=== PATIENT | male | born 1940 | race Caucasian/White ===

== ENCOUNTER 2019-11-16 08:58 | Outpatient (CLI) | payer MEDICARE, SELFPAY ==
--- NOTE | ~2019-11-16 | XR_ITS ---
EXAMINATION: XR chest 2V DATE: 11/16/2019 09:40 INDICATION: Penile cancer. TECHNIQUE: Frontal and lateral views of the chest were obtained. COMPARISON: Chest 2 views 11/11/2018, CT abdomen and pelvis 11/11/2018 FINDINGS: There is mild atelectasis versus scarring at left lung base. No pleural effusion or pneumot horax. The heart size is normal. Median sternotomy wires and mediastinal surgical clips are seen, lik jaimee from prior coronary artery bypass grafting. There is a left chest wall pacer with leads in the ri ght atrium and right ventricle. There is a prominent left paracardial fat pad. Surgical clips in the right upper quadrant are likely from cholecystectomy. IMPRESSION: 1. Mild atelectasis versus scarring at left lung base. Reviewed, dictated and finalized at location A. ECTOR WELDED PARTS
--- NOTE | ~2019-11-16 | CT_ITS ---
EXAMINATION: CT abdomen pelvis w con INDICATION: Penile cancer TECHNIQUE: Computed tomographic images of the abdomen and pelvis were obtained after the administrati on of 100 cc of Omnipaque 350 intravenous contrast. The dose-length product (DLP) was 817.25 mGy-cm. Automated exposure control and iterative reconstruction technique were employed. COMPARISON: 11/11/2018 FINDINGS: There is mild atelectasis of the visualized lung bases. Cardiomegaly is noted. There are ch anges of prior cardiac surgery. Cardiac pacemaker leads are noted in the right atrium and right ventr icle. There is chronic elevation of the left hemidiaphragm. The gallbladder is surgically absent. The re is mild enlargement of the common bile duct and central intrahepatic ducts which is likely due to post cholecystectomy state. The liver, spleen, pancreas, and adrenal glands are normal. There is a 2. 7 cm cyst of the left kidney. The kidneys are otherwise unremarkable. There is calcified atherosclero sis of the aorta and many of the other arteries. No pathologically enlarged abdominal or pelvic lymph nodes are identified. Prostatic calcifications are noted. There is circumferential thickening of the urinary bladder wall. Colonic diverticulosis is present without evidence of diverticulitis. The appe ndix is normal. There is mild lumbar spondylosis. IMPRESSION: 1. No evidence of metastatic disease. 2. Circumferential bladder wall thickening which may be due to chronic outlet obstruction or cystitis . Reviewed, dictated and finalized at location A. CHUTE ACCESSORIES ATTACHER IMPRESSION: 1. No evidence of metastatic disease. 2. Circumferential bladder wall thickening which may be due to chronic outlet o bstruction or cystitis.
[2019-11-16 09:51] LABS: Blood Urea Nitrogen 10 mg/dL (8-26); Estimated Glomerular Filt Rate 53
== END 2019-11-16 08:59 | disposition home or self-care (01) ==
PROVIDERS: PCP Family Medicine; Visit Provider Urology
DX: C60.9 Malignant neoplasm of penis, unspecified (principal); R91.8 Other nonspecific abnormal finding of lung field
CPT/HCPCS: 71046; 74177; Q9967

== ENCOUNTER 2020-12-05 15:50 | Outpatient (CLI) | payer MEDICARE, SELFPAY ==
--- NOTE | ~2020-12-05 | XR_ITS ---
XR chest 2V DATE: 12/05/2020 16:47 INDICATION: Midsternal chest pain, shortness of breath. History of stents, myocardial infarction, hyp ertension. TECHNIQUE: PA and lateral views COMPARISON: 11/16/2019 PA and lateral chest 11/11/2018 PA and lateral chest FINDINGS: Left-sided pacemaker device with leads overlying right atrium and right ventricle. Status post sternotomy and coronary artery bypass graft surgery. Cardiomegaly. Aortic arch calcification. Chronic blunting of the left costophrenic angle, present on 11/11/2018. No pulmonary consolidation or pleural effusion or pneumothorax is evident. Diffuse osteopenia. IMPRESSION: Status post sternotomy/CABG Cardiomegaly, aortic atherosclerosis No active disease or significant change since 11/11/2018 Reviewed, dictated and finalized at location B. UNTING METHODS ANALYST
--- NOTE | ~2020-12-05 | CT_ITS ---
EXAMINATION: CT abdomen pelvis w con EXAM DATE: 12/05/2020 16:38 INDICATION: TECHNIQUE: Spiral CT of the abdomen and pelvis was performed following intravenous injection of 100 m L Omnipaque 350. Axial, coronal and sagittal images were reviewed. The dose-length product (DLP) fo r this examination was 913.82 mGy-cm. The exposure was tailored according to patient size (auto mA e xposure control), and iterative reconstruction (ASIR) was used as additional dose reduction technique . Comparison is made to prior examination from 11/16/2019. FINDINGS: The liver, spleen, adrenal glands and pancreas are unremarkable. There are cholecystectomy clips. There is a small splenule. Portal and splenic veins are patent. Kidneys enhance symmetrical ly. There is no hydronephrosis. Left renal exophytic 3 cm cyst. Punctate left nephrolithiasis. There is mild prostatomegaly. The bladder is unremarkable. Inguinal canals are unremarkable. There is no retroperitoneal or pelvic lymphadenopathy. There is moderate scattered arteriosclerotic disease. There are no findings to suggest appendicitis. The stomach and small bowel are unremarkable. There is expected amount of colonic stool. There is moderate scattered colonic diverticulosis. There is no adjacent inflammatory change to suggest diverticulitis. No free intraperitoneal gas. The heart is normal in size. There are no pericardial or pleural effusions. The lung bases are unremarkable. There are no osteoblastic or osteolytic lesions identified. IMPRESSION: 1. Stable exam. No evidence of metastatic disease. 2. Punctate left calyceal stone. 3. Colonic diverticulosis. Reviewed, dictated and finalized at location A. CAL OBSERVER
[2020-12-05 16:27] LABS: Estimated Glomerular Filt Rate 53
== END 2020-12-05 15:51 | disposition home or self-care (01) ==
PROVIDERS: PCP Family Medicine; Visit Provider Urology
DX: C60.9 Malignant neoplasm of penis, unspecified (principal); K57.90 Diverticulosis of intestine, part unspecified, without perforation or abscess without bleeding; Z95.1 Presence of aortocoronary bypass graft; I51.7 Cardiomegaly; I70.0 Atherosclerosis of aorta
CPT/HCPCS: 71046; 74177; Q9967

== ENCOUNTER 2022-01-06 13:28 | Outpatient (CLI) | payer MEDICARE, BC, SELFPAY ==
[2022-01-06 14:26] LABS: Hematocrit 43.7 % (42.0-52.0); Hemoglobin 14.6 g/dL (14.0-18.0); Mean Corpuscular HGB Conc 33.4 g/dl (32-36); Mean Corpuscular Hemoglobin 32.7 pg (26-34); Mean Corpuscular Volume 97.8 fl (80-100); Mean Platelet Volume 9.5 fl (7.4-10.4); Platelet Count Result 218 k/mm3 (150-375); Red Blood Count 4.47 M/mm3 (4.6-6.20); Red Cell Distribution Width 13.6 % (11.5-14.5); White Blood Count 8.5 K/mm3 (4.5-10.0)
[2022-01-06 14:41] LABS: Alanine Aminotransferase 23 U/L (4-50); Albumin Level 3.6 g/dL (3.5-5.1); Alkaline Phosphatase 90 U/L (38-126); Anion Gap 3 mmol/L (8-16); Aspartate Amino Transferase 32 U/L (17-59); Bilirubin,Total 1.8 mg/dL (0.2-1.3); Blood Urea Nitrogen 16 mg/dL (9-20); Calcium 8.5 mg/dL (8.4-10.2); Carbon Dioxide 28 mmol/L (22-30); Chloride 107 mmol/L (98-107); Cholesterol 98 mg/dL (0-200); Estimated Glomerular Filt Rate 58; Glucose 98 mg/dL (65-110); HDL Direct 25 mg/dL; Potassium 4.8 mmol/L (3.4-5.0); Sodium 138 mmol/L (137-145); Triglycerides 96 mg/dL (<150)
[2022-01-06 14:52] LABS: LDL Cholesterol Direct 48 mg/dL
[2022-01-06 18:06] LABS: Hemoglobin A1C 5.2 % (<5.7)
== END 2022-01-06 13:29 | disposition home or self-care (01) ==
LOC: ANHLAB 13:34
PROVIDERS: PCP Family Medicine; Visit Provider Family Medicine
DX: E78.2 Mixed hyperlipidemia (principal); R73.9 Hyperglycemia, unspecified; R53.83 Other fatigue; E78.5 Hyperlipidemia, unspecified; I10 Essential (primary) hypertension
CPT/HCPCS: 36415; 80053; 80061; 83036; 84443; 85027

== ENCOUNTER 2022-08-26 13:03 | Outpatient (CLI) | payer MEDICARE, BC, SELFPAY ==
--- NOTE | ~2022-08-26 | XR_ITS ---
XR chest 2V DATE: 08/26/2022 13:22 INDICATION: Cough, congestion TECHNIQUE: AP and lateral views COMPARISON: December 05, 2020 PA and lateral chest FINDINGS: Status post sternotomy. Left transvenous pacemaker device with leads overlying right atrium and right ventricle. Electronically monitor device is noted overlying the left chest. There is elevation of the left leaf of the diaphragm and left basilar infiltrate or atelectasis. The remaining lung patel are clear. No pleural effusion or pulmonary vascular congestion or pneumoth orax are noted. Aortic arch and descending thoracic aortic and abdominal aortic calcification. Diffuse osteopenia. Status post cholecystectomy. IMPRESSION: Elevated left diaphragm and left basilar infiltrate and/or atelectasis Reviewed, dictated and finalized at location A. AL ASSAULT RESPONSE COORDINATOR IMPRESSION: Elevated left diaphragm and left basilar infiltrate and/or atelecta sis
== END 2022-08-26 13:04 | disposition home or self-care (01) ==
LOC: ANHIMG 13:08
PROVIDERS: PCP Family Medicine; Visit Provider Physician Assistant Medical
DX: R05.9 Cough, unspecified (principal); R09.81 Nasal congestion; Z90.49 Acquired absence of other specified parts of digestive tract; M85.88 Other specified disorders of bone density and structure, other site
CPT/HCPCS: 71046

== ENCOUNTER 2022-11-09 14:29 | Outpatient (CLI) | payer MEDICARE, BC, SELFPAY ==
[2022-11-09 15:02] LABS: Anion Gap 2 mmol/L (8-16); Blood Urea Nitrogen 16 mg/dL (9-20); Calcium 8.3 mg/dL (8.4-10.2); Carbon Dioxide 28 mmol/L (22-30); Chloride 109 mmol/L (98-107); Estimated Glomerular Filt Rate 58; Glucose 96 mg/dL (65-110); Potassium 4.5 mmol/L (3.4-5.0); Sodium 139 mmol/L (137-145)
== END 2022-11-09 14:30 | disposition home or self-care (01) ==
LOC: ANHLAB 14:31
PROVIDERS: PCP Family Medicine; Visit Provider Specialist
DX: I25.10 Atherosclerotic heart disease of native coronary artery without angina pectoris (principal); Z95.1 Presence of aortocoronary bypass graft
CPT/HCPCS: 36415; 80048

== ENCOUNTER 2023-01-06 06:05 | Inpatient (IN) | payer MEDICARE, BC, SELFPAY ==
[2023-01-06] VITALS (19 sets, daily range): BP systolic 83–142; BP diastolic 39–80; PULSE 61–110; RESP 11–20; TEMP 36.2–36.4; O2SAT 96–100; BMI 31.1
--- NOTE | ~2023-01-06 | XR_ITS ---
AP view of the pelvis Clinical history: Pain Findings: No acute fracture or dislocation is seen. Osseous alignment is anatomic. Bilateral hip and SI joint spaces are preserved. Soft tissues are unremarkable. Impression: No significant abnormality is seen. Reviewed, dictated and finalized at location M. Impression: No significant abnormality is seen.
--- NOTE | ~2023-01-06 | CT_ITS ---
EXAMINATION: CT lumbar spine wo con DATE: 01/07/2023 15:50 INDICATION: Lumbar radiculopathy TECHNIQUE: Computed tomography (CT) of the lumbar spine was performed without intravenous contrast. T he dose-length product (DLP) was 1374.28 mGy-cm. Iterative reconstruction was used. COMPARISON: 12/05/2020 FINDINGS: No fracture, dislocation, or subluxation. There is moderate loss of intervertebral disc spa ce height at L5-S1. The vertebral body heights are maintained. The prevertebral soft tissues are norm al. Small degenerative osteophytes project from the anterior endplates of multiple vertebral bodies. IMPRESSION: 1. Moderate lumbar spondylosis at L4-5 with interval worsening since the comparison examination. Reviewed, dictated and finalized at location B. IMPRESSION: 1. Moderate lumbar spondylosis at L4-5 with interval worsening since the compar anibal examination.
--- NOTE | ~2023-01-06 | CT_ITS ---
Non-contrast Head CT History: Status post fall Technique: Axial non-contrast imaging of the brain was performed. Dose reduction technique was used on this scan by utilizing automated exposure control and iterative reconstruction technique. The dose -length product (DLP) was 605.33 mGy-cm. Findings: There is no evidence of intracranial hemorrhage, mass lesion, or acute infarct. Brain par enchyma appears normal. The ventricles and subarachnoid spaces are normal in size. The calvarium ap pears normal. The visualized paranasal sinuses and mastoid air cells are clear. Impression: No significant abnormality seen. Reviewed, dictated and finalized at location . Impression: No significant abnormality seen.
--- NOTE | 2023-01-06 06:20 | ECG_ITS ---
Measurements Intervals [place] Rate: 108 P: MA: 0 QRS: 99 QRSD: 146 T: -66 QT: 367 QTc: 494 Interpretive Statements ELECTRONIC VENTRICULAR PACEMAKER VENTRICULAR TRIGEMINY NO FURTHER INTERPRETATION IS POSSIBLE ABNORMAL ECG NO PREVIOUS ECG AVAILABLE FOR COMPARISON Electronically Signed On 01-06-2023 6:29:09 CDT by Bruce Farley D.O.
--- NOTE | 2023-01-06 06:21 | ED.WEAKNESS ---
HPI - Weakness General Chief complaint: Weakness <Nando Song MD - Last Filed: 01/06/23 07:10> Stated complaint: weakness <Nando Song MD - Last Filed: 01/06/23 07:10> Time Seen by Provider: 01/06/23 06:06 <Nando Song MD - Last Filed: 01/06/23 07:10> History of Present Illness HPI Narrative: This is an 82-year-old gentleman with past medical history of coronary artery disease status post CABG, hyperlipidemia who is brought in by EMS after a ground-level fall at home. The patient states he stood up approximately 3 hours ago, walked a few steps and felt his left leg gave out from underneath him. He states he fell to the floor landing on his left side. He does not believe he struck his head and denies loss of consciousness. He denies chest pain, palpitations prior to or after the fall. He denies vomiting or diarrhea. <Nando Song MD - Last Filed: 01/06/23 07:10> Related Data Home medications: Home Medications Medication Instructions Recorded Confirmed Lactobacills gasseri-Bifidobac 1 cap PO DAILY 10/05/19 12/09/22 bifidum,longum 1.5 billion cell capsule aspirin 81 mg chewable tablet 81 mg PO DAILY 10/05/19 08/26/22 clopidogrel 75 mg tablet (Plavix) 75 mg PO DAILY 12/27/19 12/09/22 isosorbide mononitrate 60 mg 60 mg PO DAILY 12/27/19 12/09/22 tablet,extended release 24 hr sacubitril 24 mg-valsartan 26 mg 1 tablet PO BID 12/09/22 12/09/22 tablet (Entresto) <Nando Song MD - Last Filed: 01/06/23 07:10> Allergies/Adverse reactions: Allergies Allergy/AdvReac Type Severity Reaction Status Date / Time No Known Drug Allergies Allergy Unknown Unknown Verified 12/09/22 14:10 <Nando Song MD - Last Filed: 01/06/23 07:10> Review of Systems Review of Systems: CONSTITUTIONAL: Generalized weakness Denies fever, chills, or sweats. EYES: Denies visual changes, redness, or discharge. ENT: Denies rhinorrhea, congestion, sore throat, or otalgia. CARDIOVASCULAR: Denies chest pain, palpitations, or edema. RESPIRATORY: Denies cough or dyspnea. GASTROINTESTINAL: Denies abdominal pain, nausea, vomiting, or diarrhea. GENITOURINARY: Denies dysuria or hematuria. SKIN: Denies rash or itching. MUSCULOSKELETAL: Denies back pain, joint pain, or myalgia. NEUROLOGIC: Denies headache, numbness, dizziness, or weakness. PSYCHIATRIC: Denies anxiety or depression. <Nando Song MD - Last Filed: 01/06/23 07:10> [facility] Past Medical History Medical History: Medical History Coronary artery disease History of left heart catheterization (LHC) 11/12/2016 History of pacemaker History of prediabetes Hypertension Mitral valve regurgitation <Nando Song MD - Last Filed: 01/06/23 07:10> Surgical History Surgical History: Surgical History H/O circumcision 03/13/2013 History of cholecystectomy History of heart artery stent History of hemorrhoidectomy 01/27/1981 Hx of CABG <Nando Song MD - Last Filed: 01/06/23 07:10> Family History Family History: Family History Grandparent Hypertension Father Family history of cardiovascular disease Mother Family history of cardiovascular disease Sibling Family history of cardiovascular disease <Nando Song MD - Last Filed: 01/06/23 07:10> Social History Social History: Social History Smoking status: Former smoker Tobacco type: cigarettes Second hand tobacco smoke exposure: No Smoking end date: 10/17/90 Alcohol intake: never Substance use: never Substance use type: does not use Lack of Transportation: No Lack of Food: Never True Current Housing: I Have Housing Concerned About Future Housing: No Difficulty Paying G
[2023-01-06] MEDS: SODIUM CHLORIDE 0.9% IV 500 ML 999 ML IV CONT (06:28)
[2023-01-06 06:44] LABS: Basophils Percent Auto 0.3 % (0.2-1.2); Eosinophils Absolute Auto 0.4 K/mm3 (0-0.3); Eosinophils Percent Auto 4.7 % (0-4.4); Hematocrit 45.6 % (42.0-52.0); Immature Granulocyte Absolute 0.03 K/mm3 (0.00-0.031); Immature Granulocyte Percent A 0.3 % (0-0.5); Lymphocytes Absolute Auto 0.72 K/mm3 (0.9-3.2); Lymphocytes Percent Auto 8.2 % (18.3-44.2); Mean Corpuscular HGB Conc 32.9 g/dl (32-36); Mean Corpuscular Hemoglobin 32.5 pg (26-34); Mean Corpuscular Volume 98.9 fl (80-100); Mean Platelet Volume 9.8 fl (7.4-10.4); Monocytes Absolute Auto 0.9 K/mm3 (0.1-0.6); Monocytes Percent Auto 10.6 % (2.6-8.5); Neutrophils Absolute Auto 6.6 K/mm3 (1.3-6.7); Neutrophils Percent Auto 75.9 % (45.5-73.1); Platelet Count Result 171 k/mm3 (150-375); Red Blood Count 4.61 M/mm3 (4.6-6.20); Red Cell Distribution Width 13.9 % (11.5-14.5); White Blood Count 8.8 K/mm3 (4.5-10.0)
[2023-01-06 06:52] LABS: Alanine Aminotransferase 23 U/L (6-50); Albumin Level 3.6 g/dL (3.5-5.1); Alkaline Phosphatase 94 U/L (38-126); Anion Gap 5 mmol/L (8-16); Aspartate Amino Transferase 33 U/L (17-59); Bilirubin,Total 1.6 mg/dL (0.2-1.3); Blood Urea Nitrogen 23 mg/dL (9-20); Calcium 8.7 mg/dL (8.4-10.2); Carbon Dioxide 24 mmol/L (22-30); Chloride 110 mmol/L (98-107); Estimated CRCL calculation 43 ml/min; Estimated Glomerular Filt Rate 53; Glucose 100 mg/dL (65-110); Magnesium 2.2 mg/dL (1.6-2.3); Potassium 4.7 mmol/L (3.4-5.0); Sodium 139 mmol/L (137-145)
[2023-01-06 08:31] LABS: Bacteria Urine None Seen /hpf; RBC Urine >100 /hpf (0-2); Squamous Epithelial Cell Urine None seen /hpf (Few); WBC Urine 21-50 /hpf
[2023-01-06 08:40] LABS: Appearance Urine Cloudy (Clear); Bilirubin Urine Negative (Negative); Blood Urine 3+ (Negative); Glucose Urine UA Negative (Negative); Ketones Urine Trace mg/dL (Negative); Leukocyte Esterase Ur 2+ LEU/UL (Negative); Nitrate Urine Negative (Negative); Protein Urine 2+ mg/dL (Negative); Specific Grav Ur 1.012 (1.001-1.035); pH Urine 6.5 (5.0-9.0)
[2023-01-06 08:41] LABS: Color Urine Red (Yellow)
[2023-01-06 08:42] LABS: Add Urine Microscopic? YES
[2023-01-06] MEDS: ACETAMINOPHEN 500 MG TABLET 1000 MG PO (08:52)
[2023-01-06 10:01] LABS: Troponin I < 0.012 ng/mL (0.000-0.034)
[2023-01-06 10:06] LABS: Troponin I < 0.012 ng/mL (0.000-0.034)
--- NOTE | 2023-01-06 11:26 | PCOTNOTE ---
Will complete OT evaluation after work up is complete. Will follow.
--- NOTE | 2023-01-06 12:38 | ADMGEN ---
This patient, Yoseph Luis Jr., was admitted to 3 Med Surg Room 321-01. Patient/family oriented to hospital policies and general routines including ID bracelet, bed and alarms, visiting hours, pain management, procedures, bathroom and other care routines, personal items, smoking policy, room service/diet, and visiting hours. Information on how to activate the Rapid Response Team has been discussed. Patient/Family are encouraged to report perceived risks to care and to ask questions if they do not understand what they are told or what they should do.
[2023-01-06 12:56] LABS: Troponin I < 0.012 ng/mL (0.000-0.034)
--- NOTE | 2023-01-06 13:06 | PCPTNOTE ---
Will complete PT evaluation after work up is complete. Will follow.
--- NOTE | 2023-01-06 13:11 | PCOTNOTE ---
Will complete OT evaluation after work up is complete. Will follow.
--- NOTE | 2023-01-06 13:29 | PM.IMHP ---
H&P: HPI History of Present Illness Date/Time: 01/06/23 13:29 Chief Complaint: fall Narrative: This is an 82-year-old gentleman with past medical history of coronary artery disease status post CABG, hyperlipidemia who is brought in by EMS after a ground-level fall at home.? The patient states he stood up at around 3 am to go to the bathroom, walked a few steps and felt his left leg gave out from underneath him.? He states he fell to the floor landing on his left side.? He does not believe he struck his head and denies loss of consciousness.? He denies chest pain, palpitations prior to or after the fall.? He denies vomiting or diarrhea.?his ct head was negative. xr pelvis negative. pacemaker interrogated without any abnromality reported to me. he complains of left ankle pain, left thight pain whcih starts from his low back and down the leg. he reports this is ongoing since many years. he is told he has lumbar spinal stenosis. he has not seen a surgeon or pain managment for this. Review of Systems Review of Systems: - CONSTITUTIONAL: Denies weight loss, fever and chills. - HEENT: Denies changes in vision and hearing - RESPIRATORY: Denies SOB and cough. - CV: Denies palpitations and CP. - GI: Denies abdominal pain, nausea, vomiting and diarrhea. - : Denies dysuria and urinary frequency. - MSK: Denies myalgia and reports left hip joint pain. - SKIN: Denies rash and pruritus. - NEUROLOGICAL: Denies headache and syncope. Reports recurrent fall - PSYCHIATRIC: Denies recent changes in mood. Denies anxiety and depression. [facility] Past Medical History Medical History Coronary artery disease History of left heart catheterization (LHC) 11/12/2016 History of pacemaker History of prediabetes Hypertension Mitral valve regurgitation Surgical History Surgical History H/O circumcision 03/13/2013 History of cholecystectomy History of heart artery stent History of hemorrhoidectomy 01/27/1981 Hx of CABG Family History Family History Grandparent Hypertension Father Family history of cardiovascular disease Mother Family history of cardiovascular disease Sibling Family history of cardiovascular disease Social History Social History Smoking packs per day: 1.5 Smoking cigarettes per day: 30.0 Years smoked: 50 Smoking pack-years: 75.00 Smoking status: Former smoker Tobacco type: cigarettes Second hand tobacco smoke exposure: No Smoking end date: 10/17/90 Alcohol intake: never Substance use: never Substance use type: does not use Lack of Transportation: No Lack of Food: Never True Current Housing: I Have Housing Concerned About Future Housing: No Difficulty Paying Gas/Electric Bills: No Difficulty Paying for Meds: No Currently Unemployed: No Education: High School Diploma/GED Difficulty w/ Childcare or Family Care: No Living arrangements: with family Occupation/Education: retired Gender identity (if verbalized by the patient): Male Sexual Orientation (if Verbalized by the Patient): Straight or Heterosexual Spiritual care concerns: No Agree to blood products: Yes Meds Home Medications and Allergies Home Medications Medication Instructions Recorded Confirmed Type aspirin 81 mg chewable tablet 81 mg PO DAILY 10/05/19 01/06/23 History clopidogrel 75 mg tablet (Plavix) 75 mg PO DAILY 12/27/19 01/06/23 History nitroglycerin 0.4 mg sublingual 0.4 mg sublingual Q5M PRN Chest 11/16/21 01/06/23 Rx tablet (Nitrostat) Pain #25 tabs tamsulosin 0.4 mg capsule (Flomax) 0.4 mg PO DAILY #90 caps 12/29/21 01/06/23 Rx rosuvastatin 40 mg tablet (Crestor) 40 mg PO DAILY #90 tabs 08/25/22 01/06/23 Rx fluticasone propionate 110 1 puff inhalation Q12H #12
[2023-01-06] MEDS: ROSUVASTATIN 10 MG TABLET 40 MG PO (16:55)
[2023-01-06] MEDS: TAMSULOSIN HCL 0.4 MG CAPSULE PO (16:55)
[2023-01-06] MEDS: ASPIRIN 81 MG CHEWABLE TABLET PO (16:56)
[2023-01-06] MEDS: CLOPIDOGREL BISULFATE 75 MG TABLET PO (16:56)
[2023-01-06] MEDS: FLUTICASONE PROP 110 MCG INHALER 12 GM (*SP) 1 PUFF INHALATION (22:00)
[2023-01-07] VITALS (14 sets, daily range): BP systolic 89–112; BP diastolic 50–60; PULSE 61–87; RESP 16–18; TEMP 35.9–36.6; O2SAT 95–97
[2023-01-07 07:00] LABS: Basophils Percent Auto 0.4 % (0.2-1.2); Eosinophils Absolute Auto 0.4 K/mm3 (0-0.3); Eosinophils Percent Auto 4.9 % (0-4.4); Hematocrit 39.2 % (42.0-52.0); Hemoglobin 12.9 g/dL (14.0-18.0); Immature Granulocyte Absolute 0.02 K/mm3 (0.00-0.031); Immature Granulocyte Percent A 0.2 % (0-0.5); Lymphocytes Absolute Auto 0.91 K/mm3 (0.9-3.2); Mean Corpuscular HGB Conc 32.9 g/dl (32-36); Mean Corpuscular Hemoglobin 32.3 pg (26-34); Mean Platelet Volume 10.1 fl (7.4-10.4); Neutrophils Absolute Auto 5.9 K/mm3 (1.3-6.7); Neutrophils Percent Auto 71.5 % (45.5-73.1); Platelet Count Result 155 k/mm3 (150-375); Red Cell Distribution Width 13.8 % (11.5-14.5); White Blood Count 8.3 K/mm3 (4.5-10.0)
[2023-01-07 07:09] LABS: Alanine Aminotransferase 20 U/L (6-50); Albumin Level 3.2 g/dL (3.5-5.1); Alkaline Phosphatase 71 U/L (38-126); Anion Gap 4 mmol/L (8-16); Aspartate Amino Transferase 30 U/L (17-59); Bilirubin,Total 1.3 mg/dL (0.2-1.3); Blood Urea Nitrogen 29 mg/dL (9-20); Calcium 8.2 mg/dL (8.4-10.2); Carbon Dioxide 23 mmol/L (22-30); Chloride 110 mmol/L (98-107); Estimated CRCL calculation 40 ml/min; Estimated Glomerular Filt Rate 49; Glucose 87 mg/dL (65-110); Magnesium 2.3 mg/dL (1.6-2.3); Potassium 4.3 mmol/L (3.4-5.0); Sodium 137 mmol/L (137-145)
[2023-01-07] MEDS: ROSUVASTATIN 10 MG TABLET 40 MG PO (08:48)
[2023-01-07] MEDS: SACUBITRIL/VALSARTAN 24-26 MG TABLET 1 TAB PO ×2 (08:54→17:23)
[2023-01-07] MEDS: CLOPIDOGREL BISULFATE 75 MG TABLET PO (08:54)
[2023-01-07] MEDS: TAMSULOSIN HCL 0.4 MG CAPSULE PO (08:54)
[2023-01-07] MEDS: METOPROLOL SUCCINATE EXT REL 25 MG TABCR PO (08:55)
[2023-01-07] MEDS: FLUTICASONE PROP 110 MCG INHALER 12 GM (*SP) 1 PUFF INHALATION ×2 (09:41→20:55)
[2023-01-07] MEDS: ASPIRIN 81 MG CHEWABLE TABLET PO (10:02)
[2023-01-07] MEDS: ACETAMINOPHEN 325 MG TABLET 650 MG PO (12:38)
--- NOTE | 2023-01-07 15:05 | PM.IMPN ---
Progress Note: A&P Assessment and Plan (1) Generalized weakness: Code(s): R53.1 - Weakness Status: Acute (2) Ventricular trigeminy: Code(s): I49.8 - Other specified cardiac arrhythmias Status: Acute (3) Recurrent falls: Code(s): R29.6 - Repeated falls Status: Acute (4) Cardiac LV ejection fraction of 35-39%: Code(s): R94.30 - Abnormal result of cardiovascular function study, unspecified Status: Acute (5) Primary hypertension: Code(s): I10 - Essential (primary) hypertension Status: Acute (6) Hyperlipidemia: Qualifiers: Hyperlipidemia type: unspecified Qualified Code(s): E78.5 - Hyperlipidemia, unspecified Code(s): E78.5 - Hyperlipidemia, unspecified Status: Acute (7) History of heart artery stent: Code(s): Z95.5 - Presence of coronary angioplasty implant and graft Status: Acute (8) Coronary artery disease: Code(s): I25.10 - Atherosclerotic heart disease of [place] coronary artery without angina pectoris Status: Acute (9) Pacemaker: Code(s): Z95.0 - Presence of cardiac pacemaker Status: Acute (10) Complete heart block: Code(s): I44.2 - Atrioventricular block, complete Status: Acute (11) Urinary tract infection: Code(s): N39.0 - Urinary tract infection, site not specified Status: Acute Plan Mechanical fall history not suggestive of syncope. Pacemaker interrogation with no arrhythmia reported to me from the ED. CT head is negative. History of recurrent fall in the past. Counts related to lumbar degenerative disc disease/stenosis. No imaging of this revealed in his medical chart. Could not get due to pacemaker. PT OT to see Discussed with. Need SNF placement Left ankle pain from the fall x-ray foot unremarkable UTI: Ceftriaxone continue same Ventricular trigeminy on initial EKG. Continue telemetry monitoring pacemaker interrogation with no ventricular arrhythmias Coronary artery disease status post CABG 1992 followed by stent placement last year. On aspirin Plavix Chronic systolic heart failure ejection fraction 30-35% in the past as reported. Last echocardiogram on 11/08: 53% well compensated continue sacubitril valsartan. mildly hypotensive at times which baseline Hypertension Hyperlipidemia History of complete heart block status post pacemaker implantation CKD stage 2 DVT prophylaxis Lovenox Code status full code Subjective Date/time seen: 01/07/23 15:05 Interval history: No overnight events. Work with therapy today sore in his low back on the left side with tingling and numbness and burning sensation. Could not get MRI due to pacemaker. Review of Systems Review of Systems: All systems reviewed & are unremarkable except as noted in HPI and below Exam Narrative: GENERAL: Well-developed, well-nourished, and in no acute distress. HEAD: Normocephalic, atraumatic. EYES: PERRLA and EOMI. ENT: Nares clear, no rhinorrhea or epistaxis.? Mucous membranes moist. NECK: Supple.? No adenopathy or masses.? No carotid bruits or JVD. CHEST: Clear to auscultation.? No respiratory distress.? No wheezes rales or rhonchi.? Well-healed midline surgical scar scar consistent with CABG. Pacemaker in-situ on left upper chest wall HEART: Irregularly irregular.? Rate controlled. No murmur heard.? Normal peripheral pulses. ABDOMEN: Soft, nontender, nondistended, normal active bowel sounds. BACK: Lumbar paraspinal tenderness to palpation EXTREMITIES: Normal range of motion.? No edema.? Mild tenderness to palpation over the left greater trochanter. SKIN: Scattered ecchymoses, predominantly on the left upper extremity. Skin otherwise warm, dry, no rash. NEURO: No focal deficits.? Alert and oriented x3. PSYCH: Normal mood and affect.? Objective Data Vital Signs Vital Signs: Vital Signs - 24 hr 01/06/23 16:54 01/06/23 16:00 01/06/23 21:30 Temperature 97.4 F L Pulse R
--- NOTE | 2023-01-07 15:32 | PHAR ---
HOME MEDS: CIPROFLOXACIN 0.3%/DEXAMETHASONE 0.1% OTIC SUSPENSION; SHAKE LIQUID AND INSTILL 4 DROPS INTO LEFT EAR EVERY 12 HOURS. VERIFIED BY PHARMACY
[2023-01-08] VITALS (15 sets, daily range): BP systolic 82–117; BP diastolic 39–63; PULSE 60–90; RESP 16–18; TEMP 36.3–36.4; O2SAT 93–99
--- NOTE | 2023-01-08 06:39 | PM.CNCAR ---
Assessment and Plan Assessment and plan (1) Recurrent falls: Code(s): R29.6 - Repeated falls Status: Acute (2) Pacemaker: Code(s): Z95.0 - Presence of cardiac pacemaker Status: Acute (3) Complete heart block: Code(s): I44.2 - Atrioventricular block, complete Status: Acute (4) Cardiac LV ejection fraction of 35-39%: Code(s): R94.30 - Abnormal result of cardiovascular function study, unspecified Status: Acute (5) Coronary artery disease: Code(s): I25.10 - Atherosclerotic heart disease of [place] coronary artery without angina pectoris Status: Acute Plan This is an elderly man with chronic coronary artery disease he has undergone surgical revascularization many years ago and higher risk left main stenting several years ago because of accelerating angina and frequent nitrate consumption. He also has underlying complete heart block and in May of last year received a lead less Micra AV pacemaker as his chronically implanted dual-chamber device was at [facility] and the atrial lead was no longer functioning. He is in the hospital with what seems like a mechanical fall in my opinion I do not believe we should be withdrawing any of his guideline directed medical therapy as I do not believe he is symptomaticly hypotensive. If you have any questions regarding this opinion please let me know. Jun Dunne MD [facility] History of Present Illness History of Present Illness Consult date/time: 01/08/23 06:39 Reason For Visit: syncope Narrative: This is an 82-year-old man I am seeing at the request of the hospitalist to comment on the need for medical adjustments as it pertains to reduced blood pressure. The patient is well known to me for many years and has a history of coronary artery disease, previous surgical and percutaneous revascularization as well as complete heart block and a chronically implanted cardiac pacemaker device. He was last seen by me in the office in November of this year just last month at which time he was doing well. During his recent office visits we have commented or made note of the fact that the patient has soft systolic blood pressure at times is in the 90s which we have elected to tolerated as he has not been reporting any symptoms of lightheadedness on arising or anything that sounds like orthostasis. The patient came into the hospital a couple of days ago here at [place] after falling in his home. He states that he was getting up out of a chair to go to the bathroom and he took 3 or 4 steps and then his legs gave out and he fell to the floor. He was not lightheaded or presyncopal he did not lose consciousness. For some reason syncope is on the chart but the patient does not report syncope this sounds like a mechanical fall to me. Since he has been in the hospital his blood pressure has been variable at times in the 90s but as stated above this does appear to be his baseline and from what I have noted no recent office appointments in my chart as well. He does not have any cardiovascular complaints such as chest pain shortness of breath orthopnea PND or accumulating edema. The patient has history of coronary disease is summarized as follows. He underwent a bypass operation for multivessel coronary disease back in 1992. He has a history of complete heart block and had a pacemaker implanted a long time ago. He had a standard a Biotronik dual-chamber device which was changed to a Medtronic leadless micro device in May of 2022 IAS is old device was at [facility] it is atrial lead was not functioning. The Biotronik device was not explanted but was turned down to a heart rate of 30 so he is pacing currently with his lead list device. The patient has a history of ischemic chest pain that accelerated back in 2019 at that time a follow-up catheterization demonstrated high-grade left main stenosis which was addressed effectively at [facility] with left main stenting. Since t
[2023-01-08 07:13] LABS: Basophils Percent Auto 0.3 % (0.2-1.2); Eosinophils Absolute Auto 0.5 K/mm3 (0-0.3); Eosinophils Percent Auto 5.6 % (0-4.4); Hematocrit 37.5 % (42.0-52.0); Hemoglobin 12.5 g/dL (14.0-18.0); Immature Granulocyte Absolute 0.03 K/mm3 (0.00-0.031); Immature Granulocyte Percent A 0.3 % (0-0.5); Lymphocytes Absolute Auto 0.79 K/mm3 (0.9-3.2); Lymphocytes Percent Auto 9.1 % (18.3-44.2); Mean Corpuscular HGB Conc 33.3 g/dl (32-36); Mean Corpuscular Hemoglobin 32.3 pg (26-34); Mean Corpuscular Volume 96.9 fl (80-100); Monocytes Absolute Auto 1.3 K/mm3 (0.1-0.6); Monocytes Percent Auto 14.5 % (2.6-8.5); Neutrophils Absolute Auto 6.1 K/mm3 (1.3-6.7); Neutrophils Percent Auto 70.2 % (45.5-73.1); Platelet Count Result 155 k/mm3 (150-375); Red Blood Count 3.87 M/mm3 (4.6-6.20); White Blood Count 8.7 K/mm3 (4.5-10.0)
[2023-01-08 07:34] LABS: Alanine Aminotransferase 21 U/L (6-50); Alkaline Phosphatase 74 U/L (38-126); Anion Gap 3 mmol/L (8-16); Aspartate Amino Transferase 30 U/L (17-59); Bilirubin,Total 1.1 mg/dL (0.2-1.3); Blood Urea Nitrogen 32 mg/dL (9-20); Calcium 8.2 mg/dL (8.4-10.2); Carbon Dioxide 23 mmol/L (22-30); Chloride 111 mmol/L (98-107); Estimated CRCL calculation 33 ml/min; Estimated Glomerular Filt Rate 39; Glucose 95 mg/dL (65-110); Magnesium 2.4 mg/dL (1.6-2.3); Potassium 4.4 mmol/L (3.4-5.0); Sodium 137 mmol/L (137-145)
[2023-01-08] MEDS: FLUTICASONE PROP 110 MCG INHALER 12 GM (*SP) 1 PUFF INHALATION ×2 (08:18→21:39)
[2023-01-08] MEDS: ROSUVASTATIN 10 MG TABLET 40 MG PO (08:47)
[2023-01-08] MEDS: SACUBITRIL/VALSARTAN 24-26 MG TABLET 1 TAB PO (08:47)
[2023-01-08] MEDS: METOPROLOL SUCCINATE EXT REL 25 MG TABCR PO (08:47)
[2023-01-08] MEDS: ASPIRIN 81 MG CHEWABLE TABLET PO (08:47)
[2023-01-08] MEDS: CLOPIDOGREL BISULFATE 75 MG TABLET PO (08:47)
[2023-01-08] MEDS: TAMSULOSIN HCL 0.4 MG CAPSULE PO (08:48)
[2023-01-08] MEDS: ACETAMINOPHEN 325 MG TABLET 650 MG PO (14:47)
--- NOTE | 2023-01-08 14:47 | PM.IMPN ---
Progress Note: A&P Assessment and Plan (1) Generalized weakness: Code(s): R53.1 - Weakness Status: Acute (2) Ventricular trigeminy: Code(s): I49.8 - Other specified cardiac arrhythmias Status: Acute (3) Recurrent falls: Code(s): R29.6 - Repeated falls Status: Acute (4) Cardiac LV ejection fraction of 35-39%: Code(s): R94.30 - Abnormal result of cardiovascular function study, unspecified Status: Acute (5) Primary hypertension: Code(s): I10 - Essential (primary) hypertension Status: Acute (6) Hyperlipidemia: Qualifiers: Hyperlipidemia type: unspecified Qualified Code(s): E78.5 - Hyperlipidemia, unspecified Code(s): E78.5 - Hyperlipidemia, unspecified Status: Acute (7) History of heart artery stent: Code(s): Z95.5 - Presence of coronary angioplasty implant and graft Status: Acute (8) Coronary artery disease: Code(s): I25.10 - Atherosclerotic heart disease of [place] coronary artery without angina pectoris Status: Acute (9) Pacemaker: Code(s): Z95.0 - Presence of cardiac pacemaker Status: Acute (10) Complete heart block: Code(s): I44.2 - Atrioventricular block, complete Status: Acute (11) Urinary tract infection: Code(s): N39.0 - Urinary tract infection, site not specified Status: Acute Plan # Mechanical fall history not suggestive of syncope. Pacemaker interrogation with no arrhythmia reported to me from the ED. CT head is negative. History of recurrent fall in the past. Counts related to lumbar degenerative disc disease/stenosis. No imaging of this revealed in his medical chart. Could not get MRI due to pacemaker. PT OT to see Discussed with them. Need SNF placement # Left ankle pain from the fall x-ray foot unremarkable # UTI: Ceftriaxone continue same # Ventricular trigeminy on initial EKG. Continue telemetry monitoring pacemaker interrogation with no ventricular arrhythmias # Coronary artery disease status post CABG 1992 followed by stent placement last year. On aspirin Plavix # Chronic systolic heart failure ejection fraction 30-35% in the past as reported. Last echocardiogram on 11/08: 53% well compensated continue sacubitril valsartan. mildly hypotensive at times which baseline # Hypertension # Hyperlipidemia # History of complete heart block status post pacemaker implantation # CKD stage 2 Mild worsening of creatinine today. Will recheck and monitor. Intermittently hypotensive. Remains on Entresto and metoprolol cardiology consulted # DVT prophylaxis Lovenox # Code status full code Subjective Date/time seen: 01/08/23 14:47 Interval history: No new complaints. Has a little bit of numbness in his lower leg. CT was reviewed. Discussed with family at bedside. Review of Systems Review of Systems: All systems reviewed & are unremarkable except as noted in HPI and below Exam Narrative: GENERAL: Well-developed, well-nourished, and in no acute distress. HEAD: Normocephalic, atraumatic. EYES: PERRLA and EOMI. ENT: Nares clear, no rhinorrhea or epistaxis.? Mucous membranes moist. NECK: Supple.? No adenopathy or masses.? No carotid bruits or JVD. CHEST: Clear to auscultation.? No respiratory distress.? No wheezes rales or rhonchi.? Well-healed midline surgical scar scar consistent with CABG. Pacemaker in-situ on left upper chest wall HEART: Irregularly irregular.? Rate controlled. No murmur heard.? Normal peripheral pulses. ABDOMEN: Soft, nontender, nondistended, normal active bowel sounds. BACK: Lumbar paraspinal tenderness to palpation EXTREMITIES: Normal range of motion.? No edema.? Mild tenderness to palpation over the left greater trochanter. SKIN: Scattered ecchymoses, predominantly on the left upper extremity. Skin otherwise warm, dry, no rash. NEURO: No focal deficits.? Alert and oriented x3. PSYCH: Normal mood and affect.? Objective Data
[2023-01-09] VITALS: PULSE 107
[2023-01-09 04:00] VITALS: PULSE 69
[2023-01-09 05:50] VITALS: BP 113/60; PULSE 62; RESP 16; TEMP 36.1; O2SAT 97
[2023-01-09 07:27] LABS: Basophils Absolute Auto 0.1 K/mm3 (0.0-0.1); Basophils Percent Auto 0.6 % (0.2-1.2); Eosinophils Absolute Auto 0.5 K/mm3 (0-0.3); Eosinophils Percent Auto 6.4 % (0-4.4); Hemoglobin 12.6 g/dL (14.0-18.0); Immature Granulocyte Absolute 0.04 K/mm3 (0.00-0.031); Immature Granulocyte Percent A 0.5 % (0-0.5); Lymphocytes Absolute Auto 0.78 K/mm3 (0.9-3.2); Lymphocytes Percent Auto 9.6 % (18.3-44.2); Mean Corpuscular HGB Conc 32.3 g/dl (32-36); Mean Corpuscular Hemoglobin 31.6 pg (26-34); Mean Corpuscular Volume 97.7 fl (80-100); Mean Platelet Volume 9.9 fl (7.4-10.4); Monocytes Absolute Auto 1.3 K/mm3 (0.1-0.6); Neutrophils Absolute Auto 5.4 K/mm3 (1.3-6.7); Neutrophils Percent Auto 66.9 % (45.5-73.1); Platelet Count Result 156 k/mm3 (150-375); Red Blood Count 3.99 M/mm3 (4.6-6.20); Red Cell Distribution Width 13.9 % (11.5-14.5); White Blood Count 8.1 K/mm3 (4.5-10.0)
[2023-01-09 07:45] LABS: Alanine Aminotransferase 22 U/L (6-50); Albumin Level 3.1 g/dL (3.5-5.1); Alkaline Phosphatase 70 U/L (38-126); Anion Gap 2 mmol/L (8-16); Aspartate Amino Transferase 31 U/L (17-59); Blood Urea Nitrogen 32 mg/dL (9-20); Calcium 8.5 mg/dL (8.4-10.2); Carbon Dioxide 25 mmol/L (22-30); Chloride 112 mmol/L (98-107); Estimated CRCL calculation 33 ml/min; Estimated Glomerular Filt Rate 39; Glucose 91 mg/dL (65-110); Magnesium 2.6 mg/dL (1.6-2.3); Potassium 4.7 mmol/L (3.4-5.0); Sodium 139 mmol/L (137-145)
[2023-01-09 08:00] VITALS: PULSE 64
[2023-01-09] MEDS: ASPIRIN 81 MG CHEWABLE TABLET PO (09:05)
[2023-01-09] MEDS: ROSUVASTATIN 10 MG TABLET 40 MG PO (09:05)
[2023-01-09] MEDS: METOPROLOL SUCCINATE EXT REL 25 MG TABCR PO (09:05)
[2023-01-09] MEDS: TAMSULOSIN HCL 0.4 MG CAPSULE PO (09:05)
[2023-01-09] MEDS: CLOPIDOGREL BISULFATE 75 MG TABLET PO (09:05)
[2023-01-09] MEDS: SACUBITRIL/VALSARTAN 24-26 MG TABLET 1 TAB PO (09:05)
[2023-01-09] MEDS: FLUTICASONE PROP 110 MCG INHALER 12 GM (*SP) 1 PUFF INHALATION (09:38)
[2023-01-09 12:00] VITALS: PULSE 78
--- NOTE | 2023-01-09 13:18 | PM.DS ---
DS: Admitting Diagnosis Discharge Date 01/09/2023 Admitting Diagnosis Ground level fall DS: Discharge Diagnosis Discharge Diagnosis (1) Generalized weakness: Code(s): R53.1 - Weakness Status: Acute (2) Ventricular trigeminy: Code(s): I49.8 - Other specified cardiac arrhythmias Status: Acute (3) Recurrent falls: Code(s): R29.6 - Repeated falls Status: Acute (4) Cardiac LV ejection fraction of 35-39%: Code(s): R94.30 - Abnormal result of cardiovascular function study, unspecified Status: Acute (5) Primary hypertension: Code(s): I10 - Essential (primary) hypertension Status: Acute (6) Hyperlipidemia: Qualifiers: Hyperlipidemia type: unspecified Qualified Code(s): E78.5 - Hyperlipidemia, unspecified Code(s): E78.5 - Hyperlipidemia, unspecified Status: Acute (7) History of heart artery stent: Code(s): Z95.5 - Presence of coronary angioplasty implant and graft Status: Acute (8) Coronary artery disease: Code(s): I25.10 - Atherosclerotic heart disease of [place] coronary artery without angina pectoris Status: Acute (9) Pacemaker: Code(s): Z95.0 - Presence of cardiac pacemaker Status: Acute (10) Complete heart block: Code(s): I44.2 - Atrioventricular block, complete Status: Acute (11) Urinary tract infection: Code(s): N39.0 - Urinary tract infection, site not specified Status: Acute DS: Summary Hospital Course Hospital Course: # Mechanical fall history not suggestive of syncope.? Pacemaker interrogation with no arrhythmia reported to me from the ED. CT head is negative.? History of recurrent fall in the past.? Could be related to lumbar degenerative disc disease/stenosis.? No imaging of this revealed in his medical chart.? ? Could not get MRI due to pacemaker.? PT OT to see? Discussed with them.? Need SNF placement CT lumbar spine with findings of lumbar spondylosis moderate at L4-L5 with interval worsening since the comparison examination in 2020. I suspect lumbar radiculopathy and he should be referred to Spine surgery/pain management as an outpatient basis for further evaluation and treatment # Left ankle pain from the fall x-ray foot unremarkable # UTI: Ceftriaxone received 3 days course. Culture negative. Will conclude antibiotic course # Ventricular trigeminy on initial EKG.? Continue telemetry monitoring pacemaker interrogation with no ventricular arrhythmias # Coronary artery disease status post CABG 1992 followed by stent placement last year.? On aspirin Plavix # Chronic systolic heart failure ejection fraction 30-35% in the past as reported.? Last echocardiogram on 11/08: 53% well compensated continue sacubitril valsartan. ? mildly hypotensive at times which baseline. Cardiology consulted during the hospital stay suggest no change in medication # Hypertension # Hyperlipidemia # History of complete heart block status post pacemaker implantation # CKD stage 2 Mild worsening of creatinine however remain stable Will recheck and monitor.? Intermittently hypotensive.? Remains on Entresto and metoprolol cardiology consulted # DVT prophylaxis Lovenox # Code status full code Time Spent with Patient Time attestation: Total time spent providing and/or coordinating discharge services: 40 minutes Exam Narrative: GENERAL: Well-developed, well-nourished, and in no acute distress. HEAD: Normocephalic, atraumatic. EYES: PERRLA and EOMI. ENT: Nares clear, no rhinorrhea or epistaxis.? Mucous membranes moist. NECK: Supple.? No adenopathy or masses.? No carotid bruits or JVD. CHEST: Clear to auscultation.? No respiratory distress.? No wheezes rales or rhonchi.? Well-healed midline surgical scar scar consistent with CABG. Pacemaker in-situ on left upper chest wall HEART: Irregularly irregular.? Rate controlled. No murmur heard.? Normal peripheral pulses. ABDOMEN: Soft, nontender, nondiste
== END 2023-01-09 16:08 | DRG 552 ==
LOC: ANHED 10:30 → ANH3MEDSUR 10:33
PROVIDERS: Emergency Medicine; Admitting Provider Internal Medicine; Emergency Provider Preventive Medicine Aerospace Medicine; PCP Family Medicine; Visit Provider Internal Medicine
DX: M47.26 Other spondylosis with radiculopathy, lumbar region (principal); I44.2 Atrioventricular block, complete; I50.22 Chronic systolic (congestive) heart failure; I13.0 Hypertensive heart and chronic kidney disease with heart failure and stage 1 through stage 4 chronic kidney disease, or unspecified chronic kidney disease; I25.10 Atherosclerotic heart disease of native coronary artery without angina pectoris; R29.6 Repeated falls; I49.8 Other specified cardiac arrhythmias; N18.2 Chronic kidney disease, stage 2 (mild); E78.5 Hyperlipidemia, unspecified; Z95.5 Presence of coronary angioplasty implant and graft; Z95.0 Presence of cardiac pacemaker; Z87.891 Personal history of nicotine dependence; Z79.899 Other long term (current) drug therapy; Z82.49 Family history of ischemic heart disease and other diseases of the circulatory system
CPT/HCPCS: 36415; 70450; 72131; 72170; 73630; 80053; 81001; 83735; 84443; 84484; 85025; 87086; 87088; 93005; 94640; 96361; 96365; 96366; 97110; 97161; 97165; 97535; 99285; A9270; G0378; J0696; J7040

== ENCOUNTER 2023-01-18 14:07 | Outpatient (CLI) | payer OTHER, SELFPAY ==
--- NOTE | ~2023-01-18 | CT_ITS ---
EXAMINATION: CT chest high resolution wo co DATE: 01/18/2023 14:26 INDICATION: Shortness of breath TECHNIQUE: Computed tomography (CT) of the chest was performed without intravenous contrast. The dose -length product (DLP) was 363.32 mGy-cm. Automated exposure control and iterative reconstruction tech nique were employed. COMPARISON: None FINDINGS: There is mild atelectasis. There is mild bronchiectasis of the lower lobes. No pleural effu mindi or pneumothorax. There is left atrial enlargement of the heart. Changes of cardiac surgery are n oted. A dual-lead cardiac pacemaker of the left chest wall ends with leads in expected locations. The re are minimal groundglass opacities in the right lung apex. There are no pathologically enlarged tho racic lymph nodes. There is a small sliding hiatal hernia. There is a moderate amount of ingested liq uid material in the esophagus. The gallbladder is surgically absent. There is a 3.8 cm cyst of the le ft kidney. IMPRESSION: 1. Mild bronchiectasis in the lower lobes, likely related to prior infection. 2. Subtle groundglass opacities in the right lung apex, likely infection/inflammation. 3. Small sliding hiatal hernia with moderate amount of ingested liquid material in the esophagus incr easing risk for aspiration. Reviewed, dictated and finalized at location B. IMPRESSION: 1. Mild bronchiectasis in the lower lobes, likely related to prior infection. 2. Subtle groundglass opacities in the right lung apex, likely infection/inflam mation. 3. Small sliding hiatal hernia with moderate amount of ingested liquid material in the esophagus increasing risk for aspiration.
== END 2023-01-18 14:08 | disposition home or self-care (01) ==
PROVIDERS: PCP Nurse Practitioner Family; Visit Provider Nurse Practitioner Family
DX: R06.02 Shortness of breath (principal); K44.9 Diaphragmatic hernia without obstruction or gangrene; R91.8 Other nonspecific abnormal finding of lung field
CPT/HCPCS: 71250

== ENCOUNTER 2023-01-28 15:03 | Outpatient (CLI) | payer MEDICARE, BC, SELFPAY | END 2023-01-28 15:04 | disposition home or self-care (01) | LOC: CHSLAB 15:06 | PROVIDERS: PCP Family Medicine; Visit Provider Physician Assistant Medical | DX: A04.72 Enterocolitis due to Clostridium difficile, not specified as recurrent (principal) | CPT/HCPCS: 87493 ==

== ENCOUNTER 2023-02-04 18:36 | Outpatient (CLI) | payer MEDICARE, BC, SELFPAY | END 2023-02-04 18:37 | disposition home or self-care (01) | LOC: CHSLAB 18:37 | PROVIDERS: PCP Family Medicine; Visit Provider Family Medicine | DX: R19.7 Diarrhea, unspecified (principal) | CPT/HCPCS: 87324 ==

== ENCOUNTER 2023-02-11 11:35 | Outpatient (CLI) | payer MEDICARE, BC, SELFPAY ==
[2023-02-11 12:38] LABS: Alanine Aminotransferase 22 U/L (6-50); Albumin Level 2.9 g/dL (3.5-5.1); Alkaline Phosphatase 83 U/L (38-126); Anion Gap 2 mmol/L (8-16); Aspartate Amino Transferase 31 U/L (17-59); Bilirubin,Total 1.9 mg/dL (0.2-1.3); Blood Urea Nitrogen 15 mg/dL (9-20); Carbon Dioxide 29 mmol/L (22-30); Chloride 107 mmol/L (98-107); Estimated Glomerular Filt Rate > 60; Glucose 90 mg/dL (65-110); Potassium 3.5 mmol/L (3.4-5.0); Sodium 138 mmol/L (137-145)
== END 2023-02-11 11:36 | disposition home or self-care (01) ==
LOC: ANHLAB 11:37
PROVIDERS: PCP Family Medicine; Visit Provider Physician Assistant Medical
DX: E78.2 Mixed hyperlipidemia (principal)
CPT/HCPCS: 36415; 80053

== ENCOUNTER 2023-03-08 17:50 | Inpatient (IN) | payer MEDICARE, BC, SELFPAY ==
--- NOTE | ~2023-03-08 | XR_ITS ---
EXAMINATION: XR chest 2V Exam Date/Time: 03/08/2023 19:21 CDT HISTORY: dyspnea, SOB Comparison: 08/26/2022. RESULT: Lines, tubes, and devices: Left chest pacer with intact leads. Intact sternotomy wires. Mediastinal vascular clips. Loop recorder. Lungs and pleura: Segmental left basilar and bilateral lower lung groundglass opacities. Diffuse int erstitial opacities with indistinct vessels and cuffing. Bilateral angle blunting, greater on the lef t. Cardiomediastinal silhouette: Stable. Other: No acute osseous or upper abdominal finding. IMPRESSION: Left basilar atelectasis/consolidation. Moderate left and small right pleural effusions. Pulmonary ed ebnigno. Reviewed, dictated and finalized at location K. IMPRESSION: Left basilar atelectasis/consolidation. Moderate left and small right pleural e ffusions. Pulmonary edema.
--- NOTE | ~2023-03-08 | XR_ITS ---
Portable chest x-ray Comparison: 03/08/2023 Clinical History: CHF Findings: Small left pleural effusion is present. There is moderate pulmonary edema pattern, mixed a lveolar and interstitial. Cardiomediastinal silhouette is stable, with pacemaker device and wireless monitoring device. Bones and soft tissues are unremarkable. Impression: Moderate mixed alveolar and interstitial pulmonary edema. Small left pleural effusion. Reviewed, dictated and finalized at [facility]. Impression: Moderate mixed alveolar and interstitial pulmonary edema. Small left pleural effusion.
--- NOTE | 2023-03-08 19:08 | ED.SOB ---
HPI - SOB/Dyspnea General Chief Complaint: Shortness of Breath/Dyspnea Time Seen by Provider: 03/08/23 19:06 Source: patient and family Mode of arrival: ambulatory Limitations: no limitations History of Present Illness HPI Narrative: Patient is an 83-year-old male with a history of dementia, congestive heart failure, pacemaker, hypertension, coronary artery disease, presenting to the emergency department with family for evaluation of shortness of breath. Patient noted to have labored breathing by daughter, with audible wheezing. She reports dry cough, no hemoptysis. No fever, chills, nausea or vomiting. Patient takes midodrine for congestive heart failure, she denies any recent medication changes that she is aware of. Patient does not take any Lasix medication. 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 No chronic anticoagulation. He is on dual antiplatelet therapy. Patient reports bilateral lower extremity edema and edema in his hands as well. Patient moved into an assisted living facility 3 weeks ago per daughter. History obtained from daughter and some from patient. Related Data Home Medications Medication Instructions Recorded Confirmed aspirin 81 mg chewable tablet 81 mg PO DAILY 10/05/19 01/06/23 clopidogrel 75 mg tablet (Plavix) 75 mg PO DAILY 12/27/19 01/06/23 sacubitril 24 mg-valsartan 26 mg 1 tablet PO BID 12/09/22 01/06/23 tablet (Entresto) metoprolol succinate 25 mg 25 mg PO DAILY 01/06/23 01/06/23 tablet,extended release 24 hr Allergies Allergy/AdvReac Type Severity Reaction Status Date / Time No Known Drug Allergies Allergy Unknown Unknown Verified 03/08/23 16:21 Review of Systems Review of Systems: CONSTITUTIONAL: Denies fever, chills, or sweats. EYES: Denies visual changes, redness, or discharge. ENT: Denies rhinorrhea, congestion, sore throat, or otalgia. CARDIOVASCULAR: Denies chest pain, palpitations, reports lower extremity edema RESPIRATORY: Denies cough, reports shortness of breath, reports wheezing GASTROINTESTINAL: Denies abdominal pain, nausea, vomiting, or diarrhea. GENITOURINARY: Denies dysuria or hematuria. SKIN: Denies rash or itching. MUSCULOSKELETAL: Denies back pain, joint pain, or myalgia. NEUROLOGIC: Denies headache, numbness, or weakness. [facility] Past Medical History Medical History Coronary artery disease Dementia History of left heart catheterization (LHC) 11/12/2016 History of pacemaker History of prediabetes Hypertension Mitral valve regurgitation Surgical History Surgical History H/O circumcision 03/13/2013 History of cholecystectomy History of heart artery stent History of hemorrhoidectomy 01/27/1981 Hx of CABG Family History Family History Grandparent Hypertension Father Family history of cardiovascular disease Mother Family history of cardiovascular disease Sibling Family history of cardiovascular disease Social History Social History Smoking packs per day: 1.5 Smoking cigarettes per day: 30.0 Years smoked: 30 Smoking pack-years: 45.00 Smoking status: Former smoker Tobacco type: cigarettes Second hand tobacco smoke exposure: No Smoking end date: 10/17/90 Alcohol intake: never Substance use: never Substance use type: prescription drug Lack of Transportation: No Lack of Food: Never True Current Housing: I Have Housing Concerned About Future Housing: No Difficulty Paying Gas/Electric Bills: No Difficulty Paying for Meds: No Currently Unemployed: No Education: High School Diploma/GED Difficulty w/ Childcare or Family Care: No Living arrangements: with family Occupation/Education: retired Gender identity (if verbalized by the patient): Male Sexual Orientation (if Verbalized by the Patie
[2023-03-08 19:28] LABS: Basophils Absolute Auto 0.1 K/mm3 (0.0-0.1); Basophils Percent Auto 0.4 % (0.2-1.2); Eosinophils Absolute Auto 0.2 K/mm3 (0-0.3); Eosinophils Percent Auto 1.7 % (0-4.4); Hematocrit 35.1 % (42.0-52.0); Hemoglobin 11.1 g/dL (14.0-18.0); Immature Granulocyte Absolute 0.03 K/mm3 (0.00-0.031); Immature Granulocyte Percent A 0.3 % (0-0.5); Lymphocytes Absolute Auto 0.71 K/mm3 (0.9-3.2); Lymphocytes Percent Auto 6.2 % (18.3-44.2); Mean Corpuscular HGB Conc 31.6 g/dl (32-36); Mean Corpuscular Hemoglobin 32.1 pg (26-34); Mean Corpuscular Volume 101.4 fl (80-100); Mean Platelet Volume 9.5 fl (7.4-10.4); Monocytes Absolute Auto 0.9 K/mm3 (0.1-0.6); Monocytes Percent Auto 7.7 % (2.6-8.5); Neutrophils Absolute Auto 9.6 K/mm3 (1.3-6.7); Neutrophils Percent Auto 83.7 % (45.5-73.1); Platelet Count Result 229 k/mm3 (150-375); Red Blood Count 3.46 M/mm3 (4.6-6.20); Red Cell Distribution Width 15.3 % (11.5-14.5); White Blood Count 11.5 K/mm3 (4.5-10.0)
[2023-03-08 19:50] LABS: INR 1.1; Partial Thromboplastin Time 26.7 SECONDS (22.3-36.8); Prothrombin Time 15.1 Seconds (11.1-14.7)
[2023-03-08] MEDS: FUROSEMIDE INJ 40 MG/4 ML VIAL 20 MG IV PUSH (20:00)
[2023-03-08 20:53] LABS: Lactic Acid Reflex 1.3 mmol/L (0.7-2.0)
[2023-03-08 21:01] LABS: Alanine Aminotransferase 25 U/L (6-50); Albumin Level 2.8 g/dL (3.5-5.1); Alkaline Phosphatase 78 U/L (38-126); Anion Gap 3 mmol/L (8-16); Aspartate Amino Transferase 30 U/L (17-59); Bilirubin,Total 1.3 mg/dL (0.2-1.3); Blood Urea Nitrogen 17 mg/dL (9-20); Calcium 7.8 mg/dL (8.4-10.2); Carbon Dioxide 31 mmol/L (22-30); Chloride 105 mmol/L (98-107); Estimated CRCL calculation 52 ml/min; Estimated Glomerular Filt Rate > 60; Glucose 88 mg/dL (65-110); Potassium 3.4 mmol/L (3.4-5.0); Sodium 139 mmol/L (137-145)
[2023-03-08 21:16] LABS: NT Pro B Type Natriuretic Pept 7620 pg/mL (19.9-100); Troponin I 0.072 ng/mL (0.000-0.034)
[2023-03-08 21:35] LABS: Influenza A QL RT-PCR Negative (Negative); Influenza B QL RT-PCR Negative (Negative); RSV RNA, RT-PCR Negative (Negative); SARS-CoV-2 RNA PCR Negative (Negative)
[2023-03-08 21:43] LABS: Appearance Urine Clear (Clear); Bacteria Urine None Seen /hpf; Bilirubin Urine Negative (Negative); Blood Urine Negative (Negative); Color Urine Yellow (Yellow); Glucose Urine UA Negative (Negative); Ketones Urine Negative (Negative); Leukocyte Esterase Ur 2+ LEU/UL (Negative); Nitrate Urine Negative (Negative); Protein Urine Negative (Negative); RBC Urine 0-2 /hpf (0-2); Specific Grav Ur 1.008 (1.001-1.035); Squamous Epithelial Cell Urine None seen /hpf (Few); Urobilinogen Urine 0.2 mg/dL (<2.0)
[2023-03-08 21:44] VITALS: O2SAT 96
[2023-03-08 21:50] LABS: Add Urine Microscopic? YES
[2023-03-08 22:00] VITALS: BP 135/83; PULSE 62; RESP 14; O2SAT 99
[2023-03-08 22:12] LABS: PCO2 ABG 37.9 mmHg (35.0-45.0); pH ABG 7.467 (7.350-7.450)
[2023-03-08 22:13] LABS: HCO3 ABG 26.8 mEq/l (22.0-26.0); PO2 ABG 101.5 mmHg (80.0-100.0); Total Hemoglobin 11.6 g/dL (12.0-18.0)
[2023-03-08 22:15] LABS: Carboxyhemoglobin 0.7 % THb (0-2.0); Methemoglobin ABG 0.2 %THb (0-1.5); Oxyhemoglobin 96.2 % THb (90.0-100.0); Reduced Hemoglobin 2.9 %THb (0-5.0)
[2023-03-08 22:16] LABS: Device NASAL CANNULA; PO2 FiO2 Ratio Arterial Blood 3.63 %; Site Drawn RIGHT BRACHIAL
[2023-03-08 22:17] LABS: Fractional Inspired Oxygen 28 %; Oxygen Content ABG 15.8 %vol (16.0-22.0)
[2023-03-08 22:18] LABS: Alveolar/Arterial O2 Gradient 53.4 mmHg
[2023-03-08] MEDS: AZITHROMYCIN 500 MG/NS 250 ML 500 MG/250 ML BAG 250 MG IVPB (22:39)
[2023-03-08 22:56] LABS: Procalcitonin 0.2 ng/mL
--- NOTE | 2023-03-08 23:00 | PC.NURSE ---
pt. only has hearing aid for R ear
[2023-03-08 23:11] VITALS: BP 163/99; PULSE 66; RESP 14; O2SAT 95
[2023-03-09] VITALS (16 sets, daily range): BP systolic 102–130; BP diastolic 42–60; PULSE 61–78; RESP 14–30; TEMP 36.2–36.6; O2SAT 96–100; BMI 34.0
--- NOTE | 2023-03-09 | ECHO_ITS ---
Patient Info Name: Yoseph Luis Age: 83 years : 1940 Gender: Male Ht: 67 in Wt: 226 lbs BSA: 2.24 m2 HR: 62 bpm BP: 106 / 42 mmHg Technical Quality: Fair Exam Date: 03/09/2023 10:23 AM Exam Location: [facility] Patient Status: Inpatient Admit Date: 03/08/2023 Staff Ordering Physician: Hillary Gonzales MD Residential Sales Associate: Marizol Owens RDCS Attending Provider: Dwain Childress MD Referring Physician: Christian BARRERA; Exam Type: CA echo dop color flow w con Study Info Indications - ELEVATED BNP, ACUTE CHF EXACERBATION Complete two-dimensional, color flow and Doppler transthoracic echocardiogram is performed with contrast to opacify the left ventricle and to improve the deliniation of the left ventricle endocardial borders. Contrast/Agitated Saline Contrast/Ag. Saline: Definity Amount: 3.00 ml Administered By: Mraizol Owens RDCS Existing IV Access: Yes IV Access Condition: patent with no signs of infiltration Summary 1. Left ventricular chamber dimension is normal. 2. Left ventricular systolic function is normal, estimated at 60-65%. 3. There is mildly increased left ventricular wall thickness. 4. Left ventricular septal wall motion is abnormal with septal motion related to pacing. 5. Right ventricular chamber dimension is normal. 6. Right ventricular systolic function is reduced. 7. Left atrial chamber dimension is mildly enlarged. 8. There is moderate aortic valve sclerosis. 9. There is mild aortic valve regurgitation. 10. There is mild mitral valve regurgitation. 11. There is mild tricuspid valve regurgitation. 12. There is mild pulmonic regurgitation. Left Ventricle Left ventricular chamber dimension is normal. Left ventricular systolic function is normal, estimated at 60-65%. There is mildly increased left ventricular wall thickness. Left ventricular septal wall motion is abnormal with septal motion related to pacing. Right Ventricle Right ventricular chamber dimension is normal. Right ventricular systolic function is reduced. Left Atria Left atrial chamber dimension is mildly enlarged. Right Atria Right atrial chamber dimension is normal. Aortic Valve The aortic valve is trileaflet. There is moderate aortic valve sclerosis. There is no aortic valve stenosis. There is mild aortic valve regurgitation. Pulmonic Valve The pulmonic valve is not well visualized. There is mild pulmonic regurgitation. Mitral Valve There is mild mitral valve regurgitation. The mitral valve annulus is moderately calcified. Tricuspid Valve There is mild tricuspid valve regurgitation. Pericardium/Pleural There is no pericardial effusion. Inferior Vena Cava Inferior vena cava is not well visualized. Aorta The aortic root size at the sinus of Valsalva is normal. There is moderate aortic atherosclerosis. Left Ventricular Outflow Tract Name Value Normal LVOT 2D LVOT Diameter 2.00 cm LVOT Doppler LVOT Peak Gradient 2 mmHg LVOT Mean Gradient 1 mmHg LVOT VTI 15.34 cm LVOT VTI/AV VTI Ratio 0.77
--- NOTE | 2023-03-09 00:47 | ADMGEN ---
This patient, Yoseph Luis Jr., was admitted to IMU Room 231-01. Patient/family oriented to hospital policies and general routines including ID bracelet, bed and alarms, visiting hours, pain management, procedures, bathroom and other care routines, personal items, smoking policy, room service/diet, and visiting hours. Information on how to activate the Rapid Response Team has been discussed. Patient/Family are encouraged to report perceived risks to care and to ask questions if they do not understand what they are told or what they should do.
[2023-03-09 02:09] LABS: Troponin I 0.087 ng/mL (0.000-0.034)
--- NOTE | 2023-03-09 02:29 | PM.IMHP ---
H&P: HPI History of Present Illness Date/Time: 03/09/23 02:29 Chief Complaint: shortness of breath Narrative: This is an 83-year-old male with past medical history significant for coronary artery disease, dementia, hypertension, mitral valve regurg, patient has been living at assisted living facility was brought for evaluation to the emergency room due to bilateral lower extremity edema, cough productive of copious amount of being to yellowish secretions, shortness of breath ,chills. Patient had been recently discharged to rehabilitation where he was diagnosed with C difficile. Most of the history has been obtained from daughter who is at bedside. Preliminary workup was significant for brain natriuretic peptide is over 600, a chest x-ray was reported as: EXAMINATION:? XR chest 2V Exam Date/Time:? 03/08/2023 19:21 CDT HISTORY: dyspnea, SOB ? Comparison:? 08/26/2022. RESULT: Lines, tubes, and devices:? Left chest pacer with intact leads. Intact sternotomy wires. Mediastinal vascular clips. Loop recorder. Lungs and pleura:? Segmental left basilar and bilateral lower lung groundglass opacities. Diffuse interstitial opacities with indistinct vessels and cuffing. Bilateral angle blunting, greater on the left. Cardiomediastinal silhouette:? Stable. Other:? No acute osseous or upper abdominal finding. ? IMPRESSION: Left basilar atelectasis/consolidation. Moderate left and small right pleural effusions. Pulmonary edema. Review of Systems Review of Systems: ROS unobtainable: Yes unobtainable due to medical condition ( dementia can not really provide a meaningful history) [facility] Past Medical History Medical History Coronary artery disease Dementia History of left heart catheterization (LHC) 11/12/2016 History of pacemaker History of prediabetes Hypertension Mitral valve regurgitation Surgical History Surgical History H/O circumcision 03/13/2013 History of cholecystectomy History of heart artery stent History of hemorrhoidectomy 01/27/1981 Hx of CABG Family History Family History Grandparent Hypertension Father Family history of cardiovascular disease Mother Family history of cardiovascular disease Sibling Family history of cardiovascular disease Social History Social History Smoking packs per day: 1.5 Smoking cigarettes per day: 30.0 Years smoked: 30 Smoking pack-years: 45.00 Smoking status: Former smoker Tobacco type: cigarettes Second hand tobacco smoke exposure: No Smoking end date: 10/17/90 Alcohol intake: never Substance use: never Substance use type: does not use Lack of Transportation: No Lack of Food: Never True Current Housing: I Have Housing Concerned About Future Housing: No Difficulty Paying Gas/Electric Bills: No Difficulty Paying for Meds: No Currently Unemployed: No Education: High School Diploma/GED Difficulty w/ Childcare or Family Care: No Living arrangements: with family Occupation/Education: retired Gender identity (if verbalized by the patient): Male Sexual Orientation (if Verbalized by the Patient): Straight or Heterosexual Spiritual care concerns: No Agree to blood products: Yes Meds Home Medications and Allergies Home Medications Medication Instructions Recorded Confirmed Type aspirin 81 mg chewable tablet 81 mg PO DAILY 10/05/19 03/09/23 History clopidogrel 75 mg tablet (Plavix) 75 mg PO DAILY 12/27/19 03/09/23 History nitroglycerin 0.4 mg sublingual 0.4 mg sublingual Q5M PRN Chest 11/16/21 03/09/23 Rx tablet (Nitrostat) Pain #25 tabs rosuvastatin 40 mg tablet (Crestor) 40 mg PO DAILY #90 tabs 08/25/22 03/09/23 Rx sacubitril 24 mg-valsartan 26 mg 1 tablet PO BID 12/09/22 03/09/23 History tablet (
[2023-03-09] MEDS: MIDODRINE HCL 2.5 MG TABLET 5 MG PO ×3 (09:13→16:29)
[2023-03-09] MEDS: TAMSULOSIN HCL 0.4 MG CAPSULE PO (09:14)
[2023-03-09] MEDS: METOPROLOL SUCCINATE EXT REL 25 MG TABCR PO (09:14)
[2023-03-09] MEDS: CLOPIDOGREL BISULFATE 75 MG TABLET PO (09:14)
[2023-03-09] MEDS: CHOLESTYRAMINE LIGHT 4 GM POWD.PACK PO ×2 (09:14→16:29)
[2023-03-09] MEDS: SACUBITRIL/VALSARTAN 24-26 MG TABLET 1 TAB PO ×2 (09:14→21:01)
[2023-03-09] MEDS: ASPIRIN 81 MG CHEWABLE TABLET PO (09:14)
[2023-03-09] MEDS: ROSUVASTATIN 10 MG TABLET 40 MG PO (09:15)
[2023-03-09] MEDS: PERFLUTREN LIPID MICROSPHERES 1.5 ML VIAL DILUTED TO 10 ML TOTAL VOLUME IV PUSH (11:00)
[2023-03-09] MEDS: POTASSIUM CHLORIDE 20 MEQ TABLET 40 MEQ PO (11:48)
--- NOTE | 2023-03-09 12:13 | IVDEFINITY ---
Prior to administration of IV Definity the patient was educated on the risks and benefits of the imaging enhancing agent including potential adverse side effects. The patient verbalized understanding. Allergies were verified. No exclusion criteria were identified and at least one of the following inclusion criteria were met: 1) physician request, 2) patient technically difficult to image (per the [place] [employer] guidelines of two or more segments not discernable within the apical view), or 3) questionable left ventricular function. ?
[2023-03-09 13:35] LABS: Anion Gap 3 mmol/L (8-16); Blood Urea Nitrogen 18 mg/dL (9-20); Calcium 7.6 mg/dL (8.4-10.2); Carbon Dioxide 32 mmol/L (22-30); Chloride 103 mmol/L (98-107); Estimated CRCL calculation 56 ml/min; Estimated Glomerular Filt Rate > 60; Glucose 118 mg/dL (65-110); Magnesium 2.2 mg/dL (1.6-2.3); Potassium 3.4 mmol/L (3.4-5.0); Sodium 138 mmol/L (137-145)
--- NOTE | 2023-03-09 14:06 | PC.NURSE ---
pt had a run of 8 beat V-tach today at [address] Ahn made aware and gave order for stat BMP, Mag level to be done and pt has been given 40 meq x1 dose today for K of 3.4, BMP, Mag levels resulted all WNL at this time.
--- NOTE | 2023-03-09 15:46 | PM.CNCAR ---
Assessment and Plan Assessment and plan (1) Acute exacerbation of CHF (congestive heart failure): Qualifiers: Heart failure type: diastolic Qualified Code(s): I50.33 - Acute on chronic diastolic (congestive) heart failure Code(s): I50.9 - Heart failure, unspecified Status: Acute Assessment and Plan: Acute on chronic decompensated heart failure with preserved ejection fraction. Patient has a history of ischemic cardiomyopathy normalization of EF. Echo today reveals EF 60 65%. Patient presented without diuretic therapy in decompensated heart failure. Continue IV Lasix 40 mg IV b.i.d.. CHF counseling performed. Monitor accurate input and output, daily weights. Less than 2 g daily sodium intake. Monitor renal function, BP electrolytes. Continue Entresto 24/26 mg twice daily as BP permits. Continue Toprol XL 25 mg daily. (2) Coronary artery disease: Qualifiers: Coronary Disease-Associated Artery/Lesion type: [place] artery [place] vs. transplanted heart: [place] heart Associated angina: without angina Qualified Code(s): I25.10 - Atherosclerotic heart disease of [place] coronary artery without angina pectoris Code(s): I25.10 - Atherosclerotic heart disease of [place] coronary artery without angina pectoris Status: Acute Assessment and Plan: As above, continue aspirin 81 mg daily, clopidogrel 75 mg daily, Toprol XL 25 mg daily, rosuvastatin 40 mg at bedtime. Stable at this point. (3) Healthcare associated bacterial pneumonia: Code(s): J15.9 - Unspecified bacterial pneumonia Status: Acute Assessment and Plan: IV antibiotics per primary service. Patient has been started on ceftriaxone and azithromycin. Wean O2 supplementation as tolerated, bronchodilator therapy as warranted and supportive care. (4) Elevated troponin I level: Code(s): R77.8 - Other specified abnormalities of plasma proteins Status: Acute Assessment and Plan: Mild troponin elevation sitting acute hypoxic respiratory failure, decompensated heart failure, underlying pneumonia. Patient is not reporting anginal symptoms. This likely type 2 infarction not secondary to acute coronary syndrome and/or plaque rupture. Will continue to monitor patient clinically. EF has improved by echo. Will continue to monitor closely in this regard. Continue antiplatelet therapy with aspirin and clopidogrel. (5) Hypotension: Code(s): I95.9 - Hypotension, unspecified Status: Acute Assessment and Plan: Patient remains on midodrine 5 mg 3 times daily. BP has been quite stable thus far. May continue for now while on intravenous diuretic therapy or if hypotensive despite transition to oral diuretic therapy. Otherwise may consider weaning dose but this had previously been initiated secondary to hypotension and the need for continued medical support of his cardiomyopathy and CHF risk reduction. Recommendation to follow. (6) History of cardiomyopathy: Code(s): Z86.79 - Personal history of other diseases of the circulatory system Status: Acute Assessment and Plan: EF has normalized now 60-65% status post history of percutaneous intervention. Continue supportive therapy with Entresto, Toprol XL for now. Addition of diuretic therapy advised. (7) Pacemaker: Code(s): Z95.0 - Presence of cardiac pacemaker Status: Acute Assessment and Plan: Normal device function ventricular paced rhythm. Patient has a history of complete heart block status post pacemaker implantation. No acute issues at present. If no issues overnight consider discontinuation of telemetry. (8) Hyperlipidemia: Qualifiers: Hyperlipidemia type: mixed hyperlipidemia Qualified Code(s): E78.2 - Mixed hyperlipidemia Code(s): E78.5 - Hyperlipidemia, unspecified Status: Acute Assessment and Plan: Continue rosuvastatin 40 mg bedtime goal LDL less than 70. H
[2023-03-09] MEDS: FUROSEMIDE INJ 40 MG/4 ML VIAL IV PUSH (16:29)
--- NOTE | 2023-03-09 17:36 | WPDPN ---
Progress Note: A&P Assessment and Plan (1) Healthcare associated bacterial pneumonia: Code(s): J15.9 - Unspecified bacterial pneumonia Status: Acute Assessment and Plan: admit to IMU patient received Zithromax and Rocephin in emergency room will start cefepime, vancomycin and discontinue Rocephin patient recently discharged from rehabilitation facility await cultures supportive care 03/09/2023 interval history: 83-year-old male presented with shortness of his found to have exacerbation congestive heart failure patient is being diuresed to further evaluate patient will have a cardiac, will continue to monitor and further recommendation to follow. (2) Acute exacerbation of CHF (congestive heart failure): Qualifiers: Heart failure type: diastolic Qualified Code(s): I50.33 - Acute on chronic diastolic (congestive) heart failure Code(s): I50.9 - Heart failure, unspecified Status: Acute Assessment and Plan: diurese as needed daily intake and output daily weights continue to monitor (3) Dementia: Code(s): F03.90 - Unspecified dementia, unspecified severity, without behavioral disturbance, psychotic disturbance, mood disturbance, and anxiety Status: Acute Assessment and Plan: on no medications (4) Coronary artery disease: Qualifiers: Coronary Disease-Associated Artery/Lesion type: [place] artery [place] vs. transplanted heart: [place] heart Associated angina: without angina Qualified Code(s): I25.10 - Atherosclerotic heart disease of [place] coronary artery without angina pectoris Code(s): I25.10 - Atherosclerotic heart disease of [place] coronary artery without angina pectoris Status: Acute Assessment and Plan: continue home meds chest pain-free (5) Recurrent falls: Code(s): R29.6 - Repeated falls Status: Acute Assessment and Plan: fall precautions (6) Generalized weakness: Code(s): R53.1 - Weakness Status: Acute Assessment and Plan: likely deconditioning and chronic disease progression PT OT when clinically able to participate Subjective Date/time seen: 03/09/23 17:36 Interval history: shortness of breath HPI-Narrative: ?This is an 83-year-old male with past medical history significant for coronary artery disease, dementia, hypertension, mitral valve regurg, patient has been living at assisted living facility was brought for evaluation to the emergency room due to bilateral lower extremity edema, cough productive of copious amount of being to yellowish secretions, shortness of breath ,chills.? Patient had been recently discharged to rehabilitation where he was diagnosed with C difficile.? Most of the history has been obtained from daughter who is at bedside.? Preliminary workup was significant for brain natriuretic peptide is over 600, a chest x-ray was reported as:Left basilar atelectasis/consolidation. Moderate left and small right pleural effusions. Pulmonary edema. 03/09/2023 interval history: 83-year-old male presented with shortness of his found to have exacerbation congestive heart failure patient is being diuresed to further evaluate patient will have a cardiac, will continue to monitor and further recommendation to follow. Review of Systems Review of Systems: ROS unobtainable: Yes unobtainable due to medical condition ( dementia can not really provide a meaningful history) Exam Narrative: Patient is comfortable, NAD HEENT: eyes are clear and none icteric LUNGS: Bilateral fair entry with rales and rhonchi HEART: RR S1S2 ABD: BS+, Soft and nontender Lower extremities: no edema SKIN: nonjaundiced Neuro: grossly intact. Objective Data Vital Signs Vital Signs: Vital Signs - 24 hr 03/08/23 18:54 03/08/23 21:44 03/08/23 22:00 Temperature Pulse Rate 62 Respiratory Rate 14 Blood Pressure 135/83 Pulse Oximetry 96 99 Oxygen
[2023-03-09] MEDS: AZITHROMYCIN 500 MG/NS 250 ML 500 MG/250 ML BAG 250 MG IVPB (21:23)
[2023-03-10] VITALS (15 sets, daily range): BP systolic 96–130; BP diastolic 37–69; PULSE 65–111; RESP 16–22; TEMP 36.4–37.1; O2SAT 93–99
[2023-03-10] MEDS: MIDODRINE HCL 2.5 MG TABLET 5 MG PO ×3 (09:23→17:46)
[2023-03-10] MEDS: SACUBITRIL/VALSARTAN 24-26 MG TABLET 1 TAB PO ×2 (09:23→20:39)
[2023-03-10] MEDS: ROSUVASTATIN 10 MG TABLET 40 MG PO (09:24)
[2023-03-10] MEDS: METOPROLOL SUCCINATE EXT REL 25 MG TABCR PO (09:24)
[2023-03-10] MEDS: CLOPIDOGREL BISULFATE 75 MG TABLET PO (09:24)
[2023-03-10] MEDS: TAMSULOSIN HCL 0.4 MG CAPSULE PO (09:24)
[2023-03-10] MEDS: CHOLESTYRAMINE LIGHT 4 GM POWD.PACK PO ×2 (09:24→15:51)
[2023-03-10] MEDS: ASPIRIN 81 MG CHEWABLE TABLET PO (09:24)
[2023-03-10] MEDS: FUROSEMIDE INJ 40 MG/4 ML VIAL IV PUSH ×2 (09:25→17:46)
[2023-03-10 09:27] LABS: Hematocrit 33.8 % (42.0-52.0); Hemoglobin 10.6 g/dL (14.0-18.0); Mean Corpuscular HGB Conc 31.4 g/dl (32-36); Mean Corpuscular Hemoglobin 31.7 pg (26-34); Mean Corpuscular Volume 101.2 fl (80-100); Mean Platelet Volume 9.1 fl (7.4-10.4); Platelet Count Result 188 k/mm3 (150-375); Red Blood Count 3.34 M/mm3 (4.6-6.20); Red Cell Distribution Width 15.5 % (11.5-14.5); White Blood Count 11.9 K/mm3 (4.5-10.0)
[2023-03-10 09:36] LABS: PCO2 ABG 42.4 mmHg (35.0-45.0); PO2 ABG 119.5 mmHg (80.0-100.0); pH ABG 7.456 (7.350-7.450)
[2023-03-10 09:37] LABS: Base Excess ABG 4.8 mEq/l (+/-2.0); HCO3 ABG 29.2 mEq/l (22.0-26.0); Oxygen Content ABG 15.7 %vol (16.0-22.0); Oxygen Saturation ABG 98.5 % (95.0-100.0); Total Hemoglobin 11.4 g/dL (12.0-18.0)
[2023-03-10 09:38] LABS: Alveolar/Arterial O2 Gradient 30.1 mmHg; Device NASAL CANNULA; Modified Allen's Test Pass; PO2 FiO2 Ratio Arterial Blood 4.27 %; Site Drawn RIGHT RADIAL
[2023-03-10 09:41] LABS: Anion Gap 0 mmol/L (8-16); Blood Urea Nitrogen 18 mg/dL (9-20); Calcium 7.5 mg/dL (8.4-10.2); Carbon Dioxide 37 mmol/L (22-30); Chloride 104 mmol/L (98-107); Estimated CRCL calculation 44 ml/min; Estimated Glomerular Filt Rate 53; Glucose 91 mg/dL (65-110); Magnesium 2.2 mg/dL (1.6-2.3); Potassium 3.8 mmol/L (3.4-5.0); Sodium 141 mmol/L (137-145)
--- NOTE | 2023-03-10 10:49 | PCPTNOTE ---
Addendum entered by Radha Brown, PT 03/10/23 11:21: RN aware Original Note: Call hospitalist regarding bedrest orders. Per hospitalist, pt no longer needs bedrest orders and is able to ambulate with assist.
--- NOTE | 2023-03-10 13:48 | PM.PNCARD ---
Progress Note: A&P Assessment and Plan (1) Acute exacerbation of CHF (congestive heart failure): Qualifiers: Heart failure type: diastolic Qualified Code(s): I50.33 - Acute on chronic diastolic (congestive) heart failure Code(s): I50.9 - Heart failure, unspecified Status: Acute Assessment and Plan: Acute on chronic decompensated heart failure with preserved ejection fraction. Patient has a history of ischemic cardiomyopathy normalization of EF. Echo today reveals EF 60-65%. Patient presented without diuretic therapy in decompensated heart failure. -Continue IV Lasix 40 mg IV b.i.d.. Monitor urine output, renal function and BP closely. . CHF counseling performed. Continue accurate input and output, daily weights. Less than 2 g daily sodium intake. Monitor renal function, BP electrolytes. Continue Entresto 24/26 mg twice daily as BP permits. Continue Toprol XL 25 mg daily. Creatinine has increased to 1.3 need to continue to monitor closely in this regard. BMP in a.m.. Potassium 3.8. Monitor electrolytes and replete as appropriate. A does admit he will require supplementation. Patient remains significantly volume overloaded. Anticipate he will require at least 2 more days intravenous diuresis BP and renal function permitting. (2) Healthcare associated bacterial pneumonia: Code(s): J15.9 - Unspecified bacterial pneumonia Status: Acute Assessment and Plan: IV antibiotics per primary service. Patient has been started on ceftriaxone and azithromycin. Wean O2 supplementation as tolerated, bronchodilator therapy as warranted and supportive care. Repeat chest x-ray tomorrow. (3) Coronary artery disease: Qualifiers: Coronary Disease-Associated Artery/Lesion type: [place] artery [place] vs. transplanted heart: [place] heart Associated angina: without angina Qualified Code(s): I25.10 - Atherosclerotic heart disease of [place] coronary artery without angina pectoris Code(s): I25.10 - Atherosclerotic heart disease of [place] coronary artery without angina pectoris Status: Acute Assessment and Plan: As above, continue aspirin 81 mg daily, clopidogrel 75 mg daily, Toprol XL 25 mg daily, rosuvastatin 40 mg at bedtime. Stable at this point. (4) Elevated troponin I level: Code(s): R77.8 - Other specified abnormalities of plasma proteins Status: Acute Assessment and Plan: Mild troponin elevation sitting acute hypoxic respiratory failure, decompensated heart failure, underlying pneumonia. Patient is not reporting anginal symptoms. This likely type 2 infarction not secondary to acute coronary syndrome and/or plaque rupture. Will continue to monitor patient clinically. EF has improved by echo. Will continue to monitor closely in this regard. Continue antiplatelet therapy with aspirin and clopidogrel. (5) Hypotension: Qualifiers: Hypotension type: other hypotension type Qualified Code(s): I95.89 - Other hypotension Code(s): I95.9 - Hypotension, unspecified Status: Acute Assessment and Plan: Patient remains on midodrine 5 mg 3 times daily. BP has been stable thus far. May continue for now while on intravenous diuretic therapy or if hypotensive despite transition to oral diuretic therapy. Discussed potential need to reduce his other medications if his blood pressure declines limiting effective diuresis. May be able to reduce Entresto particular is EF has normalized although would not want to discontinue if possible. (6) History of cardiomyopathy: Code(s): Z86.79 - Personal history of other diseases of the circulatory system Status: Acute Assessment and Plan: EF has normalized now 60-65% status post history of percutaneous intervention. Continue supportive therapy with Entresto, Toprol XL for now. Anticipate he will require oral diuretic therapy upon discharge regimen to we determined pending response. (7
--- NOTE | 2023-03-10 17:03 | WPDPN ---
Progress Note: A&P Assessment and Plan (1) Healthcare associated bacterial pneumonia: Code(s): J15.9 - Unspecified bacterial pneumonia Status: Acute Assessment and Plan: admit to IMU patient received Zithromax and Rocephin in emergency room will start cefepime, vancomycin and discontinue Rocephin patient recently discharged from rehabilitation facility await cultures supportive care 03/10/2023 interval history:??83-year-old male presented with shortness of his found to have exacerbation congestive heart failure patient is being diuresed to further evaluate patient had a cardiac echo showed preserved LV function with ejection fraction of 65% unable to determine the etiology of congestive heart failure, seen by Cardiology recommended continue to diurese the patient, there is also concern the patient has pneumonia being treated with ceftriaxone and azithromycin, today patient grandson is present in the room and gave updates, will continue to monitor and further recommendation to follow. (2) Acute exacerbation of CHF (congestive heart failure): Qualifiers: Heart failure type: diastolic Qualified Code(s): I50.33 - Acute on chronic diastolic (congestive) heart failure Code(s): I50.9 - Heart failure, unspecified Status: Acute Assessment and Plan: diurese as needed daily intake and output daily weights continue to monitor (3) Dementia: Code(s): F03.90 - Unspecified dementia, unspecified severity, without behavioral disturbance, psychotic disturbance, mood disturbance, and anxiety Status: Acute Assessment and Plan: on no medications (4) Coronary artery disease: Qualifiers: Coronary Disease-Associated Artery/Lesion type: [place] artery [place] vs. transplanted heart: [place] heart Associated angina: without angina Qualified Code(s): I25.10 - Atherosclerotic heart disease of [place] coronary artery without angina pectoris Code(s): I25.10 - Atherosclerotic heart disease of [place] coronary artery without angina pectoris Status: Acute Assessment and Plan: continue home meds chest pain-free (5) Recurrent falls: Code(s): R29.6 - Repeated falls Status: Acute Assessment and Plan: fall precautions (6) Generalized weakness: Code(s): R53.1 - Weakness Status: Acute Assessment and Plan: likely deconditioning and chronic disease progression PT OT when clinically able to participate Subjective Date/time seen: 03/10/23 17:03 Interval history: HPI-Narrative: ?This is an 83-year-old male with past medical history significant for coronary artery disease, dementia, hypertension, mitral valve regurg, patient has been living at assisted living facility was brought for evaluation to the emergency room due to bilateral lower extremity edema, cough productive of copious amount of being to yellowish secretions, shortness of breath ,chills.? Patient had been recently discharged to rehabilitation where he was diagnosed with C difficile.? Most of the history has been obtained from daughter who is at bedside.? Preliminary workup was significant for brain natriuretic peptide is over 600, a chest x-ray was reported as:Left basilar atelectasis/consolidation. Moderate left and small right pleural effusions. Pulmonary edema. 03/10/2023 interval history:??83-year-old male presented with shortness of his found to have exacerbation congestive heart failure patient is being diuresed to further evaluate patient had a cardiac echo showed preserved LV function with ejection fraction of 65% unable to determine the etiology of congestive heart failure, seen by Cardiology recommended continue to diurese the patient, there is also concern the patient has pneumonia being treated with ceftriaxone and azithromycin, today patient grandson is present in the room and gave updates, will continue to monitor and further recommendation to fo
[2023-03-10] MEDS: AZITHROMYCIN 500 MG/NS 250 ML 500 MG/250 ML BAG 250 MG IVPB (21:56)
[2023-03-11] VITALS (13 sets, daily range): BP systolic 100–131; BP diastolic 55–77; PULSE 65–120; RESP 16–91; TEMP 36.4–36.8; O2SAT 91–96
--- NOTE | 2023-03-11 10:19 | PM.PNCARD ---
Progress Note: A&P Assessment and Plan (1) Acute exacerbation of CHF (congestive heart failure): Qualifiers: Heart failure type: diastolic Qualified Code(s): I50.33 - Acute on chronic diastolic (congestive) heart failure Code(s): I50.9 - Heart failure, unspecified Status: Acute Assessment and Plan: Acute on chronic decompensated heart failure with preserved ejection fraction. Patient has a history of ischemic cardiomyopathy normalization of EF. Echo this admission reveals EF 60-65%. Patient presented without diuretic therapy in decompensated heart failure. -For now, Continue IV Lasix 40 mg IV b.i.d.. Would like to escalate diuretic therapy, however, need to review labs which have yet to be obtained today. Furthermore, BP somewhat soft at times. May need to reduce Entresto to better tolerate diuretic therapy. Monitor urine output, renal function and BP closely. -very important to continue documenting accurate input and output, daily weights. Less than 2 g daily sodium intake. For now, need to monitor renal function/electrolytes on a daily basis. -for now, continue Entresto 24/26 mg BID but may need to reduce in order to permit diuresis and depending on renal function and BP. -Continue Toprol XL 25 mg daily. -repeat chest x-ray. Recommendation to follow after review. -I ordered BMP, CBC. Will repeat TSH. -Unfortunately, patient remains significantly volume overloaded. He is -3.4L thus far only negative 560cc as documented. Discussed plan of care with primary service. (2) Healthcare associated bacterial pneumonia: Code(s): J15.9 - Unspecified bacterial pneumonia Status: Acute Assessment and Plan: IV antibiotics per primary service. Patient has been started on ceftriaxone and azithromycin. Pt has been weaned off O2 but remains wheezy. Consider bronchodilator therapy per primary service. Repeat chest x-ray this AM. He continues to have a cough with difficulty expectorating. (3) Coronary artery disease: Qualifiers: Coronary Disease-Associated Artery/Lesion type: [place] artery [place] vs. transplanted heart: [place] heart Associated angina: without angina Qualified Code(s): I25.10 - Atherosclerotic heart disease of [place] coronary artery without angina pectoris Code(s): I25.10 - Atherosclerotic heart disease of [place] coronary artery without angina pectoris Status: Acute Assessment and Plan: As above, continue Aspirin 81 mg daily, Clopidogrel 75 mg daily, Toprol XL 25 mg daily, Rosuvastatin 40 mg at bedtime. Stable at this point. (4) Elevated troponin I level: Code(s): R77.8 - Other specified abnormalities of plasma proteins Status: Acute Assessment and Plan: Mild troponin elevation sitting acute hypoxic respiratory failure, decompensated heart failure, underlying pneumonia. Patient is not reporting anginal symptoms. This likely type 2 infarction not secondary to acute coronary syndrome and/or plaque rupture. Will continue to monitor patient clinically. EF has improved by echo. Will continue to monitor closely in this regard. Continue antiplatelet therapy with aspirin and clopidogrel. Ischemic evaluation as an outpatient to be considered as this may contribute to decompensated heart failure. However, it would be unlikely he has significant progression of obstructive CAD as the primary contribution to decompensated heart failure concomitantly with normalization of his LV systolic function. (5) Hypotension: Qualifiers: Hypotension type: other hypotension type Qualified Code(s): I95.89 - Other hypotension Code(s): I95.9 - Hypotension, unspecified Status: Acute Assessment and Plan: Patient remains on Midodrine 5 mg 3 times daily. BP has been stable thus far. Discussed potential need to reduce his other medications if his blood pressure declines limiting effective diuresis. Need to be cautious given ph
[2023-03-11] MEDS: ASPIRIN 81 MG CHEWABLE TABLET PO (10:21)
[2023-03-11] MEDS: METOPROLOL SUCCINATE EXT REL 25 MG TABCR PO (10:21)
[2023-03-11] MEDS: CLOPIDOGREL BISULFATE 75 MG TABLET PO (10:21)
[2023-03-11] MEDS: TAMSULOSIN HCL 0.4 MG CAPSULE PO (10:22)
[2023-03-11] MEDS: MIDODRINE HCL 2.5 MG TABLET 5 MG PO ×3 (10:22→18:33)
[2023-03-11] MEDS: ROSUVASTATIN 10 MG TABLET 40 MG PO (10:23)
[2023-03-11] MEDS: SACUBITRIL/VALSARTAN 24-26 MG TABLET 1 TAB PO ×2 (10:23→20:58)
[2023-03-11] MEDS: FUROSEMIDE INJ 40 MG/4 ML VIAL IV PUSH ×2 (10:23→18:33)
[2023-03-11 11:01] LABS: Hematocrit 35.2 % (42.0-52.0); Hemoglobin 11.1 g/dL (14.0-18.0); Mean Corpuscular HGB Conc 31.5 g/dl (32-36); Mean Corpuscular Hemoglobin 31.5 pg (26-34); Mean Platelet Volume 9.1 fl (7.4-10.4); Platelet Count Result 205 k/mm3 (150-375); Red Blood Count 3.52 M/mm3 (4.6-6.20); Red Cell Distribution Width 15.4 % (11.5-14.5); White Blood Count 16.5 K/mm3 (4.5-10.0)
[2023-03-11 11:11] LABS: Anion Gap 2 mmol/L (8-16); Blood Urea Nitrogen 17 mg/dL (9-20); Calcium 7.8 mg/dL (8.4-10.2); Carbon Dioxide 38 mmol/L (22-30); Chloride 99 mmol/L (98-107); Estimated CRCL calculation 51 ml/min; Estimated Glomerular Filt Rate > 60; Glucose 110 mg/dL (65-110); Potassium 3.2 mmol/L (3.4-5.0); Sodium 139 mmol/L (137-145)
[2023-03-11] MEDS: CHOLESTYRAMINE LIGHT 4 GM POWD.PACK PO ×2 (11:21→17:53)
[2023-03-11] MEDS: POTASSIUM CHLORIDE 20 MEQ TABLET 40 MEQ PO (15:52)
[2023-03-11] MEDS: AZITHROMYCIN 500 MG/NS 250 ML 500 MG/250 ML BAG 250 MG IVPB (21:57)
[2023-03-12] VITALS (16 sets, daily range): BP systolic 93–135; BP diastolic 39–64; PULSE 61–106; RESP 12–20; TEMP 36.2–36.9; O2SAT 93–100
[2023-03-12 05:41] LABS: Hematocrit 32.8 % (42.0-52.0); Hemoglobin 10.6 g/dL (14.0-18.0); Mean Corpuscular HGB Conc 32.3 g/dl (32-36); Mean Corpuscular Hemoglobin 32.1 pg (26-34); Mean Corpuscular Volume 99.4 fl (80-100); Mean Platelet Volume 9.6 fl (7.4-10.4); Platelet Count Result 209 k/mm3 (150-375); Red Cell Distribution Width 15.4 % (11.5-14.5); White Blood Count 16.3 K/mm3 (4.5-10.0)
[2023-03-12 05:55] LABS: Blood Urea Nitrogen 16 mg/dL (9-20); Calcium 7.4 mg/dL (8.4-10.2); Carbon Dioxide > 40 mmol/L (22-30); Chloride 98 mmol/L (98-107); Estimated CRCL calculation 50 ml/min; Estimated Glomerular Filt Rate > 60; Glucose 87 mg/dL (65-110); Magnesium 1.9 mg/dL (1.6-2.3); Potassium 3.2 mmol/L (3.4-5.0); Sodium 138 mmol/L (137-145)
[2023-03-12] MEDS: TAMSULOSIN HCL 0.4 MG CAPSULE PO (09:37)
[2023-03-12] MEDS: SACUBITRIL/VALSARTAN 24-26 MG TABLET 1 TAB PO ×2 (09:37→21:12)
[2023-03-12] MEDS: MIDODRINE HCL 2.5 MG TABLET 5 MG PO ×3 (09:38→17:39)
[2023-03-12] MEDS: ROSUVASTATIN 10 MG TABLET 40 MG PO (09:38)
[2023-03-12] MEDS: METOPROLOL SUCCINATE EXT REL 25 MG TABCR PO (09:38)
[2023-03-12] MEDS: FUROSEMIDE INJ 40 MG/4 ML VIAL IV PUSH ×3 (09:39→21:10)
[2023-03-12] MEDS: CLOPIDOGREL BISULFATE 75 MG TABLET PO (09:39)
[2023-03-12] MEDS: ASPIRIN 81 MG CHEWABLE TABLET PO (09:39)
[2023-03-12] MEDS: CHOLESTYRAMINE LIGHT 4 GM POWD.PACK PO ×2 (11:10→16:01)
--- NOTE | 2023-03-12 11:45 | PM.PNCARD ---
Progress Note: A&P Assessment and Plan (1) Acute exacerbation of CHF (congestive heart failure): Qualifiers: Heart failure type: diastolic Qualified Code(s): I50.33 - Acute on chronic diastolic (congestive) heart failure Code(s): I50.9 - Heart failure, unspecified Status: Acute Assessment and Plan: Acute on chronic decompensated heart failure with preserved ejection fraction. Patient has a history of ischemic cardiomyopathy normalization of EF. Echo this admission reveals EF 60-65%. Patient presented without diuretic therapy in decompensated heart failure. -would recommend to increase Lasix from 40 mg IV b.i.d. to t.i.d.. If blood pressure started to drop we will need to hold Entresto. Continue midodrine for now. Monitor electrolytes. Replenish potassium -he remains significantly fluid overloaded (2) Healthcare associated bacterial pneumonia: Code(s): J15.9 - Unspecified bacterial pneumonia Status: Acute Assessment and Plan: IV antibiotics per primary service. Patient has been started on ceftriaxone and azithromycin. Pt has been weaned off O2 but remains wheezy. Consider bronchodilator therapy per primary service. Repeat chest x-ray this AM. He continues to have a cough with difficulty expectorating. (3) Coronary artery disease: Qualifiers: Coronary Disease-Associated Artery/Lesion type: [place] artery [place] vs. transplanted heart: [place] heart Associated angina: without angina Qualified Code(s): I25.10 - Atherosclerotic heart disease of [place] coronary artery without angina pectoris Code(s): I25.10 - Atherosclerotic heart disease of [place] coronary artery without angina pectoris Status: Acute Assessment and Plan: As above, continue Aspirin 81 mg daily, Clopidogrel 75 mg daily, Toprol XL 25 mg daily, Rosuvastatin 40 mg at bedtime. Stable at this point. (4) Elevated troponin I level: Code(s): R77.8 - Other specified abnormalities of plasma proteins Status: Acute Assessment and Plan: Mild troponin elevation sitting acute hypoxic respiratory failure, decompensated heart failure, underlying pneumonia. Patient is not reporting anginal symptoms. This likely type 2 infarction not secondary to acute coronary syndrome and/or plaque rupture. Will continue to monitor patient clinically. EF has improved by echo. Will continue to monitor closely in this regard. Continue antiplatelet therapy with aspirin and clopidogrel. Ischemic evaluation as an outpatient to be considered as this may contribute to decompensated heart failure. However, it would be unlikely he has significant progression of obstructive CAD as the primary contribution to decompensated heart failure concomitantly with normalization of his LV systolic function. (5) Hypotension: Qualifiers: Hypotension type: other hypotension type Qualified Code(s): I95.89 - Other hypotension Code(s): I95.9 - Hypotension, unspecified Status: Acute Assessment and Plan: Currently on midodrine 5 mg t.i.d. and blood pressure is stable. If hypotension develops then will need to hold Entresto (6) History of cardiomyopathy: Code(s): Z86.79 - Personal history of other diseases of the circulatory system Status: Acute Assessment and Plan: EF has normalized now 60-65% status post history of percutaneous intervention. Continue supportive therapy with Entresto, Toprol XL for now. Anticipate he will require oral diuretic therapy upon discharge with regimen to be determined pending response. (7) Pacemaker: Code(s): Z95.0 - Presence of cardiac pacemaker Status: Acute Assessment and Plan: Normal device function ventricular paced rhythm. Occasional PVCs, brief nonsustained VT on telemetry. Continue Toprol XL 25 mg daily. Patient has a history of complete heart block status post pacemaker implantation. No acute issues at present. I
[2023-03-12] MEDS: POTASSIUM CHLORIDE 20 MEQ TABLET 40 MEQ PO (13:04)
--- NOTE | 2023-03-12 15:16 | WPDPN ---
Progress Note: A&P Assessment and Plan (1) Healthcare associated bacterial pneumonia: Code(s): J15.9 - Unspecified bacterial pneumonia Status: Acute Assessment and Plan: admit to IMU patient received Zithromax and Rocephin in emergency room will start cefepime, vancomycin and discontinue Rocephin patient recently discharged from rehabilitation facility await cultures supportive care 03/11/2023 interval history:??83-year-old male presented with shortness of his found to have exacerbation congestive heart failure patient is being diuresed to further evaluate patient had a cardiac echo showed preserved LV function with ejection fraction of 65% unable to determine the etiology of congestive heart failure, today seen by Cardiology and discussed, patient has wheezing, recommended continue to diurese the patient, there is also concern the patient has pneumonia being treated with ceftriaxone and azithromycin, will continue to monitor (2) Acute exacerbation of CHF (congestive heart failure): Qualifiers: Heart failure type: diastolic Qualified Code(s): I50.33 - Acute on chronic diastolic (congestive) heart failure Code(s): I50.9 - Heart failure, unspecified Status: Acute Assessment and Plan: diurese as needed daily intake and output daily weights continue to monitor (3) Dementia: Code(s): F03.90 - Unspecified dementia, unspecified severity, without behavioral disturbance, psychotic disturbance, mood disturbance, and anxiety Status: Acute Assessment and Plan: on no medications (4) Coronary artery disease: Qualifiers: Coronary Disease-Associated Artery/Lesion type: [place] artery [place] vs. transplanted heart: [place] heart Associated angina: without angina Qualified Code(s): I25.10 - Atherosclerotic heart disease of [place] coronary artery without angina pectoris Code(s): I25.10 - Atherosclerotic heart disease of [place] coronary artery without angina pectoris Status: Acute Assessment and Plan: continue home meds chest pain-free (5) Recurrent falls: Code(s): R29.6 - Repeated falls Status: Acute Assessment and Plan: fall precautions (6) Generalized weakness: Code(s): R53.1 - Weakness Status: Acute Assessment and Plan: likely deconditioning and chronic disease progression PT OT when clinically able to participate Subjective Date/time seen: 03/11/23 15:16 Interval history: 03/11/2023 interval history:??83-year-old male presented with shortness of his found to have exacerbation congestive heart failure patient is being diuresed to further evaluate patient had a cardiac echo showed preserved LV function with ejection fraction of 65% unable to determine the etiology of congestive heart failure, today seen by Cardiology and discussed, patient has wheezing, recommended continue to diurese the patient, there is also concern the patient has pneumonia being treated with ceftriaxone and azithromycin, will continue to monitor Exam Narrative: Patient is comfortable, NAD HEENT: eyes are clear and none icteric LUNGS: Bilateral fair entry with rales and rhonchi HEART: RR S1S2 ABD: BS+, Soft and nontender Lower extremities: no edema SKIN: nonjaundiced Neuro: grossly intact. Objective Data Vital Signs Vital Signs: Vital Signs - 24 hr 03/11/23 16:00 03/11/23 16:00 03/11/23 18:00 Temperature 97.7 F Pulse Rate 105 H 98 110 H Respiratory Rate 16 Blood Pressure 117/61 Pulse Oximetry 96 Oxygen Delivery 03/11/23 16:00 03/11/23 20:00 03/11/23 20:00 Temperature 98.2 F Pulse Rate 109 H 109 H Respiratory Rate 16 16 Blood Pressure 131/77 Pulse Oximetry 93 93 Oxygen Delivery Room Air Room Air 03/11/23 20:00 03/11/23 22:00 03/12/23 00:00 Temperature 97.8 F Pulse Rate 114 H 112 H 64 Respiratory Rate 18 Blood Pressure 135/60 Pulse Oximetry
--- NOTE | 2023-03-12 15:20 | WPDPN ---
Progress Note: A&P Assessment and Plan (1) Healthcare associated bacterial pneumonia: Code(s): J15.9 - Unspecified bacterial pneumonia Status: Acute Assessment and Plan: admit to IMU patient received Zithromax and Rocephin in emergency room will start cefepime, vancomycin and discontinue Rocephin patient recently discharged from rehabilitation facility await cultures supportive care 03/12/2023 interval history:??83-year-old male presented with shortness of his found to have exacerbation congestive heart failure patient is being diuresed to further evaluate patient had a cardiac echo showed preserved LV function with ejection fraction of 65% unable to determine the etiology of congestive heart failure, on 03/11 patient was seen by Cardiology and discussed, patient was wheezing, recommended continue to diurese the patient, today again patient was seen by Cardiology and increased Lasix 40 mg IV t.i.d. from b.i.d, as patient is volume overloaded, patient blood pressure is soft of held Entresto and continue midodrine, there is also concern the patient has pneumonia being treated with ceftriaxone and azithromycin, will continue to monitor, (2) Acute exacerbation of CHF (congestive heart failure): Qualifiers: Heart failure type: diastolic Qualified Code(s): I50.33 - Acute on chronic diastolic (congestive) heart failure Code(s): I50.9 - Heart failure, unspecified Status: Acute Assessment and Plan: diurese as needed daily intake and output daily weights continue to monitor (3) Dementia: Code(s): F03.90 - Unspecified dementia, unspecified severity, without behavioral disturbance, psychotic disturbance, mood disturbance, and anxiety Status: Acute Assessment and Plan: on no medications (4) Coronary artery disease: Qualifiers: Coronary Disease-Associated Artery/Lesion type: [place] artery [place] vs. transplanted heart: [place] heart Associated angina: without angina Qualified Code(s): I25.10 - Atherosclerotic heart disease of [place] coronary artery without angina pectoris Code(s): I25.10 - Atherosclerotic heart disease of [place] coronary artery without angina pectoris Status: Acute Assessment and Plan: continue home meds chest pain-free (5) Recurrent falls: Code(s): R29.6 - Repeated falls Status: Acute Assessment and Plan: fall precautions (6) Generalized weakness: Code(s): R53.1 - Weakness Status: Acute Assessment and Plan: likely deconditioning and chronic disease progression PT OT when clinically able to participate Subjective Date/time seen: 03/12/23 15:20 Interval history: 03/12/2023 interval history:??83-year-old male presented with shortness of his found to have exacerbation congestive heart failure patient is being diuresed to further evaluate patient had a cardiac echo showed preserved LV function with ejection fraction of 65% unable to determine the etiology of congestive heart failure, on 03/11 patient was seen by Cardiology and discussed, patient was wheezing, recommended continue to diurese the patient, today again patient was seen by Cardiology and increased Lasix 40 mg IV t.i.d. from b.i.d, as patient is volume overloaded, patient blood pressure is soft of held Entresto and continue midodrine, there is also concern the patient has pneumonia being treated with ceftriaxone and azithromycin, will continue to monitor, Exam Narrative: Patient is comfortable, NAD HEENT: eyes are clear and none icteric LUNGS: Bilateral fair entry with rales and rhonchi HEART: RR S1S2 ABD: BS+, Soft and nontender Lower extremities: no edema SKIN: nonjaundiced Neuro: grossly intact. Objective Data Vital Signs Vital Signs: Vital Signs - 24 hr 03/11/23 16:00 03/11/23 16:00 03/11/23 18:00 Temperature 97.7 F Pulse Rate 105 H 98 110 H Respiratory Rate 16 Blood P
[2023-03-12] MEDS: AZITHROMYCIN 500 MG/NS 250 ML 500 MG/250 ML BAG 250 MG IVPB (22:09)
[2023-03-12] MEDS: metroNIDAZOLE 250 MG TABLET 500 MG PO (23:54)
[2023-03-13] VITALS (14 sets, daily range): BP systolic 96–120; BP diastolic 39–56; PULSE 66–119; RESP 16–24; TEMP 36.3–36.6; O2SAT 94–100
[2023-03-13 05:09] LABS: Hematocrit 32.1 % (42.0-52.0); Hemoglobin 10.1 g/dL (14.0-18.0); Mean Corpuscular HGB Conc 31.5 g/dl (32-36); Mean Corpuscular Hemoglobin 30.9 pg (26-34); Mean Corpuscular Volume 98.2 fl (80-100); Mean Platelet Volume 9.5 fl (7.4-10.4); Platelet Count Result 205 k/mm3 (150-375); Red Blood Count 3.27 M/mm3 (4.6-6.20); Red Cell Distribution Width 15.1 % (11.5-14.5); White Blood Count 11.5 K/mm3 (4.5-10.0)
[2023-03-13 05:30] LABS: Anion Gap 1 mmol/L (8-16); Blood Urea Nitrogen 18 mg/dL (9-20); Calcium 7.3 mg/dL (8.4-10.2); Carbon Dioxide 37 mmol/L (22-30); Chloride 98 mmol/L (98-107); Estimated CRCL calculation 46 ml/min; Estimated Glomerular Filt Rate 58; Glucose 90 mg/dL (65-110); Sodium 136 mmol/L (137-145)
[2023-03-13] MEDS: metroNIDAZOLE 250 MG TABLET 500 MG PO (05:47)
[2023-03-13] MEDS: ROSUVASTATIN 10 MG TABLET 40 MG PO (08:59)
[2023-03-13] MEDS: SACUBITRIL/VALSARTAN 24-26 MG TABLET 1 TAB PO ×2 (08:59→20:27)
[2023-03-13] MEDS: TAMSULOSIN HCL 0.4 MG CAPSULE PO (08:59)
[2023-03-13] MEDS: MIDODRINE HCL 2.5 MG TABLET 5 MG PO ×3 (08:59→16:32)
[2023-03-13] MEDS: CLOPIDOGREL BISULFATE 75 MG TABLET PO (09:00)
[2023-03-13] MEDS: METOPROLOL SUCCINATE EXT REL 25 MG TABCR PO (09:00)
[2023-03-13] MEDS: FUROSEMIDE INJ 40 MG/4 ML VIAL IV PUSH ×3 (09:00→20:27)
[2023-03-13] MEDS: ASPIRIN 81 MG CHEWABLE TABLET PO (09:03)
--- NOTE | 2023-03-13 10:19 | PM.IMPN ---
Progress Note: A&P Assessment and Plan (1) Healthcare associated bacterial pneumonia: Code(s): J15.9 - Unspecified bacterial pneumonia Status: Acute Assessment and Plan: Continue ceftriaxone, azithromycin await cultures supportive care (2) Acute exacerbation of CHF (congestive heart failure): Qualifiers: Heart failure type: diastolic Qualified Code(s): I50.33 - Acute on chronic diastolic (congestive) heart failure Code(s): I50.9 - Heart failure, unspecified Status: Acute Assessment and Plan: diurese as needed daily intake and output daily weights continue to monitor Cardiology on board (3) Dementia: Code(s): F03.90 - Unspecified dementia, unspecified severity, without behavioral disturbance, psychotic disturbance, mood disturbance, and anxiety Status: Acute Assessment and Plan: on no medications (4) Coronary artery disease: Qualifiers: Coronary Disease-Associated Artery/Lesion type: [place] artery [place] vs. transplanted heart: [place] heart Associated angina: without angina Qualified Code(s): I25.10 - Atherosclerotic heart disease of [place] coronary artery without angina pectoris Code(s): I25.10 - Atherosclerotic heart disease of [place] coronary artery without angina pectoris Status: Acute Assessment and Plan: continue home meds chest pain-free (5) Recurrent falls: Code(s): R29.6 - Repeated falls Status: Acute Assessment and Plan: fall precautions (6) Generalized weakness: Code(s): R53.1 - Weakness Status: Acute Assessment and Plan: likely deconditioning and chronic disease progression PT OT when clinically able to participate Subjective Date/time seen: 03/13/23 10:19 Interval history: Feels better. On room air. No pedal edema Review of Systems Review of Systems: Remainder of the review of systems is otherwise negative aside from that noted in the HPI. All systems reviewed & are unremarkable except as noted in HPI and below Constitutional: Constitutional: Reports as per HPI and Reports no additional constitutional complaints Eyes: Eyes: Reports as per HPI and Reports no additional eye complaints ENT: Reports system reviewed and no additional complaints, except as documented and Reports as per HPI Cardiovascular: Cardiovascular: Reports as per HPI and Reports no additional cardiovascular complaints Respiratory: Respiratory: Reports as per HPI and Reports no additional respiratory complaints Gastrointestinal: Gastrointestinal: Reports as per HPI and Reports no additional gastrointestinal complaints Genitourinary: Genitourinary: Reports no additional male genitourinary complaints and Reports as per HPI Musculoskeletal: Musculoskeletal: Reports no additional musculoskeletal complaints and Reports as per HPI Integumentary/Breasts: Skin/Breast: Reports system reviewed and no additional complaints, except as docu and Reports as per HPI Neurologic: Reports system reviewed and no additional complaints, except as documented and Reports as per HPI Psychiatric: Psychiatric: Reports no additional psychiatric complaints and Reports as per HPI Endocrine: Endocrine: Reports no additional endocrine complaints and Reports as per HPI Hematologic/Lymphatic: Hematologic/Lymphatic: Reports no additional hematologic/lymphatic complaints and Reports as per HPI Allergic/Immunologic: Allergic/Immunologic: Reports no additional allergic/immunologic complaints and Reports as per HPI Exam Narrative: Patient is comfortable, NAD HEENT: eyes are clear and none icteric LUNGS: Bilateral fair entry with rales and rhonchi HEART: RR S1S2 ABD: BS+, Soft and nontender Lower extremities: no edema SKIN: nonjaundiced Neuro: grossly intact. Objective Data Vital Signs Vital Signs: Vital Signs - 24 hr 03/12/23 12:00 03/12/23 14:51 03/12/23 12:00 [place]
[2023-03-13 10:31] LABS: Toxigenic C. Diff POSITIVE (NEGATIVE)
[2023-03-13] MEDS: CHOLESTYRAMINE LIGHT 4 GM POWD.PACK PO ×2 (10:57→16:30)
--- NOTE | 2023-03-13 12:18 | PM.PNCARD ---
Progress Note: A&P Assessment and Plan (1) Acute exacerbation of CHF (congestive heart failure): Qualifiers: Heart failure type: diastolic Qualified Code(s): I50.33 - Acute on chronic diastolic (congestive) heart failure Code(s): I50.9 - Heart failure, unspecified Status: Acute Assessment and Plan: Acute on chronic decompensated heart failure with preserved ejection fraction. Patient has a history of ischemic cardiomyopathy normalization of EF. Echo this admission reveals EF 60-65%. Patient presented without diuretic therapy in decompensated heart failure. -continue Lasix from 40 mg IV t.i.d.. If blood pressure started to drop we will need to hold Entresto. Continue midodrine for now. Order potassium chloride 40 mEq x2 today. Monitor electrolytes -he remains significantly fluid overloaded (2) Healthcare associated bacterial pneumonia: Code(s): J15.9 - Unspecified bacterial pneumonia Status: Acute Assessment and Plan: IV antibiotics per primary service. Patient has been started on ceftriaxone and azithromycin. Pt has been weaned off O2 but remains wheezy. Consider bronchodilator therapy per primary service. Repeat chest x-ray this AM. He continues to have a cough with difficulty expectorating. Currently positive for C diff (3) Coronary artery disease: Qualifiers: Coronary Disease-Associated Artery/Lesion type: [place] artery [place] vs. transplanted heart: [place] heart Associated angina: without angina Qualified Code(s): I25.10 - Atherosclerotic heart disease of [place] coronary artery without angina pectoris Code(s): I25.10 - Atherosclerotic heart disease of [place] coronary artery without angina pectoris Status: Acute Assessment and Plan: As above, continue Aspirin 81 mg daily, Clopidogrel 75 mg daily, Toprol XL 25 mg daily, Rosuvastatin 40 mg at bedtime. Stable at this point. (4) Elevated troponin I level: Code(s): R77.8 - Other specified abnormalities of plasma proteins Status: Acute Assessment and Plan: Mild troponin elevation sitting acute hypoxic respiratory failure, decompensated heart failure, underlying pneumonia. Patient is not reporting anginal symptoms. This likely type 2 infarction not secondary to acute coronary syndrome and/or plaque rupture. Will continue to monitor patient clinically. EF has improved by echo. Will continue to monitor closely in this regard. Continue antiplatelet therapy with aspirin and clopidogrel. Ischemic evaluation as an outpatient to be considered as this may contribute to decompensated heart failure. However, it would be unlikely he has significant progression of obstructive CAD as the primary contribution to decompensated heart failure concomitantly with normalization of his LV systolic function. (5) Hypotension: Qualifiers: Hypotension type: other hypotension type Qualified Code(s): I95.89 - Other hypotension Code(s): I95.9 - Hypotension, unspecified Status: Acute Assessment and Plan: Currently on midodrine 5 mg t.i.d. and blood pressure is stable. If hypotension develops then will need to hold Entresto (6) History of cardiomyopathy: Code(s): Z86.79 - Personal history of other diseases of the circulatory system Status: Acute Assessment and Plan: EF has normalized now 60-65% status post history of percutaneous intervention. Continue supportive therapy with Entresto, Toprol XL for now. Anticipate he will require oral diuretic therapy upon discharge with regimen to be determined pending response.. We might require to hold Entresto if blood pressure trends down (7) Pacemaker: Code(s): Z95.0 - Presence of cardiac pacemaker Status: Acute Assessment and Plan: Normal device function ventricular paced rhythm. Occasional PVCs, brief nonsustained VT on telemetry. Continue Toprol XL 25 mg daily. Patient has a history of
[2023-03-13] MEDS: VANCOMYCIN ORAL 125 MG/2.5 ML SYRUP PO ×3 (12:45→23:28)
[2023-03-13] MEDS: POTASSIUM CHLORIDE 20 MEQ PACKET (FOR LIQUID) 40 MEQ PO ×2 (12:45→17:22)
[2023-03-13] MEDS: AZITHROMYCIN 500 MG/NS 250 ML 500 MG/250 ML BAG 250 MG IVPB (20:59)
[2023-03-14] VITALS (16 sets, daily range): BP systolic 88–112; BP diastolic 37–61; PULSE 60–77; RESP 16–20; TEMP 36.2–36.7; O2SAT 92–98
[2023-03-14 04:29] LABS: Anion Gap -1 mmol/L (8-16); Blood Urea Nitrogen 17 mg/dL (9-20); Calcium 7.6 mg/dL (8.4-10.2); Carbon Dioxide 39 mmol/L (22-30); Chloride 98 mmol/L (98-107); Estimated CRCL calculation 50 ml/min; Estimated Glomerular Filt Rate > 60; Glucose 93 mg/dL (65-110); Potassium 3.7 mmol/L (3.4-5.0); Sodium 136 mmol/L (137-145)
[2023-03-14] MEDS: VANCOMYCIN ORAL 125 MG/2.5 ML SYRUP PO ×3 (06:09→18:24)
[2023-03-14] MEDS: MIDODRINE HCL 2.5 MG TABLET 5 MG PO (08:02)
[2023-03-14] MEDS: FUROSEMIDE INJ 40 MG/4 ML VIAL IV PUSH ×2 (08:02→18:24)
[2023-03-14] MEDS: ASPIRIN 81 MG CHEWABLE TABLET PO (08:03)
[2023-03-14] MEDS: ROSUVASTATIN 10 MG TABLET 40 MG PO (08:03)
[2023-03-14] MEDS: TAMSULOSIN HCL 0.4 MG CAPSULE PO (08:04)
[2023-03-14] MEDS: CLOPIDOGREL BISULFATE 75 MG TABLET PO (08:04)
--- NOTE | 2023-03-14 10:45 | PM.PNCARD ---
Progress Note: A&P Assessment and Plan (1) Acute exacerbation of CHF (congestive heart failure): Qualifiers: Heart failure type: diastolic Qualified Code(s): I50.33 - Acute on chronic diastolic (congestive) heart failure Code(s): I50.9 - Heart failure, unspecified Status: Acute Assessment and Plan: Acute on chronic decompensated heart failure with preserved ejection fraction. Patient has a history of ischemic cardiomyopathy normalization of EF. Echo this admission reveals EF 60-65%. Patient presented without diuretic therapy in decompensated heart failure. -continue Lasix from 40 mg IV t.i.d.. Hold Entresto to allow room and blood pressure for diuresis. Order metolazone 2.5 mg p.o. x1 today. Continue midodrine for now. Order potassium chloride 40 mEq x1 today. Monitor electrolytes -he remains significantly fluid overloaded (2) Healthcare associated bacterial pneumonia: Code(s): J15.9 - Unspecified bacterial pneumonia Status: Acute Assessment and Plan: IV antibiotics per primary service. Patient has been started on ceftriaxone and azithromycin. Pt has been weaned off O2 but remains wheezy. Consider bronchodilator therapy per primary service. Repeat chest x-ray this AM. He continues to have a cough with difficulty expectorating. Currently positive for C diff. (3) Coronary artery disease: Qualifiers: Coronary Disease-Associated Artery/Lesion type: [place] artery [place] vs. transplanted heart: [place] heart Associated angina: without angina Qualified Code(s): I25.10 - Atherosclerotic heart disease of [place] coronary artery without angina pectoris Code(s): I25.10 - Atherosclerotic heart disease of [place] coronary artery without angina pectoris Status: Acute Assessment and Plan: As above, continue Aspirin 81 mg daily, Clopidogrel 75 mg daily, Toprol XL 25 mg daily, Rosuvastatin 40 mg at bedtime. Stable at this point. (4) Elevated troponin I level: Code(s): R77.8 - Other specified abnormalities of plasma proteins Status: Acute Assessment and Plan: Mild troponin elevation sitting acute hypoxic respiratory failure, decompensated heart failure, underlying pneumonia. Patient is not reporting anginal symptoms. This likely type 2 infarction not secondary to acute coronary syndrome and/or plaque rupture. Will continue to monitor patient clinically. EF has improved by echo. Will continue to monitor closely in this regard. Continue antiplatelet therapy with aspirin and clopidogrel. Ischemic evaluation as an outpatient to be considered as this may contribute to decompensated heart failure. However, it would be unlikely he has significant progression of obstructive CAD as the primary contribution to decompensated heart failure concomitantly with normalization of his LV systolic function. (5) Hypotension: Qualifiers: Hypotension type: other hypotension type Qualified Code(s): I95.89 - Other hypotension Code(s): I95.9 - Hypotension, unspecified Status: Acute Assessment and Plan: Currently on midodrine 5 mg t.i.d. and blood pressure is stable. If hypotension develops then will need to hold Entresto (6) History of cardiomyopathy: Code(s): Z86.79 - Personal history of other diseases of the circulatory system Status: Acute Assessment and Plan: EF has normalized now 60-65% status post history of percutaneous intervention. Continue supportive therapy with Entresto, Toprol XL for now. Anticipate he will require oral diuretic therapy upon discharge with regimen to be determined pending response.. Will hold Entresto today to allow room and blood pressure for diuretics (7) Pacemaker: Code(s): Z95.0 - Presence of cardiac pacemaker Status: Acute Assessment and Plan: Normal device function ventricular paced rhythm. Occasional PVCs, brief nonsustained VT on telemetry. Continue Topro
--- NOTE | 2023-03-14 12:11 | PM.IMPN ---
Progress Note: A&P Assessment and Plan (1) Healthcare associated bacterial pneumonia: Code(s): J15.9 - Unspecified bacterial pneumonia Status: Acute Assessment and Plan: Finished 7 day course with ceftriaxone, azithromycin (2) C. difficile colitis: Code(s): A04.72 - Enterocolitis due to Clostridium difficile, not specified as recurrent Status: Acute Assessment and Plan: Likely from being on antibiotics for 7 days. Discontinue Rocephin azithromycin since he finished treatment for pneumonia. Started on oral vancomycin (3) Acute exacerbation of CHF (congestive heart failure): Qualifiers: Heart failure type: diastolic Qualified Code(s): I50.33 - Acute on chronic diastolic (congestive) heart failure Code(s): I50.9 - Heart failure, unspecified Status: Acute Assessment and Plan: Diurese with Lasix. Metolazone added per Cardiology recommendations daily intake and output daily weights continue to monitor Cardiology on board (4) Coronary artery disease: Qualifiers: Coronary Disease-Associated Artery/Lesion type: [place] artery [place] vs. transplanted heart: [place] heart Associated angina: without angina Qualified Code(s): I25.10 - Atherosclerotic heart disease of [place] coronary artery without angina pectoris Code(s): I25.10 - Atherosclerotic heart disease of [place] coronary artery without angina pectoris Status: Acute Assessment and Plan: continue home meds chest pain-free (5) Generalized weakness: Code(s): R53.1 - Weakness Status: Acute Assessment and Plan: likely deconditioning and chronic disease progression PT OT when clinically able to participate Subjective Date/time seen: 03/14/23 12:11 Interval history: stable Review of Systems Review of Systems: All systems reviewed & are unremarkable except as noted in HPI and below Constitutional: Constitutional: Reports as per HPI and Reports no additional constitutional complaints Eyes: Eyes: Reports as per HPI and Reports no additional eye complaints ENT: Reports system reviewed and no additional complaints, except as documented and Reports as per HPI Cardiovascular: Cardiovascular: Reports as per HPI and Reports no additional cardiovascular complaints Respiratory: Respiratory: Reports as per HPI and Reports no additional respiratory complaints Gastrointestinal: Gastrointestinal: Reports as per HPI and Reports no additional gastrointestinal complaints Genitourinary: Genitourinary: Reports no additional male genitourinary complaints and Reports as per HPI Musculoskeletal: Musculoskeletal: Reports no additional musculoskeletal complaints and Reports as per HPI Integumentary/Breasts: Skin/Breast: Reports system reviewed and no additional complaints, except as docu and Reports as per HPI Neurologic: Reports system reviewed and no additional complaints, except as documented and Reports as per HPI Psychiatric: Psychiatric: Reports no additional psychiatric complaints and Reports as per HPI Endocrine: Endocrine: Reports no additional endocrine complaints and Reports as per HPI Hematologic/Lymphatic: Hematologic/Lymphatic: Reports no additional hematologic/lymphatic complaints and Reports as per HPI Allergic/Immunologic: Allergic/Immunologic: Reports no additional allergic/immunologic complaints and Reports as per HPI Exam Narrative: Patient is comfortable, NAD HEENT: eyes are clear and none icteric LUNGS: Bilateral fair entry with rales and rhonchi HEART: RR S1S2 ABD: BS+, Soft and nontender Lower extremities: no edema SKIN: nonjaundiced Neuro: grossly intact. Objective Data Vital Signs Vital Signs: Vital Signs - 24 hr 03/13/23 14:00 03/13/23 16:00 03/13/23 16:00 Temperature Pulse Rate 74 74 Respiratory Rate Blood Pressure Pulse Oximetry Oxygen Delivery Room Air Fraction of Inspired Oxygen
[2023-03-14] MEDS: CHOLESTYRAMINE LIGHT 4 GM POWD.PACK PO ×2 (12:34→16:37)
[2023-03-14] MEDS: ENOXAPARIN 40 MG/0.4 ML SYRINGE SUB-Q (12:34)
[2023-03-14] MEDS: POTASSIUM CHLORIDE 20 MEQ PACKET (FOR LIQUID) 40 MEQ PO (12:41)
[2023-03-14] MEDS: MIDODRINE HCL 10 MG TABLET PO (16:35)
[2023-03-15] VITALS (11 sets, daily range): BP systolic 103–117; BP diastolic 49–53; PULSE 62–82; RESP 18–20; TEMP 36.2–36.4; O2SAT 96–99
[2023-03-15] MEDS: VANCOMYCIN ORAL 125 MG/2.5 ML SYRUP PO ×5 (00:01→23:35)
[2023-03-15 05:48] LABS: Anion Gap 0 mmol/L (8-16); Blood Urea Nitrogen 17 mg/dL (9-20); Calcium 7.6 mg/dL (8.4-10.2); Carbon Dioxide 37 mmol/L (22-30); Chloride 97 mmol/L (98-107); Estimated CRCL calculation 43 ml/min; Estimated Glomerular Filt Rate 53; Glucose 104 mg/dL (65-110); Magnesium 2.1 mg/dL (1.6-2.3); Potassium 3.8 mmol/L (3.4-5.0); Sodium 134 mmol/L (137-145)
[2023-03-15] MEDS: MIDODRINE HCL 10 MG TABLET PO ×3 (08:20→17:29)
[2023-03-15] MEDS: ENOXAPARIN 40 MG/0.4 ML SYRINGE SUB-Q (08:20)
[2023-03-15] MEDS: METOPROLOL SUCCINATE EXT REL 25 MG TABCR PO (08:20)
[2023-03-15] MEDS: FUROSEMIDE INJ 40 MG/4 ML VIAL IV PUSH ×3 (08:20→17:29)
[2023-03-15] MEDS: TAMSULOSIN HCL 0.4 MG CAPSULE PO (08:21)
[2023-03-15] MEDS: ROSUVASTATIN 10 MG TABLET 40 MG PO (08:21)
[2023-03-15] MEDS: CLOPIDOGREL BISULFATE 75 MG TABLET PO (08:21)
[2023-03-15] MEDS: ASPIRIN 81 MG CHEWABLE TABLET PO (08:21)
[2023-03-15] MEDS: CHOLESTYRAMINE LIGHT 4 GM POWD.PACK PO ×2 (11:15→15:35)
--- NOTE | 2023-03-15 11:48 | PM.IMPN ---
Progress Note: A&P Assessment and Plan (1) Healthcare associated bacterial pneumonia: Code(s): J15.9 - Unspecified bacterial pneumonia Status: Acute Assessment and Plan: Finished 7 day course with ceftriaxone, azithromycin (2) C. difficile colitis: Code(s): A04.72 - Enterocolitis due to Clostridium difficile, not specified as recurrent Status: Acute Assessment and Plan: Likely from being on antibiotics for 7 days. Discontinued Rocephin azithromycin since he finished treatment for pneumonia. Started on oral vancomycin (3) Acute exacerbation of CHF (congestive heart failure): Qualifiers: Heart failure type: diastolic Qualified Code(s): I50.33 - Acute on chronic diastolic (congestive) heart failure Code(s): I50.9 - Heart failure, unspecified Status: Acute Assessment and Plan: Diurese with Lasix. Metolazone added per Cardiology recommendations daily intake and output daily weights continue to monitor Cardiology on board (4) Coronary artery disease: Qualifiers: Coronary Disease-Associated Artery/Lesion type: [place] artery [place] vs. transplanted heart: [place] heart Associated angina: without angina Qualified Code(s): I25.10 - Atherosclerotic heart disease of [place] coronary artery without angina pectoris Code(s): I25.10 - Atherosclerotic heart disease of [place] coronary artery without angina pectoris Status: Acute Assessment and Plan: continue home meds chest pain-free (5) Generalized weakness: Code(s): R53.1 - Weakness Status: Acute Assessment and Plan: likely deconditioning and chronic disease progression PT OT Subjective Date/time seen: 03/15/23 11:48 Interval history: Feeling better. Diarrhea is improving Review of Systems Review of Systems: All systems reviewed & are unremarkable except as noted in HPI and below Constitutional: Constitutional: Reports as per HPI and Reports no additional constitutional complaints Eyes: Eyes: Reports as per HPI and Reports no additional eye complaints ENT: Reports system reviewed and no additional complaints, except as documented and Reports as per HPI Cardiovascular: Cardiovascular: Reports as per HPI and Reports no additional cardiovascular complaints Respiratory: Respiratory: Reports as per HPI and Reports no additional respiratory complaints Gastrointestinal: Gastrointestinal: Reports as per HPI and Reports no additional gastrointestinal complaints Genitourinary: Genitourinary: Reports no additional male genitourinary complaints and Reports as per HPI Musculoskeletal: Musculoskeletal: Reports no additional musculoskeletal complaints and Reports as per HPI Integumentary/Breasts: Skin/Breast: Reports system reviewed and no additional complaints, except as docu and Reports as per HPI Neurologic: Reports system reviewed and no additional complaints, except as documented and Reports as per HPI Psychiatric: Psychiatric: Reports no additional psychiatric complaints and Reports as per HPI Endocrine: Endocrine: Reports no additional endocrine complaints and Reports as per HPI Hematologic/Lymphatic: Hematologic/Lymphatic: Reports no additional hematologic/lymphatic complaints and Reports as per HPI Allergic/Immunologic: Allergic/Immunologic: Reports no additional allergic/immunologic complaints and Reports as per HPI Exam Narrative: Patient is comfortable, NAD HEENT: eyes are clear and none icteric LUNGS: Bilateral fair entry with rales and rhonchi HEART: RR S1S2 ABD: BS+, Soft and nontender Lower extremities: no edema SKIN: nonjaundiced Neuro: grossly intact. Objective Data Vital Signs Vital Signs: Vital Signs - 24 hr 03/14/23 12:00 03/14/23 12:00 03/14/23 12:23 Temperature 98.0 F Pulse Rate 77 70 Respiratory Rate 18 Blood Pressure 94/42 L 91/43 L Pulse Oximetry 98 Oxygen Delivery Fraction of Ins
--- NOTE | 2023-03-15 14:22 | PC.NURSE ---
This patient, Yoseph Luis ., was received from [[facility]] on 03/15/23 at 1425. Patient/family oriented to unit policies and routines. REPORT FROM CHRISTIANA
--- NOTE | 2023-03-15 14:46 | PC.NURSE ---
This patient, Yoseph Luis Jr., was transferred to [facility] on 03/15/23 at 1425. Personal belongings sent with patient. Report given to FLORENCIA Dotson. Appropriate documentation sent with patient.
--- NOTE | 2023-03-15 15:15 | PM.PNCARD ---
Progress Note: A&P Assessment and Plan (1) Acute exacerbation of CHF (congestive heart failure): Qualifiers: Heart failure type: diastolic Qualified Code(s): I50.33 - Acute on chronic diastolic (congestive) heart failure Code(s): I50.9 - Heart failure, unspecified Status: Acute Assessment and Plan: Acute on chronic decompensated heart failure with preserved ejection fraction. Patient has a history of ischemic cardiomyopathy normalization of EF. Echo this admission reveals EF 60-65%. Patient presented without diuretic therapy in decompensated heart failure. -continue Lasix from 40 mg IV t.i.d.. Holding Entresto to allow room and blood pressure for diuresis. -Continue midodrine for now. -Monitor electrolytes -he remains significantly fluid overloaded, but is slowly improving (2) Healthcare associated bacterial pneumonia: Code(s): J15.9 - Unspecified bacterial pneumonia Status: Acute Assessment and Plan: IV antibiotics per primary service. Patient has been started on ceftriaxone and azithromycin. Pt has been weaned off O2 but remains wheezy. Consider bronchodilator therapy per primary service. Cough improved. Currently positive for C diff. (3) Coronary artery disease: Qualifiers: Associated angina: without angina Coronary Disease-Associated Artery/Lesion type: [place] artery [place] vs. transplanted heart: [place] heart Qualified Code(s): I25.10 - Atherosclerotic heart disease of [place] coronary artery without angina pectoris Code(s): I25.10 - Atherosclerotic heart disease of [place] coronary artery without angina pectoris Status: Acute Assessment and Plan: As above, continue Aspirin 81 mg daily, Clopidogrel 75 mg daily, Toprol XL 25 mg daily, Rosuvastatin 40 mg at bedtime. Stable at this point. (4) Elevated troponin I level: Code(s): R77.8 - Other specified abnormalities of plasma proteins Status: Acute Assessment and Plan: Mild troponin elevation sitting acute hypoxic respiratory failure, decompensated heart failure, underlying pneumonia. Patient is not reporting anginal symptoms. This likely type 2 infarction not secondary to acute coronary syndrome and/or plaque rupture. Will continue to monitor patient clinically. EF has improved by echo. Will continue to monitor closely in this regard. Continue antiplatelet therapy with aspirin and clopidogrel. Ischemic evaluation as an outpatient to be considered as this may contribute to decompensated heart failure. However, it would be unlikely he has significant progression of obstructive CAD as the primary contribution to decompensated heart failure concomitantly with normalization of his LV systolic function. (5) Hypotension: Qualifiers: Hypotension type: other hypotension type Qualified Code(s): I95.89 - Other hypotension Code(s): I95.9 - Hypotension, unspecified Status: Acute Assessment and Plan: Currently on midodrine 5 mg t.i.d. and blood pressure is stable. Holding entresto (6) History of cardiomyopathy: Code(s): Z86.79 - Personal history of other diseases of the circulatory system Status: Acute Assessment and Plan: EF has normalized now 60-65% status post history of percutaneous intervention. Continue supportive therapy with Entresto, Toprol XL for now. Anticipate he will require oral diuretic therapy upon discharge with regimen to be determined pending response.. Continue to hold Entresto (7) Pacemaker: Code(s): Z95.0 - Presence of cardiac pacemaker Status: Acute Assessment and Plan: Normal device function ventricular paced rhythm. Occasional PVCs, brief nonsustained VT on telemetry. Continue Toprol XL 25 mg daily. Patient has a history of complete heart block status post pacemaker implantation. No acute issues at present. If no issues overnight consider discontinuation of telemetry. (8) Hyperl
[2023-03-16] VITALS (10 sets, daily range): BP systolic 112–122; BP diastolic 42–55; PULSE 60–70; RESP 16–20; TEMP 36.4–36.5; O2SAT 92–97
[2023-03-16] MEDS: VANCOMYCIN ORAL 125 MG/2.5 ML SYRUP PO ×3 (06:20→17:00)
[2023-03-16 06:47] LABS: Anion Gap 1 mmol/L (8-16); Blood Urea Nitrogen 16 mg/dL (9-20); Calcium 7.8 mg/dL (8.4-10.2); Carbon Dioxide 39 mmol/L (22-30); Chloride 95 mmol/L (98-107); Estimated CRCL calculation 46 ml/min; Estimated Glomerular Filt Rate 58; Glucose 110 mg/dL (65-110); Magnesium 2.1 mg/dL (1.6-2.3); Potassium 3.4 mmol/L (3.4-5.0); Sodium 135 mmol/L (137-145)
[2023-03-16] MEDS: MIDODRINE HCL 10 MG TABLET PO ×3 (08:12→16:59)
[2023-03-16] MEDS: METOPROLOL SUCCINATE EXT REL 25 MG TABCR PO (08:13)
[2023-03-16] MEDS: ASPIRIN 81 MG CHEWABLE TABLET PO (08:13)
[2023-03-16] MEDS: TAMSULOSIN HCL 0.4 MG CAPSULE PO (08:13)
[2023-03-16] MEDS: CLOPIDOGREL BISULFATE 75 MG TABLET PO (08:13)
[2023-03-16] MEDS: ROSUVASTATIN 10 MG TABLET 40 MG PO (08:13)
[2023-03-16] MEDS: ENOXAPARIN 40 MG/0.4 ML SYRINGE SUB-Q (08:14)
[2023-03-16] MEDS: FUROSEMIDE INJ 40 MG/4 ML VIAL IV PUSH ×3 (08:14→17:00)
[2023-03-16] MEDS: CHOLESTYRAMINE LIGHT 4 GM POWD.PACK PO ×2 (09:58→15:17)
--- NOTE | 2023-03-16 11:36 | PM.IMPN ---
Progress Note: A&P Assessment and Plan (1) Healthcare associated bacterial pneumonia: Code(s): J15.9 - Unspecified bacterial pneumonia Status: Acute Assessment and Plan: Finished 7 day course with ceftriaxone, azithromycin (2) C. difficile colitis: Code(s): A04.72 - Enterocolitis due to Clostridium difficile, not specified as recurrent Status: Acute Assessment and Plan: Likely from being on antibiotics for 7 days. Discontinued Rocephin azithromycin since he finished treatment for pneumonia. Started on oral vancomycin (3) Acute exacerbation of CHF (congestive heart failure): Qualifiers: Heart failure type: diastolic Qualified Code(s): I50.33 - Acute on chronic diastolic (congestive) heart failure Code(s): I50.9 - Heart failure, unspecified Status: Acute Assessment and Plan: Diurese with Lasix. Metolazone added per Cardiology recommendations daily intake and output daily weights continue to monitor Cardiology on board (4) Coronary artery disease: Qualifiers: Coronary Disease-Associated Artery/Lesion type: [place] artery [place] vs. transplanted heart: [place] heart Associated angina: without angina Qualified Code(s): I25.10 - Atherosclerotic heart disease of [place] coronary artery without angina pectoris Code(s): I25.10 - Atherosclerotic heart disease of [place] coronary artery without angina pectoris Status: Acute Assessment and Plan: continue home meds chest pain-free (5) Generalized weakness: Code(s): R53.1 - Weakness Status: Acute Assessment and Plan: likely deconditioning and chronic disease progression PT OT Subjective Date/time seen: 03/16/23 11:36 Interval history: No new complaints Exam Narrative: Patient is comfortable, NAD HEENT: eyes are clear and none icteric LUNGS: Bilateral fair entry with rales and rhonchi HEART: RR S1S2 ABD: BS+, Soft and nontender Lower extremities: no edema SKIN: nonjaundiced Neuro: grossly intact. Objective Data Vital Signs Vital Signs: Vital Signs - 24 hr 03/15/23 12:00 03/15/23 16:00 03/15/23 16:00 Temperature 97.6 F Pulse Rate 71 82 72 Respiratory Rate 20 Blood Pressure 109/49 L Pulse Oximetry 99 03/15/23 21:48 03/15/23 20:00 03/16/23 00:00 Temperature 97.1 F L Pulse Rate 67 70 69 Respiratory Rate 18 Blood Pressure 117/53 L Pulse Oximetry 98 03/16/23 04:00 03/16/23 06:00 03/16/23 08:13 Temperature 97.7 F Pulse Rate 70 62 63 Respiratory Rate 16 Blood Pressure 122/55 L Pulse Oximetry 92 03/16/23 08:00 Temperature Pulse Rate 68 Respiratory Rate Blood Pressure Pulse Oximetry Intake/Output Intake/Output: Intake & Output 03/13/23 03/14/23 03/15/23 03/16/23 23:59 23:59 23:59 23:59 Intake Total 2270 1650 600 240 Output Total 1750 3000 3500 2250 Balance 386 -3628 -4970 -2009 Meds/Results Medications: Active Medications Generic Name Dose Route Start Last Admin Trade Name Freq PRN Reason Stop Dose Admin Acetaminophen 650 mg 03/08/23 21:05 Acetaminophen 325 Mg Tablet PO Q4H PRN Mild Pain (1-3) or Fever Aspirin 81 mg 03/09/23 09:00 03/16/23 08:13 Aspirin 81 Mg Chewable Tablet PO 81 mg DAILY JANET Administration Cholestyramine Resin 4 gm 03/09/23 10:00 03/16/23 09:58 Cholestyramine Light 4 Gm Powd.Pack PO 4 gm 1000,1500 JANET Administration Clopidogrel Bisulfate 75 mg 03/09/23 09:00 03/16/23 08:13 Clopidogrel Bisulfate 75 Mg Tablet PO 75 mg DAILY JANET Administration Enoxaparin Sodium 40 mg 03/14/23 09:00 03/16/23 08:14 Enoxaparin 40 Mg/0.4 Ml Syringe SUB-Q 40 mg DAILY JANET Administration Furosemide 40 mg 03/12/23 13:00 03/16/23 08:14 Furosemide Inj 40 Mg/4 Ml Vial IV PUSH 40 mg TID JANET Administration Hydrocortisone 1 applic 03/09/23 02:41 Hydrocortisone 1% 30 Gm Cream TOPICAL
--- NOTE | 2023-03-16 12:52 | PM.PNCARD ---
Progress Note: A&P Assessment and Plan (1) Acute exacerbation of CHF (congestive heart failure): Qualifiers: Heart failure type: diastolic Qualified Code(s): I50.33 - Acute on chronic diastolic (congestive) heart failure Code(s): I50.9 - Heart failure, unspecified Status: Acute Assessment and Plan: Acute on chronic decompensated heart failure with preserved ejection fraction. Patient has a history of ischemic cardiomyopathy with normalization of EF. Echo this admission reveals EF 60-65%. Patient presented without diuretic therapy in decompensated heart failure. -Continue Lasix from 40 mg IV TID. Holding Entresto to allow room and blood pressure for diuresis. -Continue Midodrine for now. Thus far, patient is net negative 11.4 liters. (2) Healthcare associated bacterial pneumonia: Code(s): J15.9 - Unspecified bacterial pneumonia Status: Acute Assessment and Plan: IV antibiotics per primary service. Patient has been started on ceftriaxone and azithromycin. Pt has been weaned off O2 but remains wheezy. Consider bronchodilator therapy per primary service. Cough improved. Currently positive for C diff. (3) Coronary artery disease: Qualifiers: Coronary Disease-Associated Artery/Lesion type: [place] artery [place] vs. transplanted heart: [place] heart Associated angina: without angina Qualified Code(s): I25.10 - Atherosclerotic heart disease of [place] coronary artery without angina pectoris Code(s): I25.10 - Atherosclerotic heart disease of [place] coronary artery without angina pectoris Status: Acute Assessment and Plan: As above, continue Aspirin 81 mg daily, Clopidogrel 75 mg daily, Toprol XL 25 mg daily, Rosuvastatin 40 mg at bedtime. Stable at this point. (4) Elevated troponin I level: Code(s): R77.8 - Other specified abnormalities of plasma proteins Status: Acute Assessment and Plan: Mild troponin elevation sitting acute hypoxic respiratory failure, decompensated heart failure, underlying pneumonia. Patient is not reporting anginal symptoms. This likely type 2 infarction not secondary to acute coronary syndrome and/or plaque rupture. Will continue to monitor patient clinically. EF has improved by echo. Will continue to monitor closely in this regard. Continue antiplatelet therapy with aspirin and clopidogrel. Ischemic evaluation as an outpatient to be considered as this may contribute to decompensated heart failure. However, it would be unlikely he has significant progression of obstructive CAD as the primary contribution to decompensated heart failure concomitantly with normalization of his LV systolic function. (5) Hypotension: Qualifiers: Hypotension type: other hypotension type Qualified Code(s): I95.89 - Other hypotension Code(s): I95.9 - Hypotension, unspecified Status: Acute Assessment and Plan: Continue Midodrine. Holding Entresto. (6) History of cardiomyopathy: Code(s): Z86.79 - Personal history of other diseases of the circulatory system Status: Acute Assessment and Plan: EF has normalized now 60-65% status post history of percutaneous intervention. Continue Toprol. Entresto on hold due to hypotension and requiring Midodrine for blood pressure support. Anticipate he will require oral diuretic therapy upon discharge with regimen to be determined pending response. Continue to hold Entresto (7) Pacemaker: Code(s): Z95.0 - Presence of cardiac pacemaker Status: Acute Assessment and Plan: Normal device function ventricular paced rhythm. Occasional PVCs, brief nonsustained VT on telemetry. Continue Toprol XL 25 mg daily. Patient has a history of complete heart block status post pacemaker implantation. No acute issues at present. (8) Hyperlipidemia: Qualifiers: Hyperlipidemia type: mixed hyperlipidemia Qualified Code(s): E78
[2023-03-17] VITALS (12 sets, daily range): BP systolic 102–129; BP diastolic 45–73; PULSE 60–72; RESP 13–18; TEMP 36.5–36.6; O2SAT 93–98
[2023-03-17] MEDS: VANCOMYCIN ORAL 125 MG/2.5 ML SYRUP PO ×4 (00:22→17:38)
[2023-03-17 07:08] LABS: Blood Urea Nitrogen 18 mg/dL (9-20); Carbon Dioxide > 40 mmol/L (22-30); Chloride 94 mmol/L (98-107); Estimated CRCL calculation 45 ml/min; Estimated Glomerular Filt Rate 58; Glucose 89 mg/dL (65-110); Magnesium 2.3 mg/dL (1.6-2.3); Potassium 3.9 mmol/L (3.4-5.0); Sodium 136 mmol/L (137-145)
[2023-03-17] MEDS: ENOXAPARIN 40 MG/0.4 ML SYRINGE SUB-Q (08:52)
[2023-03-17] MEDS: ROSUVASTATIN 10 MG TABLET 40 MG PO (08:53)
[2023-03-17] MEDS: METOPROLOL SUCCINATE EXT REL 25 MG TABCR PO (08:54)
[2023-03-17] MEDS: TAMSULOSIN HCL 0.4 MG CAPSULE PO (08:55)
[2023-03-17] MEDS: ASPIRIN 81 MG CHEWABLE TABLET PO (08:55)
[2023-03-17] MEDS: MIDODRINE HCL 10 MG TABLET PO ×3 (08:55→17:39)
[2023-03-17] MEDS: CLOPIDOGREL BISULFATE 75 MG TABLET PO (08:55)
[2023-03-17] MEDS: FUROSEMIDE INJ 40 MG/4 ML VIAL IV PUSH ×3 (08:56→17:39)
[2023-03-17] MEDS: CHOLESTYRAMINE LIGHT 4 GM POWD.PACK PO ×2 (10:40→16:18)
--- NOTE | 2023-03-17 11:25 | PM.IMPN ---
Progress Note: A&P Assessment and Plan (1) Healthcare associated bacterial pneumonia: Code(s): J15.9 - Unspecified bacterial pneumonia Status: Acute Assessment and Plan: Finished 7 day course with ceftriaxone, azithromycin (2) C. difficile colitis: Code(s): A04.72 - Enterocolitis due to Clostridium difficile, not specified as recurrent Status: Acute Assessment and Plan: Likely from being on antibiotics for 7 days. Discontinued Rocephin azithromycin since he finished treatment for pneumonia. Started on oral vancomycin -diarrhea is manageable. (3) Acute exacerbation of CHF (congestive heart failure): Qualifiers: Heart failure type: diastolic Qualified Code(s): I50.33 - Acute on chronic diastolic (congestive) heart failure Code(s): I50.9 - Heart failure, unspecified Status: Acute Assessment and Plan: Continue diuresis. Patient does have substantial edema. This continues to improve Respiratory status is much improved as well. EF noted to be 60 65% on recent echo. Hold Entresto secondary to blood pressure. Continue diuretic. Appreciate Cardiology input (4) Coronary artery disease: Qualifiers: Coronary Disease-Associated Artery/Lesion type: [place] artery [place] vs. transplanted heart: [place] heart Associated angina: without angina Qualified Code(s): I25.10 - Atherosclerotic heart disease of [place] coronary artery without angina pectoris Code(s): I25.10 - Atherosclerotic heart disease of [place] coronary artery without angina pectoris Status: Acute Assessment and Plan: continue home meds chest pain-free (5) Generalized weakness: Code(s): R53.1 - Weakness Status: Acute Assessment and Plan: likely deconditioning and chronic disease progression PT OT Subjective Date/time seen: 03/17/23 11:25 Interval history: Breathing is much better. Edema is slowly improving Exam Narrative: Patient is comfortable, NAD HEENT: eyes are clear and none icteric LUNGS: Bilateral fair entry with rales and rhonchi HEART: RR S1S2 ABD: BS+, Soft and nontender Lower extremities: no edema SKIN: nonjaundiced Neuro: grossly intact. Objective Data Vital Signs Vital Signs: Vital Signs - 24 hr 03/16/23 12:00 03/16/23 14:00 03/16/23 16:00 Temperature 97.5 F L Pulse Rate 68 67 62 Respiratory Rate 20 Blood Pressure 116/46 L Pulse Oximetry 96 Oxygen Delivery 03/16/23 20:50 03/16/23 20:00 03/17/23 00:00 Temperature 97.5 F L Pulse Rate 60 67 61 Respiratory Rate 20 Blood Pressure 112/42 L Pulse Oximetry 97 Oxygen Delivery 03/17/23 04:00 03/17/23 06:00 03/17/23 08:54 Temperature 97.7 F Pulse Rate 64 61 68 Respiratory Rate 18 Blood Pressure 109/52 L Pulse Oximetry 93 Oxygen Delivery 03/17/23 09:18 03/17/23 08:50 Temperature Pulse Rate Respiratory Rate Blood Pressure Pulse Oximetry 94 Oxygen Delivery Room Air Room Air Intake/Output Intake/Output: Intake & Output 03/14/23 03/15/23 03/16/23 03/17/23 23:59 23:59 23:59 23:59 Intake Total 1622 035 4587 360 Output Total 3000 3500 3900 700 Balance -1350 -2900 -2700 -340 Meds/Results Medications: Active Medications Generic Name Dose Route Start Last Admin Trade Name Freq PRN Reason Stop Dose Admin Acetaminophen 650 mg 03/08/23 21:05 Acetaminophen 325 Mg Tablet PO Q4H PRN Mild Pain (1-3) or Fever Albuterol 2 puff 03/17/23 07:45 Albuterol Sulfate (*Sp) Aerosol 1 Puff INHALATION Q6HRT PRN Shortness Of Breath Aspirin 81 mg 03/09/23 09:00 03/17/23 08:55 Aspirin 81 Mg Chewable Tablet PO 81 mg DAILY JANET Administration Cholestyramine Resin 4 gm 03/09/23 10:00 03/17/23 10:40 Cholestyramine Light 4 Gm Powd.Pack PO 4 gm 1000,1500 JANET Administration Clopidogrel Bisulfate 75 mg 03/09/23 09:00 03/17/23 08:55 Clopidogrel B
[2023-03-18] VITALS (10 sets, daily range): BP systolic 106–110; BP diastolic 45–54; PULSE 61–69; RESP 14–20; TEMP 36.4–37.1; O2SAT 95–96
[2023-03-18] MEDS: VANCOMYCIN ORAL 125 MG/2.5 ML SYRUP PO ×4 (00:15→17:24)
[2023-03-18 06:54] LABS: Blood Urea Nitrogen 21 mg/dL (9-20); Carbon Dioxide > 40 mmol/L (22-30); Chloride 94 mmol/L (98-107); Estimated CRCL calculation 41 ml/min; Estimated Glomerular Filt Rate 53; Glucose 87 mg/dL (65-110); Magnesium 2.3 mg/dL (1.6-2.3); Potassium 3.7 mmol/L (3.4-5.0); Sodium 135 mmol/L (137-145)
[2023-03-18] MEDS: MIDODRINE HCL 10 MG TABLET PO ×3 (09:15→17:21)
[2023-03-18] MEDS: ROSUVASTATIN 10 MG TABLET 40 MG PO (09:15)
[2023-03-18] MEDS: CLOPIDOGREL BISULFATE 75 MG TABLET PO (09:16)
[2023-03-18] MEDS: ASPIRIN 81 MG CHEWABLE TABLET PO (09:16)
[2023-03-18] MEDS: TAMSULOSIN HCL 0.4 MG CAPSULE PO (09:16)
[2023-03-18] MEDS: ENOXAPARIN 40 MG/0.4 ML SYRINGE SUB-Q (09:16)
[2023-03-18] MEDS: METOPROLOL SUCCINATE EXT REL 25 MG TABCR PO (09:17)
[2023-03-18] MEDS: FUROSEMIDE INJ 40 MG/4 ML VIAL IV PUSH ×3 (09:19→17:21)
[2023-03-18] MEDS: CHOLESTYRAMINE LIGHT 4 GM POWD.PACK PO ×2 (11:00→15:44)
--- NOTE | 2023-03-18 11:36 | PM.PNCARD ---
Progress Note: A&P Assessment and Plan (1) Acute exacerbation of CHF (congestive heart failure): Qualifiers: Heart failure type: diastolic Qualified Code(s): I50.33 - Acute on chronic diastolic (congestive) heart failure Code(s): I50.9 - Heart failure, unspecified Status: Acute Assessment and Plan: Acute on chronic decompensated heart failure with preserved ejection fraction. Patient has a history of ischemic cardiomyopathy with normalization of EF. Echo this admission reveals EF 60-65%. Patient presented without diuretic therapy in decompensated heart failure. -Continue Lasix from 40 mg IV TID. Holding Entresto to allow room and blood pressure for diuresis. -Continue Midodrine for now. Thus far, patient is net negative 12.7 liters. (2) Healthcare associated bacterial pneumonia: Code(s): J15.9 - Unspecified bacterial pneumonia Status: Acute Assessment and Plan: IV antibiotics per primary service. Patient has been started on ceftriaxone and azithromycin. Pt has been weaned off O2 but remains wheezy. Consider bronchodilator therapy per primary service. Cough improved. Currently positive for C diff. (3) Coronary artery disease: Qualifiers: Coronary Disease-Associated Artery/Lesion type: [place] artery [place] vs. transplanted heart: [place] heart Associated angina: without angina Qualified Code(s): I25.10 - Atherosclerotic heart disease of [place] coronary artery without angina pectoris Code(s): I25.10 - Atherosclerotic heart disease of [place] coronary artery without angina pectoris Status: Acute Assessment and Plan: As above, continue Aspirin 81 mg daily, Clopidogrel 75 mg daily, Toprol XL 25 mg daily, Rosuvastatin 40 mg at bedtime. Stable at this point. (4) Elevated troponin I level: Code(s): R77.8 - Other specified abnormalities of plasma proteins Status: Acute Assessment and Plan: Mild troponin elevation sitting acute hypoxic respiratory failure, decompensated heart failure, underlying pneumonia. Patient is not reporting anginal symptoms. This likely type 2 infarction not secondary to acute coronary syndrome and/or plaque rupture. Will continue to monitor patient clinically. EF has improved by echo. Will continue to monitor closely in this regard. Continue antiplatelet therapy with aspirin and clopidogrel. Ischemic evaluation as an outpatient to be considered as this may contribute to decompensated heart failure. However, it would be unlikely he has significant progression of obstructive CAD as the primary contribution to decompensated heart failure concomitantly with normalization of his LV systolic function. (5) Hypotension: Qualifiers: Hypotension type: other hypotension type Qualified Code(s): I95.89 - Other hypotension Code(s): I95.9 - Hypotension, unspecified Status: Acute Assessment and Plan: Continue Midodrine. Holding Entresto. (6) History of cardiomyopathy: Code(s): Z86.79 - Personal history of other diseases of the circulatory system Status: Acute Assessment and Plan: EF has normalized now 60-65% status post history of percutaneous intervention. Continue Toprol. Entresto on hold due to hypotension and requiring Midodrine for blood pressure support. Anticipate he will require oral diuretic therapy upon discharge with regimen to be determined pending response. Continue to hold Entresto (7) Pacemaker: Code(s): Z95.0 - Presence of cardiac pacemaker Status: Acute Assessment and Plan: Normal device function ventricular paced rhythm. Occasional PVCs, brief nonsustained VT on telemetry. Continue Toprol XL 25 mg daily. Patient has a history of complete heart block status post pacemaker implantation. No acute issues at present. (8) Hyperlipidemia: Qualifiers: Hyperlipidemia type: mixed hyperlipidemia Qualified Code(s): E78
--- NOTE | 2023-03-18 12:34 | PM.IMPN ---
Progress Note: A&P Assessment and Plan (1) Healthcare associated bacterial pneumonia: Code(s): J15.9 - Unspecified bacterial pneumonia Status: Acute Assessment and Plan: Finished 7 day course with ceftriaxone, azithromycin (2) C. difficile colitis: Code(s): A04.72 - Enterocolitis due to Clostridium difficile, not specified as recurrent Status: Acute Assessment and Plan: Likely from being on antibiotics for 7 days. Discontinued Rocephin azithromycin since he finished treatment for pneumonia. Started on oral vancomycin -diarrhea is manageable. (3) Acute exacerbation of CHF (congestive heart failure): Qualifiers: Heart failure type: diastolic Qualified Code(s): I50.33 - Acute on chronic diastolic (congestive) heart failure Code(s): I50.9 - Heart failure, unspecified Status: Acute Assessment and Plan: Continue diuresis. Patient does have substantial edema. This continues to improve Respiratory status is much improved as well. EF noted to be 60 65% on recent echo. Hold Entresto secondary to blood pressure. Continue diuretic. Appreciate Cardiology input (4) Coronary artery disease: Qualifiers: Coronary Disease-Associated Artery/Lesion type: [place] artery [place] vs. transplanted heart: [place] heart Associated angina: without angina Qualified Code(s): I25.10 - Atherosclerotic heart disease of [place] coronary artery without angina pectoris Code(s): I25.10 - Atherosclerotic heart disease of [place] coronary artery without angina pectoris Status: Acute Assessment and Plan: continue home meds chest pain-free (5) Generalized weakness: Code(s): R53.1 - Weakness Status: Acute Assessment and Plan: likely deconditioning and chronic disease progression PT OT Subjective Date/time seen: 03/18/23 12:34 Interval history: Doing well Exam Narrative: Patient is comfortable, NAD HEENT: eyes are clear and none icteric LUNGS: Bilateral fair entry with rales and rhonchi HEART: RR S1S2 ABD: BS+, Soft and nontender Lower extremities: no edema SKIN: nonjaundiced Neuro: grossly intact. Objective Data Vital Signs Vital Signs: Vital Signs - 24 hr 03/17/23 14:00 03/17/23 16:00 03/17/23 21:39 Temperature 97.8 F 97.9 F Pulse Rate 72 63 60 Respiratory Rate 18 13 Blood Pressure 102/73 129/45 L Pulse Oximetry 97 98 Oxygen Delivery 03/17/23 22:36 03/17/23 20:00 03/18/23 00:00 Temperature Pulse Rate 63 69 Respiratory Rate Blood Pressure Pulse Oximetry 98 Oxygen Delivery Room Air 03/18/23 04:00 03/18/23 05:48 03/18/23 09:17 Temperature 98.7 F Pulse Rate 63 62 64 Respiratory Rate 14 Blood Pressure 106/45 L Pulse Oximetry 95 Oxygen Delivery 03/18/23 09:10 03/18/23 08:00 03/18/23 12:00 Temperature Pulse Rate 61 64 Respiratory Rate Blood Pressure Pulse Oximetry Oxygen Delivery Room Air Intake/Output Intake/Output: Intake & Output 03/15/23 03/16/23 03/17/23 03/18/23 23:59 23:59 23:59 23:59 Intake Total 600 1200 960 740 Output Total 3500 3900 2300 Balance -2900 -2700 -1340 740 Meds/Results Medications: Active Medications Generic Name Dose Route Start Last Admin Trade Name Freq PRN Reason Stop Dose Admin Acetaminophen 650 mg 03/08/23 21:05 Acetaminophen 325 Mg Tablet PO Q4H PRN Mild Pain (1-3) or Fever Albuterol 2 puff 03/17/23 07:45 Albuterol Sulfate (*Sp) Aerosol 1 Puff INHALATION Q6HRT PRN Shortness Of Breath Aspirin 81 mg 03/09/23 09:00 03/18/23 09:16 Aspirin 81 Mg Chewable Tablet PO 81 mg DAILY JANET Administration Cholestyramine Resin 4 gm 03/09/23 10:00 03/18/23 11:00 Cholestyramine Light 4 Gm Powd.Pack PO 4 gm 1000,1500 JANET Administration Clopidogrel Bisulfate 75 mg 03/09/23 09:00 03/18/23 09:16 Clopidogrel Bisulfate 75 Mg Tablet PO 7
[2023-03-19] VITALS (7 sets, daily range): BP systolic 105–106; BP diastolic 37–66; PULSE 61–85; RESP 20; TEMP 36.5–36.6; O2SAT 95–100
[2023-03-19] MEDS: VANCOMYCIN ORAL 125 MG/2.5 ML SYRUP PO ×3 (00:02→12:03)
[2023-03-19 06:52] LABS: Blood Urea Nitrogen 23 mg/dL (9-20); Carbon Dioxide > 40 mmol/L (22-30); Chloride 92 mmol/L (98-107); Estimated CRCL calculation 39 ml/min; Estimated Glomerular Filt Rate 49; Glucose 87 mg/dL (65-110); Magnesium 2.3 mg/dL (1.6-2.3); Potassium 3.4 mmol/L (3.4-5.0); Sodium 135 mmol/L (137-145)
[2023-03-19] MEDS: CLOPIDOGREL BISULFATE 75 MG TABLET PO (08:26)
[2023-03-19] MEDS: ASPIRIN 81 MG CHEWABLE TABLET PO (08:27)
[2023-03-19] MEDS: MIDODRINE HCL 10 MG TABLET PO ×2 (08:27→12:30)
[2023-03-19] MEDS: ENOXAPARIN 40 MG/0.4 ML SYRINGE SUB-Q (08:27)
[2023-03-19] MEDS: TAMSULOSIN HCL 0.4 MG CAPSULE PO (08:27)
[2023-03-19] MEDS: ROSUVASTATIN 10 MG TABLET 40 MG PO (08:27)
[2023-03-19] MEDS: METOPROLOL SUCCINATE EXT REL 25 MG TABCR PO (08:28)
[2023-03-19] MEDS: FUROSEMIDE 40 MG TABLET PO (09:06)
--- NOTE | 2023-03-19 09:19 | PM.PNCARD ---
Progress Note: A&P Assessment and Plan (1) Acute exacerbation of CHF (congestive heart failure): Qualifiers: Heart failure type: diastolic Qualified Code(s): I50.33 - Acute on chronic diastolic (congestive) heart failure Code(s): I50.9 - Heart failure, unspecified Status: Acute Assessment and Plan: Acute on chronic decompensated heart failure with preserved ejection fraction. Patient has a history of ischemic cardiomyopathy with normalization of EF. Echo this admission reveals EF 60-65%. Patient presented without diuretic therapy in decompensated heart failure. -Holding Entresto to allow room and blood pressure for diuresis. -Continue Midodrine for now. Thus far, patient is net negative 12.7 liters. IV Lasix has now been changed to PO. (2) Healthcare associated bacterial pneumonia: Code(s): J15.9 - Unspecified bacterial pneumonia Status: Acute Assessment and Plan: Antibiotics per primary team. Positive for C.diff too. (3) Coronary artery disease: Qualifiers: Coronary Disease-Associated Artery/Lesion type: [place] artery [place] vs. transplanted heart: [place] heart Associated angina: without angina Qualified Code(s): I25.10 - Atherosclerotic heart disease of [place] coronary artery without angina pectoris Code(s): I25.10 - Atherosclerotic heart disease of [place] coronary artery without angina pectoris Status: Acute Assessment and Plan: As above, continue Aspirin 81 mg daily, Clopidogrel 75 mg daily, Toprol XL 25 mg daily, Rosuvastatin 40 mg at bedtime. Stable at this point. (4) Elevated troponin I level: Code(s): R77.8 - Other specified abnormalities of plasma proteins Status: Acute Assessment and Plan: Mild troponin elevation sitting acute hypoxic respiratory failure, decompensated heart failure, underlying pneumonia. Patient is not reporting anginal symptoms. This likely type 2 infarction not secondary to acute coronary syndrome and/or plaque rupture. Will continue to monitor patient clinically. EF has improved by echo. Will continue to monitor closely in this regard. Continue antiplatelet therapy with aspirin and clopidogrel. Ischemic evaluation as an outpatient to be considered as this may contribute to decompensated heart failure. However, it would be unlikely he has significant progression of obstructive CAD as the primary contribution to decompensated heart failure concomitantly with normalization of his LV systolic function. (5) Hypotension: Qualifiers: Hypotension type: other hypotension type Qualified Code(s): I95.89 - Other hypotension Code(s): I95.9 - Hypotension, unspecified Status: Acute Assessment and Plan: Continue Midodrine. Holding Entresto. (6) History of cardiomyopathy: Code(s): Z86.79 - Personal history of other diseases of the circulatory system Status: Acute Assessment and Plan: EF has normalized now 60-65% status post history of percutaneous intervention. Continue Toprol. Entresto on hold due to hypotension and requiring Midodrine for blood pressure support. Would not restart Entresto at time of discharge. (7) Pacemaker: Code(s): Z95.0 - Presence of cardiac pacemaker Status: Acute Assessment and Plan: Normal device function ventricular paced rhythm. Occasional PVCs, brief nonsustained VT on telemetry. Continue Toprol XL 25 mg daily. Patient has a history of complete heart block status post pacemaker implantation. No acute issues at present. (8) Hyperlipidemia: Qualifiers: Hyperlipidemia type: mixed hyperlipidemia Qualified Code(s): E78.2 - Mixed hyperlipidemia Code(s): E78.5 - Hyperlipidemia, unspecified Status: Acute Assessment and Plan: Continue Rosuvastatin 40 mg bedtime goal LDL < 70. LDL 48 12/2022. Plan Patient now on PO Lasix and doing well from cardiac standpoint.
[2023-03-19] MEDS: CHOLESTYRAMINE LIGHT 4 GM POWD.PACK PO (10:12)
--- NOTE | 2023-03-19 12:06 | PM.DS ---
DS: Admitting Diagnosis Discharge Date March 19, 2022 Admitting Diagnosis CHF exacerbation, pneumonia, C diff DS: Discharge Diagnosis Discharge Diagnosis (1) Healthcare associated bacterial pneumonia: Code(s): J15.9 - Unspecified bacterial pneumonia Status: Acute Assessment and Plan: Finished 7 day course with ceftriaxone, azithromycin (2) C. difficile colitis: Code(s): A04.72 - Enterocolitis due to Clostridium difficile, not specified as recurrent Status: Acute Assessment and Plan: Likely from being on antibiotics for 7 days. Discontinued Rocephin azithromycin since he finished treatment for pneumonia. Started on oral vancomycin -diarrhea is manageable. (3) Acute exacerbation of CHF (congestive heart failure): Qualifiers: Heart failure type: diastolic Qualified Code(s): I50.33 - Acute on chronic diastolic (congestive) heart failure Code(s): I50.9 - Heart failure, unspecified Status: Acute Assessment and Plan: Continue diuresis. Patient does have substantial edema. This continues to improve Respiratory status is much improved as well. EF noted to be 60 65% on recent echo. Hold Entresto secondary to blood pressure. Continue diuretic. Appreciate Cardiology input (4) Coronary artery disease: Qualifiers: Coronary Disease-Associated Artery/Lesion type: [place] artery [place] vs. transplanted heart: [place] heart Associated angina: without angina Qualified Code(s): I25.10 - Atherosclerotic heart disease of [place] coronary artery without angina pectoris Code(s): I25.10 - Atherosclerotic heart disease of [place] coronary artery without angina pectoris Status: Acute Assessment and Plan: continue home meds chest pain-free (5) Generalized weakness: Code(s): R53.1 - Weakness Status: Acute Assessment and Plan: likely deconditioning and chronic disease progression PT OT DS: Summary Hospital Course Hospital Course: Patient was admitted for CHF exacerbation treated for pneumonia. After treatment for pneumonia he developed C diff infection. Patient was sent home on oral vancomycin. He is having very few loose stools. He is overall much improved. Diuretics have been adjusted with the help of Cardiology. Vitals otherwise stable he can be discharged. Time Spent with Patient Time attestation: Total time spent providing and/or coordinating discharge services: Exam Narrative: Patient is comfortable, NAD HEENT: eyes are clear and none icteric LUNGS: Bilateral fair entry with rales and rhonchi HEART: RR S1S2 ABD: BS+, Soft and nontender Lower extremities: no edema SKIN: nonjaundiced Neuro: grossly intact. DS: Data Data Completed and Pending Labs on day of discharge: Labs from last 24 hours 03/19/23 06:08 Sodium 135 L Potassium 3.4 Chloride 92 L Carbon Dioxide > 40 H Anion Gap BUN 23 H Creatinine 1.40 H Estim Creat Clear Calc 39 Estimated GFR 49 L Glucose 87 Calcium 8.0 L Magnesium 2.3 Discharge Plan Discharge Attending physician on discharge: Jun James Consulting providers: Alayna Garcia; Nicho Chaney Discharging Clinician: Jun James Patient Disposition: Home Health Service Activity: as tolerated Diet: as tolerated Discharge Instructions: Per Care Coordination: [facility] will resumer services at discharge. [facility] will continue with neonatal critical care nurse and PT/OT eval and treat. [facility] can be contacted at . Nursing please fax discharge paperwork to . Patient Instructions: Antibiotic Form, Heart Failure (DC), C. Diff (Clostridioides Difficile) Infection (GEN) Stand Alone Forms: General Discharge Information Follow-up/Referrals: Bree Hughes MD [Primary Care Provider] - Nicho Chaney MD [Physician] - Discharge Medications:
[2023-03-19 14:18] LABS: EDCOVIDSCREEN Negative (Negative)
== END 2023-03-19 15:00 | disposition home health service (06) | DRG 291 ==
LOC: ANHED 21:07 → ANHIMU 22:59 → ANH3MEDSUR 03-16 11:05 → ANHIMU 03-21 14:45
PROVIDERS: Family Medicine; Internal Medicine; Internal Medicine Cardiovascular Disease; Nurse Practitioner; Admitting Provider Internal Medicine; Emergency Provider Emergency Medicine; PCP Family Medicine; Visit Provider Chiropractor
DX: I11.0 Hypertensive heart disease with heart failure (principal); I50.33 Acute on chronic diastolic (congestive) heart failure; J15.9 Unspecified bacterial pneumonia; J96.01 Acute respiratory failure with hypoxia; A04.72 Enterocolitis due to Clostridium difficile, not specified as recurrent; I25.10 Atherosclerotic heart disease of native coronary artery without angina pectoris; I95.9 Hypotension, unspecified; Z95.0 Presence of cardiac pacemaker; E78.2 Mixed hyperlipidemia; Z95.1 Presence of aortocoronary bypass graft; Z82.49 Family history of ischemic heart disease and other diseases of the circulatory system; Z87.891 Personal history of nicotine dependence; F03.90 Unspecified dementia, unspecified severity, without behavioral disturbance, psychotic disturbance, mood disturbance, and anxiety; Z20.822 Contact with and (suspected) exposure to COVID-19
CPT/HCPCS: 36415; 36600; 71045; 71046; 80048; 80053; 81001; 82375; 82805; 83050; 83605; 83735; 83880; 84145; 84443; 84484; 85025; 85027; 85610; 85730; 87040; 87086; 87088; 87426; 87493; 87637; 96365; 96375; 97110; 97116; 97161; 97165; 97530; 97535; 99285; A9270; C8929; C9803; G0378; J0456; J0696; J1650; J1940; Q9957

== ENCOUNTER 2023-04-24 18:24 | Inpatient (IN) | payer MEDICARE, BC, SELFPAY ==
[2023-04-24] VITALS (18 sets, daily range): BP systolic 94–106; BP diastolic 46–53; PULSE 61–115; RESP 13–30; TEMP 36.9–37.3; O2SAT 94–98
--- NOTE | ~2023-04-24 | US_ITS ---
EXAMINATION: US renal BI DATE: 04/29/2023 10:15 INDICATION: Acute kidney injury TECHNIQUE: Multiple grayscale and Doppler ultrasound images of the kidneys were obtained. COMPARISON: CT, 04/24/2023 FINDINGS: The right kidney measures 10.4 x 4.2 x 4 cm. The left kidney measures 11.6 x 5 x 4.1 cm. Th ere is a 4.3 cm cyst of the left kidney. The kidneys demonstrate normal parenchymal echogenicity. The re is no hydronephrosis. The bladder is normal. IMPRESSION: 1. Unremarkable kidneys without hydronephrosis. Reviewed, dictated and finalized at location B.
--- NOTE | ~2023-04-24 | XR_ITS ---
EXAMINATION: XR chest 1V portable DATE: 04/27/2023 21:42 INDICATION: Shortness of breath. TECHNIQUE: A single frontal view of the chest was obtained. COMPARISON: Chest single view 04/24/2023, CT abdomen and pelvis 04/24/2023 FINDINGS: The patient is rotated to his left. There is mild elevation of left hemidiaphragm. There ar e interstitial opacities in the lower lung zones. No pleural effusion or pneumothorax. Cardiomegaly i s noted. Median sternotomy wires and mediastinal surgical clips are seen, likely from prior coronary artery bypass grafting. An electronic implant overlies left chest. There is a left chest wall pacer w ith leads in the right atrium and right ventricle. IMPRESSION: 1. Mild chronic interstitial lung disease. 2. Cardiomegaly. Reviewed, dictated and finalized at location E.
--- NOTE | ~2023-04-24 | XR_ITS ---
XR chest 1V portable DATE: 04/30/2023 08:59 INDICATION: Shortness of breath TECHNIQUE: Portable upright AP chest on 04/30/2023 at 0856 hours COMPARISON: 04/27/2023 portable AP chest 08/26/2022 2 view chest FINDINGS: Status post sternotomy and coronary bypass graft surgery. Left-sided dual-lead pacemaker wi th leads overlying right atrium and right ventricle. Aortic arch and descending thoracic aortic calcification. Heart size is difficult to assess due to po rtable AP technique which magnifies heart size, but heart size appears stable since 08/26/2022. Surgical clips overlie the left and right upper quadrants of the abdomen. There is chronic elevation of the left leaf of the diaphragm. There is infiltrate and/atelectasis at the left lower lung. There is mild pulmonary vascular and interstitial prominence compared to 04/27/2023 which may indicate interval mild congestive changes. IMPRESSION: Interval mild congestive changes and 04/27/2023 are suggested Left basilar infiltrate and/or atelectasis Reviewed, dictated and finalized at location A.
--- NOTE | ~2023-04-24 | XR_ITS ---
XR chest 1V portable DATE: 05/01/2023 06:43 INDICATION: Shortness of breath TECHNIQUE: Portable AP chest on 05/01/2023 at 0633 hours COMPARISON: Portable AP chest on 04/30/2023 at 0856 hours 08/26/2022 2 view chest FINDINGS: Again noted are postoperative changes from sternotomy and coronary bypass graft surgery. Le ft-sided dual-lead pacemaker with leads overlying right atrium and right ventricle. This is a limited single portable rotated AP view of the chest. There is volume loss of the left lung with elevated diaphragm and some apparent shift of the heart mediastinum leftward. There is infiltra te or atelectasis in the left lower lung. Mild congestive changes suggested on 04/30/2023 have resolved. Aortic arch calcification. Diffuse osteopenia. Surgical clips overlie the right upper quadrants of abdomen IMPRESSION: Resolution of mild congestive changes since 04/30/2023 Left lower lung infiltrate or atelectasis, left lung volume loss, chronic since 08/26/2022 Reviewed, dictated and finalized at location A.
--- NOTE | ~2023-04-24 | XR_ITS ---
EXAMINATION: XR chest 1V portable Exam Date/Time: 04/24/2023 20:45 CDT HISTORY: cough Comparison: 03/11/2023. RESULT: Lines, tubes, and devices: Left pacer with intact leads. Intact sternotomy wires. Mediastinal clips. Loop recorder. Lungs and pleura: Lordotic positioning with low volumes. Mid and lower left lung airspace disease wi th mild costophrenic angle blunting bilaterally. Streaky right basilar opacities. Cardiomediastinal silhouette: Stable. Other: No acute osseous or upper abdominal finding. IMPRESSION: Segmental/lobar left lower lung airspace disease may represent atelectasis or the consolidation of pn eumonia. Possible small bilateral effusions. Minimal right basilar atelectasis. Reviewed, dictated and finalized at location K. IMPRESSION: Segmental/lobar left lower lung airspace disease may represent atelectasis or t he consolidation of pneumonia. Possible small bilateral effusions. Minimal righ t basilar atelectasis.
--- NOTE | ~2023-04-24 | CT_ITS ---
CT of the Abdomen and Pelvis: Indication: Abdominal pain Technique: 2.5 mm axial scans were obtained through the abdomen and pelvis following intravenous adm inistration of 100 cc of Omnipaque 350. Dose reduction technique was used on this scan by utilizing a utomated exposure control and iterative reconstruction technique. The dose-length product (DLP) was 6 39.22 mGy-cm. COMPARISON: 12/05/2020 Findings: Scans through the lung bases are unremarkable. Patient is status post cholecystectomy, possible partial left hepatectomy. The spleen, pancreas, adre nals and kidneys are within normal limits. There are atherosclerotic calcifications of the aorta. No lymphadenopathy. There is wall thickening throughout the large bowel, most compatible with pancolitis. No bowel obstru ction. No abscess or free air. Images through the pelvis were performed. Urinary bladder unremarkable. Prostate gland and seminal ve sicles are unremarkable. No ascites. Impression: Pancolitis, most likely infectious/inflammatory in nature. C. difficile colitis is a consideration. Reviewed, dictated and finalized at [facility]. Impression: Pancolitis, most likely infectious/inflammatory in nature. C. difficile colitis is a consideration.
--- NOTE | ~2023-04-24 | XR_ITS ---
EXAMINATION: XR chest 1V portable Exam Date/Time: 05/03/2023 18:42 CDT HISTORY: witnessed choking epidsode Comparison: 05/01/2023. RESULT: Lines, tubes, and devices: Left chest pacer with intact leads. Intact sternotomy wires. Lungs and pleura: Low volumes with crowding. Persistent left hemidiaphragm elevation. Bibasilar scar /atelectasis. Cardiomediastinal silhouette: Stable. Other: No acute osseous or upper abdominal finding. IMPRESSION: No acute cardiopulmonary process. Reviewed, dictated and finalized at location K.
--- NOTE | ~2023-04-24 | XR_ITS ---
EXAMINATION: XR abdomen/kub 1V DATE: 05/01/2023 13:36 INDICATION: C. Difficile colitis. TECHNIQUE: A supine view of the abdomen on 2 radiographs was obtained. COMPARISON: CT abdomen and pelvis 04/24/2023 FINDINGS: There are no dilated loops of bowel. There is a paucity of stool in the colon. Surgical cli ps in the right upper quadrant are likely from cholecystectomy. There are pacer wires in right atrium and right ventricle. An electronic implant overlies left chest. Median sternotomy wires are noted. S urgical clips overlie the upper abdomen. IMPRESSION: 1. Nonobstructive bowel gas pattern. Reviewed, dictated and finalized at location E.
[2023-04-24 18:58] LABS: Hemoglobin 11.1 g/dL (14.0-18.0); Mean Corpuscular HGB Conc 32.6 g/dl (32-36); Mean Corpuscular Hemoglobin 30.9 pg (26-34); Mean Corpuscular Volume 94.7 fl (80-100); Mean Platelet Volume 9.6 fl (7.4-10.4); Platelet Count Result 235 k/mm3 (150-375); Red Blood Count 3.59 M/mm3 (4.6-6.20); White Blood Count 17.4 K/mm3 (4.5-10.0)
[2023-04-24 19:16] LABS: Band Neutrophils Percent 17 % (0-6); Lymphocytes Absolute Manual 0.17 K/mm3 (1.1-4.5); Monocytes Absolute Manual 2.08 K/mm3 (0.1-0.90); Monocytes Percent Manual 12 % (3-9); Neutrophils Absolute Manual 15.13 K/mm3 (1.3-6.7); Neutrophils Percent Manual 70 % (46-73); Platelet Estimate Adequate (Adequate); Total Cells Counted 100
[2023-04-24 19:22] LABS: Alanine Aminotransferase 44 U/L (6-50); Albumin Level 2.9 g/dL (3.5-5.1); Alkaline Phosphatase 62 U/L (38-126); Anion Gap 3 mmol/L (8-16); Aspartate Amino Transferase 50 U/L (17-59); Bilirubin,Total 2.2 mg/dL (0.2-1.3); Blood Urea Nitrogen 26 mg/dL (9-20); Calcium 7.9 mg/dL (8.4-10.2); Carbon Dioxide 26 mmol/L (22-30); Chloride 97 mmol/L (98-107); Estimated CRCL calculation 32 ml/min; Estimated Glomerular Filt Rate 45; Glucose 104 mg/dL (65-110); Lipase 48 U/L (23-300); Potassium 4.6 mmol/L (3.4-5.0); Sodium 126 mmol/L (137-145)
[2023-04-24 19:32] LABS: Schistocytes None Seen (NORMAL)
[2023-04-24] MEDS: ALBUTEROL SULFATE NEB 2.5 MG/3 ML INH INHALATION (19:39)
--- NOTE | 2023-04-24 19:44 | ED.GENADULT ---
HPI - General Adult General Chief complaint: Nausea/Vomiting/Diarrhea Stated complaint: INCREASED WEAKNESS Time Seen by Provider: 04/24/23 19:11 History of Present Illness HPI narrative: Patient 83-year-old gentleman who presents the emergency department with chief complaint of diarrhea. Patient reports that he was recently treated for C. difficile and finished his p.o. vancomycin about 5 days ago the patient had stool that had firmed up and then started having diarrhea yesterday. The patient reports that he has diffuse abdominal pain worse in the left lower quadrant and has malodorous bowel movements that have started. Patient denies chest pain reports that he has been wheezing some that is normal for his congestive heart failure patient is concerned that he has C. difficile again Related Data Home Medications Medication Instructions Recorded Confirmed aspirin 81 mg chewable tablet 81 mg PO DAILY 10/05/19 03/24/23 clopidogrel 75 mg tablet (Plavix) 75 mg PO DAILY 12/27/19 03/24/23 sacubitril 24 mg-valsartan 26 mg 1 tablet PO BID 12/09/22 03/24/23 tablet (Entresto) metoprolol succinate 25 mg 25 mg PO DAILY 03/09/23 03/24/23 tablet,extended release 24 hr Allergies Allergy/AdvReac Type Severity Reaction Status Date / Time No Known Drug Allergies Allergy Unknown Unknown Verified 03/08/23 16:21 Review of Systems Review of Systems: A 10 system review of systems was completed on the patient and is negative except for what is stated in the HPI. Nursing and ancillary documentation was reviewed. [facility] Past Medical History Medical History Coronary artery disease Dementia History of left heart catheterization (LHC) 11/12/2016 History of pacemaker History of prediabetes Hypertension Mitral valve regurgitation Surgical History Surgical History H/O circumcision 03/13/2013 History of cholecystectomy History of heart artery stent History of hemorrhoidectomy 01/27/1981 Hx of CABG Family History Family History Grandparent Hypertension Father Family history of cardiovascular disease Mother Family history of cardiovascular disease Sibling Family history of cardiovascular disease Social History Social History Smoking packs per day: 1.5 Smoking cigarettes per day: 30.0 Years smoked: 30 Smoking pack-years: 45.00 Smoking status: Former smoker Tobacco type: cigarettes Second hand tobacco smoke exposure: No Smoking end date: 10/17/90 Alcohol intake: never Substance use: never Substance use type: does not use Lack of Transportation: No Lack of Food: Never True Current Housing: I Have Housing Concerned About Future Housing: No Difficulty Paying Gas/Electric Bills: No Difficulty Paying for Meds: No Currently Unemployed: No Education: High School Diploma/GED Difficulty w/ Childcare or Family Care: No Living arrangements: with family Occupation/Education: retired Gender identity (if verbalized by the patient): Male Sexual Orientation (if Verbalized by the Patient): Straight or Heterosexual Spiritual care concerns: No Agree to blood products: Yes Exam Narrative: GENERAL: Ill-appearing, thin, and in no acute distress. HEAD: Normocephalic, atraumatic. EYES: PERRLA and EOMI. ENT: Nares clear, no rhinorrhea or epistaxis. Mucous membranes moist. NECK: Supple. CHEST: Clear to auscultation. No respiratory distress. HEART: Regular rate and rhythm. No murmur heard. Normal peripheral pulses. ABDOMEN: Soft, tenderness to palpation the left lower quadrant, nondistended, normal active bowel sounds. EXTREMITIES: Normal range of motion. No edema. SKIN: Warm, dry, no rash. NEURO: No focal deficits. Alert and oriented x
[2023-04-24] MEDS: SODIUM CHLORIDE 0.9% IV 1,000 ML 999 ML IV CONT ×2 (19:54→22:13)
[2023-04-24 20:18] LABS: Lactic Acid Reflex 1.8 mmol/L (0.7-2.0)
[2023-04-24] MEDS: VANCOMYCIN ORAL 500 MG/10 ML SYRUP PO (21:10)
--- NOTE | 2023-04-24 21:36 | PM.IMHP ---
H&P: HPI History of Present Illness Date/Time: 04/24/23 21:36 Chief Complaint: Weakness and diarrhea Narrative: 83-year-old male with past medical history of coronary artery disease status post CABG, CHF, orthostatic hypotension, BPH and recent C diff colitis who presented to the ER from a local rehab facility due to increased weakness and diarrhea. Patient was initially diagnosed with C diff in January. Had a recurrence of C diff recently and was treated with p.o. vancomycin. He finished antibiotics about 5 days ago. He had a repeat C diff testing and tested negative a few days ago. He had repeat testing so that he could return to his assisted living facility and the testing was negative. Then yesterday patient began crampy left lower abdominal discomfort associated with diarrhea that was intermittent in nature. Diarrhea was consistent with his prior diarrhea from C diff. It was accompanied by low-grade temperature. He also developed increasing generalized weakness. He denies any chest pain. He does have intermittent lightheadedness with standing at baseline but has been more so over the last 24 hours. He denies any nausea. He denies any vomiting but has been having some decreased appetite. His daughter reports that his weight was as high as 216 lb but he is down to the just under 180 lb. She states that weight loss is in part due to diuretics but he has also had decreased appetite. He does have some chronic wheezing but this is not unusual for him. He also occasionally has a cough but this is unchanged. He has a history of prior penile cancer. He denies any dysuria or changes in urinary frequency. He denies any hematuria. He denies any hematochezia or melena. He has not had any antibiotics besides vancomycin between this admission in the last admission. He denies any chest pain. He does reports feeling generally weak. Review of Systems Review of Systems: 12 systems were reviewed with pertinent positives and negatives per HPI. Except as documented in the HPI, all other systems were reviewed and are negative. [facility] Past Medical History Medical History (Updated 04/25/23 @ 06:15 by Iman Mackenzie DO) BPH (benign prostatic hyperplasia) Complete heart block Status post pacemaker Coronary artery disease Dementia History of cardiomyopathy With a history of a EF of 25-35% but most recent echo 02/2023: 1. Left ventricular chamber dimension is normal. 2. Left ventricular systolic function is normal, estimated at 60-65%. 3. There is mildly increased left ventricular wall thickness. 4. Left ventricular septal wall motion is abnormal with septal motion related to pacing. 5. Right ventricular chamber dimension is normal. 6. Right ventricular systolic function is reduced. 7. Left atrial chamber dimension is mildly enlarged. 8. There is moderate aortic valve sclerosis. 9. There is mild aortic valve regurgitation. 10. There is mild mitral valve regurgitation. 11. There is mild tricuspid valve regurgitation. 12. There is mild pulmonic regurgitation. History of left heart catheterization (LHC) 11/12/2016 History of pacemaker History of penile cancer History of prediabetes Hyperlipidemia Hypertension Kidney stones Mitral valve regurgitation Orthostatic hypotension Right-sided heart failure Surgical History Surgical History (Updated 04/25/23 @ 05:53 by Iman Mackenzie DO) H/O circumcision As a child and in 03/13/2013 History of cholecystectomy History of heart artery stent X2 History of hemorrhoidectomy 01/27/1981 Hx of CABG Four vessel CABG 1992 Status post cataract extraction of both eyes with insertion of intraocular lens Family History Family History (Updated 04/25/23 @ 06:13 by Iman Mackenzie DO) Grandparent Hypertension Father Family history of cardiovascular disease Mother Family history of cardiovascular disease Sibling Family history of cardiovascular disease Son
[2023-04-24] MEDS: metroNIDAZOLE 500 MG/ISO 100ML 500 MG/100 ML BAG 100 MG IVPB (22:12)
[2023-04-25] VITALS (8 sets, daily range): BP systolic 91–103; BP diastolic 38–58; PULSE 61–110; RESP 14–20; TEMP 36.9–37.4; O2SAT 95–98; BMI 27.2
[2023-04-25 00:05] LABS: Appearance Urine Clear (Clear); Bacteria Urine None Seen /hpf; Bilirubin Urine Negative (Negative); Blood Urine 1+ (Negative); Color Urine Yellow (Yellow); Glucose Urine UA Negative (Negative); Ketones Urine Negative (Negative); Leukocyte Esterase Ur 1+ LEU/UL (Negative); Need Manual Microscopic Reviewed; Nitrate Urine Negative (Negative); Protein Urine Trace mg/dL (Negative); RBC Urine 0-2 /hpf (0-2); Specific Grav Ur 1.026 (1.001-1.035); Squamous Epithelial Cell Urine None seen /hpf (Few); Urobilinogen Urine 0.2 mg/dL (<2.0); WBC Urine 0-5 /hpf
[2023-04-25 00:18] LABS: Add Urine Microscopic? YES
[2023-04-25] MEDS: SODIUM CHLORIDE 0.9% IV 1,000 ML 125 ML IV CONT (01:06)
[2023-04-25 02:41] LABS: Toxigenic C. Diff POSITIVE (NEGATIVE)
--- NOTE | 2023-04-25 02:47 | PC.NURSE ---
Lab called at this time to report that pt is positive for C-Diff. Pt has recent history of being positive for C-Diff.
[2023-04-25 03:34] LABS: Hematocrit 36.6 % (42.0-52.0); Hemoglobin 11.5 g/dL (14.0-18.0); Mean Corpuscular HGB Conc 31.4 g/dl (32-36); Mean Corpuscular Hemoglobin 30.8 pg (26-34); Mean Corpuscular Volume 98.1 fl (80-100); Mean Platelet Volume 9.4 fl (7.4-10.4); Platelet Count Result 224 k/mm3 (150-375); Red Blood Count 3.73 M/mm3 (4.6-6.20); Red Cell Distribution Width 15.1 % (11.5-14.5); White Blood Count 16.5 K/mm3 (4.5-10.0)
[2023-04-25 03:48] LABS: Anion Gap 2 mmol/L (8-16); Blood Urea Nitrogen 22 mg/dL (9-20); Calcium 7.9 mg/dL (8.4-10.2); Carbon Dioxide 26 mmol/L (22-30); Chloride 100 mmol/L (98-107); Estimated CRCL calculation 28 ml/min; Estimated Glomerular Filt Rate 39; Glucose 102 mg/dL (65-110); Potassium 4.8 mmol/L (3.4-5.0); Sodium 128 mmol/L (137-145)
[2023-04-25 04:05] LABS: Band Neutrophils Percent 14 % (0-6); Lymphocytes Absolute Manual 0.82 K/mm3 (1.1-4.5); Monocytes Absolute Manual 0.99 K/mm3 (0.1-0.90); Monocytes Percent Manual 6 % (3-9); Neutrophils Absolute Manual 14.68 K/mm3 (1.3-6.7); Neutrophils Percent Manual 75 % (46-73); Total Cells Counted 100
[2023-04-25 04:06] LABS: Giant Platelets Present; Platelet Estimate Adequate (Adequate)
[2023-04-25 04:07] LABS: Anisocytosis 1+ (NORMAL); Poikilocytosis 1+ (NORMAL); Schistocytes Rare (NORMAL)
--- NOTE | 2023-04-25 05:45 | ECG_ITS ---
Measurements Intervals [place] Rate: 62 P: SC: 0 QRS: 120 QRSD: 151 T: -58 QT: 429 QTc: 436 Interpretive Statements ELECTRONIC VENTRICULAR PACEMAKER NO FURTHER INTERPRETATION IS POSSIBLE ATYPICAL ECG COMPARED TO ECG 01/06/2023 06:20:50 VENTRICULAR TRIGEMINY RESOLVED Electronically Signed On 04-25-2023 15:12:03 CDT by Bruce Farley D.O.
[2023-04-25] MEDS: DEXTROMETHORPHAN POLISTIREX 60 MG/10 ML SYRINGE PO (06:12)
[2023-04-25] MEDS: VANCOMYCIN ORAL 500 MG/10 ML SYRUP PO ×2 (06:32→12:22)
[2023-04-25] MEDS: MIDODRINE HCL 2.5 MG TABLET 5 MG PO ×3 (08:53→16:45)
[2023-04-25] MEDS: METOPROLOL SUCCINATE EXT REL 25 MG TABCR PO (08:55)
[2023-04-25] MEDS: ROSUVASTATIN 10 MG TABLET 40 MG PO (08:55)
[2023-04-25] MEDS: TAMSULOSIN HCL 0.4 MG CAPSULE PO (08:55)
[2023-04-25] MEDS: ASPIRIN 81 MG CHEWABLE TABLET PO (08:55)
[2023-04-25] MEDS: CLOPIDOGREL BISULFATE 75 MG TABLET PO (08:55)
[2023-04-25] MEDS: ONDANSETRON INJ 4 MG/2 ML VIAL IV PUSH (09:09)
[2023-04-25] MEDS: SODIUM CHLORIDE 0.9% IV 1,000 ML 75 ML IV CONT (10:51)
--- NOTE | 2023-04-25 12:12 | PM.IMPN ---
Progress Note: A&P Assessment and Plan (1) Sepsis: Qualifiers: Acute renal failure type: unspecified Sepsis acute organ dysfunction status: with acute organ dysfunction Sepsis type: sepsis due to unspecified organism Severe sepsis acute organ dysfunction type: acute renal failure Severe sepsis shock status: without septic shock Qualified Code(s): A41.9 - Sepsis, unspecified organism; R65.20 - Severe sepsis without septic shock; N17.9 - Acute kidney failure, unspecified Code(s): A41.9 - Sepsis, unspecified organism Status: Acute Assessment and Plan: Patient met sepsis criteria on admission with leukocytosis, tachycardia acute kidney injury in the setting of C diff pancolitis. Treated with IV fluids and antibiotics. Blood pressure soft but this is probably more chronic. Lactic acid was normal. Heart rate better controlled. Creatinine up slightly but white count is improved. Continue current treatment plan. (2) C. difficile colitis: Code(s): A04.72 - Enterocolitis due to Clostridium difficile, not specified as recurrent Status: Acute Assessment and Plan: The patient presents with diarrhea and weakness. He has had CDiff just 1 month ago. His CDiff toxin positive here and CT Abd/pelvis showing pancolitis. The patient has recurrent C diff colitis. Oral vancomycin started. For the first recurrence, bezlotoxumab recommended but not available here. The recommendations favor fidaxomicin over vancomycin so will recovery coach to fidaxomicin. WBC trending down. Encouraged to try to eat. (3) KJ (acute kidney injury): Code(s): N17.9 - Acute kidney failure, unspecified Status: Acute Assessment and Plan: Creatinine elevated on admission to 1.5. Baseline 1.1-1.3. Cr climbed to 1.7 today. Suspect related to above. Will follow. Continue IV fluids. Further workup if Cr continues to rise. Lasix on hold. (4) Acute hyponatremia: Code(s): E87.1 - Hypo-osmolality and hyponatremia Status: Acute Assessment and Plan: Sodium was 126 on admission probably related to dehydration from excessive diarrhea. No metabolic acidosis noted. With IV fluids, his sodium has improved slightly to 128. This should continue to correct. Will continue to follow. Okay to stop tele (5) Generalized weakness: Code(s): R53.1 - Weakness Status: Acute Assessment and Plan: Patient with generalized weakness related to above. Start PT OT. Increase activity. (6) Orthostatic hypotension: Code(s): I95.1 - Orthostatic hypotension Status: Acute Assessment and Plan: Patient with known orthostatic hypotension. Blood pressure soft but stable. Continue midodrine. (7) Congestive heart failure: Qualifiers: Heart failure chronicity: chronic Heart failure type: right-sided Qualified Code(s): I50.812 - Chronic right heart failure Code(s): I50.9 - Heart failure, unspecified Status: Acute Assessment and Plan: Patient with known CHF. Last echocardiogram showed improvement of his EF. His Lasix is on hold at this point. Monitor closely. Decrease IV fluid rate. (8) Right-sided heart failure: Qualifiers: Heart failure chronicity: chronic Qualified Code(s): I50.812 - Chronic right heart failure Code(s): I50.810 - Right heart failure, unspecified Status: Acute Assessment and Plan: As above Subjective Date/time seen: 04/25/23 12:12 Interval history: 83yo male with CAD status post CABG, CHF, orthostatic hypotension, BPH and recent C diff colitis who presented to the ER from a local rehab facility due to increased weakness and diarrhea. He feels better. Abd pain improved. Still having diarrhea. Not eating much at all. no CP or SOB. Exam Narrative: AF 98.7 102/58 63 14 95% ra Gen - NARD lying semi-recumbent in bed Chest - few basilar rhonchi o/w clear. nml RR CV - RRR S
[2023-04-25] MEDS: FIDAXOMICIN 200 MG TABLET PO ×2 (13:49→20:56)
[2023-04-25] MEDS: ENOXAPARIN 30 MG/0.3 ML SYRINGE SUB-Q (13:49)
--- NOTE | 2023-04-25 16:54 | PCPTNOTE ---
On 04/25/23, the student, FATMATA Saba, provided care and completed [facility] documentation on this patient. I have reviewed the student's documentation and agree with the findings.
[2023-04-25] MEDS: SERTRALINE HCL 25 MG TABLET PO (20:56)
[2023-04-26] MEDS: SODIUM CHLORIDE 0.9% IV 1,000 ML 50 ML IV CONT (03:15)
[2023-04-26 05:33] VITALS: BP 103/46; PULSE 70; RESP 13; TEMP 36.1; O2SAT 95
[2023-04-26 06:37] LABS: Hemoglobin 11.5 g/dL (14.0-18.0); Mean Corpuscular HGB Conc 31.1 g/dl (32-36); Mean Corpuscular Hemoglobin 29.8 pg (26-34); Mean Corpuscular Volume 95.9 fl (80-100); Mean Platelet Volume 9.7 fl (7.4-10.4); Platelet Count Result 234 k/mm3 (150-375); Red Blood Count 3.86 M/mm3 (4.6-6.20); Red Cell Distribution Width 14.7 % (11.5-14.5); White Blood Count 14.4 K/mm3 (4.5-10.0)
[2023-04-26 06:45] LABS: Albumin Level 2.3 g/dL (3.5-5.1); Anion Gap 5 mmol/L (8-16); Blood Urea Nitrogen 27 mg/dL (9-20); Calcium 7.5 mg/dL (8.4-10.2); Carbon Dioxide 21 mmol/L (22-30); Chloride 103 mmol/L (98-107); Estimated CRCL calculation 28 ml/min; Estimated Glomerular Filt Rate 39; Glucose 94 mg/dL (65-110); Phosphorus 3.4 mg/dL (2.5-4.5); Potassium 4.1 mmol/L (3.4-5.0); Sodium 129 mmol/L (137-145)
[2023-04-26 06:49] LABS: Bilirubin Indirect 1.2 mg/dL (0-1.1); Bilirubin,Total 1.4 mg/dL (0.2-1.3)
[2023-04-26 07:56] LABS: Total Cells Counted 100
[2023-04-26 08:06] LABS: Anisocytosis 1+ (NORMAL); Platelet Estimate Adequate (Adequate)
[2023-04-26 08:07] LABS: Poikilocytosis 1+ (NORMAL)
[2023-04-26 08:08] LABS: Crenated RBC 2+ (NORMAL); Schistocytes None Seen (NORMAL)
[2023-04-26 08:10] LABS: Band Neutrophils Percent 34 % (0-6); Lymphocytes Absolute Manual 0.43 K/mm3 (1.1-4.5); Lymphocytes Percent Manual 3 % (18-44); Monocytes Absolute Manual 1.29 K/mm3 (0.1-0.90); Monocytes Percent Manual 9 % (3-9); Neutrophils Absolute Manual 12.67 K/mm3 (1.3-6.7); Neutrophils Percent Manual 54 % (46-73)
[2023-04-26] MEDS: ENOXAPARIN 30 MG/0.3 ML SYRINGE SUB-Q (08:48)
[2023-04-26] MEDS: ROSUVASTATIN 10 MG TABLET 40 MG PO (08:49)
[2023-04-26 08:50] VITALS: PULSE 94
[2023-04-26] MEDS: ASPIRIN 81 MG CHEWABLE TABLET PO (08:50)
[2023-04-26] MEDS: MIDODRINE HCL 2.5 MG TABLET 5 MG PO ×3 (08:50→17:25)
[2023-04-26] MEDS: METOPROLOL SUCCINATE EXT REL 25 MG TABCR PO (08:50)
[2023-04-26] MEDS: CLOPIDOGREL BISULFATE 75 MG TABLET PO (08:50)
[2023-04-26] MEDS: TAMSULOSIN HCL 0.4 MG CAPSULE PO (08:50)
[2023-04-26] MEDS: FIDAXOMICIN 200 MG TABLET PO ×2 (08:50→20:48)
[2023-04-26] MEDS: ONDANSETRON INJ 4 MG/2 ML VIAL IV PUSH ×2 (09:07→13:07)
--- NOTE | 2023-04-26 09:07 | PC.NURSE ---
Flaca, from [facility], called with positive C.Diff results. Stool sample was sent out 04/24/23 and resulted today.
[2023-04-26 14:00] VITALS: BP 94/35; PULSE 61; RESP 24; TEMP 36.4; O2SAT 96
--- NOTE | 2023-04-26 14:18 | PM.IMPN ---
Progress Note: A&P Assessment and Plan (1) Sepsis: Qualifiers: Sepsis type: sepsis due to unspecified organism Sepsis acute organ dysfunction status: with acute organ dysfunction Severe sepsis acute organ dysfunction type: acute renal failure Acute renal failure type: unspecified Severe sepsis shock status: without septic shock Qualified Code(s): A41.9 - Sepsis, unspecified organism; R65.20 - Severe sepsis without septic shock; N17.9 - Acute kidney failure, unspecified Code(s): A41.9 - Sepsis, unspecified organism Status: Acute Assessment and Plan: Patient met sepsis criteria on admission with leukocytosis, tachycardia acute kidney injury in the setting of C diff pancolitis. Treated with IV fluids and antibiotics. Blood pressure was soft but this is probably more chronic. Lactic acid was normal. Heart rate normal. Creatinine up slightly. White count is improved. Continue current treatment plan. (2) C. difficile colitis: Code(s): A04.72 - Enterocolitis due to Clostridium difficile, not specified as recurrent Status: Acute Assessment and Plan: The patient presents with diarrhea and weakness. He has had CDiff just 1 month ago. His CDiff toxin positive here and CT Abd/pelvis showing pancolitis. The patient has recurrent C diff colitis. Oral vancomycin started. For the first recurrence, bezlotoxumab recommended but not available here. The recommendations favor fidaxomicin over vancomycin so will change control analyst to fidaxomicin. WBC trending down. Patient eating better. Supplements ordered. Add Banatrol. (3) KJ (acute kidney injury): Code(s): N17.9 - Acute kidney failure, unspecified Status: Acute Assessment and Plan: Creatinine elevated on admission to 1.5. Baseline 1.1-1.3. Cr climbed to 1.7 yesterday and stable today. Suspect related to above. Will follow. Continue IV fluids. Lasix on hold. (4) Acute hyponatremia: Code(s): E87.1 - Hypo-osmolality and hyponatremia Status: Acute Assessment and Plan: Sodium was 126 on admission probably related to dehydration from excessive diarrhea. No metabolic acidosis noted. With IV fluids, his sodium has improved slightly to 129. This should continue to correct. Will continue to follow. (5) Generalized weakness: Code(s): R53.1 - Weakness Status: Acute Assessment and Plan: Patient with generalized weakness related to above. Continue PT OT. Increase activity. (6) Orthostatic hypotension: Code(s): I95.1 - Orthostatic hypotension Status: Acute Assessment and Plan: Patient with known orthostatic hypotension. Blood pressure soft but stable. Continue midodrine. (7) Congestive heart failure: Qualifiers: Heart failure chronicity: chronic Heart failure type: right-sided Qualified Code(s): I50.812 - Chronic right heart failure Code(s): I50.9 - Heart failure, unspecified Status: Acute Assessment and Plan: Patient with known CHF. Last echocardiogram showed improvement of his EF. His Lasix is on hold at this point. Monitor closely on IV fluids. (8) Right-sided heart failure: Qualifiers: Heart failure chronicity: chronic Qualified Code(s): I50.812 - Chronic right heart failure Code(s): I50.810 - Right heart failure, unspecified Status: Acute Assessment and Plan: As above Subjective Date/time seen: 04/26/23 14:18 Interval history: 83yo male with CAD status post CABG, CHF, orthostatic hypotension, BPH and recent C diff colitis who presented to the ER from a local rehab facility due to increased weakness and diarrhea. 4 BMs today. He is not sure if this is improving. Slight abd pain. No CP or SOB. Nausea but improved with eating. No vomiting. Exam Narrative: AF 96.9 103/46 94 16 95% ra Gen - NARD Chest - distant clear BS. nml RR CV - RRR S1/S2 Abd - Soft, NT/ND, no
[2023-04-26 20:46] VITALS: BP 93/48; PULSE 60; RESP 18; TEMP 36.6; O2SAT 98
[2023-04-26] MEDS: SERTRALINE HCL 25 MG TABLET PO (20:48)
[2023-04-27] MEDS: SODIUM CHLORIDE 0.9% IV 1,000 ML 50 ML IV CONT ×2 (00:02→20:28)
[2023-04-27 05:09] VITALS: BP 96/42; PULSE 106; RESP 16; TEMP 36.2; O2SAT 90
[2023-04-27 06:46] LABS: Mean Corpuscular HGB Conc 32.4 g/dl (32-36); Mean Corpuscular Hemoglobin 30.9 pg (26-34); Mean Corpuscular Volume 95.4 fl (80-100); Mean Platelet Volume 9.8 fl (7.4-10.4); Platelet Count Result 260 k/mm3 (150-375); Red Blood Count 3.88 M/mm3 (4.6-6.20); Red Cell Distribution Width 14.7 % (11.5-14.5); Sodium 126 mmol/L (137-145)
[2023-04-27 06:52] LABS: Anion Gap -1 mmol/L (8-16); Blood Urea Nitrogen 36 mg/dL (9-20); Calcium 7.4 mg/dL (8.4-10.2); Carbon Dioxide 24 mmol/L (22-30); Chloride 103 mmol/L (98-107); Estimated CRCL calculation 21 ml/min; Estimated Glomerular Filt Rate 27; Glucose 88 mg/dL (65-110)
[2023-04-27] MEDS: ENOXAPARIN 30 MG/0.3 ML SYRINGE SUB-Q (08:38)
[2023-04-27] MEDS: FIDAXOMICIN 200 MG TABLET PO ×2 (08:38→20:28)
[2023-04-27] MEDS: TAMSULOSIN HCL 0.4 MG CAPSULE PO (08:38)
[2023-04-27] MEDS: MIDODRINE HCL 2.5 MG TABLET 5 MG PO ×3 (08:38→16:38)
[2023-04-27] MEDS: ASPIRIN 81 MG CHEWABLE TABLET PO (08:38)
[2023-04-27 08:39] VITALS: PULSE 60
[2023-04-27] MEDS: METOPROLOL SUCCINATE EXT REL 25 MG TABCR PO (08:39)
[2023-04-27] MEDS: ROSUVASTATIN 10 MG TABLET 40 MG PO (08:44)
[2023-04-27] MEDS: CLOPIDOGREL BISULFATE 75 MG TABLET PO (08:45)
[2023-04-27] MEDS: ACETAMINOPHEN 325 MG TABLET 650 MG PO (09:02)
[2023-04-27 13:46] VITALS: BP 88/58; PULSE 80; RESP 18; TEMP 36.2; O2SAT 98
--- NOTE | 2023-04-27 14:35 | PCPTNOTE ---
On 04/27/23, the student, KAREEN Lackey, provided care and completed [facility] documentation on this patient. I have reviewed the student's documentation and agree with the findings.
[2023-04-27] MEDS: ALBUTEROL SULFATE NEB 2.5 MG/3 ML INH INHALATION (18:04)
--- NOTE | 2023-04-27 20:15 | PM.IMPN ---
Progress Note: A&P Assessment and Plan (1) Sepsis: Qualifiers: Acute renal failure type: unspecified Sepsis acute organ dysfunction status: with acute organ dysfunction Sepsis type: sepsis due to unspecified organism Severe sepsis acute organ dysfunction type: acute renal failure Severe sepsis shock status: without septic shock Qualified Code(s): A41.9 - Sepsis, unspecified organism; R65.20 - Severe sepsis without septic shock; N17.9 - Acute kidney failure, unspecified Code(s): A41.9 - Sepsis, unspecified organism Status: Acute Assessment and Plan: Patient met sepsis criteria on admission with leukocytosis, tachycardia acute kidney injury in the setting of C diff pancolitis. Treated with IV fluids and antibiotics. Blood pressure was soft but this is probably more chronic. Lactic acid was normal. Heart rate normal. Creatinine up slightly. White count is improved. Continue current treatment plan. (2) C. difficile colitis: Code(s): A04.72 - Enterocolitis due to Clostridium difficile, not specified as recurrent Status: Acute Assessment and Plan: The patient presents with diarrhea and weakness. He has had CDiff just 1 month ago. His CDiff toxin positive here and CT Abd/pelvis showing pancolitis. The patient has recurrent C diff colitis. Oral vancomycin started. For the first recurrence, bezlotoxumab recommended but not available here. The recommendations favor fidaxomicin over vancomycin so will foreign exchange clerk to fidaxomicin. WBC trending down. Patient eating better. Supplements ordered. Add Banatrol. (3) KJ (acute kidney injury): Code(s): N17.9 - Acute kidney failure, unspecified Status: Acute Assessment and Plan: Creatinine elevated on admission to 1.5. Baseline 1.1-1.3. Cr climbed to 1.7 yesterday and stable today. Suspect related to above. Will follow. Continue IV fluids. Lasix on hold. creat continues to worsen to 2.7, consult nephrology (4) Acute hyponatremia: Code(s): E87.1 - Hypo-osmolality and hyponatremia Status: Acute Assessment and Plan: Sodium was 126 on admission probably related to dehydration from excessive diarrhea. No metabolic acidosis noted. With IV fluids, his sodium has improved slightly to 129. This should continue to correct. Will continue to follow. Improved to 128 (5) Generalized weakness: Code(s): R53.1 - Weakness Status: Acute Assessment and Plan: Patient with generalized weakness related to above. Continue PT OT. Increase activity. (6) Orthostatic hypotension: Code(s): I95.1 - Orthostatic hypotension Status: Acute Assessment and Plan: Patient with known orthostatic hypotension. Blood pressure soft but stable. Continue midodrine. (7) Congestive heart failure: Qualifiers: Heart failure chronicity: chronic Heart failure type: right-sided Qualified Code(s): I50.812 - Chronic right heart failure Code(s): I50.9 - Heart failure, unspecified Status: Acute Assessment and Plan: Patient with known CHF. Last echocardiogram showed improvement of his EF. His Lasix is on hold at this point. Monitor closely on IV fluids. (8) Right-sided heart failure: Qualifiers: Heart failure chronicity: chronic Qualified Code(s): I50.812 - Chronic right heart failure Code(s): I50.810 - Right heart failure, unspecified Status: Acute Assessment and Plan: As above Plan DVT prophylaxis with Lovenox GI prophylaxis not indicated Code status full code Subjective Date/time seen: 04/27/23 20:15 Interval history: 83yo male with CAD status post CABG, CHF, orthostatic hypotension, BPH and recent C diff colitis who presented to the ER from a local rehab facility due to increased weakness and diarrhea. Doing about the same as yesterday, some nausea, cont diarrhea, no abd pain. No CP, SOB, F/C. Review of S
[2023-04-27] MEDS: SERTRALINE HCL 25 MG TABLET PO (20:28)
--- NOTE | 2023-04-27 21:01 | PC.NURSE ---
received phone called from pt daughter, c/o pain having increase sob, pt recieved neb tx at 1830, no co sob from pt, pt placed on 2l nc o2 sat 98%, cxr 04/24/23 showed atelectasis vs PNA and bilateral small pleural effusions. Edema present bue and ble +2. Informed CREATIVE SERVICES DIRECTOR Zeferino.
--- NOTE | 2023-04-27 21:06 | PC.NURSE ---
abg, cbc, bmp,ekg, and trop ordered r/t increase c/o sob
--- NOTE | 2023-04-27 21:07 | ECG_ITS ---
Measurements Intervals [place] Rate: 76 P: AR: 0 QRS: 108 QRSD: 170 T: -70 QT: 432 QTc: 488 Interpretive Statements ELECTRONIC VENTRICULAR PACEMAKER VENTRICULAR BIGEMINY NO FURTHER INTERPRETATION IS POSSIBLE ABNORMAL ECG COMPARED TO ECG 04/25/2023 14:30:45 VENTRICULAR BIGEMINY NOW PRESENT Electronically Signed On 04-28-2023 6:06:49 CDT by Bruce Farley D.O.
--- NOTE | 2023-04-27 21:13 | PC.NURSE ---
informed respiratory of ekg and abg orders
[2023-04-27 21:31] VITALS: BP 96/42; PULSE 56; RESP 16; TEMP 36.4; O2SAT 98
[2023-04-27 21:39] LABS: Hematocrit 37.2 % (42.0-52.0); Hemoglobin 11.8 g/dL (14.0-18.0); Mean Corpuscular HGB Conc 31.7 g/dl (32-36); Mean Corpuscular Hemoglobin 29.9 pg (26-34); Mean Corpuscular Volume 94.2 fl (80-100); Mean Platelet Volume 9.5 fl (7.4-10.4); Platelet Count Result 285 k/mm3 (150-375); Red Blood Count 3.95 M/mm3 (4.6-6.20); Red Cell Distribution Width 14.5 % (11.5-14.5)
[2023-04-27 21:45] LABS: Anion Gap 8 mmol/L (8-16); Blood Urea Nitrogen 43 mg/dL (9-20); Calcium 7.2 mg/dL (8.4-10.2); Carbon Dioxide 19 mmol/L (22-30); Chloride 101 mmol/L (98-107); Estimated CRCL calculation 18 ml/min; Estimated Glomerular Filt Rate 23; Glucose 118 mg/dL (65-110); Potassium 4.2 mmol/L (3.4-5.0); Sodium 128 mmol/L (137-145)
[2023-04-27 21:57] LABS: Troponin I < 0.012 ng/mL (0.000-0.034)
--- NOTE | 2023-04-27 22:24 | PC.NURSE ---
reported ekg to ARYAN Mcgarry states electronic ventricular pacemaker nno
[2023-04-27 22:44] LABS: Alveolar/Arterial O2 Gradient 31.8 mmHg; Base Excess ABG -4.9 mEq/l (+/-2.0); HCO3 ABG 19.3 mEq/l (22.0-26.0); Oxygen Saturation ABG 98.5 % (95.0-100.0); PCO2 ABG 33.6 mmHg (35.0-45.0); PO2 ABG 128.2 mmHg (80.0-100.0); Total Hemoglobin 13.2 g/dL (12.0-18.0); pH ABG 7.378 (7.350-7.450)
[2023-04-27 22:45] LABS: Device NASAL CANNULA; Fractional Inspired Oxygen 28 %; Modified Allen's Test Pass; Oxygen Content ABG 18.2 %vol (16.0-22.0); Oxyhemoglobin 97.1 % THb (90.0-100.0); PO2 FiO2 Ratio Arterial Blood 4.58 %; Site Drawn RIGHT RADIAL
[2023-04-28] VITALS (7 sets, daily range): BP systolic 90–113; BP diastolic 36–61; PULSE 48–77; RESP 16–20; TEMP 36.1–36.4; O2SAT 95–98
--- NOTE | 2023-04-28 06:37 | PC.NURSE ---
unable to collect stool sample pt voided with stool sample.
--- NOTE | 2023-04-28 09:25 | P.CDI_ITS ---
CDI Query Clarification Request Documented history of CHF. CHF noted in the assessment and plan. Lasix listed as a home medication. Please specify type and acuity of heart failure if known. * Acute * Chronic * Acute on Chronic * Unknown * Systolic * Diastolic * Combined Systolic and Diastolic * Unknown <Ester Lui RN - Last Filed: 04/28/23 09:28> Clarified Diagnosis Clarified Diagnosis: Chronic diastolic heart failure <Tesha Dash DO - Last Filed: 04/29/23 14:18>
--- NOTE | 2023-04-28 09:25 | WPDCDIQUERY2 ---
CDI Query Clarification Request Documented history of CHF. CHF noted in the assessment and plan. Lasix listed as a home medication. Please specify type and acuity of heart failure if known. Acute Chronic Acute on Chronic Unknown Systolic Diastolic Combined Systolic and Diastolic Unknown <Ester Lui RN - Last Filed: 04/28/23 09:28> Clarified Diagnosis Clarified Diagnosis: Chronic diastolic heart failure <Tesha Dash DO - Last Filed: 04/29/23 14:18>
[2023-04-28] MEDS: DEXTROMETHORPHAN POLISTIREX 60 MG/10 ML SYRINGE PO ×2 (09:42→22:46)
[2023-04-28] MEDS: ENOXAPARIN 30 MG/0.3 ML SYRINGE SUB-Q (09:42)
[2023-04-28] MEDS: TAMSULOSIN HCL 0.4 MG CAPSULE PO (09:43)
[2023-04-28] MEDS: FIDAXOMICIN 200 MG TABLET PO ×2 (09:43→21:57)
[2023-04-28] MEDS: CLOPIDOGREL BISULFATE 75 MG TABLET PO (09:43)
[2023-04-28] MEDS: ASPIRIN 81 MG CHEWABLE TABLET PO (09:43)
[2023-04-28] MEDS: MIDODRINE HCL 2.5 MG TABLET 5 MG PO ×3 (09:43→17:10)
[2023-04-28] MEDS: ROSUVASTATIN 10 MG TABLET 40 MG PO (09:43)
[2023-04-28] MEDS: METOPROLOL SUCCINATE EXT REL 25 MG TABCR PO (09:44)
[2023-04-28 10:06] LABS: Hematocrit 37.9 % (42.0-52.0); Hemoglobin 12.1 g/dL (14.0-18.0); Mean Corpuscular HGB Conc 31.9 g/dl (32-36); Mean Platelet Volume 9.5 fl (7.4-10.4); Platelet Count Result 301 k/mm3 (150-375); Red Blood Count 4.03 M/mm3 (4.6-6.20); Red Cell Distribution Width 14.6 % (11.5-14.5); White Blood Count 19.7 K/mm3 (4.5-10.0)
--- NOTE | 2023-04-28 10:19 | PM.IMPN ---
Progress Note: A&P Assessment and Plan (1) Sepsis: Qualifiers: Acute renal failure type: unspecified Sepsis acute organ dysfunction status: with acute organ dysfunction Sepsis type: sepsis due to unspecified organism Severe sepsis acute organ dysfunction type: acute renal failure Severe sepsis shock status: without septic shock Qualified Code(s): A41.9 - Sepsis, unspecified organism; R65.20 - Severe sepsis without septic shock; N17.9 - Acute kidney failure, unspecified Code(s): A41.9 - Sepsis, unspecified organism Status: Acute Assessment and Plan: Patient met sepsis criteria on admission with leukocytosis, tachycardia acute kidney injury in the setting of C diff pancolitis. Treated with IV fluids and antibiotics. Blood pressure was soft but this is probably more chronic. Lactic acid was normal. Heart rate normal. Creatinine up slightly. 04/28: leuk worsening, add back oral vanc (2) C. difficile colitis: Code(s): A04.72 - Enterocolitis due to Clostridium difficile, not specified as recurrent Status: Acute Assessment and Plan: The patient presents with diarrhea and weakness. He has had CDiff just 1 month ago. His CDiff toxin positive here and CT Abd/pelvis showing pancolitis. The patient has recurrent C diff colitis. Oral vancomycin started. For the first recurrence, bezlotoxumab recommended but not available here. 04/28: worsened on dificid, add back oral vanc + IV flagyl (3) KJ (acute kidney injury): Code(s): N17.9 - Acute kidney failure, unspecified Status: Acute Assessment and Plan: Creatinine elevated on admission to 1.5. Baseline 1.1-1.3. Cr climbed to 1.7 yesterday and stable today. Suspect related to above. Will follow. Continue IV fluids. Lasix on hold. 04/27: creat continues to worsen to 2.7, consult nephrology 04/28: increase IVF (4) Acute hyponatremia: Code(s): E87.1 - Hypo-osmolality and hyponatremia Status: Acute Assessment and Plan: Sodium was 126 on admission probably related to dehydration from excessive diarrhea. No metabolic acidosis noted. With IV fluids, his sodium has improved slightly to 129. This should continue to correct. Will continue to follow. 04/27: improved to 128 04/28: (5) Generalized weakness: Code(s): R53.1 - Weakness Status: Acute Assessment and Plan: Patient with generalized weakness related to above. Continue PT OT. Increase activity. (6) Orthostatic hypotension: Code(s): I95.1 - Orthostatic hypotension Status: Acute Assessment and Plan: Patient with known orthostatic hypotension. Blood pressure soft but stable. Continue midodrine. (7) Congestive heart failure: Qualifiers: Heart failure chronicity: chronic Heart failure type: right-sided Qualified Code(s): I50.812 - Chronic right heart failure Code(s): I50.9 - Heart failure, unspecified Status: Acute Assessment and Plan: Patient with known CHF. Last echocardiogram showed improvement of his EF. His Lasix is on hold at this point. Monitor closely on IV fluids. 04/28: increase IVF nominally to 75 ml/hr, monitor fluid status closely (8) Right-sided heart failure: Qualifiers: Heart failure chronicity: chronic Qualified Code(s): I50.812 - Chronic right heart failure Code(s): I50.810 - Right heart failure, unspecified Status: Acute Assessment and Plan: As above Plan DVT prophylaxis with Lovenox GI prophylaxis not indicated Code status full code Subjective Date/time seen: 04/28/23 10:19 Interval history: 83yo male with CAD status post CABG, CHF, orthostatic hypotension, BPH and recent C diff colitis who presented to the ER from a local rehab facility due to increased weakness and diarrhea. Diarrhea is slightly worse than yesterday. He feels little weaker than yesterday. No overnight events noted.
[2023-04-28 10:24] LABS: Lactic Acid Reflex 1.6 mmol/L (0.7-2.0)
[2023-04-28 10:29] LABS: Alanine Aminotransferase 37 U/L (6-50); Albumin Level 2.2 g/dL (3.5-5.1); Alkaline Phosphatase 74 U/L (38-126); Anion Gap 3 mmol/L (8-16); Aspartate Amino Transferase 47 U/L (17-59); Bilirubin,Total 0.6 mg/dL (0.2-1.3); Blood Urea Nitrogen 43 mg/dL (9-20); CRP 8.5 mg/dL (<1.0); Calcium 7.3 mg/dL (8.4-10.2); Carbon Dioxide 19 mmol/L (22-30); Chloride 103 mmol/L (98-107); Estimated CRCL calculation 18 ml/min; Estimated Glomerular Filt Rate 23; Glucose 145 mg/dL (65-110); Potassium 4.1 mmol/L (3.4-5.0); Sodium 125 mmol/L (137-145)
[2023-04-28 10:55] LABS: Procalcitonin 1.6 ng/mL
[2023-04-28 11:12] LABS: Band Neutrophils Percent 23 % (0-6); Eosinophils Absolute Manual 0.39 K/mm3 (0.02-0.5); Eosinophils Percent Manual 2 % (0-4); Lymphocytes Absolute Manual 0.19 K/mm3 (1.1-4.5); Monocytes Absolute Manual 0.78 K/mm3 (0.1-0.90); Monocytes Percent Manual 4 % (3-9); Neutrophils Absolute Manual 18.32 K/mm3 (1.3-6.7); Neutrophils Percent Manual 70 % (46-73); Platelet Estimate Adequate (Adequate); Schistocytes None Seen (NORMAL); Total Cells Counted 100
[2023-04-28 11:13] LABS: Anisocytosis 1+ (NORMAL); Burr Cells 1+ (NORMAL); Poikilocytosis 1+ (NORMAL)
[2023-04-28] MEDS: VANCOMYCIN ORAL 500 MG/10 ML SYRUP PO ×3 (12:47→23:17)
[2023-04-28] MEDS: metroNIDAZOLE 500 MG/ISO 100ML 500 MG/100 ML BAG 100 MG IVPB ×2 (13:17→21:58)
--- NOTE | 2023-04-28 14:47 | PM.CNNEP ---
Assessment and Plan Assessment and plan (1) KJ (acute kidney injury): Code(s): N17.9 - Acute kidney failure, unspecified Status: Acute Assessment and Plan: presumably secondary to infection (C. diff colitis) and prerenal factors possibly complicated by relative hypotension no improvement in renal function despite conservative therapy -- possible ATN? check renal ultrasound check urine electrolytes gentle IVF hydration holding diuretics follow repeat labs and UOP (2) Stage 3a chronic kidney disease: Code(s): N18.31 - Chronic kidney disease, stage 3a Status: Chronic Assessment and Plan: baseline creatinine seems to run ~ 1.1 - 1.5mg/dl in the last year or so likely secondary to vascular disease (CAD, CHF/cardiomyopathy, hyperlipidemia), HTN, and nephrolithiasis (3) Hyponatremia: Code(s): E87.1 - Hypo-osmolality and hyponatremia Status: Acute Assessment and Plan: acute on chronic usually runs ~ 134 - 136mmol/L in the last few months suspect acute worsening likely secondary to KJ/ARF possibly from diuretic use GI losses (diarrhea) pre-renal factors (?) reactive airway disease chronic low sodium due to: known SSRI use underlying cardiomyopathy CHF necessity of diuretics interstitial lung disease transient improvement with IVFs follow trend of sodium (4) C. difficile colitis: Code(s): A04.72 - Enterocolitis due to Clostridium difficile, not specified as recurrent Status: Acute Assessment and Plan: as noted by history and imaging on oral vancomycin and IV flagyl continue supportive therapy (5) Orthostatic hypotension: Code(s): I95.1 - Orthostatic hypotension Status: Acute Assessment and Plan: known history on midodrine therapy follow hemodynamics (6) Congestive heart failure: Qualifiers: Heart failure chronicity: chronic Heart failure type: right-sided Qualified Code(s): I50.812 - Chronic right heart failure Code(s): I50.9 - Heart failure, unspecified Status: Chronic Assessment and Plan: appears stable at this time follow respiratory status given on IVFs and holding diuretics continue supportive therapy (7) Generalized weakness: Code(s): R53.1 - Weakness Status: Acute Assessment and Plan: due to KJ + acute illness continue ongoing therapy PT/OT as tolerated I will continue to follow the patient with you while he remains hospitalized and make further recommendations as needed. Thank you for allowing me to participate in care this patient. History of Present Illness Reason for Consult Consult date: 04/28/23 Reason for consult: acute renal failure (on chronic kidney disease) Chief Complaint Chief complaint: Colitis History of Present Illness Narrative: The patient is an 83-year-old male with a past medical history as outlined below presented to [facility] Emergency room from his rehab facility due to issues with ongoing weakness and diarrhea. 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 He apparently just finished a recent course antibiotics for this condition five days ago prior to presentation to the ER. The day prior to his presentation to the ER he started having crampy left lower abdominal discomfort with recurrence of his diarrhea that seem to come and go. He felt the diarrhea was almost the same as it was in previous/ past episodes of C diff colitis. Since that time, he has had generalized weakness and fatigue in association with intermittent lightheadedness particularly whenever he stands. However, he has a known history of orthostatic hypotension required admitted in therapy. He reported no nausea or vomiting but he does relate poor oral intake. Who presented to the ER for further assessment of these compla
--- NOTE | 2023-04-28 14:47 | P.CONNP_ITS ---
Assessment and Plan Assessment and plan (1) KJ (acute kidney injury): Code(s): N17.9 - Acute kidney failure, unspecified Status: Acute Assessment and Plan: * presumably secondary to infection (C. diff colitis) and prerenal factors possibly complicated by relative hypotension * no improvement in renal function despite conservative therapy -- possible ATN? * check renal ultrasound * check urine electrolytes * gentle IVF hydration * holding diuretics * follow repeat labs and UOP (2) Stage 3a chronic kidney disease: Code(s): N18.31 - Chronic kidney disease, stage 3a Status: Chronic Assessment and Plan: * baseline creatinine seems to run ~ 1.1 - 1.5mg/dl in the last year or so * likely secondary to vascular disease (CAD, CHF/cardiomyopathy, hyperlipidemia), HTN, and nephrolithiasis (3) Hyponatremia: Code(s): E87.1 - Hypo-osmolality and hyponatremia Status: Acute Assessment and Plan: * acute on chronic * usually runs ~ 134 - 136mmol/L in the last few months * suspect acute worsening likely secondary to * KJ/ARF * possibly from diuretic use * GI losses (diarrhea) * pre-renal factors (?) * reactive airway disease * chronic low sodium due to: * known SSRI use * underlying cardiomyopathy * CHF * necessity of diuretics * interstitial lung disease * transient improvement with IVFs * follow trend of sodium (4) C. difficile colitis: Code(s): A04.72 - Enterocolitis due to Clostridium difficile, not specified as recurrent Status: Acute Assessment and Plan: * as noted by history and imaging * on oral vancomycin and IV flagyl * continue supportive therapy (5) Orthostatic hypotension: Code(s): I95.1 - Orthostatic hypotension Status: Acute Assessment and Plan: * known history * on midodrine therapy * follow hemodynamics (6) Congestive heart failure: Qualifiers: Heart failure chronicity: chronic Heart failure type: right-sided Qualified Code(s): I50.812 - Chronic right heart failure Code(s): I50.9 - Heart failure, unspecified Status: Chronic Assessment and Plan: * appears stable at this time * follow respiratory status given on IVFs and holding diuretics * continue supportive therapy (7) Generalized weakness: Code(s): R53.1 - Weakness Status: Acute Assessment and Plan: * due to KJ + acute illness * continue ongoing therapy * PT/OT as tolerated I will continue to follow the patient with you while he remains hospitalized and make further recommendations as needed. Thank you for allowing me to participate in care this patient. History of Present Illness Reason for Consult Consult date: 04/28/23 Reason for consult: acute renal failure (on chronic kidney disease) Chief Complaint Chief complaint: Colitis History of Present Illness Narrative: The patient is an 83-year-old male with a past medical history as outlined below presented to [facility] Emergency room from his rehab facility due to issues with ongoing weakness and diarrhea. 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 He apparently just finished a recent course antibiotics for this condition five days ago prior to presentation to the ER. The day prior to his presentation to the ER he started having crampy left lower abdominal discomfort with recurrence of his diarrhea that seem
[2023-04-28] MEDS: ONDANSETRON INJ 4 MG/2 ML VIAL IV PUSH (17:10)
[2023-04-28] MEDS: SODIUM CHLORIDE 0.9% IV 1,000 ML 75 ML IV CONT (17:12)
[2023-04-28] MEDS: SERTRALINE HCL 25 MG TABLET PO (21:57)
[2023-04-28] MEDS: ACETAMINOPHEN 325 MG TABLET 650 MG PO (22:04)
[2023-04-28] MEDS: ALBUTEROL SULFATE NEB 2.5 MG/3 ML INH INHALATION (22:57)
[2023-04-29] VITALS (7 sets, daily range): BP systolic 88–102; BP diastolic 40–59; PULSE 56–71; RESP 16–18; TEMP 35.8–36.4; O2SAT 97–98
[2023-04-29] MEDS: metroNIDAZOLE 500 MG/ISO 100ML 500 MG/100 ML BAG 100 MG IVPB ×3 (06:03→22:07)
[2023-04-29] MEDS: VANCOMYCIN ORAL 500 MG/10 ML SYRUP PO ×3 (06:04→17:21)
[2023-04-29] MEDS: SODIUM CHLORIDE 0.9% IV 1,000 ML 75 ML IV CONT ×2 (06:04→17:20)
[2023-04-29 06:32] LABS: Hematocrit 37.4 % (42.0-52.0); Hemoglobin 11.7 g/dL (14.0-18.0); Mean Corpuscular HGB Conc 31.3 g/dl (32-36); Mean Corpuscular Hemoglobin 29.6 pg (26-34); Mean Corpuscular Volume 94.7 fl (80-100); Mean Platelet Volume 9.2 fl (7.4-10.4); Platelet Count Result 304 k/mm3 (150-375); Red Blood Count 3.95 M/mm3 (4.6-6.20); Red Cell Distribution Width 14.7 % (11.5-14.5)
[2023-04-29 06:40] LABS: Alanine Aminotransferase 43 U/L (6-50); Albumin Level 2.1 g/dL (3.5-5.1); Alkaline Phosphatase 73 U/L (38-126); Anion Gap 1 mmol/L (8-16); Aspartate Amino Transferase 67 U/L (17-59); Bilirubin,Total 0.5 mg/dL (0.2-1.3); Blood Urea Nitrogen 44 mg/dL (9-20); Calcium 7.3 mg/dL (8.4-10.2); Carbon Dioxide 22 mmol/L (22-30); Chloride 105 mmol/L (98-107); Estimated CRCL calculation 19 ml/min; Estimated Glomerular Filt Rate 24; Glucose 78 mg/dL (65-110); Potassium 4.5 mmol/L (3.4-5.0); Sodium 128 mmol/L (137-145)
[2023-04-29 06:44] LABS: Creatine Kinase 21 U/L (55-170)
[2023-04-29 08:04] LABS: Band Neutrophils Percent 28 % (0-6); Eosinophils Absolute Manual 0.72 K/mm3 (0.02-0.5); Eosinophils Percent Manual 4 % (0-4); Lymphocytes Absolute Manual 0.36 K/mm3 (1.1-4.5); Monocytes Absolute Manual 0.72 K/mm3 (0.1-0.90); Monocytes Percent Manual 4 % (3-9); Neutrophils Percent Manual 62 % (46-73); Platelet Clumps Present; Platelet Estimate Adequate (Adequate); Total Cells Counted 100
[2023-04-29 08:05] LABS: Burr Cells 3+ (NORMAL); Crenated RBC 1+ (NORMAL); Schistocytes None Seen (NORMAL)
[2023-04-29] MEDS: METOPROLOL SUCCINATE EXT REL 25 MG TABCR PO (08:35)
[2023-04-29] MEDS: TAMSULOSIN HCL 0.4 MG CAPSULE PO (08:35)
[2023-04-29] MEDS: FIDAXOMICIN 200 MG TABLET PO ×2 (08:35→21:24)
[2023-04-29] MEDS: ACETAMINOPHEN 325 MG TABLET 650 MG PO ×4 (08:36→21:24)
[2023-04-29] MEDS: CLOPIDOGREL BISULFATE 75 MG TABLET PO (08:36)
[2023-04-29] MEDS: ENOXAPARIN 30 MG/0.3 ML SYRINGE SUB-Q (08:37)
[2023-04-29] MEDS: ROSUVASTATIN 10 MG TABLET 40 MG PO (08:37)
[2023-04-29] MEDS: MIDODRINE HCL 2.5 MG TABLET 5 MG PO ×3 (08:37→17:21)
[2023-04-29] MEDS: ASPIRIN 81 MG CHEWABLE TABLET PO (08:37)
[2023-04-29] MEDS: DICLOFENAC SODIUM 1% 100 GM GEL (*BKC) 1 APPLIC TOPICAL (08:40)
[2023-04-29] MEDS: HYDROCORTISONE 1% 30 GM CREAM 1 APPLIC TOPICAL (08:40)
[2023-04-29] MEDS: ONDANSETRON INJ 4 MG/2 ML VIAL IV PUSH ×2 (08:43→17:20)
--- NOTE | 2023-04-29 10:59 | PCOTNOTE ---
The patient treatment was not able to be completed on 04/29 per MD hold therapy today to allow patient to rest. Will plan to continue treatment per plan of care tomorrow.
[2023-04-29] MEDS: DEXTROMETHORPHAN POLISTIREX 60 MG/10 ML SYRINGE PO (12:58)
--- NOTE | 2023-04-29 13:04 | P.PNNP_ITS ---
Progress Note: A&P Assessment and Plan (1) KJ (acute kidney injury): Code(s): N17.9 - Acute kidney failure, unspecified Status: Acute Assessment and Plan: * acute kidney injury. * Creatinine is about the same. * Renal ultrasound unremarkable. * Urinalysis is bland. * Urine electrolytes have not been collected yet * gentle IVF hydration * holding diuretics * follow repeat labs and UOP (2) Stage 3a chronic kidney disease: Code(s): N18.31 - Chronic kidney disease, stage 3a Status: Chronic Assessment and Plan: * baseline creatinine seems to run ~ 1.1 - 1.5mg/dl in the last year or so * likely secondary to vascular disease (CAD, CHF/cardiomyopathy, hyper lipidemia), HTN, and nephrolithiasis (3) Hyponatremia: Code(s): E87.1 - Hypo-osmolality and hyponatremia Status: Acute Assessment and Plan: * acute on chronic * usually runs ~ 134 - 136mmol/L in the last few months * suspect acute worsening likely secondary to * KJ/ARF * possibly from diuretic use * GI losses (diarrhea) * pre-renal factors (?) * reactive airway disease * chronic low sodium due to: * known SSRI use * underlying cardiomyopathy * CHF * necessity of diuretics * interstitial lung disease * sodium level improved a little to 128. * He is not on a fluid restriction because his intake is so poor. Will follow the sodium and consider some other therapy if this sodium is not improving. * follow trend of sodium (4) C. difficile colitis: Code(s): A04.72 - Enterocolitis due to Clostridium difficile, not specified as recurrent Status: Acute Assessment and Plan: * as noted by history and imaging * on oral vancomycin and IV flagyl * continue supportive therapy (5) Orthostatic hypotension: Code(s): I95.1 - Orthostatic hypotension Status: Acute Assessment and Plan: * known history * on midodrine therapy * follow hemodynamics (6) Congestive heart failure: Qualifiers: Heart failure chronicity: chronic Heart failure type: right-sided Qualified Code(s): I50.812 - Chronic right heart failure Code(s): I50.9 - Heart failure, unspecified Status: Chronic Assessment and Plan: * appears stable at this time * follow respiratory status given on IVFs and holding diuretics * continue supportive therapy (7) Generalized weakness: Code(s): R53.1 - Weakness Status: Acute Assessment and Plan: * due to KJ + acute illness * continue ongoing therapy * PT/OT as tolerated I will continue to follow the patient with you while he remains hospitalized and make further recommendations as needed. Thank you for allowing me to participate in care this patient. Subjective Date/time seen: 04/29/23 13:04 Interval history: Yoseph is feeling weak. Not much of an appetite. Review of Systems Cardiovascular: Cardiovascular: Reports no additional cardiovascular complaints Respiratory: Respiratory: Reports no additional respiratory complaints Gastrointestinal: Gastrointestinal: Reports no additional gastrointestinal complaints Genitourinary: Genitourinary: Reports no additional male genitourinary complaints Exam Narrative: WDWN in NAD skin no rash Or subQ nodules head ncat lungs clear cor reg no rub abd BS+ nontender and soft ext no edema.
--- NOTE | 2023-04-29 13:04 | PM.PNNEP ---
Progress Note: A&P Assessment and Plan (1) KJ (acute kidney injury): Code(s): N17.9 - Acute kidney failure, unspecified Status: Acute Assessment and Plan: acute kidney injury. Creatinine is about the same. Renal ultrasound unremarkable. Urinalysis is bland. Urine electrolytes have not been collected yet gentle IVF hydration holding diuretics follow repeat labs and UOP (2) Stage 3a chronic kidney disease: Code(s): N18.31 - Chronic kidney disease, stage 3a Status: Chronic Assessment and Plan: baseline creatinine seems to run ~ 1.1 - 1.5mg/dl in the last year or so likely secondary to vascular disease (CAD, CHF/cardiomyopathy, hyperlipidemia), HTN, and nephrolithiasis (3) Hyponatremia: Code(s): E87.1 - Hypo-osmolality and hyponatremia Status: Acute Assessment and Plan: acute on chronic usually runs ~ 134 - 136mmol/L in the last few months suspect acute worsening likely secondary to KJ/ARF possibly from diuretic use GI losses (diarrhea) pre-renal factors (?) reactive airway disease chronic low sodium due to: known SSRI use underlying cardiomyopathy CHF necessity of diuretics interstitial lung disease sodium level improved a little to 128. He is not on a fluid restriction because his intake is so poor. Will follow the sodium and consider some other therapy if this sodium is not improving. follow trend of sodium (4) C. difficile colitis: Code(s): A04.72 - Enterocolitis due to Clostridium difficile, not specified as recurrent Status: Acute Assessment and Plan: as noted by history and imaging on oral vancomycin and IV flagyl continue supportive therapy (5) Orthostatic hypotension: Code(s): I95.1 - Orthostatic hypotension Status: Acute Assessment and Plan: known history on midodrine therapy follow hemodynamics (6) Congestive heart failure: Qualifiers: Heart failure chronicity: chronic Heart failure type: right-sided Qualified Code(s): I50.812 - Chronic right heart failure Code(s): I50.9 - Heart failure, unspecified Status: Chronic Assessment and Plan: appears stable at this time follow respiratory status given on IVFs and holding diuretics continue supportive therapy (7) Generalized weakness: Code(s): R53.1 - Weakness Status: Acute Assessment and Plan: due to KJ + acute illness continue ongoing therapy PT/OT as tolerated I will continue to follow the patient with you while he remains hospitalized and make further recommendations as needed. Thank you for allowing me to participate in care this patient. Subjective Date/time seen: 04/29/23 13:04 Interval history: Yoseph is feeling weak. Not much of an appetite. Review of Systems Cardiovascular: Cardiovascular: Reports no additional cardiovascular complaints Respiratory: Respiratory: Reports no additional respiratory complaints Gastrointestinal: Gastrointestinal: Reports no additional gastrointestinal complaints Genitourinary: Genitourinary: Reports no additional male genitourinary complaints Exam Narrative: WDWN in NAD skin no rash Or subQ nodules head ncat lungs clear cor reg no rub abd BS+ nontender and soft ext no edema. Objective Data Vital Signs Vital Signs: Vital Signs - 24 hr 04/28/23 14:00 04/28/23 20:38 04/28/23 22:57 Temperature 96.9 F L 97.3 F L Pulse Rate 68 69 Respiratory Rate 16 18 20 Blood Pressure 113/61 90/50 L Pulse Oximetry 96 98 Oxygen Delivery 04/28/23 20:00 04/29/23 04:47 04/29/23 08:27 Temperature 97.4 F L Pulse Rate 69 56 L Respiratory Rate 20 16 Blood Pressure 98/40 L Pulse Oximetry 98 97 97 Oxygen Delivery Room Air Room Air 04/29/23 08:35 04/29/23 08:20 Temperature Pulse Rate 62 Respiratory Rate Blood Pressure Pulse Oximetry Oxy
--- NOTE | 2023-04-29 14:18 | PM.IMPN ---
Progress Note: A&P Assessment and Plan (1) Sepsis: Qualifiers: Sepsis type: sepsis due to unspecified organism Sepsis acute organ dysfunction status: with acute organ dysfunction Severe sepsis acute organ dysfunction type: acute renal failure Acute renal failure type: unspecified Severe sepsis shock status: without septic shock Qualified Code(s): A41.9 - Sepsis, unspecified organism; R65.20 - Severe sepsis without septic shock; N17.9 - Acute kidney failure, unspecified Code(s): A41.9 - Sepsis, unspecified organism Status: Acute Assessment and Plan: Patient met sepsis criteria on admission with leukocytosis, tachycardia acute kidney injury in the setting of C diff pancolitis. Treated with IV fluids and antibiotics. Blood pressure was soft but this is probably more chronic. Lactic acid was normal. Heart rate normal. Creatinine up slightly. 04/28: leuk worsening, add back oral vanc 04/29: Leukocytosis improving, down to 18 with the addition of oral vancomycin, continue to monitor (2) C. difficile colitis: Code(s): A04.72 - Enterocolitis due to Clostridium difficile, not specified as recurrent Status: Acute Assessment and Plan: The patient presents with diarrhea and weakness. He has had CDiff just 1 month ago. His CDiff toxin positive here and CT Abd/pelvis showing pancolitis. The patient has recurrent C diff colitis. Oral vancomycin started. For the first recurrence, bezlotoxumab recommended but not available here. 04/28: worsened on dificid, add back oral vanc + IV flagyl 04/29: Leukocytosis improving but symptomatically patient appears unchanged, continue to monitor (3) KJ (acute kidney injury): Code(s): N17.9 - Acute kidney failure, unspecified Status: Acute Assessment and Plan: Creatinine elevated on admission to 1.5. Baseline 1.1-1.3. Cr climbed to 1.7 yesterday and stable today. Suspect related to above. Will follow. Continue IV fluids. Lasix on hold. 04/27: creat continues to worsen to 2.7, consult nephrology 04/28: increase IVF 04/29: Improved with IV fluid, monitor, appreciate nephrology consultation (4) Acute hyponatremia: Code(s): E87.1 - Hypo-osmolality and hyponatremia Status: Acute Assessment and Plan: Sodium was 126 on admission probably related to dehydration from excessive diarrhea. No metabolic acidosis noted. With IV fluids, his sodium has improved slightly to 129. This should continue to correct. Will continue to follow. Stable, monitor (5) Generalized weakness: Code(s): R53.1 - Weakness Status: Acute Assessment and Plan: Patient with generalized weakness related to above. Continue PT OT. Increase activity. (6) Orthostatic hypotension: Code(s): I95.1 - Orthostatic hypotension Status: Acute Assessment and Plan: Patient with known orthostatic hypotension. Blood pressure soft but stable. Continue midodrine. (7) Congestive heart failure: Qualifiers: Heart failure chronicity: chronic Heart failure type: right-sided Qualified Code(s): I50.812 - Chronic right heart failure Code(s): I50.9 - Heart failure, unspecified Status: Chronic Assessment and Plan: Patient with known CHF. Last echocardiogram showed improvement of his EF. His Lasix is on hold at this point. Monitor closely on IV fluids. 04/28: increase IVF nominally to 75 ml/hr, monitor fluid status closely 04/29: Does not appear fluid overloaded, monitor, check chest x-ray 04/30 (8) Right-sided heart failure: Qualifiers: Heart failure chronicity: chronic Qualified Code(s): I50.812 - Chronic right heart failure Code(s): I50.810 - Right heart failure, unspecified Status: Acute Assessment and Plan: As above Plan DVT prophylaxis with Lovenox GI prophylaxis not indicated Code status full code Subjective Date/time seen:
[2023-04-29] MEDS: SERTRALINE HCL 25 MG TABLET PO (21:24)
[2023-04-30 00:18] LABS: Creatinine Urine 112.5 mg/dL; Total Protein Urine Random 23 mg/dL; Urea Random Urine 838 MG/DL
[2023-04-30] MEDS: MIDODRINE HCL 2.5 MG TABLET 5 MG PO ×4 (00:27→18:34)
[2023-04-30] MEDS: VANCOMYCIN ORAL 500 MG/10 ML SYRUP PO ×4 (00:27→18:34)
[2023-04-30 01:48] LABS: Eosinophil Urine None Seen % (None Seen)
[2023-04-30 01:49] LABS: Urine Eos QC 2nd Tech Confirmed
[2023-04-30 01:53] LABS: Sodium Urine Random < 5 meq/L
[2023-04-30 06:00] VITALS: BP 107/61; PULSE 63; RESP 22; TEMP 36.4; O2SAT 97
[2023-04-30] MEDS: metroNIDAZOLE 500 MG/ISO 100ML 500 MG/100 ML BAG 100 MG IVPB ×3 (06:22→21:00)
[2023-04-30] MEDS: ACETAMINOPHEN 325 MG TABLET 650 MG PO ×3 (06:27→18:34)
[2023-04-30 06:38] LABS: Hematocrit 40.1 % (42.0-52.0); Hemoglobin 12.7 g/dL (14.0-18.0); Mean Corpuscular HGB Conc 31.7 g/dl (32-36); Mean Corpuscular Hemoglobin 29.7 pg (26-34); Mean Corpuscular Volume 93.9 fl (80-100); Mean Platelet Volume 9.3 fl (7.4-10.4); Platelet Count Result 318 k/mm3 (150-375); Red Blood Count 4.27 M/mm3 (4.6-6.20); Red Cell Distribution Width 14.7 % (11.5-14.5); White Blood Count 22.1 K/mm3 (4.5-10.0)
[2023-04-30 06:53] LABS: Alanine Aminotransferase 41 U/L (6-50); Albumin Level 2.2 g/dL (3.5-5.1); Alkaline Phosphatase 81 U/L (38-126); Anion Gap 5 mmol/L (8-16); Aspartate Amino Transferase 52 U/L (17-59); Bilirubin,Total 0.6 mg/dL (0.2-1.3); Blood Urea Nitrogen 41 mg/dL (9-20); Calcium 7.1 mg/dL (8.4-10.2); Carbon Dioxide 17 mmol/L (22-30); Chloride 109 mmol/L (98-107); Estimated CRCL calculation 22 ml/min; Estimated Glomerular Filt Rate 29; Glucose 76 mg/dL (65-110); Potassium 4.4 mmol/L (3.4-5.0); Sodium 131 mmol/L (137-145)
[2023-04-30 07:36] LABS: Band Neutrophils Percent 3 % (0-6); Basophils Absolute Manual 0.22 K/mm3 (0.0-0.1); Basophils Percent Manual 1 % (0-1); Crenated RBC 2+ (NORMAL); Eosinophils Absolute Manual 0.22 K/mm3 (0.02-0.5); Eosinophils Percent Manual 1 % (0-4); Lymphocytes Absolute Manual 0.88 K/mm3 (1.1-4.5); Monocytes Absolute Manual 0.66 K/mm3 (0.1-0.90); Monocytes Percent Manual 3 % (3-9); Neutrophils Absolute Manual 20.11 K/mm3 (1.3-6.7); Neutrophils Percent Manual 88 % (46-73); Ovalocytes 1+ (NORMAL); Platelet Clumps Present; Poikilocytosis 2+ (NORMAL); Schistocytes None Seen (NORMAL); Total Cells Counted 100
[2023-04-30 08:30] VITALS: PULSE 61
[2023-04-30] MEDS: DEXTROMETHORPHAN POLISTIREX 60 MG/10 ML SYRINGE PO (08:30)
[2023-04-30] MEDS: METOPROLOL SUCCINATE EXT REL 25 MG TABCR PO (08:30)
[2023-04-30] MEDS: ENOXAPARIN 30 MG/0.3 ML SYRINGE SUB-Q (08:30)
[2023-04-30] MEDS: ASPIRIN 81 MG CHEWABLE TABLET PO (08:30)
[2023-04-30] MEDS: FIDAXOMICIN 200 MG TABLET PO ×2 (08:30→20:45)
[2023-04-30] MEDS: CLOPIDOGREL BISULFATE 75 MG TABLET PO (08:30)
[2023-04-30] MEDS: TAMSULOSIN HCL 0.4 MG CAPSULE PO (08:30)
[2023-04-30] MEDS: ROSUVASTATIN 10 MG TABLET 40 MG PO (08:30)
[2023-04-30 08:45] VITALS: PULSE 78; RESP 18; O2SAT 98
[2023-04-30] MEDS: ALBUTEROL SULFATE NEB 2.5 MG/3 ML INH INHALATION (08:47)
[2023-04-30 08:53] VITALS: PULSE 75; RESP 18
--- NOTE | 2023-04-30 11:29 | PM.IMPN ---
Progress Note: A&P Assessment and Plan (1) Sepsis: Qualifiers: Acute renal failure type: unspecified Sepsis acute organ dysfunction status: with acute organ dysfunction Sepsis type: sepsis due to unspecified organism Severe sepsis acute organ dysfunction type: acute renal failure Severe sepsis shock status: without septic shock Qualified Code(s): A41.9 - Sepsis, unspecified organism; R65.20 - Severe sepsis without septic shock; N17.9 - Acute kidney failure, unspecified Code(s): A41.9 - Sepsis, unspecified organism Status: Acute Assessment and Plan: Patient met sepsis criteria on admission with leukocytosis, tachycardia acute kidney injury in the setting of C diff pancolitis. Treated with IV fluids and antibiotics. Blood pressure was soft but this is probably more chronic. Lactic acid was normal. Heart rate normal. Creatinine up slightly. 04/28: leuk worsening, add back oral vanc 04/29: Leukocytosis improving, down to 18 with the addition of oral vancomycin, continue to monitor 04/30: leuk again back up to 22, unknown reason, GI consult pending, consider transfer for fecal transplant (2) C. difficile colitis: Code(s): A04.72 - Enterocolitis due to Clostridium difficile, not specified as recurrent Status: Acute Assessment and Plan: The patient presents with diarrhea and weakness. He has had CDiff just 1 month ago. His CDiff toxin positive here and CT Abd/pelvis showing pancolitis. The patient has recurrent C diff colitis. Oral vancomycin started. For the first recurrence, bezlotoxumab recommended but not available here. 04/28: worsened on dificid, add back oral vanc + IV flagyl 04/29: Leukocytosis improving but symptomatically patient appears unchanged, continue to monitor 04/30: see above (3) KJ (acute kidney injury): Code(s): N17.9 - Acute kidney failure, unspecified Status: Acute Assessment and Plan: Creatinine elevated on admission to 1.5. Baseline 1.1-1.3. Cr climbed to 1.7 yesterday and stable today. Suspect related to above. Will follow. Continue IV fluids. Lasix on hold. 04/27: creat continues to worsen to 2.7, consult nephrology 04/28: increase IVF 04/29: Improved with IV fluid, monitor, appreciate nephrology consultation 04/30: cont to improve with IVF, d/c IVF and monitor (4) Acute hyponatremia: Code(s): E87.1 - Hypo-osmolality and hyponatremia Status: Acute Assessment and Plan: Sodium was 126 on admission probably related to dehydration from excessive diarrhea. No metabolic acidosis noted. With IV fluids, his sodium has improved slightly to 129. This should continue to correct. Will continue to follow. Stable, monitor (5) Generalized weakness: Code(s): R53.1 - Weakness Status: Acute Assessment and Plan: Patient with generalized weakness related to above. Continue PT OT. Increase activity as able (6) Orthostatic hypotension: Code(s): I95.1 - Orthostatic hypotension Status: Acute Assessment and Plan: Patient with known orthostatic hypotension. Blood pressure soft but stable. Continue midodrine. (7) Congestive heart failure: Qualifiers: Heart failure chronicity: chronic Heart failure type: right-sided Qualified Code(s): I50.812 - Chronic right heart failure Code(s): I50.9 - Heart failure, unspecified Status: Chronic Assessment and Plan: Patient with known CHF. Last echocardiogram showed improvement of his EF. His Lasix is on hold at this point. Monitor closely on IV fluids. 04/28: increase IVF nominally to 75 ml/hr, monitor fluid status closely 04/29: Does not appear fluid overloaded, monitor, check chest x-ray 04/30 04/30: minimal edema noted, d/c IVF, monitor (8) Right-sided heart failure: Qualifiers: Heart failure chronicity: chronic Qualified Code(s): I50.812 - Chronic right heart failure Code(s): I50.810
[2023-04-30] MEDS: HYDROCORTISONE 1% 30 GM CREAM 1 APPLIC TOPICAL ×2 (13:19→18:35)
[2023-04-30] MEDS: DICLOFENAC SODIUM 1% 100 GM GEL (*BKC) 1 APPLIC TOPICAL (13:19)
--- NOTE | 2023-04-30 13:45 | P.PNNP_ITS ---
Progress Note: A&P Assessment and Plan (1) KJ (acute kidney injury): Code(s): N17.9 - Acute kidney failure, unspecified Status: Acute Assessment and Plan: * acute kidney injury. * Renal ultrasound unremarkable. * Urinalysis is bland. * Urine electrolytes consistent with pre renal azotemia. * Acute kidney injury most likely due to dehydration. * gentle IVF hydration * Creatinine has improved * check another 1 tomorrow (2) Stage 3a chronic kidney disease: Code(s): N18.31 - Chronic kidney disease, stage 3a Status: Chronic Assessment and Plan: * baseline creatinine seems to run ~ 1.1 - 1.5mg/dl in the last year or so * likely secondary to vascular disease (CAD, CHF/cardiomyopathy, hyperlipidemia), HTN, and nephrolithiasis (3) Hyponatremia: Code(s): E87.1 - Hypo-osmolality and hyponatremia Status: Acute Assessment and Plan: * acute on chronic * usually runs ~ 134 - 136mmol/L in the last few months * suspect acute worsening likely secondary to * KJ/ARF * possibly from diuretic use * GI losses (diarrhea) * pre-renal factors * reactive airway disease * chronic low sodium due to: * known SSRI use * underlying cardiomyopathy * CHF * necessity of diuretics * interstitial lung disease * sodium has come up again to 131. Most likely responding to treatment of his dehydration * check another sodium tomorrow (4) C. difficile colitis: Code(s): A04.72 - Enterocolitis due to Clostridium difficile, not specified as recurrent Status: Acute Assessment and Plan: * as noted by history and imaging * on oral vancomycin and IV flagyl * continue supportive therapy (5) Orthostatic hypotension: Code(s): I95.1 - Orthostatic hypotension Status: Acute Assessment and Plan: * known history * on midodrine therapy * blood pressure is better this morning at 1:07 a.m.. (6) Congestive heart failure: Qualifiers: Heart failure chronicity: chronic Heart failure type: right-sided Qualified Code(s): I50.812 - Chronic right heart failure Code(s): I50.9 - Heart failure, unspecified Status: Chronic Assessment and Plan: * appears stable at this time * follow respiratory status given on IVFs and holding diuretics * continue supportive therapy (7) Generalized weakness: Code(s): R53.1 - Weakness Status: Acute Assessment and Plan: * due to KJ + acute illness with C diff * continue ongoing therapy * PT/OT as tolerated Subjective Date/time seen: 04/30/23 13:45 Interval history: Yoseph is feeling weak. He says he feels a little bit better today. He is eating a little lunch. Exam Narrative: WDWN in NAD skin no rash Or subQ nodules head ncat lungs clear bilaterally cor reg no rub abd BS+ nontender and soft ext no edema or cyanosis. Objective Data Vital Signs Vital Signs: Vital Signs - 24 hr 04/29/23 14:00 04/29/23 21:53 04/29/23 22:44 Temperature 96.4 F L 97.5 F L Pulse Rate 71 63 Respiratory Rate 18 18 Blood Pressure 102/43 L 88/56 L 88/59 L Pulse Oximetry 98 97 Oxygen Delivery Room Air 04/29/23 20:00 04/30/23 06:00 04/30/23 08:30 Temperature 97.5 F L Pulse
--- NOTE | 2023-04-30 13:45 | PM.PNNEP ---
Progress Note: A&P Assessment and Plan (1) KJ (acute kidney injury): Code(s): N17.9 - Acute kidney failure, unspecified Status: Acute Assessment and Plan: acute kidney injury. Renal ultrasound unremarkable. Urinalysis is bland. Urine electrolytes consistent with pre renal azotemia. Acute kidney injury most likely due to dehydration. gentle IVF hydration Creatinine has improved check another 1 tomorrow (2) Stage 3a chronic kidney disease: Code(s): N18.31 - Chronic kidney disease, stage 3a Status: Chronic Assessment and Plan: baseline creatinine seems to run ~ 1.1 - 1.5mg/dl in the last year or so likely secondary to vascular disease (CAD, CHF/cardiomyopathy, hyperlipidemia), HTN, and nephrolithiasis (3) Hyponatremia: Code(s): E87.1 - Hypo-osmolality and hyponatremia Status: Acute Assessment and Plan: acute on chronic usually runs ~ 134 - 136mmol/L in the last few months suspect acute worsening likely secondary to KJ/ARF possibly from diuretic use GI losses (diarrhea) pre-renal factors reactive airway disease chronic low sodium due to: known SSRI use underlying cardiomyopathy CHF necessity of diuretics interstitial lung disease sodium has come up again to 131. Most likely responding to treatment of his dehydration check another sodium tomorrow (4) C. difficile colitis: Code(s): A04.72 - Enterocolitis due to Clostridium difficile, not specified as recurrent Status: Acute Assessment and Plan: as noted by history and imaging on oral vancomycin and IV flagyl continue supportive therapy (5) Orthostatic hypotension: Code(s): I95.1 - Orthostatic hypotension Status: Acute Assessment and Plan: known history on midodrine therapy blood pressure is better this morning at 1:07 a.m.. (6) Congestive heart failure: Qualifiers: Heart failure chronicity: chronic Heart failure type: right-sided Qualified Code(s): I50.812 - Chronic right heart failure Code(s): I50.9 - Heart failure, unspecified Status: Chronic Assessment and Plan: appears stable at this time follow respiratory status given on IVFs and holding diuretics continue supportive therapy (7) Generalized weakness: Code(s): R53.1 - Weakness Status: Acute Assessment and Plan: due to KJ + acute illness with C diff continue ongoing therapy PT/OT as tolerated Subjective Date/time seen: 04/30/23 13:45 Interval history: Yoseph is feeling weak. He says he feels a little bit better today. He is eating a little lunch. Exam Narrative: WDWN in NAD skin no rash Or subQ nodules head ncat lungs clear bilaterally cor reg no rub abd BS+ nontender and soft ext no edema or cyanosis. Objective Data Vital Signs Vital Signs: Vital Signs - 24 hr 04/29/23 14:00 04/29/23 21:53 04/29/23 22:44 Temperature 96.4 F L 97.5 F L Pulse Rate 71 63 Respiratory Rate 18 18 Blood Pressure 102/43 L 88/56 L 88/59 L Pulse Oximetry 98 97 Oxygen Delivery Room Air 04/29/23 20:00 04/30/23 06:00 04/30/23 08:30 Temperature 97.5 F L Pulse Rate 63 63 61 Respiratory Rate 18 22 H Blood Pressure 107/61 Pulse Oximetry 97 97 Oxygen Delivery Room Air 04/30/23 08:45 04/30/23 08:45 04/30/23 08:53 Temperature Pulse Rate 78 78 75 Respiratory Rate 18 18 18 Blood Pressure Pulse Oximetry 98 Oxygen Delivery Room Air 04/30/23 08:30 Temperature Pulse Rate Respiratory Rate Blood Pressure Pulse Oximetry Oxygen Delivery Room Air Intake/Output Intake/Output: Intake & Output 04/27/23 04/28/23 04/29/23 04/30/23 23:59 23:59 23:59 23:59 Intake Total 3666 3060 3298 470 Output Total 300 150 Balance 3666 2760 3298 320 Meds/Results Medications: Active Medications Generic Name Dose Route Start Last
[2023-04-30 14:00] VITALS: BP 110/72; PULSE 70; RESP 16; TEMP 36.7; O2SAT 97
--- NOTE | 2023-04-30 16:05 | WPDGICN ---
Assessment and Plan Assessment and plan (1) Recurrent Clostridioides difficile diarrhea: Code(s): A04.71 - Enterocolitis due to Clostridium difficile, recurrent Status: Acute Assessment and Plan: at least second episode, has been on dificid and added vanco with iv flagyl still with persistent leukocytosis, abdominal exam is relatively benign and renal function improving but slowly will get KUB and lactic acid (still with metabolic acidosis) but less symptomatic now (2) Acute on chronic renal failure: Code(s): N17.9 - Acute kidney failure, unspecified; N18.9 - Chronic kidney disease, unspecified Status: Acute Assessment and Plan: slowly improving by nephrology (3) Sepsis: Qualifiers: Sepsis type: sepsis due to unspecified organism Sepsis acute organ dysfunction status: with acute organ dysfunction Severe sepsis acute organ dysfunction type: acute renal failure Acute renal failure type: unspecified Severe sepsis shock status: without septic shock Qualified Code(s): A41.9 - Sepsis, unspecified organism; R65.20 - Severe sepsis without septic shock; N17.9 - Acute kidney failure, unspecified Code(s): A41.9 - Sepsis, unspecified organism Status: Acute Assessment and Plan: on treatment (4) Leukocytosis: Code(s): D72.829 - Elevated white blood cell count, unspecified Status: Acute Assessment and Plan: monitor treatment for cdiff probably will be a good candidate for fecal transplant as outpatient at another institution (5) Hyponatremia: Code(s): E87.1 - Hypo-osmolality and hyponatremia Status: Acute (6) Orthostatic hypotension: Code(s): I95.1 - Orthostatic hypotension Status: Acute Assessment and Plan: chronic stable (7) Congestive heart failure: Qualifiers: Heart failure chronicity: chronic Heart failure type: right-sided Qualified Code(s): I50.812 - Chronic right heart failure Code(s): I50.9 - Heart failure, unspecified Status: Chronic Assessment and Plan: stable GI Consult Note Consult date/time: 04/30/23 16:05 Reason for consult: recurrent C diff HPI: Yoseph Luis is a 83 year old male with history of coronary artery disease status post CABG, CHF, orthostatic hypotension on midodrine, CKD stage III, BPH and recent C diff colitis treated with oral vanco who presented to the ER from a local rehab facility due to increased weakness and diarrhea, diagnosed again with C diff and has been in the hospital since 04/24.? Day of admission with more crampy left lower abdominal discomfort associated with diarrhea also had low-grade temperature and generalized weakness.? Diagnosed also with sepsis and persistent leukocytosis, had KJ now seeing by actuarial technician, CT scan showed colitis. He says that had colonoscopy but has been few years ago. He says that still with diarrhea but less frequent, now denies abdominal pain, still with poor appetite, creat 2.2 (trending slowly since admission, it was up to 2.5), wbc 22k. On dificid and was just started on iv flagyl and oral vancomycin because persistent wbc by primary team. He seems comfortable now. Review of Systems Constitutional: Constitutional: Reports fatigue and Reports lethargy Eyes: Eyes: Denies blurry vision ENT: Reports Normal hearing present Cardiovascular: Cardiovascular: Denies chest pain Respiratory: Respiratory: Denies cough Gastrointestinal: Gastrointestinal: Reports diarrhea Genitourinary: Genitourinary: Denies urinary frequency Musculoskeletal: Musculoskeletal: Denies neck pain Integumentary/Breasts: Skin/Breast: Denies rash Neurologic: Denies Abnormal speech present Psychiatric: Psychiatric: Denies behavioral changes [facility] Past Medical History Medical History (Updated 04/30/23 @ 16:12 by Kalin Greene MD) Acute on chronic renal failure BPH (benign prostatic hyperplasia) Complet
[2023-04-30] MEDS: SERTRALINE HCL 25 MG TABLET PO (20:45)
[2023-04-30 22:00] VITALS: PULSE 76; RESP 20; TEMP 36.3; O2SAT 97
[2023-05-01] MEDS: VANCOMYCIN ORAL 500 MG/10 ML SYRUP PO ×4 (00:24→17:33)
[2023-05-01 06:00] VITALS: BP 93/46; PULSE 37; RESP 20; TEMP 36.7; O2SAT 97
[2023-05-01] MEDS: metroNIDAZOLE 500 MG/ISO 100ML 500 MG/100 ML BAG 100 MG IVPB ×3 (06:01→21:20)
[2023-05-01] MEDS: SODIUM CHLORIDE 0.9% IV 1,000 ML 999 ML IV CONT (06:26)
[2023-05-01 06:36] LABS: Base Excess ABG -8.7 mEq/l (+/-2.0); Fractional Inspired Oxygen 21 %; Oxygen Content ABG 18.2 %vol (16.0-22.0); Oxygen Saturation ABG 97.8 % (95.0-100.0); Oxyhemoglobin 95.9 % THb (90.0-100.0); PCO2 ABG 26.7 mmHg (35.0-45.0); PO2 ABG 104.8 mmHg (80.0-100.0); PO2 FiO2 Ratio Arterial Blood 4.99 %; Total Hemoglobin 13.4 g/dL (12.0-18.0); pH ABG 7.367 (7.350-7.450)
[2023-05-01 06:37] LABS: Modified Allen's Test Pass; Site Drawn LEFT RADIAL
[2023-05-01 06:48] LABS: Basophils Absolute Auto 0.1 K/mm3 (0.0-0.1); Basophils Percent Auto 0.4 % (0.2-1.2); Eosinophils Absolute Auto 0.4 K/mm3 (0-0.3); Eosinophils Percent Auto 1.5 % (0-4.4); Hematocrit 40.3 % (42.0-52.0); Hemoglobin 13.1 g/dL (14.0-18.0); Immature Granulocyte Absolute 0.36 K/mm3 (0.00-0.031); Immature Granulocyte Percent A 1.4 % (0-0.5); Lymphocytes Absolute Auto 0.73 K/mm3 (0.9-3.2); Lymphocytes Percent Auto 2.9 % (18.3-44.2); Mean Corpuscular HGB Conc 32.5 g/dl (32-36); Mean Corpuscular Hemoglobin 30.3 pg (26-34); Mean Corpuscular Volume 93.3 fl (80-100); Mean Platelet Volume 9.1 fl (7.4-10.4); Monocytes Absolute Auto 1.6 K/mm3 (0.1-0.6); Monocytes Percent Auto 6.5 % (2.6-8.5); Neutrophils Absolute Auto 21.9 K/mm3 (1.3-6.7); Neutrophils Percent Auto 87.3 % (45.5-73.1); Platelet Count Result 342 k/mm3 (150-375); Red Blood Count 4.32 M/mm3 (4.6-6.20); Red Cell Distribution Width 14.8 % (11.5-14.5); White Blood Count 25.1 K/mm3 (4.5-10.0)
[2023-05-01 06:55] LABS: Lactic Acid Reflex 1.4 mmol/L (0.7-2.0)
[2023-05-01 06:56] LABS: Alanine Aminotransferase 34 U/L (6-50); Albumin Level 2.2 g/dL (3.5-5.1); Alkaline Phosphatase 81 U/L (38-126); Anion Gap 8 mmol/L (8-16); Aspartate Amino Transferase 33 U/L (17-59); Bilirubin,Total 0.5 mg/dL (0.2-1.3); Blood Urea Nitrogen 44 mg/dL (9-20); Calcium 7.2 mg/dL (8.4-10.2); Carbon Dioxide 15 mmol/L (22-30); Chloride 107 mmol/L (98-107); Estimated CRCL calculation 22 ml/min; Estimated Glomerular Filt Rate 29; Glucose 78 mg/dL (65-110); Potassium 4.3 mmol/L (3.4-5.0); Sodium 130 mmol/L (137-145)
[2023-05-01 07:27] LABS: Platelet Clumps Present; Platelet Estimate Adequate (Adequate)
[2023-05-01 07:28] LABS: Burr Cells 1+ (NORMAL); Crenated RBC 2+ (NORMAL); Toxic Granulation Present (NORMAL)
[2023-05-01 07:29] LABS: Poikilocytosis 1+ (NORMAL); Schistocytes None Seen (NORMAL)
--- NOTE | 2023-05-01 08:46 | PM.IMPN ---
Progress Note: A&P Assessment and Plan (1) Sepsis: Qualifiers: Acute renal failure type: unspecified Sepsis acute organ dysfunction status: with acute organ dysfunction Sepsis type: sepsis due to unspecified organism Severe sepsis acute organ dysfunction type: acute renal failure Severe sepsis shock status: without septic shock Qualified Code(s): A41.9 - Sepsis, unspecified organism; R65.20 - Severe sepsis without septic shock; N17.9 - Acute kidney failure, unspecified Code(s): A41.9 - Sepsis, unspecified organism Status: Acute Assessment and Plan: Patient met sepsis criteria on admission with leukocytosis, tachycardia, acute kidney injury in the setting of C diff pancolitis. Treated with IV fluids and antibiotics. Blood pressure was soft but this is probably more chronic. Lactic acid was normal. Heart rate normal. Creatinine up slightly. 04/28: leuk worsening, add back oral vanc 04/29: Leukocytosis improving, down to 18 with the addition of oral vancomycin, continue to monitor 04/30: leuk again back up to 22, unknown reason, GI consult pending, consider transfer for fecal transplant 05/01: leuk continues to climb, up to 25 today, appreciate GI consult, consider fecal transplant? (2) C. difficile colitis: Code(s): A04.72 - Enterocolitis due to Clostridium difficile, not specified as recurrent Status: Acute Assessment and Plan: The patient presents with diarrhea and weakness. He has had CDiff just 1 month ago. His CDiff toxin positive here and CT Abd/pelvis showing pancolitis. The patient has recurrent C diff colitis. Oral vancomycin started. For the first recurrence, bezlotoxumab recommended but not available here. 04/28: worsened on dificid, add back oral vanc + IV flagyl 04/29: Leukocytosis improving but symptomatically patient appears unchanged, continue to monitor 04/30: see above (3) KJ (acute kidney injury): Code(s): N17.9 - Acute kidney failure, unspecified Status: Acute Assessment and Plan: Creatinine elevated on admission to 1.5. Baseline 1.1-1.3. Cr climbed to 1.7 yesterday and stable today. Suspect related to above. Will follow. Continue IV fluids. Lasix on hold. 04/27: creat continues to worsen to 2.7, consult nephrology 04/28: increase IVF 04/29: Improved with IV fluid, monitor, appreciate nephrology consultation 04/30: cont to improve with IVF, d/c IVF and monitor 05/01: unchanged at 2.2, restart IVF per nephro (4) Acute hyponatremia: Code(s): E87.1 - Hypo-osmolality and hyponatremia Status: Acute Assessment and Plan: Sodium was 126 on admission probably related to dehydration from excessive diarrhea. No metabolic acidosis noted. With IV fluids, his sodium has improved slightly to 129. This should continue to correct. Will continue to follow. Stable, monitor (5) Generalized weakness: Code(s): R53.1 - Weakness Status: Acute Assessment and Plan: Patient with generalized weakness related to above. Continue PT OT. Increase activity as able (6) Orthostatic hypotension: Code(s): I95.1 - Orthostatic hypotension Status: Acute Assessment and Plan: Patient with known orthostatic hypotension. Blood pressure soft but stable. Continue midodrine. (7) Congestive heart failure: Qualifiers: Heart failure chronicity: chronic Heart failure type: right-sided Qualified Code(s): I50.812 - Chronic right heart failure Code(s): I50.9 - Heart failure, unspecified Status: Chronic Assessment and Plan: Patient with known CHF. Last echocardiogram showed improvement of his EF. His Lasix is on hold at this point. Monitor closely on IV fluids. 04/28: increase IVF nominally to 75 ml/hr, monitor fluid status closely 04/29: Does not appear fluid overloaded, monitor, check chest x-ray 04/30 04/30: minimal edema noted, d/c IVF, monitor 05/01: CXR showed resolution of con
[2023-05-01] MEDS: ENOXAPARIN 30 MG/0.3 ML SYRINGE SUB-Q (09:47)
[2023-05-01] MEDS: DEXTROMETHORPHAN POLISTIREX 60 MG/10 ML SYRINGE PO (09:47)
[2023-05-01] MEDS: ASPIRIN 81 MG CHEWABLE TABLET PO (09:48)
[2023-05-01] MEDS: ROSUVASTATIN 10 MG TABLET 40 MG PO (09:48)
[2023-05-01] MEDS: ACETAMINOPHEN 325 MG TABLET 650 MG PO ×3 (09:48→17:33)
[2023-05-01] MEDS: CLOPIDOGREL BISULFATE 75 MG TABLET PO (09:48)
[2023-05-01] MEDS: FIDAXOMICIN 200 MG TABLET PO ×2 (09:48→20:37)
[2023-05-01] MEDS: TAMSULOSIN HCL 0.4 MG CAPSULE PO (09:48)
[2023-05-01] MEDS: DICLOFENAC SODIUM 1% 100 GM GEL (*BKC) 1 APPLIC TOPICAL (09:49)
[2023-05-01] MEDS: HYDROCORTISONE 1% 30 GM CREAM 1 APPLIC TOPICAL ×2 (09:49→13:32)
--- NOTE | 2023-05-01 09:50 | WPDGIPROGNO ---
Progress Note: A&P Assessment and Plan (1) Recurrent Clostridioides difficile diarrhea: Code(s): A04.71 - Enterocolitis due to Clostridium difficile, recurrent Status: Acute Assessment and Plan: on treatment no abdominal pain but persistent leukocytosis- will order KUB and also lactic acid (2) Acute on chronic renal failure: Code(s): N17.9 - Acute kidney failure, unspecified; N18.9 - Chronic kidney disease, unspecified Status: Acute Assessment and Plan: by nephrology (3) Leukocytosis: Code(s): D72.829 - Elevated white blood cell count, unspecified Status: Acute Assessment and Plan: monitor (4) Orthostatic hypotension: Code(s): I95.1 - Orthostatic hypotension Status: Acute Assessment and Plan: chronic (5) Congestive heart failure: Qualifiers: Heart failure chronicity: chronic Heart failure type: right-sided Qualified Code(s): I50.812 - Chronic right heart failure Code(s): I50.9 - Heart failure, unspecified Status: Chronic Subjective Date/time seen: 05/01/23 09:50 Interval history: symptomatically better with only minimal abd pain, still with 3-4 diarrhea no n/v Review of Systems Review of Systems: All systems reviewed & are unremarkable except as noted in HPI and below Exam Const: General: comfortable and no acute distress Other: chronically ill appearing, sitting up in chair HENMT: Face/Nose/Sinus: Normal nares present Eyes: General: appearance normal, both eyes and all related structures Neck: Neck: supple Resp: Auscultation: clear to auscultation bilaterally Cardio: Rate: regular rate Rhythm: regular rhythm GI: GI Palp: Yes Soft to palpation and No Guarding due to palpation present (GI) Auscultation: normal bowel sounds Skin: General skin exam: normal color Neuro: Speech: normal speech Motor exam (neuro): 5/5 motor strength present throughout Extrem: General: normal to inspection Psych: Mental Status: mental status grossly normal Objective Data Vital Signs Vital Signs: Vital Signs - 24 hr 04/30/23 14:00 04/30/23 20:00 04/30/23 22:00 Temperature 98.1 F 97.3 F L Pulse Rate 70 76 Respiratory Rate 16 20 Blood Pressure 110/72 Pulse Oximetry 97 97 Oxygen Delivery Room Air 05/01/23 06:00 05/01/23 08:56 Temperature 98.1 F Pulse Rate 37 L Respiratory Rate 20 Blood Pressure 93/46 L Pulse Oximetry 97 Oxygen Delivery Room Air Intake/Output Intake/Output: Intake & Output 04/28/23 04/29/23 04/30/23 05/01/23 23:59 23:59 23:59 23:59 Intake Total 3060 3298 2110 275 Output Total 300 300 400 Balance 2760 3298 1810 -125 Meds/Results Medications: Active Medications Generic Name Dose Route Start Last Admin Trade Name Freq PRN Reason Stop Dose Admin Acetaminophen 650 mg 04/25/23 02:14 04/30/23 18:34 Acetaminophen 325 Mg Tablet PO 650 mg Q4-6H PRN Administration Pain 1-3 or fever Albuterol 2.5 mg 04/25/23 02:14 04/30/23 08:47 Albuterol Sulfate Neb 2.5 Mg/3 Ml Inh INHALATION 2.5 mg Q6H PRN Administration Shortness Of Breath Aspirin 81 mg 04/25/23 09:00 04/30/23 08:30 Aspirin 81 Mg Chewable Tablet PO 81 mg DAILY JANET Administration Clopidogrel Bisulfate 75 mg 04/25/23 09:00 04/30/23 08:30 Clopidogrel Bisulfate 75 Mg Tablet PO 75 mg DAILY JANET Administration Dextromethorphan Polistirix 60 mg 04/25/23 02:18 04/30/23 08:30 Dextromethorphan Polistirex 60 Mg/10 Ml Syringe PO 60 mg Q12HR PRN Administration Cough Diclofenac Sodium 1 applic 04/25/23 02:14 04/30/23 13:19 Diclofenac Sodium 1% 100 Gm Gel (*Bkc) TOPICAL 1 applic TID PRN Administration Pain (Scale Score 1-3) Enoxaparin Sodium 30 mg 04/26/23 09:00 04/30/23 08:30 Enoxaparin 30 Mg/0.3 Ml Syringe SUB-Q 30 mg DAILY JANET Administration Fidaxomicin 200 mg 04/25/23 13:00 04/30/23 20:45 Fidaxomi
--- NOTE | 2023-05-01 11:15 | P.PNNP_ITS ---
Progress Note: A&P Assessment and Plan (1) KJ (acute kidney injury): Code(s): N17.9 - Acute kidney failure, unspecified Status: Acute Assessment and Plan: * acute kidney injury. * Renal ultrasound unremarkable. * Urinalysis is bland. * Urine electrolytes consistent with pre renal azotemia. * Acute kidney injury most likely due to dehydration. * He is still not eating very well. He has no signs of volume overload. His chest x-ray demonstrates no fluid. Creatinine is the same as yesterday: it was decreasing the day before. * I think we should give him some more fluids. Will restart normal saline (2) Stage 3a chronic kidney disease: Code(s): N18.31 - Chronic kidney disease, stage 3a Status: Chronic Assessment and Plan: * baseline creatinine seems to run ~ 1.1 - 1.5mg/dl in the last year or so * likely secondary to vascular disease (CAD, CHF/cardiomyopathy, hyperlipidemia), HTN, and nephrolithiasis (3) Hyponatremia: Code(s): E87.1 - Hypo-osmolality and hyponatremia Status: Acute Assessment and Plan: * acute on chronic * usually runs ~ 134 - 136mmol/L in the last few months * suspect acute worsening likely secondary to * KJ/ARF * possibly from diuretic use * GI losses (diarrhea) * pre-renal factors * reactive airway disease * chronic low sodium due to: * known SSRI use * underlying cardiomyopathy * CHF * necessity of diuretics * interstitial lung disease * sodium is stable in the 130s. * Will continue to follow this. (4) C. difficile colitis: Code(s): A04.72 - Enterocolitis due to Clostridium difficile, not specified as recurrent Status: Acute Assessment and Plan: * as noted by history and imaging * on oral vancomycin and IV flagyl * He is still having some diarrhea. Three small stools overnight and 2 larger stools yesterday during the day. (5) Orthostatic hypotension: Code(s): I95.1 - Orthostatic hypotension Status: Acute Assessment and Plan: * Blood pressure still somewhat soft. Will continue IV fluids. He is on midodrine (6) Congestive heart failure: Qualifiers: Heart failure chronicity: chronic Heart failure type: right-sided Qualified Code(s): I50.812 - Chronic right heart failure Code(s): I50.9 - Heart failure, unspecified Status: Chronic Assessment and Plan: * appears stable at this time * last chest x-ray shows no fluids (7) Generalized weakness: Code(s): R53.1 - Weakness Status: Acute Assessment and Plan: * due to KJ + acute illness with C diff * continue ongoing therapy * PT/OT as tolerated Subjective Date/time seen: 05/01/23 11:15 Interval history: Yoseph is feeling better today. He ate about 2/3 of his breakfast according to nursing. Urine output very low. He has a external catheter so we do know that it is accurate. Exam Narrative: WDWN in NAD skin no rash Or subQ nodules head ncat lungs clear bilaterally cor reg no rub abd BS+ nontender and soft ext no edema or cyanosis. Objective Data Vital Signs Vital Signs: Vital Signs - 24 hr 04/30/23 14:00 04/30/23 20:00 04/30/23 22:00 Temperature 98.1 F 97.3 F L Pulse Rate 70 76 Respiratory Rate 16 20 Blood Pressure 110/72
--- NOTE | 2023-05-01 11:15 | PM.PNNEP ---
Progress Note: A&P Assessment and Plan (1) KJ (acute kidney injury): Code(s): N17.9 - Acute kidney failure, unspecified Status: Acute Assessment and Plan: acute kidney injury. Renal ultrasound unremarkable. Urinalysis is bland. Urine electrolytes consistent with pre renal azotemia. Acute kidney injury most likely due to dehydration. He is still not eating very well. He has no signs of volume overload. His chest x-ray demonstrates no fluid. Creatinine is the same as yesterday: it was decreasing the day before. I think we should give him some more fluids. Will restart normal saline (2) Stage 3a chronic kidney disease: Code(s): N18.31 - Chronic kidney disease, stage 3a Status: Chronic Assessment and Plan: baseline creatinine seems to run ~ 1.1 - 1.5mg/dl in the last year or so likely secondary to vascular disease (CAD, CHF/cardiomyopathy, hyperlipidemia), HTN, and nephrolithiasis (3) Hyponatremia: Code(s): E87.1 - Hypo-osmolality and hyponatremia Status: Acute Assessment and Plan: acute on chronic usually runs ~ 134 - 136mmol/L in the last few months suspect acute worsening likely secondary to KJ/ARF possibly from diuretic use GI losses (diarrhea) pre-renal factors reactive airway disease chronic low sodium due to: known SSRI use underlying cardiomyopathy CHF necessity of diuretics interstitial lung disease sodium is stable in the 130s. Will continue to follow this. (4) C. difficile colitis: Code(s): A04.72 - Enterocolitis due to Clostridium difficile, not specified as recurrent Status: Acute Assessment and Plan: as noted by history and imaging on oral vancomycin and IV flagyl He is still having some diarrhea. Three small stools overnight and 2 larger stools yesterday during the day. (5) Orthostatic hypotension: Code(s): I95.1 - Orthostatic hypotension Status: Acute Assessment and Plan: Blood pressure still somewhat soft. Will continue IV fluids. He is on midodrine (6) Congestive heart failure: Qualifiers: Heart failure chronicity: chronic Heart failure type: right-sided Qualified Code(s): I50.812 - Chronic right heart failure Code(s): I50.9 - Heart failure, unspecified Status: Chronic Assessment and Plan: appears stable at this time last chest x-ray shows no fluids (7) Generalized weakness: Code(s): R53.1 - Weakness Status: Acute Assessment and Plan: due to KJ + acute illness with C diff continue ongoing therapy PT/OT as tolerated Subjective Date/time seen: 05/01/23 11:15 Interval history: Yoseph is feeling better today. He ate about 2/3 of his breakfast according to nursing. Urine output very low. He has a external catheter so we do know that it is accurate. Exam Narrative: WDWN in NAD skin no rash Or subQ nodules head ncat lungs clear bilaterally cor reg no rub abd BS+ nontender and soft ext no edema or cyanosis. Objective Data Vital Signs Vital Signs: Vital Signs - 24 hr 04/30/23 14:00 04/30/23 20:00 04/30/23 22:00 Temperature 98.1 F 97.3 F L Pulse Rate 70 76 Respiratory Rate 16 20 Blood Pressure 110/72 Pulse Oximetry 97 97 Oxygen Delivery Room Air 05/01/23 06:00 05/01/23 08:56 Temperature 98.1 F Pulse Rate 37 L Respiratory Rate 20 Blood Pressure 93/46 L Pulse Oximetry 97 Oxygen Delivery Room Air Intake/Output Intake/Output: Intake & Output 04/28/23 04/29/23 04/30/23 05/01/23 23:59 23:59 23:59 23:59 Intake Total 3060 3298 2110 395 Output Total 300 300 400 Balance 2760 3298 1810 -5 Meds/Results Medications: Active Medications Generic Name Dose Route Start Last Admin Trade Name Freq PRN Reason Stop Dose Admin Acetaminophen 650 mg 04/25/23 02:14 05/01/23 09:48 Acetaminophen 325 Mg Table
[2023-05-01] MEDS: SODIUM CHLORIDE 0.9% IV 1,000 ML 75 ML IV CONT (13:32)
[2023-05-01 14:00] VITALS: BP 100/48; PULSE 67; RESP 15; TEMP 36.8; O2SAT 96
[2023-05-01 17:52] LABS: Appearance Urine Cloudy (Clear); Bacteria Urine None Seen /hpf; Bilirubin Urine 1+ (Negative); Blood Urine Negative (Negative); Color Urine Dark Yellow (Yellow); Glucose Urine UA Negative (Negative); Ketones Urine Trace mg/dL (Negative); Leukocyte Esterase Ur 1+ LEU/UL (Negative); Need Manual Microscopic Reviewed; Nitrate Urine Negative (Negative); Non Pathogenic Casts >20; Protein Urine 1+ mg/dL (Negative); RBC Urine 0-2 /hpf (0-2); Specific Grav Ur 1.023 (1.001-1.035); Squamous Epithelial Cell Urine Moderate /hpf (Few)
[2023-05-01 17:55] LABS: Add Urine Microscopic? YES
[2023-05-01 20:19] LABS: Alveolar/Arterial O2 Gradient 20.7 mmHg; Base Excess ABG -7.5 mEq/l (+/-2.0); Fractional Inspired Oxygen 21 %; HCO3 ABG 16.5 mEq/l (22.0-26.0); Oxygen Content ABG 17.3 %vol (16.0-22.0); Oxygen Saturation ABG 97.1 % (95.0-100.0); Oxyhemoglobin 95.5 % THb (90.0-100.0); PCO2 ABG 29.6 mmHg (35.0-45.0); PO2 ABG 93.6 mmHg (80.0-100.0); PO2 FiO2 Ratio Arterial Blood 4.46 %; Total Hemoglobin 12.8 g/dL (12.0-18.0); pH ABG 7.365 (7.350-7.450)
[2023-05-01 20:20] LABS: Device ROOM AIR; Modified Allen's Test Pass; Site Drawn RIGHT RADIAL
[2023-05-01 20:21] LABS: Hematocrit 36.9 % (42.0-52.0); Hemoglobin 11.7 g/dL (14.0-18.0); Mean Corpuscular HGB Conc 31.7 g/dl (32-36); Mean Corpuscular Hemoglobin 30.2 pg (26-34); Mean Corpuscular Volume 95.1 fl (80-100); Mean Platelet Volume 9.3 fl (7.4-10.4); Platelet Count Result 304 k/mm3 (150-375); Red Blood Count 3.88 M/mm3 (4.6-6.20); White Blood Count 18.6 K/mm3 (4.5-10.0)
[2023-05-01 20:37] LABS: Lactic Acid Reflex 1.1 mmol/L (0.7-2.0)
[2023-05-01] MEDS: SERTRALINE HCL 25 MG TABLET PO (20:37)
[2023-05-01 20:38] LABS: Alanine Aminotransferase 29 U/L (6-50); Alkaline Phosphatase 73 U/L (38-126); Anion Gap 9 mmol/L (8-16); Aspartate Amino Transferase 38 U/L (17-59); Bilirubin,Total 0.5 mg/dL (0.2-1.3); Blood Urea Nitrogen 45 mg/dL (9-20); Calcium 6.8 mg/dL (8.4-10.2); Carbon Dioxide 12 mmol/L (22-30); Chloride 107 mmol/L (98-107); Estimated CRCL calculation 23 ml/min; Estimated Glomerular Filt Rate 30; Glucose 117 mg/dL (65-110); Magnesium 2.5 mg/dL (1.6-2.3); Phosphorus 4.6 mg/dL (2.5-4.5); Potassium 4.3 mmol/L (3.4-5.0); Sodium 128 mmol/L (137-145)
[2023-05-01 20:55] VITALS: BP 119/40; PULSE 59; RESP 16; TEMP 36.3; O2SAT 99
[2023-05-01] MEDS: FUROSEMIDE INJ 40 MG/4 ML VIAL IV PUSH (21:20)
[2023-05-02] VITALS (7 sets, daily range): BP systolic 93–100; BP diastolic 42–50; PULSE 54–87; RESP 16–20; TEMP 36.1–37.1; O2SAT 98–99
[2023-05-02] MEDS: VANCOMYCIN ORAL 500 MG/10 ML SYRUP PO ×5 (00:54→23:54)
[2023-05-02] MEDS: ALBUTEROL SULFATE NEB 2.5 MG/3 ML INH INHALATION (04:25)
[2023-05-02] MEDS: metroNIDAZOLE 500 MG/ISO 100ML 500 MG/100 ML BAG 100 MG IVPB ×3 (05:28→20:43)
[2023-05-02] MEDS: SODIUM CHLORIDE 0.9% IV 1,000 ML 75 ML IV CONT ×2 (05:29→18:50)
[2023-05-02 06:51] LABS: Basophils Absolute Auto 0.1 K/mm3 (0.0-0.1); Basophils Percent Auto 0.5 % (0.2-1.2); Eosinophils Absolute Auto 0.2 K/mm3 (0-0.3); Eosinophils Percent Auto 0.7 % (0-4.4); Hematocrit 40.3 % (42.0-52.0); Hemoglobin 12.6 g/dL (14.0-18.0); Immature Granulocyte Absolute 0.33 K/mm3 (0.00-0.031); Immature Granulocyte Percent A 1.4 % (0-0.5); Lymphocytes Absolute Auto 0.72 K/mm3 (0.9-3.2); Mean Corpuscular HGB Conc 31.3 g/dl (32-36); Mean Corpuscular Hemoglobin 30.3 pg (26-34); Mean Corpuscular Volume 96.9 fl (80-100); Mean Platelet Volume 9.3 fl (7.4-10.4); Monocytes Absolute Auto 1.5 K/mm3 (0.1-0.6); Monocytes Percent Auto 6.1 % (2.6-8.5); Neutrophils Absolute Auto 21.5 K/mm3 (1.3-6.7); Neutrophils Percent Auto 88.3 % (45.5-73.1); Platelet Count Result 308 k/mm3 (150-375); Red Blood Count 4.16 M/mm3 (4.6-6.20); Red Cell Distribution Width 15.1 % (11.5-14.5); White Blood Count 24.4 K/mm3 (4.5-10.0)
[2023-05-02 07:03] LABS: Lactic Acid Reflex 1.8 mmol/L (0.7-2.0)
--- NOTE | 2023-05-02 07:52 | P.PNNP_ITS ---
Progress Note: A&P Assessment and Plan (1) KJ (acute kidney injury): Code(s): N17.9 - Acute kidney failure, unspecified Status: Acute Assessment and Plan: * acute kidney injury. * Renal ultrasound unremarkable. * Urinalysis is bland. * Urine electrolytes consistent with pre renal azotemia. * Acute kidney injury most likely due to dehydration. * * Today he has some swelling. His albumin is low and he does not have shortness of breath so this may just be 3rd spacing * Chest x-ray yesterday was okay. * Will see how labs look today. Consider albumin plus Lasix. Continue fluids for now (2) Stage 3a chronic kidney disease: Code(s): N18.31 - Chronic kidney disease, stage 3a Status: Chronic Assessment and Plan: * baseline creatinine seems to run ~ 1.1 - 1.5mg/dl in the last year or so * likely secondary to vascular disease (CAD, CHF/cardiomyopathy, h yperlipidemia), HTN, and nephrolithiasis (3) Hyponatremia: Code(s): E87.1 - Hypo-osmolality and hyponatremia Status: Acute Assessment and Plan: * acute on chronic * usually runs ~ 134 - 136mmol/L in the last few months * suspect acute worsening likely secondary to * KJ/ARF * possibly from diuretic use * GI losses (diarrhea) * pre-renal factors * reactive airway disease * chronic low sodium due to: * known SSRI use * underlying cardiomyopathy * CHF * necessity of diuretics * interstitial lung disease * sodium is stable around 130 * Will continue to follow this. (4) C. difficile colitis: Code(s): A04.72 - Enterocolitis due to Clostridium difficile, not specified as recurrent Status: Acute Assessment and Plan: * as noted by history and imaging * on oral vancomycin and IV flagyl * He is still having some diarrhea. Three bowel movements so far overnight. (5) Orthostatic hypotension: Code(s): I95.1 - Orthostatic hypotension Status: Acute Assessment and Plan: * Blood pressure still somewhat soft. Will continue IV fluids. He is on midodrine (6) Congestive heart failure: Qualifiers: Heart failure chronicity: chronic Heart failure type: right-sided Qualified Code(s): I50.812 - Chronic right heart failure Code(s): I50.9 - Heart failure, unspecified Status: Chronic Assessment and Plan: * appears stable at this time * last chest x-ray shows no fluid (7) Generalized weakness: Code(s): R53.1 - Weakness Status: Acute Assessment and Plan: * due to KJ + acute illness with C diff * continue ongoing therapy * PT/OT as tolerated Subjective Date/time seen: 05/02/23 07:52 Interval history: Yoseph is feeling better today. He has some swelling in his hands and also in the presacral area No shortness of breath. He is on no oxygen. Exam Narrative: WDWN in NAD skin no rash Or subQ nodules head ncat lungs clear bilaterally cor reg no rub abd BS+ nontender and soft ext 1+ presacral edema or cyanosis. Objective Data Vital Signs Vital Signs: Vital Signs - 24 hr 05/01/23 08:56 05/01/23 14:00 05/01/23 20:55 Temperature 98.2 F 97.4 F L Pulse Rate 67 59 L Respiratory Rate 15 16 Blood Pressure 100/48 L 119/40 L Pulse Oximetry 96 99 Oxygen Delivery Room Air
--- NOTE | 2023-05-02 07:52 | PM.PNNEP ---
Progress Note: A&P Assessment and Plan (1) KJ (acute kidney injury): Code(s): N17.9 - Acute kidney failure, unspecified Status: Acute Assessment and Plan: acute kidney injury. Renal ultrasound unremarkable. Urinalysis is bland. Urine electrolytes consistent with pre renal azotemia. Acute kidney injury most likely due to dehydration. Today he has some swelling. His albumin is low and he does not have shortness of breath so this may just be 3rd spacing Chest x-ray yesterday was okay. Will see how labs look today. Consider albumin plus Lasix. Continue fluids for now (2) Stage 3a chronic kidney disease: Code(s): N18.31 - Chronic kidney disease, stage 3a Status: Chronic Assessment and Plan: baseline creatinine seems to run ~ 1.1 - 1.5mg/dl in the last year or so likely secondary to vascular disease (CAD, CHF/cardiomyopathy, hyperlipidemia), HTN, and nephrolithiasis (3) Hyponatremia: Code(s): E87.1 - Hypo-osmolality and hyponatremia Status: Acute Assessment and Plan: acute on chronic usually runs ~ 134 - 136mmol/L in the last few months suspect acute worsening likely secondary to KJ/ARF possibly from diuretic use GI losses (diarrhea) pre-renal factors reactive airway disease chronic low sodium due to: known SSRI use underlying cardiomyopathy CHF necessity of diuretics interstitial lung disease sodium is stable around 130 Will continue to follow this. (4) C. difficile colitis: Code(s): A04.72 - Enterocolitis due to Clostridium difficile, not specified as recurrent Status: Acute Assessment and Plan: as noted by history and imaging on oral vancomycin and IV flagyl He is still having some diarrhea. Three bowel movements so far overnight. (5) Orthostatic hypotension: Code(s): I95.1 - Orthostatic hypotension Status: Acute Assessment and Plan: Blood pressure still somewhat soft. Will continue IV fluids. He is on midodrine (6) Congestive heart failure: Qualifiers: Heart failure chronicity: chronic Heart failure type: right-sided Qualified Code(s): I50.812 - Chronic right heart failure Code(s): I50.9 - Heart failure, unspecified Status: Chronic Assessment and Plan: appears stable at this time last chest x-ray shows no fluid (7) Generalized weakness: Code(s): R53.1 - Weakness Status: Acute Assessment and Plan: due to KJ + acute illness with C diff continue ongoing therapy PT/OT as tolerated Subjective Date/time seen: 05/02/23 07:52 Interval history: Yoseph is feeling better today. He has some swelling in his hands and also in the presacral area No shortness of breath. He is on no oxygen. Exam Narrative: WDWN in NAD skin no rash Or subQ nodules head ncat lungs clear bilaterally cor reg no rub abd BS+ nontender and soft ext 1+ presacral edema or cyanosis. Objective Data Vital Signs Vital Signs: Vital Signs - 24 hr 05/01/23 08:56 05/01/23 14:00 05/01/23 20:55 Temperature 98.2 F 97.4 F L Pulse Rate 67 59 L Respiratory Rate 15 16 Blood Pressure 100/48 L 119/40 L Pulse Oximetry 96 99 Oxygen Delivery Room Air 05/02/23 04:25 05/02/23 04:40 05/02/23 04:20 Temperature 97.5 F L Pulse Rate 87 86 54 L Respiratory Rate 20 20 18 Blood Pressure 95/50 L Pulse Oximetry 98 Oxygen Delivery Intake/Output Intake/Output: Intake & Output 04/29/23 04/30/23 05/01/23 05/02/23 23:59 23:59 23:59 23:59 Intake Total 3298 2110 1175 1000 Output Total 300 600 450 Balance 3298 1810 575 550 Meds/Results Medications: Active Medications Generic Name Dose Route Start Last Admin Trade Name Freq PRN Reason Stop Dose Admin Acetaminophen 650 mg 04/25/23 02:14 05/01/23 17:33 Acetaminophen 325 Mg Tablet PO 650 mg Q4-6H PRN Administration
[2023-05-02 08:07] LABS: Alanine Aminotransferase 28 U/L (6-50); Alkaline Phosphatase 70 U/L (38-126); Anion Gap 7 mmol/L (8-16); Aspartate Amino Transferase 32 U/L (17-59); Bilirubin,Total 0.5 mg/dL (0.2-1.3); Blood Urea Nitrogen 46 mg/dL (9-20); Calcium 7.1 mg/dL (8.4-10.2); Carbon Dioxide 19 mmol/L (22-30); Chloride 104 mmol/L (98-107); Estimated CRCL calculation 22 ml/min; Estimated Glomerular Filt Rate 29; Glucose 95 mg/dL (65-110); Phosphorus 4.9 mg/dL (2.5-4.5); Potassium 4.1 mmol/L (3.4-5.0); Sodium 130 mmol/L (137-145)
--- NOTE | 2023-05-02 08:39 | PM.IMPN ---
Progress Note: A&P Assessment and Plan (1) Sepsis: Qualifiers: Acute renal failure type: unspecified Sepsis acute organ dysfunction status: with acute organ dysfunction Sepsis type: sepsis due to unspecified organism Severe sepsis acute organ dysfunction type: acute renal failure Severe sepsis shock status: without septic shock Qualified Code(s): A41.9 - Sepsis, unspecified organism; R65.20 - Severe sepsis without septic shock; N17.9 - Acute kidney failure, unspecified Code(s): A41.9 - Sepsis, unspecified organism Status: Acute Assessment and Plan: Patient met sepsis criteria on admission with leukocytosis, tachycardia, acute kidney injury in the setting of C diff pancolitis. Treated with IV fluids and antibiotics. Blood pressure was soft but this is probably more chronic. Lactic acid was normal. Heart rate normal. Creatinine up slightly. 04/28: leuk worsening, add back oral vanc 04/29: Leukocytosis improving, down to 18 with the addition of oral vancomycin, continue to monitor 04/30: leuk again back up to 22, unknown reason, GI consult pending, consider transfer for fecal transplant 05/01: leuk continues to climb, up to 25 today, appreciate GI consult, consider fecal transplant? 05/02: back up to 24 today, may need transfer (2) C. difficile colitis: Code(s): A04.72 - Enterocolitis due to Clostridium difficile, not specified as recurrent Status: Acute Assessment and Plan: The patient presents with diarrhea and weakness. He has had CDiff just 1 month ago. His CDiff toxin positive here and CT Abd/pelvis showing pancolitis. The patient has recurrent C diff colitis. Oral vancomycin started. For the first recurrence, bezlotoxumab recommended but not available here. 04/28: worsened on dificid, add back oral vanc + IV flagyl 04/29: Leukocytosis improving but symptomatically patient appears unchanged, continue to monitor 04/30: see above (3) KJ (acute kidney injury): Code(s): N17.9 - Acute kidney failure, unspecified Status: Acute Assessment and Plan: Creatinine elevated on admission to 1.5. Baseline 1.1-1.3. Cr climbed to 1.7 yesterday and stable today. Suspect related to above. Will follow. Continue IV fluids. Lasix on hold. 04/27: creat continues to worsen to 2.7, consult nephrology 04/28: increase IVF 04/29: Improved with IV fluid, monitor, appreciate nephrology consultation 04/30: cont to improve with IVF, d/c IVF and monitor 05/01: unchanged at 2.2, restart IVF per nephro 05/02: worsening, likely need albumin (4) Acute hyponatremia: Code(s): E87.1 - Hypo-osmolality and hyponatremia Status: Acute Assessment and Plan: Sodium was 126 on admission probably related to dehydration from excessive diarrhea. No metabolic acidosis noted. With IV fluids, his sodium has improved slightly to 129. This should continue to correct. Will continue to follow. Stable, monitor (5) Generalized weakness: Code(s): R53.1 - Weakness Status: Acute Assessment and Plan: Patient with generalized weakness related to above. Continue PT OT. Increase activity as able (6) Orthostatic hypotension: Code(s): I95.1 - Orthostatic hypotension Status: Acute Assessment and Plan: Patient with known orthostatic hypotension. Blood pressure soft but stable. Continue midodrine. (7) Congestive heart failure: Qualifiers: Heart failure chronicity: chronic Heart failure type: right-sided Qualified Code(s): I50.812 - Chronic right heart failure Code(s): I50.9 - Heart failure, unspecified Status: Chronic Assessment and Plan: Patient with known CHF. Last echocardiogram showed improvement of his EF. His Lasix is on hold at this point. Monitor closely on IV fluids. 04/28: increase IVF nominally to 75 ml/hr, monitor fluid status closely 04/29: Does not appear fluid overloaded, monitor, check chest x-ray
[2023-05-02] MEDS: ASPIRIN 81 MG CHEWABLE TABLET PO (09:21)
[2023-05-02] MEDS: ROSUVASTATIN 10 MG TABLET 40 MG PO (09:21)
[2023-05-02] MEDS: ENOXAPARIN 30 MG/0.3 ML SYRINGE SUB-Q (09:21)
[2023-05-02] MEDS: TAMSULOSIN HCL 0.4 MG CAPSULE PO (09:21)
[2023-05-02] MEDS: MIDODRINE HCL 2.5 MG TABLET 5 MG PO ×3 (09:21→17:34)
[2023-05-02] MEDS: FIDAXOMICIN 200 MG TABLET PO ×2 (09:21→20:43)
[2023-05-02] MEDS: METOPROLOL SUCCINATE EXT REL 25 MG TABCR PO (09:21)
[2023-05-02] MEDS: CLOPIDOGREL BISULFATE 75 MG TABLET PO (09:21)
--- NOTE | 2023-05-02 11:49 | PCNFU ---
Nutrition Follow-Up Complete: Unintentional weight loss related to reduced appetite and intake as evidenced by pt report on admission Goal:PO intake 75% or greater for meals Pt not meeting goal at this time. Continue with same goal Pt current nutrition is Heart healthy, Ensure compact BID. Nutrition recommendation: Add Banatrol BID Last recorded weight is 79 kg - stable. Bowel Motility: +BM 05/02 - noted diarrhea Labs Reviewed: Hgb:11.5, HCT:36.6, NA:128, GFR:39, BUN:22, Cr:1.7 Meds Noted: zofran Skin: no skin issues noted Additional Notes: Pt continues on a heart healthy diet, intake 25-50% at this time. Pt is having diarrhea. Recommend to add banatrol BID. Monitor intake, wt, labs. Follow up in 5 days.
--- NOTE | 2023-05-02 12:10 | WPDGIPROGNO ---
Progress Note: A&P Assessment and Plan (1) Recurrent Clostridioides difficile diarrhea: Code(s): A04.71 - Enterocolitis due to Clostridium difficile, recurrent Status: Acute Assessment and Plan: on treatment for c diff no abdominal pain, exam is benign but persistent leukocytosis lactic acid normal, KUB without megacolon he probably will be a candidate for stool transplant in [facility] as outpatient (2) Acute on chronic renal failure: Code(s): N17.9 - Acute kidney failure, unspecified; N18.9 - Chronic kidney disease, unspecified Status: Acute Assessment and Plan: by nephrology (3) Leukocytosis: Code(s): D72.829 - Elevated white blood cell count, unspecified Status: Acute Assessment and Plan: monitor, still high (4) Orthostatic hypotension: Code(s): I95.1 - Orthostatic hypotension Status: Acute Assessment and Plan: chronic (5) Congestive heart failure: Qualifiers: Heart failure chronicity: chronic Heart failure type: right-sided Qualified Code(s): I50.812 - Chronic right heart failure Code(s): I50.9 - Heart failure, unspecified Status: Chronic Subjective Date/time seen: 05/02/23 12:10 Interval history: no changes, he has not had BM today yet, denies abdominal pain, generalized weakness and right now getting physical therapy at bedside Review of Systems Review of Systems: All systems reviewed & are unremarkable except as noted in HPI and below Exam Const: General: comfortable and no acute distress Other: chronically ill appearing HENMT: Face/Nose/Sinus: Normal nares present Eyes: General: appearance normal, both eyes and all related structures Neck: Neck: supple Resp: Auscultation: clear to auscultation bilaterally Cardio: Rate: regular rate Rhythm: regular rhythm GI: GI Palp: Yes Soft to palpation, No Tenderness to palpation present (GI) and No Guarding due to palpation present (GI) Auscultation: normal bowel sounds Skin: General skin exam: normal color Neuro: Speech: normal speech Motor exam (neuro): 5/5 motor strength present throughout Extrem: General: normal to inspection Psych: Mental Status: mental status grossly normal Objective Data Vital Signs Vital Signs: Vital Signs - 24 hr 05/01/23 14:00 05/01/23 20:55 05/02/23 04:25 Temperature 98.2 F 97.4 F L Pulse Rate 67 59 L 87 Respiratory Rate 15 16 20 Blood Pressure 100/48 L 119/40 L Pulse Oximetry 96 99 05/02/23 04:40 05/02/23 04:20 05/02/23 09:21 Temperature 97.5 F L Pulse Rate 86 54 L 70 Respiratory Rate 20 18 Blood Pressure 95/50 L Pulse Oximetry 98 05/02/23 09:00 Temperature Pulse Rate Respiratory Rate Blood Pressure 100/42 L Pulse Oximetry Intake/Output Intake/Output: Intake & Output 04/29/23 04/30/23 05/01/23 05/02/23 23:59 23:59 23:59 23:59 Intake Total 3298 2110 1175 1000 Output Total 300 600 450 Balance 3298 1810 575 550 Meds/Results Medications: Active Medications Generic Name Dose Route Start Last Admin Trade Name Freq PRN Reason Stop Dose Admin Acetaminophen 650 mg 04/25/23 02:14 05/01/23 17:33 Acetaminophen 325 Mg Tablet PO 650 mg Q4-6H PRN Administration Pain 1-3 or fever Albuterol 2.5 mg 04/25/23 02:14 05/02/23 04:25 Albuterol Sulfate Neb 2.5 Mg/3 Ml Inh INHALATION 2.5 mg Q6H PRN Administration Shortness Of Breath Aspirin 81 mg 04/25/23 09:00 05/02/23 09:21 Aspirin 81 Mg Chewable Tablet PO 81 mg DAILY JANET Administration Clopidogrel Bisulfate 75 mg 04/25/23 09:00 05/02/23 09:21 Clopidogrel Bisulfate 75 Mg Tablet PO 75 mg DAILY JANET Administration Dextromethorphan Polistirix 60 mg 04/25/23 02:18 05/01/23 09:47 Dextromethorphan Polistirex 60 Mg/10 Ml Syringe PO 60 mg Q12HR PRN Administration Cough Diclofenac Sodium 1 applic 04/25/23 02:14 05/01/23 09:49 Diclofenac Sodium 1% 100 Gm
--- NOTE | 2023-05-02 13:21 | PCPTNOTE ---
Attempted to see pt. however pt. refused therapy stating he does not feel well and is tired. Pt. states I don't think i cant do it. Pt. currently up in chair and requests to stay in chair. PT will continue to follow.
--- NOTE | 2023-05-02 15:48 | PCPTNOTE ---
On 05/02/23, the student, KAREEN Lackey, provided care and completed [facility] documentation on this patient. I have reviewed the student's documentation and agree with the findings.
--- NOTE | 2023-05-02 17:42 | PM.CNGS ---
Assessment and Plan Assessment and plan (1) C. difficile colitis: Code(s): A04.72 - Enterocolitis due to Clostridium difficile, not specified as recurrent Status: Acute Assessment and Plan: severe, refractory case, persistent leukocytosis despite tx, clinically improved, no s/s toxic megacolon on imaging, labs, or exam, would likely benefit from stool transplant (2) Leukocytosis: Code(s): D72.829 - Elevated white blood cell count, unspecified Status: Acute Assessment and Plan: cont abx per GI, see above (3) Sepsis: Qualifiers: Sepsis type: sepsis due to unspecified organism Sepsis acute organ dysfunction status: with acute organ dysfunction Severe sepsis acute organ dysfunction type: acute renal failure Acute renal failure type: unspecified Severe sepsis shock status: without septic shock Qualified Code(s): A41.9 - Sepsis, unspecified organism; R65.20 - Severe sepsis without septic shock; N17.9 - Acute kidney failure, unspecified Code(s): A41.9 - Sepsis, unspecified organism Status: Acute Assessment and Plan: largely resolved clinically, cont to follow renal fxn History of Present Illness Consult details Consult date: 05/02/23 Reason for consult: abdominal pain Requesting physician: Kalin Greene MD Narrative: The patient is an 83-year-old male with multiple medical issues including CAD, CHF, CRF presenting to the emergency department complaining of left lower quadrant abdominal pain and diarrhea. Workup in the emergency department, including imaging, was significant for recurrent C diff colitis. The patient was initially diagnosed with C diff in January and treated. He had a recurrent episode about a month ago again treated with a confirmed negative test prior to being discharged to rehab facility. The patient now is testing positive once again and has recurrent symptomatology. Since admission, the patient reports his symptoms have largely resolved. The patient does report decreased appetite for quite a while at this point and has had a 30+ lb weight loss since January. Review of Systems Constitutional: Constitutional: Reports as per HPI, Denies anorexia, Denies chills, Reports fatigue, Reports fever(s), Reports lethargy, Reports malaise, Reports poor appetite, Reports weakness and Reports weight loss Eyes: Eyes: Reports no additional eye complaints ENT: Reports system reviewed and no additional complaints, except as documented Cardiovascular: Cardiovascular: Reports no additional cardiovascular complaints Respiratory: Respiratory: Reports dyspnea and Reports dyspnea on exertion Gastrointestinal: Gastrointestinal: Reports as per HPI, Reports abdominal pain, Reports change in bowel habits, Reports GI cramping, Reports early satiety, Reports diarrhea, Reports loose stools, Reports nausea and Denies vomiting Genitourinary: Genitourinary: Reports no additional male genitourinary complaints Musculoskeletal: Musculoskeletal: Reports no additional musculoskeletal complaints Integumentary/Breasts: Skin/Breast: Reports system reviewed and no additional complaints, except as docu Neurologic: Reports system reviewed and no additional complaints, except as documented Psychiatric: Psychiatric: Reports no additional psychiatric complaints Endocrine: Endocrine: Reports no additional endocrine complaints Hematologic/Lymphatic: Hematologic/Lymphatic: Reports no additional hematologic/lymphatic complaints Allergic/Immunologic: Allergic/Immunologic: Reports no additional allergic/immunologic complaints PMFSH Past Medical History Medical History Acute on chronic renal failure BPH (benign prostatic hyperplasia) Complete heart block Status post pacemaker Coronary artery disease Dementia History of cardiomyopathy With a history of a EF of 25-35% but most recent echo 02/2023: 1. Left ventricular chamber
[2023-05-02] MEDS: ONDANSETRON INJ 4 MG/2 ML VIAL IV PUSH (18:36)
[2023-05-02] MEDS: SERTRALINE HCL 25 MG TABLET PO (20:43)
[2023-05-03 04:50] VITALS: BP 100/40; PULSE 70; RESP 18; TEMP 36.7; O2SAT 94
[2023-05-03] MEDS: VANCOMYCIN ORAL 500 MG/10 ML SYRUP PO ×4 (05:30→22:56)
[2023-05-03] MEDS: metroNIDAZOLE 500 MG/ISO 100ML 500 MG/100 ML BAG 100 MG IVPB ×3 (05:30→22:07)
[2023-05-03 08:39] LABS: Basophils Percent Auto 0.2 % (0.2-1.2); Eosinophils Absolute Auto 0.3 K/mm3 (0-0.3); Hematocrit 38.3 % (42.0-52.0); Hemoglobin 12.6 g/dL (14.0-18.0); Immature Granulocyte Absolute 0.22 K/mm3 (0.00-0.031); Immature Granulocyte Percent A 0.9 % (0-0.5); Immature Platelet Fraction Pct 1.5 % (0.9-11.2); Lymphocytes Absolute Auto 0.72 K/mm3 (0.9-3.2); Lymphocytes Percent Auto 2.9 % (18.3-44.2); Mean Corpuscular HGB Conc 32.9 g/dl (32-36); Mean Corpuscular Hemoglobin 30.2 pg (26-34); Mean Corpuscular Volume 91.8 fl (80-100); Mean Platelet Volume 9.3 fl (7.4-10.4); Monocytes Absolute Auto 1.5 K/mm3 (0.1-0.6); Monocytes Percent Auto 6.2 % (2.6-8.5); Neutrophils Absolute Auto 22.1 K/mm3 (1.3-6.7); Neutrophils Percent Auto 88.8 % (45.5-73.1); Nucleated Red Blood Cells Perc 0.1 % (0.0-0.2); Platelet Count Result 393 k/mm3 (150-375); Red Blood Count 4.17 M/mm3 (4.6-6.20); Red Cell Distribution Width 15.1 % (11.5-14.5); White Blood Count 24.8 K/mm3 (4.5-10.0)
[2023-05-03 08:49] LABS: Alanine Aminotransferase 33 U/L (6-50); Alkaline Phosphatase 82 U/L (38-126); Anion Gap 5 mmol/L (8-16); Aspartate Amino Transferase 45 U/L (17-59); Bilirubin,Total 0.5 mg/dL (0.2-1.3); Blood Urea Nitrogen 40 mg/dL (9-20); Calcium 7.3 mg/dL (8.4-10.2); Carbon Dioxide 19 mmol/L (22-30); Chloride 107 mmol/L (98-107); Estimated CRCL calculation 25 ml/min; Estimated Glomerular Filt Rate 34; Glucose 76 mg/dL (65-110); Potassium 4.2 mmol/L (3.4-5.0); Sodium 131 mmol/L (137-145)
[2023-05-03 09:00] LABS: Anisocytosis 1+ (NORMAL); Burr Cells 1+ (NORMAL); Platelet Clumps Present; Schistocytes None Seen (NORMAL)
[2023-05-03] MEDS: SODIUM CHLORIDE 0.9% IV 1,000 ML 75 ML IV CONT (09:21)
[2023-05-03] MEDS: METOPROLOL SUCCINATE EXT REL 25 MG TABCR PO (09:22)
[2023-05-03] MEDS: ASPIRIN 81 MG CHEWABLE TABLET PO (09:22)
[2023-05-03] MEDS: FIDAXOMICIN 200 MG TABLET PO ×2 (09:22→19:51)
[2023-05-03] MEDS: TAMSULOSIN HCL 0.4 MG CAPSULE PO (09:22)
[2023-05-03] MEDS: ROSUVASTATIN 10 MG TABLET 40 MG PO (09:22)
[2023-05-03] MEDS: CLOPIDOGREL BISULFATE 75 MG TABLET PO (09:22)
[2023-05-03] MEDS: ENOXAPARIN 30 MG/0.3 ML SYRINGE SUB-Q (09:22)
[2023-05-03] MEDS: MIDODRINE HCL 2.5 MG TABLET 5 MG PO ×3 (09:22→17:32)
--- NOTE | 2023-05-03 10:35 | PM.IMPN ---
Progress Note: A&P Assessment and Plan (1) Sepsis: Qualifiers: Acute renal failure type: unspecified Sepsis acute organ dysfunction status: with acute organ dysfunction Sepsis type: sepsis due to unspecified organism Severe sepsis acute organ dysfunction type: acute renal failure Severe sepsis shock status: without septic shock Qualified Code(s): A41.9 - Sepsis, unspecified organism; R65.20 - Severe sepsis without septic shock; N17.9 - Acute kidney failure, unspecified Code(s): A41.9 - Sepsis, unspecified organism Status: Acute Assessment and Plan: Patient met sepsis criteria on admission with leukocytosis, tachycardia, acute kidney injury in the setting of C diff pancolitis. Treated with IV fluids and antibiotics. Blood pressure was soft but this is probably more chronic. Lactic acid was normal. Heart rate normal. Creatinine up slightly. 04/28: leuk worsening, add back oral vanc 04/29: Leukocytosis improving, down to 18 with the addition of oral vancomycin, continue to monitor 04/30: leuk again back up to 22, unknown reason, GI consult pending, consider transfer for fecal transplant 05/01: leuk continues to climb, up to 25 today, appreciate GI consult, consider fecal transplant? 05/02: back up to 24 today, may need transfer 05/03: defer management to GI, transfer? refused by [facility], no inpatient fecal transplant at either facility anymore, appears to be slowly improving (2) C. difficile colitis: Code(s): A04.72 - Enterocolitis due to Clostridium difficile, not specified as recurrent Status: Acute Assessment and Plan: The patient presents with diarrhea and weakness. He has had CDiff just 1 month ago. His CDiff toxin positive here and CT Abd/pelvis showing pancolitis. The patient has recurrent C diff colitis. Oral vancomycin started. For the first recurrence, bezlotoxumab recommended but not available here. 04/28: worsened on dificid, add back oral vanc + IV flagyl 04/29: Leukocytosis improving but symptomatically patient appears unchanged, continue to monitor 04/30: see above (3) KJ (acute kidney injury): Code(s): N17.9 - Acute kidney failure, unspecified Status: Acute Assessment and Plan: Creatinine elevated on admission to 1.5. Baseline 1.1-1.3. Cr climbed to 1.7 yesterday and stable today. Suspect related to above. Will follow. Continue IV fluids. Lasix on hold. 04/27: creat continues to worsen to 2.7, consult nephrology 04/28: increase IVF 04/29: Improved with IV fluid, monitor, appreciate nephrology consultation 04/30: cont to improve with IVF, d/c IVF and monitor 05/01: unchanged at 2.2, restart IVF per nephro 05/02: worsening, likely need albumin? 05/03: improving, cr down to 1.9 (4) Acute hyponatremia: Code(s): E87.1 - Hypo-osmolality and hyponatremia Status: Acute Assessment and Plan: Sodium was 126 on admission probably related to dehydration from excessive diarrhea. No metabolic acidosis noted. With IV fluids, his sodium has improved slightly to 129. This should continue to correct. Will continue to follow. Stable, monitor, up to 131 05/03 (5) Generalized weakness: Code(s): R53.1 - Weakness Status: Acute Assessment and Plan: Patient with generalized weakness related to above. Continue PT/OT as able. Increase activity as able (6) Orthostatic hypotension: Code(s): I95.1 - Orthostatic hypotension Status: Acute Assessment and Plan: Patient with known orthostatic hypotension. Blood pressure soft but stable. Continue midodrine. Blood pressures reviewed 05/03 (7) Congestive heart failure: Qualifiers: Heart failure chronicity: chronic Heart failure type: right-sided Qualified Code(s): I50.812 - Chronic right heart failure Code(s): I50.9 - Heart failure, unspecified Status: Chronic Assessment and Plan: Patient with known CHF. Last echocardiogram s
--- NOTE | 2023-05-03 13:39 | PM.PNGS ---
Progress Note: A&P Assessment and Plan (1) C. difficile colitis: Code(s): A04.72 - Enterocolitis due to Clostridium difficile, not specified as recurrent Status: Acute Assessment and Plan: exam cont to be benign, lactic acid normal, cont abx for C Diff, would likley benefit from stool transplant Subjective Subjective Date/Time Seen: 05/03/23 13:39 Interval history: still c/o weakness, poor appetite, loose BM this am, no abd pain Review of Systems Review of Systems: All systems reviewed & are unremarkable except as noted in HPI and below Exam Const: General: cooperative, no acute distress, ill appearing and uncomfortable Resp: Auscultation: clear to auscultation bilaterally Cardio: Rate: regular rate Rhythm: regular rhythm GI: Inspection: normal to inspection and distended GI Palp: No abdominal tenderness, Yes Soft to palpation, No Tenderness to palpation present (GI), No Guarding due to palpation present (GI) and No Rigid due to palpation Objective Data Vital Signs Vital Signs: Vital Signs - 24 hr 05/02/23 14:00 05/02/23 20:48 05/03/23 04:50 Temperature 37.1 C 36.1 C L 36.7 C Pulse Rate 60 60 70 Respiratory Rate 16 18 18 Blood Pressure 93/47 L 97/47 L 100/40 L Pulse Oximetry 98 99 94 Intake/Output Intake/Output: Intake & Output 04/30/23 05/01/23 05/02/23 05/03/23 23:59 23:59 23:59 23:59 Intake Total 2110 1175 3055 1236 Output Total 625 635 2672 450 Balance 2303 409 7162 786 Meds/Results Medications: Active Medications Generic Name Dose Route Start Last Admin Trade Name Freq PRN Reason Stop Dose Admin Acetaminophen 650 mg 04/25/23 02:14 05/01/23 17:33 Acetaminophen 325 Mg Tablet PO 650 mg Q4-6H PRN Administration Pain 1-3 or fever Albuterol 2.5 mg 04/25/23 02:14 05/02/23 04:25 Albuterol Sulfate Neb 2.5 Mg/3 Ml Inh INHALATION 2.5 mg Q6H PRN Administration Shortness Of Breath Aspirin 81 mg 04/25/23 09:00 05/03/23 09:22 Aspirin 81 Mg Chewable Tablet PO 81 mg DAILY JANET Administration Clopidogrel Bisulfate 75 mg 04/25/23 09:00 05/03/23 09:22 Clopidogrel Bisulfate 75 Mg Tablet PO 75 mg DAILY JANET Administration Dextromethorphan Polistirix 60 mg 04/25/23 02:18 05/01/23 09:47 Dextromethorphan Polistirex 60 Mg/10 Ml Syringe PO 60 mg Q12HR PRN Administration Cough Diclofenac Sodium 1 applic 04/25/23 02:14 05/01/23 09:49 Diclofenac Sodium 1% 100 Gm Gel (*Bkc) TOPICAL 1 applic TID PRN Administration Pain (Scale Score 1-3) Enoxaparin Sodium 30 mg 04/26/23 09:00 05/03/23 09:22 Enoxaparin 30 Mg/0.3 Ml Syringe SUB-Q 30 mg DAILY JANET Administration Fidaxomicin 200 mg 04/25/23 13:00 05/03/23 09:22 Fidaxomicin 200 Mg Tablet PO 200 mg Q12HR JANET Administration Hydrocortisone 1 applic 04/25/23 02:14 05/01/23 13:32 Hydrocortisone 1% 30 Gm Cream TOPICAL 1 applic TID PRN Administration hemorrhoids Metronidazole 500 mg in 100 mls @ 100 mls/hr 04/28/23 14:00 05/03/23 05:30 Flagyl 500 Mg/Iso Soln 100 Ml IVPB 100 mls/hr Q8HR JANET Administration Sodium Chloride 1,000 mls @ 75 mls/hr 05/01/23 11:20 05/03/23 09:21 Normal Saline Iv IV CONT 75 mls/hr .[id number] JANET Administration Metoprolol Succinate 25 mg 04/25/23 09:00 05/03/23 09:22 Metoprolol Succinate Ext Rel 25 Mg Tabcr PO 25 mg DAILY JANET Administration Midodrine 5 mg 04/29/23 22:42 05/03/23 12:46 Midodrine Hcl 2.5 Mg Tablet PO 5 mg TID JANET Administration Nitroglycerin 0.4 mg 04/25/23 02:14 Nitroglycerin Sl 0.4 Mg Tablet SUBLINGUAL Q5M PRN Chest Pain Ondansetron HCl 4 mg 04/24/23 23:12 05/02/23 18:36 Ondansetron Inj 4 Mg/2 Ml Vial IV PUSH 4 mg Q4H PRN Administration Nausea Rosuvastatin Calcium 40 mg 04/25/23 09:00 05/03/23 09:22 Rosuvastatin 10 Mg Tablet PO 40 mg DAILY JANET Administration Sertraline HCl 25 mg 04/25/23 21:00
--- NOTE | 2023-05-03 13:43 | WPDGIPROGNO ---
Progress Note: A&P Assessment and Plan (1) Recurrent Clostridioides difficile diarrhea: Code(s): A04.71 - Enterocolitis due to Clostridium difficile, recurrent Status: Acute Assessment and Plan: on treatment for c diff with dificid, oral vanco and iv flagyl no abdominal pain, exam is benign but persistent leukocytosis lactic acid normal, KUB without megacolon- surgery evaluated patient I talked to daughter yesterday, primary attempted transfer to tertiary hospital but was not accepted as they would not do stool transplant. Another alternative is Vowst which is a new fecal microbiota spores just approved by FDA that comes in capsules- patient just signed form and I will submit to his insurance. Normally this is delivered to his address, patient will need to be off antibiotics at least for 1 day after completing treatment for colitis and take bowel prep. Will arrange this for patient. This obviously will be less invasive that stool transplant using colonoscope. (2) Acute on chronic renal failure: Code(s): N17.9 - Acute kidney failure, unspecified; N18.9 - Chronic kidney disease, unspecified Status: Acute Assessment and Plan: by nephrology (3) Leukocytosis: Code(s): D72.829 - Elevated white blood cell count, unspecified Status: Acute Assessment and Plan: monitor, still high and mostly unchanged (4) Orthostatic hypotension: Code(s): I95.1 - Orthostatic hypotension Status: Acute Assessment and Plan: chronic (5) Congestive heart failure: Qualifiers: Heart failure chronicity: chronic Heart failure type: right-sided Qualified Code(s): I50.812 - Chronic right heart failure Code(s): I50.9 - Heart failure, unspecified Status: Chronic Subjective Date/time seen: 05/03/23 13:43 Interval history: no major changes, he thinks that diarrhea slowing down, still poor appetite. Review of Systems Review of Systems: All systems reviewed & are unremarkable except as noted in HPI and below Exam Const: General: comfortable and no acute distress Other: chronically ill appearing HENMT: Face/Nose/Sinus: Normal nares present Eyes: General: appearance normal, both eyes and all related structures Neck: Neck: supple Resp: Auscultation: clear to auscultation bilaterally Cardio: Rate: regular rate Rhythm: regular rhythm GI: Inspection: distended GI Palp: Yes Soft to palpation, No Tenderness to palpation present (GI) and No Guarding due to palpation present (GI) Auscultation: normal bowel sounds Skin: General skin exam: normal color Neuro: Speech: normal speech Motor exam (neuro): 5/5 motor strength present throughout Extrem: General: pedal edema Psych: Mental Status: mental status grossly normal Objective Data Vital Signs Vital Signs: Vital Signs - 24 hr 05/02/23 14:00 05/02/23 20:48 05/03/23 04:50 Temperature 98.7 F 97 F L 98.1 F Pulse Rate 60 60 70 Respiratory Rate 16 18 18 Blood Pressure 93/47 L 97/47 L 100/40 L Pulse Oximetry 98 99 94 Intake/Output Intake/Output: Intake & Output 04/30/23 05/01/23 05/02/23 05/03/23 23:59 23:59 23:59 23:59 Intake Total 2110 1175 3055 1236 Output Total 751 682 4084 450 Balance 9529 877 3073 786 Meds/Results Medications: Active Medications Generic Name Dose Route Start Last Admin Trade Name Freq PRN Reason Stop Dose Admin Acetaminophen 650 mg 04/25/23 02:14 05/01/23 17:33 Acetaminophen 325 Mg Tablet PO 650 mg Q4-6H PRN Administration Pain 1-3 or fever Albuterol 2.5 mg 04/25/23 02:14 05/02/23 04:25 Albuterol Sulfate Neb 2.5 Mg/3 Ml Inh INHALATION 2.5 mg Q6H PRN Administration Shortness Of Breath Aspirin 81 mg 04/25/23 09:00 05/03/23 09:22 Aspirin 81 Mg Chewable Tablet PO 81 mg DAILY JANET Administration Clopidogrel Bisulfate 75 mg 04/25/23 09:00 05/03/23 09:22 Clopidogrel Bisulfate 75 Mg Tablet PO 75 mg
[2023-05-03 13:54] VITALS: BP 99/47; PULSE 40; RESP 18; TEMP 35.6; O2SAT 97
--- NOTE | 2023-05-03 17:44 | P.PNNP_ITS ---
Progress Note: A&P Assessment and Plan (1) KJ (acute kidney injury): Code(s): N17.9 - Acute kidney failure, unspecified Status: Acute Assessment and Plan: * acute kidney injury. * Renal ultrasound unremarkable. * Urinalysis is bland. * Urine electrolytes consistent with pre renal azotemia. * Acute kidney injury most likely due to dehydration. * Swelling is still present. * Blood pressure is soft. He is getting a small dose of metoprolol plus some midodrine. * Chest x-ray on 05/01 showed no fluid. * His creatinine is down a little bit. His intake/output are very positive. * Albumin is very low. Possibly he has some third-spacing because of the low albumin and intravascular volume depletion because of his infection and the 3rd spacing. I am going to stop the IV fluids and try albumin plus Lasix to see if we can improve the third-spacing, improve the edema, and provide better intravascular volume to let the kidneys improve. (2) Stage 3a chronic kidney disease: Code(s): N18.31 - Chronic kidney disease, stage 3a Status: Chronic Assessment and Plan: * baseline creatinine seems to run ~ 1.1 - 1.5mg/dl in the last year or so * likely secondary to vascular disease (CAD, CHF/cardiomyopathy, hyperlipidemia), HTN, and nephrolithiasis (3) Hyponatremia: Code(s): E87.1 - Hypo-osmolality and hyponatremia Status: Acute Assessment and Plan: * Hyponatremia. * suspect acute worsening likely secondary to * KJ/ARF * possibly from diuretic use * GI losses (diarrhea) * pre-renal factors * reactive airway disease * chronic low sodium due to: * known SSRI use * underlying cardiomyopathy * CHF * necessity of diuretics * interstitial lung disease * sodium is stable around 130 Will check another sodium level tomorrow. (4) C. difficile colitis: Code(s): A04.72 - Enterocolitis due to Clostridium difficile, not specified as recurrent Status: Acute Assessment and Plan: * as noted by history and imaging * on oral vancomycin and IV flagyl * He is still having some diarrhea. * Noted Dr. Andino's suggestion for other options for C diff treatment. (5) Orthostatic hypotension: Code(s): I95.1 - Orthostatic hypotension Status: Acute Assessment and Plan: * Blood pressure still somewhat soft. Will continue IV fluids. He is on midodrine (6) Congestive heart failure: Qualifiers: Heart failure chronicity: chronic Heart failure type: right-sided Qualified Code(s): I50.812 - Chronic right heart failure Code(s): I50.9 - Heart failure, unspecified Status: Chronic Assessment and Plan: * appears stable at this time * last chest x-ray shows no fluid (7) Generalized weakness: Code(s): R53.1 - Weakness Status: Acute Assessment and Plan: * due to KJ + acute illness with C diff * continue ongoing therapy * PT/OT as tolerated Subjective Date/time seen: 05/03/23 17:44 Interval history: Yoseph is feeling about the same. Swelling is a little better. Continues to have liquid stools. Exam Narrative: WDWN in NAD skin no rash Or subQ nodules head ncat lungs clear bilaterally cor reg no rub or gallop abd BS+ nontender and soft ext 1+ presacral edema and no cyanosis. Objective Data Vital Signs Vital Signs: Vital Si
--- NOTE | 2023-05-03 17:44 | PM.PNNEP ---
Progress Note: A&P Assessment and Plan (1) KJ (acute kidney injury): Code(s): N17.9 - Acute kidney failure, unspecified Status: Acute Assessment and Plan: acute kidney injury. Renal ultrasound unremarkable. Urinalysis is bland. Urine electrolytes consistent with pre renal azotemia. Acute kidney injury most likely due to dehydration. Swelling is still present. Blood pressure is soft. He is getting a small dose of metoprolol plus some midodrine. Chest x-ray on 05/01 showed no fluid. His creatinine is down a little bit. His intake/output are very positive. Albumin is very low. Possibly he has some third-spacing because of the low albumin and intravascular volume depletion because of his infection and the 3rd spacing. I am going to stop the IV fluids and try albumin plus Lasix to see if we can improve the third-spacing, improve the edema, and provide better intravascular volume to let the kidneys improve. (2) Stage 3a chronic kidney disease: Code(s): N18.31 - Chronic kidney disease, stage 3a Status: Chronic Assessment and Plan: baseline creatinine seems to run ~ 1.1 - 1.5mg/dl in the last year or so likely secondary to vascular disease (CAD, CHF/cardiomyopathy, hyperlipidemia), HTN, and nephrolithiasis (3) Hyponatremia: Code(s): E87.1 - Hypo-osmolality and hyponatremia Status: Acute Assessment and Plan: Hyponatremia. suspect acute worsening likely secondary to KJ/ARF possibly from diuretic use GI losses (diarrhea) pre-renal factors reactive airway disease chronic low sodium due to: known SSRI use underlying cardiomyopathy CHF necessity of diuretics interstitial lung disease sodium is stable around 130 Will check another sodium level tomorrow. (4) C. difficile colitis: Code(s): A04.72 - Enterocolitis due to Clostridium difficile, not specified as recurrent Status: Acute Assessment and Plan: as noted by history and imaging on oral vancomycin and IV flagyl He is still having some diarrhea. Noted Dr. Andino's suggestion for other options for C diff treatment. (5) Orthostatic hypotension: Code(s): I95.1 - Orthostatic hypotension Status: Acute Assessment and Plan: Blood pressure still somewhat soft. Will continue IV fluids. He is on midodrine (6) Congestive heart failure: Qualifiers: Heart failure chronicity: chronic Heart failure type: right-sided Qualified Code(s): I50.812 - Chronic right heart failure Code(s): I50.9 - Heart failure, unspecified Status: Chronic Assessment and Plan: appears stable at this time last chest x-ray shows no fluid (7) Generalized weakness: Code(s): R53.1 - Weakness Status: Acute Assessment and Plan: due to KJ + acute illness with C diff continue ongoing therapy PT/OT as tolerated Subjective Date/time seen: 05/03/23 17:44 Interval history: Yoseph is feeling about the same. Swelling is a little better. Continues to have liquid stools. Exam Narrative: WDWN in NAD skin no rash Or subQ nodules head ncat lungs clear bilaterally cor reg no rub or gallop abd BS+ nontender and soft ext 1+ presacral edema and no cyanosis. Objective Data Vital Signs Vital Signs: Vital Signs - 24 hr 05/02/23 20:48 05/03/23 04:50 05/03/23 13:54 Temperature 97 F L 98.1 F 96.0 F L Pulse Rate 60 70 40 L Respiratory Rate 18 18 18 Blood Pressure 97/47 L 100/40 L 99/47 L Pulse Oximetry 99 94 97 Intake/Output Intake/Output: Intake & Output 04/30/23 05/01/23 05/02/23 05/03/23 23:59 23:59 23:59 23:59 Intake Total 2110 1175 3055 1912 Output Total 991 783 7000 600 Balance 4430 655 4996 1312 Meds/Results Medications: Active Medications Generic Name Dose Route Start Last Admin Trade Name Freq PRN Reason Stop Dose Admin Acetaminophen 650 mg
[2023-05-03 18:25] VITALS: BP 103/31; PULSE 58; RESP 20; TEMP 36.7; O2SAT 98
[2023-05-03] MEDS: FUROSEMIDE INJ 40 MG/4 ML VIAL IV PUSH (18:33)
[2023-05-03] MEDS: ALBUMIN HUMAN 25% 25 GM/100 ML 100 ML IVPB (19:48)
[2023-05-03] MEDS: SERTRALINE HCL 25 MG TABLET PO (19:51)
[2023-05-03 20:55] VITALS: BP 99/40; PULSE 56; RESP 16; TEMP 36.6; O2SAT 98
[2023-05-04] MEDS: ALBUMIN HUMAN 25% 25 GM/100 ML 100 ML IVPB ×5 (00:38→23:55)
[2023-05-04 04:15] VITALS: BP 90/40; PULSE 61; RESP 16; TEMP 36.4; O2SAT 95
[2023-05-04] MEDS: metroNIDAZOLE 500 MG/ISO 100ML 500 MG/100 ML BAG 100 MG IVPB ×3 (05:02→21:15)
[2023-05-04] MEDS: VANCOMYCIN ORAL 500 MG/10 ML SYRUP PO ×4 (05:02→23:55)
[2023-05-04 06:55] LABS: Basophils Percent Auto 0.2 % (0.2-1.2); Eosinophils Absolute Auto 0.2 K/mm3 (0-0.3); Eosinophils Percent Auto 0.8 % (0-4.4); Hematocrit 31.6 % (42.0-52.0); Hemoglobin 10.1 g/dL (14.0-18.0); Immature Granulocyte Absolute 0.18 K/mm3 (0.00-0.031); Immature Granulocyte Percent A 0.9 % (0-0.5); Lymphocytes Absolute Auto 0.57 K/mm3 (0.9-3.2); Mean Corpuscular Hemoglobin 29.7 pg (26-34); Mean Corpuscular Volume 92.9 fl (80-100); Mean Platelet Volume 8.7 fl (7.4-10.4); Monocytes Absolute Auto 1.2 K/mm3 (0.1-0.6); Monocytes Percent Auto 6.4 % (2.6-8.5); Neutrophils Absolute Auto 17.1 K/mm3 (1.3-6.7); Neutrophils Percent Auto 88.7 % (45.5-73.1); Platelet Count Result 276 k/mm3 (150-375); Red Cell Distribution Width 15.1 % (11.5-14.5); White Blood Count 19.3 K/mm3 (4.5-10.0)
[2023-05-04 07:07] LABS: Alanine Aminotransferase 36 U/L (6-50); Albumin Level 2.3 g/dL (3.5-5.1); Alkaline Phosphatase 72 U/L (38-126); Anion Gap 5 mmol/L (8-16); Aspartate Amino Transferase 62 U/L (17-59); Bilirubin,Total 0.5 mg/dL (0.2-1.3); Blood Urea Nitrogen 35 mg/dL (9-20); Calcium 7.4 mg/dL (8.4-10.2); Carbon Dioxide 20 mmol/L (22-30); Chloride 107 mmol/L (98-107); Estimated CRCL calculation 27 ml/min; Estimated Glomerular Filt Rate 36; Glucose 80 mg/dL (65-110); Phosphorus 3.9 mg/dL (2.5-4.5); Potassium 3.5 mmol/L (3.4-5.0); Sodium 132 mmol/L (137-145)
[2023-05-04 07:43] LABS: Anisocytosis 1+ (NORMAL); Platelet Clumps Present; Platelet Estimate Adequate (Adequate); Schistocytes None Seen (NORMAL)
[2023-05-04 09:10] VITALS: BP 104/42; PULSE 56
[2023-05-04 09:13] VITALS: PULSE 56
[2023-05-04] MEDS: CLOPIDOGREL BISULFATE 75 MG TABLET PO (09:13)
[2023-05-04] MEDS: FIDAXOMICIN 200 MG TABLET PO ×2 (09:13→21:15)
[2023-05-04] MEDS: FUROSEMIDE INJ 40 MG/4 ML VIAL IV PUSH ×2 (09:13→18:17)
[2023-05-04] MEDS: TAMSULOSIN HCL 0.4 MG CAPSULE PO (09:13)
[2023-05-04] MEDS: METOPROLOL SUCCINATE EXT REL 25 MG TABCR PO (09:13)
[2023-05-04] MEDS: ROSUVASTATIN 10 MG TABLET 40 MG PO (09:13)
[2023-05-04] MEDS: MIDODRINE HCL 2.5 MG TABLET 5 MG PO ×3 (09:13→18:17)
[2023-05-04] MEDS: ASPIRIN 81 MG CHEWABLE TABLET PO (09:13)
[2023-05-04] MEDS: ENOXAPARIN 30 MG/0.3 ML SYRINGE SUB-Q (09:14)
--- NOTE | 2023-05-04 13:23 | WPDGIPROGNO ---
Progress Note: A&P Assessment and Plan (1) Recurrent Clostridioides difficile diarrhea: Code(s): A04.71 - Enterocolitis due to Clostridium difficile, recurrent Status: Acute Assessment and Plan: on treatment for c diff with dificid, oral vanco and iv flagyl no abdominal pain, exam is benign leukocytosis improved today lactic acid normal, KUB without megacolon- surgery evaluated patient Another alternative is Vowst which is a new fecal microbiota spores just approved by FDA that comes in capsules- patient just signed form and I will submit to his insurance. Normally this is delivered to his address, patient will need to be off antibiotics at least for 1 day after completing treatment for colitis and take bowel prep. If that does not get approve then we can consider using Rebyota (another fecal microbiota that is given in the office as enema). Again with both treatments, patient will need to be off antibiotics for 1-2 days. Both treatments can replace stool transplant and it is mostly to prevent new episodes. (2) Acute on chronic renal failure: Code(s): N17.9 - Acute kidney failure, unspecified; N18.9 - Chronic kidney disease, unspecified Status: Acute Assessment and Plan: by nephrology, creatinine is better today (3) Leukocytosis: Code(s): D72.829 - Elevated white blood cell count, unspecified Status: Acute Assessment and Plan: monitor, better today at 18k (4) Orthostatic hypotension: Code(s): I95.1 - Orthostatic hypotension Status: Acute Assessment and Plan: chronic Subjective Date/time seen: 05/04/23 13:23 Interval history: no changes, he is having lunch now. Review of Systems Review of Systems: All systems reviewed & are unremarkable except as noted in HPI and below Exam Const: General: comfortable and no acute distress Other: chronically ill appearing HENMT: Face/Nose/Sinus: Normal nares present Eyes: General: appearance normal, both eyes and all related structures Neck: Neck: supple Resp: Auscultation: clear to auscultation bilaterally Cardio: Rate: regular rate Rhythm: regular rhythm GI: Inspection: distended GI Palp: Yes Soft to palpation, No Tenderness to palpation present (GI) and No Guarding due to palpation present (GI) Auscultation: normal bowel sounds Skin: General skin exam: normal color Neuro: Speech: normal speech Motor exam (neuro): 5/5 motor strength present throughout Extrem: General: pedal edema Psych: Mental Status: mental status grossly normal Objective Data Vital Signs Vital Signs: Vital Signs - 24 hr 05/03/23 13:54 05/03/23 18:25 05/03/23 20:55 Temperature 96.0 F L 98.1 F 97.9 F Pulse Rate 40 L 58 L 56 L Respiratory Rate 18 20 16 Blood Pressure 99/47 L 103/31 L 99/40 L Pulse Oximetry 97 98 98 Oxygen Delivery Room Air 05/04/23 04:15 05/04/23 09:13 05/04/23 09:10 Temperature 97.6 F Pulse Rate 61 56 L 56 L Respiratory Rate 16 Blood Pressure 90/40 L 104/42 L Pulse Oximetry 95 Oxygen Delivery Intake/Output Intake/Output: Intake & Output 05/01/23 05/02/23 05/03/23 05/04/23 23:59 23:59 23:59 23:59 Intake Total 1175 3055 2012 400 Output Total 600 9684 558 3533 Balance 575 1980 1412 -1150 Meds/Results Medications: Active Medications Generic Name Dose Route Start Last Admin Trade Name Freq PRN Reason Stop Dose Admin Acetaminophen 650 mg 04/25/23 02:14 05/01/23 17:33 Acetaminophen 325 Mg Tablet PO 650 mg Q4-6H PRN Administration Pain 1-3 or fever Albuterol 2.5 mg 04/25/23 02:14 05/02/23 04:25 Albuterol Sulfate Neb 2.5 Mg/3 Ml Inh INHALATION 2.5 mg Q6H PRN Administration Shortness Of Breath Aspirin 81 mg 04/25/23 09:00 05/04/23 09:13 Aspirin 81 Mg Chewable Tablet PO 81 mg DAILY JANET Administration Clopidogrel Bisulfate 75 mg 04/25/23 09:00 05/04/23 09:13 Clopidogrel Bisulfate 75 Mg Tablet PO 75 mg
[2023-05-04 14:00] VITALS: BP 94/38; PULSE 60; RESP 18; TEMP 36.6; O2SAT 98
--- NOTE | 2023-05-04 14:01 | PM.PNGS ---
Progress Note: A&P Assessment and Plan (1) C. difficile colitis: Code(s): A04.72 - Enterocolitis due to Clostridium difficile, not specified as recurrent Status: Acute Assessment and Plan: cont current abx regimen, WBC down today, exam cont to be benign, cont to encourage po, OOB Subjective Subjective Date/Time Seen: 05/04/23 14:01 Interval history: no acute issues, reports slightly improved appetite, weakness Review of Systems Review of Systems: All systems reviewed & are unremarkable except as noted in HPI and below Exam Const: General: cooperative, no acute distress and ill appearing Resp: Auscultation: diminished lung sounds Cardio: Rate: regular rate Rhythm: regular rhythm GI: Inspection: normal to inspection and distended GI Palp: No abdominal tenderness, Yes Soft to palpation, No Tenderness to palpation present (GI), No Guarding due to palpation present (GI) and No Rigid due to palpation Objective Data Vital Signs Vital Signs: Vital Signs - 24 hr 05/03/23 18:25 05/03/23 20:55 05/04/23 04:15 Temperature 36.7 C 36.6 C 36.4 C Pulse Rate 58 L 56 L 61 Respiratory Rate 20 16 16 Blood Pressure 103/31 L 99/40 L 90/40 L Pulse Oximetry 98 98 95 Oxygen Delivery Room Air 05/04/23 09:13 05/04/23 09:10 Temperature Pulse Rate 56 L 56 L Respiratory Rate Blood Pressure 104/42 L Pulse Oximetry Oxygen Delivery Intake/Output Intake/Output: Intake & Output 05/01/23 05/02/23 05/03/23 05/04/23 23:59 23:59 23:59 23:59 Intake Total 1175 3055 2012 400 Output Total 600 4683 193 7141 Balance 575 1980 1412 -1150 Meds/Results Medications: Active Medications Generic Name Dose Route Start Last Admin Trade Name Freq PRN Reason Stop Dose Admin Acetaminophen 650 mg 04/25/23 02:14 05/01/23 17:33 Acetaminophen 325 Mg Tablet PO 650 mg Q4-6H PRN Administration Pain 1-3 or fever Albuterol 2.5 mg 04/25/23 02:14 05/02/23 04:25 Albuterol Sulfate Neb 2.5 Mg/3 Ml Inh INHALATION 2.5 mg Q6H PRN Administration Shortness Of Breath Aspirin 81 mg 04/25/23 09:00 05/04/23 09:13 Aspirin 81 Mg Chewable Tablet PO 81 mg DAILY JANET Administration Clopidogrel Bisulfate 75 mg 04/25/23 09:00 05/04/23 09:13 Clopidogrel Bisulfate 75 Mg Tablet PO 75 mg DAILY JANET Administration Dextromethorphan Polistirix 60 mg 04/25/23 02:18 05/01/23 09:47 Dextromethorphan Polistirex 60 Mg/10 Ml Syringe PO 60 mg Q12HR PRN Administration Cough Diclofenac Sodium 1 applic 04/25/23 02:14 05/01/23 09:49 Diclofenac Sodium 1% 100 Gm Gel (*Bkc) TOPICAL 1 applic TID PRN Administration Pain (Scale Score 1-3) Enoxaparin Sodium 30 mg 04/26/23 09:00 05/04/23 09:14 Enoxaparin 30 Mg/0.3 Ml Syringe SUB-Q 30 mg DAILY JANET Administration Fidaxomicin 200 mg 04/25/23 13:00 05/04/23 09:13 Fidaxomicin 200 Mg Tablet PO 200 mg Q12HR JANET Administration Furosemide 40 mg 05/04/23 09:00 05/04/23 09:13 Furosemide Inj 40 Mg/4 Ml Vial IV PUSH 40 mg BID JANET Administration Hydrocortisone 1 applic 04/25/23 02:14 05/01/23 13:32 Hydrocortisone 1% 30 Gm Cream TOPICAL 1 applic TID PRN Administration hemorrhoids Metronidazole 500 mg in 100 mls @ 100 mls/hr 04/28/23 14:00 05/04/23 06:01 Flagyl 500 Mg/Iso Soln 100 Ml IVPB Infused Q8HR [facility] Infusion Albumin Human 100 mls @ 60 mls/hr 05/03/23 18:00 05/04/23 12:52 Albutein IVPB 60 mls/hr Q6HR [facility] Administration Metoprolol Succinate 25 mg 04/25/23 09:00 05/04/23 09:13 Metoprolol Succinate Ext Rel 25 Mg Tabcr PO 25 mg DAILY JANET Administration Midodrine 5 mg 04/29/23 22:42 05/04/23 12:51 Midodrine Hcl 2.5 Mg Tablet PO 5 mg TID JANET Administration Nitroglycerin 0.4 mg 04/25/23 02:14 Nitroglycerin Sl 0.4 Mg Tablet SUBLINGUAL Q5M PRN Chest Pain Ondansetron HCl 4 mg 04/24/23 23:12 05/02/23 18:36 Ondansetron In
--- NOTE | 2023-05-04 14:46 | PCPTNOTE ---
On 05/04/23, the student, KAREEN Lackey, provided care and completed [facility] documentation on this patient. I have reviewed the student's documentation and agree with the findings.
--- NOTE | 2023-05-04 15:16 | P.PNNP_ITS ---
Progress Note: A&P Assessment and Plan (1) KJ (acute kidney injury): Code(s): N17.9 - Acute kidney failure, unspecified Status: Acute Assessment and Plan: * acute kidney injury. * Renal ultrasound unremarkable. * Urinalysis is bland. * Urine electrolytes consistent with pre renal azotemia. * Acute kidney injury most likely due to dehydration. * Swelling is still present but it looks better to me. * Blood pressure is soft. Systolic runs between 90 and 110. He is getting a small dose of metoprolol plus some midodrine. * Chest x-ray on 05/01 showed no fluid. * His creatinine is slowly decreasing. * Urine output is much better. * Will continue the IV albumin plus furosemide. This seems to be improving his swelling and also his edema. (2) Stage 3a chronic kidney disease: Code(s): N18.31 - Chronic kidney disease, stage 3a Status: Chronic Assessment and Plan: * baseline creatinine seems to run ~ 1.1 - 1.5mg/dl in the last year or so * likely secondary to vascular disease (CAD, CHF/cardiomyopathy, hyperlipidemia), HTN, and nephrolithiasis (3) Hyponatremia: Code(s): E87.1 - Hypo-osmolality and hyponatremia Status: Acute Assessment and Plan: * Hyponatremia. * suspect acute worsening likely secondary to * KJ/ARF Improving * possibly from diuretic use . As long as his sodium isn't dropping I do not think we need to fluid restrict him. The diarrhea probably contributes to some of the free water excretion. * GI losses (diarrhea) Not as much of an issue. * pre-renal factors some pre renal issues due to 3rd spacing from the low albumin. * reactive airway disease a chronic issue. * chronic low sodium due to: * known SSRI use * underlying cardiomyopathy * CHF * necessity of diuretics * interstitial lung disease * sodium is still ranging in the low 130s. Continue to follow the sodium levels. (4) C. difficile colitis: Code(s): A04.72 - Enterocolitis due to Clostridium difficile, not specified as recurrent Status: Acute Assessment and Plan: * as noted by history and imaging * on oral vancomycin and IV flagyl * He is still having some diarrhea. * Noted Dr. Andino's suggestion for other options for C diff treatment. (5) Orthostatic hypotension: Code(s): I95.1 - Orthostatic hypotension Status: Acute Assessment and Plan: * Blood pressure still somewhat soft. * Getting midodrine (6) Congestive heart failure: Qualifiers: Heart failure chronicity: chronic Heart failure type: right-sided Qualified Code(s): I50.812 - Chronic right heart failure Code(s): I50.9 - Heart failure, unspecified Status: Chronic Assessment and Plan: * appears stable at this time * last chest x-ray shows no fluid (7) Generalized weakness: Code(s): R53.1 - Weakness Status: Acute Assessment and Plan: * due to KJ + acute illness with C diff * continue ongoing therapy * PT/OT as tolerated Subjective Date/time seen: 05/04/23 15:16 Interval history: Yoseph is feeling about the same. Swelling is about the same. Continues to have liquid stools. Exam Narrative: WDWN in NAD skin no rash Or subQ nodules head ncat lungs clear To auscultation cor reg no rub or gallop abd BS+ nontender and soft ext 1+ presacral edema and some in the hands. no cyanosis.
--- NOTE | 2023-05-04 15:16 | PM.PNNEP ---
Progress Note: A&P Assessment and Plan (1) KJ (acute kidney injury): Code(s): N17.9 - Acute kidney failure, unspecified Status: Acute Assessment and Plan: acute kidney injury. Renal ultrasound unremarkable. Urinalysis is bland. Urine electrolytes consistent with pre renal azotemia. Acute kidney injury most likely due to dehydration. Swelling is still present but it looks better to me. Blood pressure is soft. Systolic runs between 90 and 110. He is getting a small dose of metoprolol plus some midodrine. Chest x-ray on 05/01 showed no fluid. His creatinine is slowly decreasing. Urine output is much better. Will continue the IV albumin plus furosemide. This seems to be improving his swelling and also his edema. (2) Stage 3a chronic kidney disease: Code(s): N18.31 - Chronic kidney disease, stage 3a Status: Chronic Assessment and Plan: baseline creatinine seems to run ~ 1.1 - 1.5mg/dl in the last year or so likely secondary to vascular disease (CAD, CHF/cardiomyopathy, hyperlipidemia), HTN, and nephrolithiasis (3) Hyponatremia: Code(s): E87.1 - Hypo-osmolality and hyponatremia Status: Acute Assessment and Plan: Hyponatremia. suspect acute worsening likely secondary to KJ/ARF Improving possibly from diuretic use . As long as his sodium isn't dropping I do not think we need to fluid restrict him. The diarrhea probably contributes to some of the free water excretion. GI losses (diarrhea) Not as much of an issue. pre-renal factors some pre renal issues due to 3rd spacing from the low albumin. reactive airway disease a chronic issue. chronic low sodium due to: known SSRI use underlying cardiomyopathy CHF necessity of diuretics interstitial lung disease sodium is still ranging in the low 130s. Continue to follow the sodium levels. (4) C. difficile colitis: Code(s): A04.72 - Enterocolitis due to Clostridium difficile, not specified as recurrent Status: Acute Assessment and Plan: as noted by history and imaging on oral vancomycin and IV flagyl He is still having some diarrhea. Noted Dr. Andino's suggestion for other options for C diff treatment. (5) Orthostatic hypotension: Code(s): I95.1 - Orthostatic hypotension Status: Acute Assessment and Plan: Blood pressure still somewhat soft. Getting midodrine (6) Congestive heart failure: Qualifiers: Heart failure chronicity: chronic Heart failure type: right-sided Qualified Code(s): I50.812 - Chronic right heart failure Code(s): I50.9 - Heart failure, unspecified Status: Chronic Assessment and Plan: appears stable at this time last chest x-ray shows no fluid (7) Generalized weakness: Code(s): R53.1 - Weakness Status: Acute Assessment and Plan: due to KJ + acute illness with C diff continue ongoing therapy PT/OT as tolerated Subjective Date/time seen: 05/04/23 15:16 Interval history: Yoseph is feeling about the same. Swelling is about the same. Continues to have liquid stools. Exam Narrative: WDWN in NAD skin no rash Or subQ nodules head ncat lungs clear To auscultation cor reg no rub or gallop abd BS+ nontender and soft ext 1+ presacral edema and some in the hands. no cyanosis. Objective Data Vital Signs Vital Signs: Vital Signs - 24 hr 05/03/23 18:25 05/03/23 20:55 05/04/23 04:15 Temperature 98.1 F 97.9 F 97.6 F Pulse Rate 58 L 56 L 61 Respiratory Rate 20 16 16 Blood Pressure 103/31 L 99/40 L 90/40 L Pulse Oximetry 98 98 95 Oxygen Delivery Room Air 05/04/23 09:13 05/04/23 09:10 05/04/23 14:00 Temperature 97.8 F Pulse Rate 56 L 56 L 60 Respiratory Rate 18 Blood Pressure 104/42 L 94/38 L Pulse Oximetry 98 Oxygen Delivery Intake/Output Intake/Output: Intake & Output
--- NOTE | 2023-05-04 17:15 | WPDPN ---
Progress Note: A&P Assessment and Plan (1) Sepsis: Qualifiers: Sepsis type: sepsis due to unspecified organism Sepsis acute organ dysfunction status: with acute organ dysfunction Severe sepsis acute organ dysfunction type: acute renal failure Acute renal failure type: unspecified Severe sepsis shock status: without septic shock Qualified Code(s): A41.9 - Sepsis, unspecified organism; R65.20 - Severe sepsis without septic shock; N17.9 - Acute kidney failure, unspecified Code(s): A41.9 - Sepsis, unspecified organism Status: Acute Assessment and Plan: Patient met sepsis criteria on admission with leukocytosis, tachycardia, acute kidney injury in the setting of C diff pancolitis. Treated with IV fluids and antibiotics. Blood pressure was soft but this is probably more chronic. Lactic acid was normal. Heart rate normal. Creatinine up slightly. 04/28: leuk worsening, add back oral vanc 04/29: Leukocytosis improving, down to 18 with the addition of oral vancomycin, continue to monitor 04/30: leuk again back up to 22, unknown reason, GI consult pending, consider transfer for fecal transplant 05/01: leuk continues to climb, up to 25 today, appreciate GI consult, consider fecal transplant? 05/02: back up to 24 today, may need transfer 05/03: defer management to GI, transfer? refused by 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 (2) C. difficile colitis: Code(s): A04.72 - Enterocolitis due to Clostridium difficile, not specified as recurrent Status: Acute Assessment and Plan: The patient presents with diarrhea and weakness. He has had CDiff just 1 month ago. His CDiff toxin positive here and CT Abd/pelvis showing pancolitis. The patient has recurrent C diff colitis. Oral vancomycin started. For the first recurrence, bezlotoxumab recommended but not available here. 04/28: worsened on dificid, add back oral vanc + IV flagyl 04/29: Leukocytosis improving but symptomatically patient appears unchanged, continue to monitor 04/30: see above (3) KJ (acute kidney injury): Code(s): N17.9 - Acute kidney failure, unspecified Status: Acute Assessment and Plan: Creatinine elevated on admission to 1.5. Baseline 1.1-1.3. Cr climbed to 1.7 yesterday and stable today. Suspect related to above. Will follow. Continue IV fluids. Lasix on hold. 04/27: creat continues to worsen to 2.7, consult nephrology 04/28: increase IVF 04/29: Improved with IV fluid, monitor, appreciate nephrology consultation 04/30: cont to improve with IVF, d/c IVF and monitor 05/01: unchanged at 2.2, restart IVF per nephro 05/02: worsening, likely need albumin? 05/03: improving, cr down to 1.9 (4) Acute hyponatremia: Code(s): E87.1 - Hypo-osmolality and hyponatremia Status: Acute Assessment and Plan: Sodium was 126 on admission probably related to dehydration from excessive diarrhea. No metabolic acidosis noted. With IV fluids, his sodium has improved slightly to 129. This should continue to correct. Will continue to follow. Stable, monitor, up to 131 05/03 (5) Generalized weakness: Code(s): R53.1 - Weakness Status: Acute Assessment and Plan: Patient with generalized weakness related to above. Continue PT/OT as able. Increase activity as able (6) Orthostatic hypotension: Code(s): I95.1 - Orthostatic hypotension Status: Acute Assessment and Plan: Patient with known orthostatic hypotension.
[2023-05-04] MEDS: ONDANSETRON INJ 4 MG/2 ML VIAL IV PUSH (18:57)
[2023-05-04 21:10] VITALS: BP 90/43; PULSE 62; RESP 16; TEMP 36.4; O2SAT 95
[2023-05-04] MEDS: SERTRALINE HCL 25 MG TABLET PO (21:15)
[2023-05-05] MEDS: ALBUMIN HUMAN 25% 25 GM/100 ML 100 ML IVPB ×4 (05:43→23:01)
[2023-05-05] MEDS: VANCOMYCIN ORAL 500 MG/10 ML SYRUP PO ×4 (05:47→23:03)
[2023-05-05 06:01] VITALS: BP 99/45; PULSE 87; RESP 16; TEMP 36.4; O2SAT 97
[2023-05-05] MEDS: metroNIDAZOLE 500 MG/ISO 100ML 500 MG/100 ML BAG 100 MG IVPB ×3 (06:24→21:38)
[2023-05-05 06:59] LABS: Basophils Absolute Auto 0.1 K/mm3 (0.0-0.1); Basophils Percent Auto 0.4 % (0.2-1.2); Eosinophils Absolute Auto 0.2 K/mm3 (0-0.3); Eosinophils Percent Auto 0.8 % (0-4.4); Hematocrit 33.6 % (42.0-52.0); Hemoglobin 9.7 g/dL (14.0-18.0); Immature Granulocyte Absolute 0.14 K/mm3 (0.00-0.031); Immature Granulocyte Percent A 0.8 % (0-0.5); Lymphocytes Absolute Auto 0.58 K/mm3 (0.9-3.2); Lymphocytes Percent Auto 3.2 % (18.3-44.2); Mean Corpuscular HGB Conc 28.9 g/dl (32-36); Mean Corpuscular Hemoglobin 30.8 pg (26-34); Mean Corpuscular Volume 106.7 fl (80-100); Mean Platelet Volume 9.1 fl (7.4-10.4); Monocytes Absolute Auto 1.2 K/mm3 (0.1-0.6); Monocytes Percent Auto 6.3 % (2.6-8.5); Neutrophils Absolute Auto 16.2 K/mm3 (1.3-6.7); Neutrophils Percent Auto 88.5 % (45.5-73.1); Platelet Count Result 244 k/mm3 (150-375); Red Blood Count 3.15 M/mm3 (4.6-6.20); White Blood Count 18.3 K/mm3 (4.5-10.0)
[2023-05-05 07:33] LABS: Alanine Aminotransferase 37 U/L (6-50); Albumin Level 2.4 g/dL (3.5-5.1); Alkaline Phosphatase 41 U/L (38-126); Anion Gap 10 mmol/L (8-16); Aspartate Amino Transferase 70 U/L (17-59); Bilirubin,Total 0.9 mg/dL (0.2-1.3); Blood Urea Nitrogen 30 mg/dL (9-20); Calcium 7.6 mg/dL (8.4-10.2); Carbon Dioxide 15 mmol/L (22-30); Chloride 110 mmol/L (98-107); Estimated CRCL calculation 30 ml/min; Estimated Glomerular Filt Rate 42; Glucose 63 mg/dL (65-110); Phosphorus 3.8 mg/dL (2.5-4.5); Potassium 3.2 mmol/L (3.4-5.0); Sodium 135 mmol/L (137-145)
[2023-05-05 08:23] LABS: Platelet Estimate Adequate (Adequate)
[2023-05-05 08:25] LABS: Giant Platelets Present
[2023-05-05 08:26] LABS: Anisocytosis 1+ (NORMAL); Macrocytosis 1+ (NORMAL); Schistocytes None Seen (NORMAL)
--- NOTE | 2023-05-05 09:18 | PCPTNOTE ---
Patient refused treatment this session due to not feeling well. He stated that he wasn't in any pain but he just didn't feel good and didn't want to get up with therapy. Pt educated on benefits of PT and getting up out of bed. Will continue per PT plan of care.
[2023-05-05] MEDS: TAMSULOSIN HCL 0.4 MG CAPSULE PO (10:00)
[2023-05-05] MEDS: MIDODRINE HCL 2.5 MG TABLET 5 MG PO ×3 (10:00→18:37)
[2023-05-05] MEDS: FIDAXOMICIN 200 MG TABLET PO (10:00)
[2023-05-05] MEDS: ROSUVASTATIN 10 MG TABLET 40 MG PO (10:00)
[2023-05-05] MEDS: FUROSEMIDE INJ 40 MG/4 ML VIAL IV PUSH ×2 (10:00→18:37)
[2023-05-05] MEDS: ASPIRIN 81 MG CHEWABLE TABLET PO (10:01)
[2023-05-05] MEDS: CLOPIDOGREL BISULFATE 75 MG TABLET PO (10:01)
[2023-05-05] MEDS: METOPROLOL SUCCINATE EXT REL 25 MG TABCR PO (10:01)
[2023-05-05] MEDS: ENOXAPARIN 30 MG/0.3 ML SYRINGE SUB-Q (10:01)
[2023-05-05] MEDS: POTASSIUM CHLORIDE 20 MEQ ER TABLET 40 MEQ PO (10:03)
--- NOTE | 2023-05-05 10:34 | PM.PNGS ---
Progress Note: A&P Assessment and Plan (1) Recurrent Clostridioides difficile infection: Code(s): A49.8 - Other bacterial infections of unspecified site Status: Acute Assessment and Plan: exam cont to be benign, WBC still at 18k, cont abx, encourage po Subjective Subjective Date/Time Seen: 05/05/23 10:34 Interval history: feels ok, still weak, appetite slightly better, diarrhea better Review of Systems Review of Systems: All systems reviewed & are unremarkable except as noted in HPI and below Exam Const: General: cooperative, no acute distress, ill appearing and tired appearing Resp: Auscultation: diminished lung sounds Cardio: Rate: regular rate Rhythm: regular rhythm GI: Inspection: normal to inspection and distended GI Palp: No abdominal tenderness, Yes Soft to palpation, No Tenderness to palpation present (GI), No Guarding due to palpation present (GI) and No Rigid due to palpation Objective Data Vital Signs Vital Signs: Vital Signs - 24 hr 05/04/23 14:00 05/04/23 20:00 05/04/23 21:10 Temperature 36.6 C 36.4 C Pulse Rate 60 62 Respiratory Rate 18 16 Blood Pressure 94/38 L 90/43 L Pulse Oximetry 98 95 Oxygen Delivery Room Air 05/05/23 06:01 Temperature 36.4 C Pulse Rate 87 Respiratory Rate 16 Blood Pressure 99/45 L Pulse Oximetry 97 Oxygen Delivery Intake/Output Intake/Output: Intake & Output 05/02/23 05/03/23 05/04/23 05/05/23 23:59 23:59 23:59 23:59 Intake Total 3055 2012 1310 100 Output Total 9125 886 9475 1650 Balance 1979 5389 -4441 -4329 Meds/Results Medications: Active Medications Generic Name Dose Route Start Last Admin Trade Name Freq PRN Reason Stop Dose Admin Acetaminophen 650 mg 04/25/23 02:14 05/01/23 17:33 Acetaminophen 325 Mg Tablet PO 650 mg Q4-6H PRN Administration Pain 1-3 or fever Albuterol 2.5 mg 04/25/23 02:14 05/02/23 04:25 Albuterol Sulfate Neb 2.5 Mg/3 Ml Inh INHALATION 2.5 mg Q6H PRN Administration Shortness Of Breath Aspirin 81 mg 04/25/23 09:00 05/05/23 10:01 Aspirin 81 Mg Chewable Tablet PO 81 mg DAILY JANET Administration Clopidogrel Bisulfate 75 mg 04/25/23 09:00 05/05/23 10:01 Clopidogrel Bisulfate 75 Mg Tablet PO 75 mg DAILY JANET Administration Dextromethorphan Polistirix 60 mg 04/25/23 02:18 05/01/23 09:47 Dextromethorphan Polistirex 60 Mg/10 Ml Syringe PO 60 mg Q12HR PRN Administration Cough Diclofenac Sodium 1 applic 04/25/23 02:14 05/01/23 09:49 Diclofenac Sodium 1% 100 Gm Gel (*Bkc) TOPICAL 1 applic TID PRN Administration Pain (Scale Score 1-3) Enoxaparin Sodium 30 mg 04/26/23 09:00 05/05/23 10:01 Enoxaparin 30 Mg/0.3 Ml Syringe SUB-Q 30 mg DAILY JANET Administration Fidaxomicin 200 mg 04/25/23 13:00 05/05/23 10:00 Fidaxomicin 200 Mg Tablet PO 200 mg Q12HR JANET Administration Furosemide 40 mg 05/04/23 09:00 05/05/23 10:00 Furosemide Inj 40 Mg/4 Ml Vial IV PUSH 40 mg BID JANET Administration Hydrocortisone 1 applic 04/25/23 02:14 05/01/23 13:32 Hydrocortisone 1% 30 Gm Cream TOPICAL 1 applic TID PRN Administration hemorrhoids Metronidazole 500 mg in 100 mls @ 100 mls/hr 04/28/23 14:00 05/05/23 06:24 Flagyl 500 Mg/Iso Soln 100 Ml IVPB 100 mls/hr Q8HR JANET Administration Albumin Human 100 mls @ 60 mls/hr 05/03/23 18:00 05/05/23 05:43 Albutein IVPB 60 mls/hr Q6HR JANET Administration Metoprolol Succinate 25 mg 04/25/23 09:00 05/05/23 10:01 Metoprolol Succinate Ext Rel 25 Mg Tabcr PO 25 mg DAILY JANET Administration Midodrine 5 mg 04/29/23 22:42 05/05/23 10:00 Midodrine Hcl 2.5 Mg Tablet PO 5 mg TID JANET Administration Nitroglycerin 0.4 mg 04/25/23 02:14 Nitroglycerin Sl 0.4 Mg Tablet SUBLINGUAL Q5M PRN Chest Pain Ondansetron HCl 4 mg 04/24/23 23:12 05/04/23 18:57 Ondansetron Inj 4 Mg/2 Ml Vial IV PUSH 4 mg Q4H
[2023-05-05 11:10] LABS: Magnesium 2.1 mg/dL (1.6-2.3)
--- NOTE | 2023-05-05 13:23 | PCPTNOTE ---
Attempted physical therapy treatment this afternoon. Pt stated that he doesn't think that he can do it today because he is tired and doesn't feel well. Will continue per PT plan of care.
--- NOTE | 2023-05-05 14:19 | P.PNNP_ITS ---
Progress Note: A&P Assessment and Plan (1) KJ (acute kidney injury): Code(s): N17.9 - Acute kidney failure, unspecified Status: Acute Assessment and Plan: * acute kidney injury. * Renal ultrasound unremarkable. * Urinalysis is bland. * Urine electrolytes consistent with pre renal azotemia. * Acute kidney injury most likely due to dehydration. * Swelling is improved * Intake/output is negative. * Blood pressure is soft. Systolic runs between 90 and 110. He is getting a small dose of metoprolol plus some midodrine. * Chest x-ray on 05/01 showed no fluid. * His creatinine is slowly decreasing. It is down to 1.6 today. * Urine output is much better. * Will continue the IV albumin plus furosemide. (2) Stage 3a chronic kidney disease: Code(s): N18.31 - Chronic kidney disease, stage 3a Status: Chronic Assessment and Plan: * baseline creatinine seems to run ~ 1.1 - 1.5mg/dl in the last year or so * likely secondary to vascular disease (CAD, CHF/cardiomyopathy, hyperlipidemia), HTN, and nephrolithiasis (3) Hyponatremia: Code(s): E87.1 - Hypo-osmolality and hyponatremia Status: Acute Assessment and Plan: * Hyponatremia. * suspect acute worsening likely secondary to * KJ/ARF Improving * possibly from diuretic use . As long as his sodium isn't dropping I do not think we need to fluid restrict him. The diarrhea probably contributes to some of the free water excretion. * GI losses (diarrhea) Not as much of an issue. * pre-renal factors some pre renal issues due to 3rd spacing from the low albumin. * reactive airway disease a chronic issue. * chronic low sodium due to: * known SSRI use * underlying cardiomyopathy * CHF * necessity of diuretics * interstitial lung disease * sodium is actually little bit better today. Continue to follow the sodium levels. (4) C. difficile colitis: Code(s): A04.72 - Enterocolitis due to Clostridium difficile, not specified as recurrent Status: Acute Assessment and Plan: * as noted by history and imaging * on oral vancomycin and IV flagyl * He is still having some diarrhea. * Noted Dr. Andino's suggestion for other options for C diff treatment. (5) Orthostatic hypotension: Code(s): I95.1 - Orthostatic hypotension Status: Acute Assessment and Plan: * Blood pressure still somewhat soft. * Getting midodrine (6) Congestive heart failure: Qualifiers: Heart failure chronicity: chronic Heart failure type: right-sided Qualified Code(s): I50.812 - Chronic right heart failure Code(s): I50.9 - Heart failure, unspecified Status: Chronic Assessment and Plan: * appears stable at this time * last chest x-ray shows no fluid (7) Generalized weakness: Code(s): R53.1 - Weakness Status: Acute Assessment and Plan: * due to KJ + acute illness with C diff * continue ongoing therapy * PT/OT as tolerated Subjective Date/time seen: 05/05/23 14:19 Interval history: Yoseph is feeling about the same. Eating a little bit. Not a great appetite. Stools have Slown down. Exam Narrative: WDWN in NAD skin no rash Or subQ nodules head ncat lungs clear to auscultation cor reg no rub or gallop abd BS+ nontender ext 1+ presacral edema and some in the hands. Objective Data Vital Signs
--- NOTE | 2023-05-05 14:19 | PM.PNNEP ---
Progress Note: A&P Assessment and Plan (1) KJ (acute kidney injury): Code(s): N17.9 - Acute kidney failure, unspecified Status: Acute Assessment and Plan: acute kidney injury. Renal ultrasound unremarkable. Urinalysis is bland. Urine electrolytes consistent with pre renal azotemia. Acute kidney injury most likely due to dehydration. Swelling is improved Intake/output is negative. Blood pressure is soft. Systolic runs between 90 and 110. He is getting a small dose of metoprolol plus some midodrine. Chest x-ray on 05/01 showed no fluid. His creatinine is slowly decreasing. It is down to 1.6 today. Urine output is much better. Will continue the IV albumin plus furosemide. (2) Stage 3a chronic kidney disease: Code(s): N18.31 - Chronic kidney disease, stage 3a Status: Chronic Assessment and Plan: baseline creatinine seems to run ~ 1.1 - 1.5mg/dl in the last year or so likely secondary to vascular disease (CAD, CHF/cardiomyopathy, hyperlipidemia), HTN, and nephrolithiasis (3) Hyponatremia: Code(s): E87.1 - Hypo-osmolality and hyponatremia Status: Acute Assessment and Plan: Hyponatremia. suspect acute worsening likely secondary to KJ/ARF Improving possibly from diuretic use . As long as his sodium isn't dropping I do not think we need to fluid restrict him. The diarrhea probably contributes to some of the free water excretion. GI losses (diarrhea) Not as much of an issue. pre-renal factors some pre renal issues due to 3rd spacing from the low albumin. reactive airway disease a chronic issue. chronic low sodium due to: known SSRI use underlying cardiomyopathy CHF necessity of diuretics interstitial lung disease sodium is actually little bit better today. Continue to follow the sodium levels. (4) C. difficile colitis: Code(s): A04.72 - Enterocolitis due to Clostridium difficile, not specified as recurrent Status: Acute Assessment and Plan: as noted by history and imaging on oral vancomycin and IV flagyl He is still having some diarrhea. Noted Dr. Andino's suggestion for other options for C diff treatment. (5) Orthostatic hypotension: Code(s): I95.1 - Orthostatic hypotension Status: Acute Assessment and Plan: Blood pressure still somewhat soft. Getting midodrine (6) Congestive heart failure: Qualifiers: Heart failure chronicity: chronic Heart failure type: right-sided Qualified Code(s): I50.812 - Chronic right heart failure Code(s): I50.9 - Heart failure, unspecified Status: Chronic Assessment and Plan: appears stable at this time last chest x-ray shows no fluid (7) Generalized weakness: Code(s): R53.1 - Weakness Status: Acute Assessment and Plan: due to KJ + acute illness with C diff continue ongoing therapy PT/OT as tolerated Subjective Date/time seen: 05/05/23 14:19 Interval history: Yoseph is feeling about the same. Eating a little bit. Not a great appetite. Stools have Slown down. Exam Narrative: WDWN in NAD skin no rash Or subQ nodules head ncat lungs clear to auscultation cor reg no rub or gallop abd BS+ nontender ext 1+ presacral edema and some in the hands. Objective Data Vital Signs Vital Signs: Vital Signs - 24 hr 05/04/23 20:00 05/04/23 21:10 05/05/23 06:01 Temperature 97.6 F 97.6 F Pulse Rate 62 87 Respiratory Rate 16 16 Blood Pressure 90/43 L 99/45 L Pulse Oximetry 95 97 Oxygen Delivery Room Air 05/05/23 08:00 Temperature Pulse Rate Respiratory Rate Blood Pressure Pulse Oximetry Oxygen Delivery Room Air Intake/Output Intake/Output: Intake & Output 05/02/23 05/03/23 05/04/23 05/05/23 23:59 23:59 23:59 23:59 Intake Total 3055 2012 1310 320 Output Total 4245 722 0761 1800 Balance 1979
[2023-05-05 14:50] VITALS: BP 109/39; PULSE 63; RESP 16; TEMP 37.1; O2SAT 97
[2023-05-05 14:56] LABS: Chloride Rand Ur <20 mmol/L (32-290); Creatinine Random Urine 68 mg/dL (20-320)
[2023-05-05] MEDS: ONDANSETRON INJ 4 MG/2 ML VIAL IV PUSH (16:05)
--- NOTE | 2023-05-05 16:27 | WPDGIPROGNO ---
Progress Note: A&P Assessment and Plan (1) Recurrent Clostridioides difficile diarrhea: Code(s): A04.71 - Enterocolitis due to Clostridium difficile, recurrent Status: Acute Assessment and Plan: on treatment for c diff with dificid, oral vanco and iv flagyl no abdominal pain, exam is benign leukocytosis trending down and less diarrhea, hope he can go home soon with dificid then as outpatient we could either use Vowst which is a new fecal microbiota spores just approved by FDA that comes in capsules- normally this is delivered to his address, patient will need to be off antibiotics at least for 1 day after completing treatment for colitis and take bowel prep. If that does not get approve then we can consider using Rebyota (another fecal microbiota that is given in the office as enema). Again with both treatments, patient will need to be off antibiotics for 1-2 days. Both treatments can replace stool transplant and it is mostly to prevent new episodes. (2) Acute on chronic renal failure: Code(s): N17.9 - Acute kidney failure, unspecified; N18.9 - Chronic kidney disease, unspecified Status: Acute Assessment and Plan: by nephrology, creatinine continues to improve (3) Leukocytosis: Code(s): D72.829 - Elevated white blood cell count, unspecified Status: Acute Assessment and Plan: improving (4) Orthostatic hypotension: Code(s): I95.1 - Orthostatic hypotension Status: Acute Assessment and Plan: chronic Subjective Date/time seen: 05/05/23 16:27 Interval history: doing better, comfortable, consistent stool better Review of Systems Review of Systems: All systems reviewed & are unremarkable except as noted in HPI and below Exam Const: General: comfortable and no acute distress Other: chronically ill appearing HENMT: Face/Nose/Sinus: Normal nares present Eyes: General: appearance normal, both eyes and all related structures Neck: Neck: supple Resp: Auscultation: clear to auscultation bilaterally Cardio: Rate: regular rate Rhythm: regular rhythm GI: Inspection: distended GI Palp: Yes Soft to palpation, No Tenderness to palpation present (GI) and No Guarding due to palpation present (GI) Auscultation: normal bowel sounds Skin: General skin exam: normal color Neuro: Speech: normal speech Motor exam (neuro): 5/5 motor strength present throughout Extrem: General: pedal edema Psych: Mental Status: mental status grossly normal Objective Data Vital Signs Vital Signs: Vital Signs - 24 hr 05/04/23 20:00 05/04/23 21:10 05/05/23 06:01 Temperature 97.6 F 97.6 F Pulse Rate 62 87 Respiratory Rate 16 16 Blood Pressure 90/43 L 99/45 L Pulse Oximetry 95 97 Oxygen Delivery Room Air 05/05/23 08:00 05/05/23 14:50 Temperature 98.8 F Pulse Rate 63 Respiratory Rate 16 Blood Pressure 109/39 L Pulse Oximetry 97 Oxygen Delivery Room Air Intake/Output Intake/Output: Intake & Output 05/02/23 05/03/23 05/04/23 05/05/23 23:59 23:59 23:59 23:59 Intake Total 3052011 540 Output Total 2966 734 7403 1800 Balance 1979 3684 -9829 -0254 Meds/Results Medications: Active Medications Generic Name Dose Route Start Last Admin Trade Name Freq PRN Reason Stop Dose Admin Acetaminophen 650 mg 04/25/23 02:14 05/01/23 17:33 Acetaminophen 325 Mg Tablet PO 650 mg Q4-6H PRN Administration Pain 1-3 or fever Albuterol 2.5 mg 04/25/23 02:14 05/02/23 04:25 Albuterol Sulfate Neb 2.5 Mg/3 Ml Inh INHALATION 2.5 mg Q6H PRN Administration Shortness Of Breath Aspirin 81 mg 04/25/23 09:00 05/05/23 10:01 Aspirin 81 Mg Chewable Tablet PO 81 mg DAILY JANET Administration Clopidogrel Bisulfate 75 mg 04/25/23 09:00 05/05/23 10:01 Clopidogrel Bisulfate 75 Mg Tablet PO 75 mg DAILY JANET Administration Dextromethorphan Polistirix 60 mg 04/25/23 02:18 05/01/23 09:47 Dextromethorp
[2023-05-05] MEDS: SERTRALINE HCL 25 MG TABLET PO (21:38)
[2023-05-05 21:48] VITALS: BP 108/39; PULSE 60; RESP 16; TEMP 36.9; O2SAT 94
[2023-05-06 06:00] VITALS: BP 122/45; PULSE 60; RESP 18; TEMP 37.2; O2SAT 93
[2023-05-06 07:41] LABS: Basophils Absolute Auto 0.1 K/mm3 (0.0-0.1); Basophils Percent Auto 0.3 % (0.2-1.2); Eosinophils Absolute Auto 0.1 K/mm3 (0-0.3); Eosinophils Percent Auto 0.6 % (0-4.4); Hematocrit 32.1 % (42.0-52.0); Hemoglobin 10.5 g/dL (14.0-18.0); Immature Granulocyte Absolute 0.13 K/mm3 (0.00-0.031); Immature Granulocyte Percent A 0.7 % (0-0.5); Lymphocytes Absolute Auto 0.57 K/mm3 (0.9-3.2); Lymphocytes Percent Auto 2.9 % (18.3-44.2); Mean Corpuscular HGB Conc 32.7 g/dl (32-36); Mean Corpuscular Hemoglobin 30.6 pg (26-34); Mean Corpuscular Volume 93.6 fl (80-100); Mean Platelet Volume 9.1 fl (7.4-10.4); Monocytes Absolute Auto 1.3 K/mm3 (0.1-0.6); Monocytes Percent Auto 6.8 % (2.6-8.5); Neutrophils Absolute Auto 17.2 K/mm3 (1.3-6.7); Neutrophils Percent Auto 88.7 % (45.5-73.1); Platelet Count Result 255 k/mm3 (150-375); Red Blood Count 3.43 M/mm3 (4.6-6.20); Red Cell Distribution Width 15.6 % (11.5-14.5); White Blood Count 19.4 K/mm3 (4.5-10.0)
[2023-05-06 08:00] VITALS: PULSE 63; RESP 16; O2SAT 97
--- NOTE | 2023-05-06 08:04 | WPDPN ---
Progress Note: A&P Assessment and Plan (1) Sepsis: Qualifiers: Sepsis type: sepsis due to unspecified organism Sepsis acute organ dysfunction status: with acute organ dysfunction Severe sepsis acute organ dysfunction type: acute renal failure Acute renal failure type: unspecified Severe sepsis shock status: without septic shock Qualified Code(s): A41.9 - Sepsis, unspecified organism; R65.20 - Severe sepsis without septic shock; N17.9 - Acute kidney failure, unspecified Code(s): A41.9 - Sepsis, unspecified organism Status: Acute Assessment and Plan: Patient met sepsis criteria on admission with leukocytosis, tachycardia, acute kidney injury in the setting of C diff pancolitis. Treated with IV fluids and antibiotics. Blood pressure was soft but this is probably more chronic. Lactic acid was normal. Heart rate normal. Creatinine up slightly. 04/28: leuk worsening, add back oral vanc 04/29: Leukocytosis improving, down to 18 with the addition of oral vancomycin, continue to monitor 04/30: leuk again back up to 22, unknown reason, GI consult pending, consider transfer for fecal transplant 05/01: leuk continues to climb, up to 25 today, appreciate GI consult, consider fecal transplant? 05/02: back up to 24 today, may need transfer 05/03: defer management to GI, transfer? refused by [facility], no inpatient fecal transplant at either facility anymore, appears to be slowly improving 05/05/2023 inteval history: 83-year-old male with recurrent C difficile seen by GI and being treated with Dificid, oral vancomycin and IV Flagyl, patient states symptoms are improving and less frequency of bowel movement, I spoke with the patient's daughter and plan is to if Dificid approved for outpatient treatment patient can be discharged home and follow-up outpatient for fecal transplant, patient remains clinically stable and has no new complaints, patient daughter is present, will continue to monitor. (2) C. difficile colitis: Code(s): A04.72 - Enterocolitis due to Clostridium difficile, not specified as recurrent Status: Acute Assessment and Plan: The patient presents with diarrhea and weakness. He has had CDiff just 1 month ago. His CDiff toxin positive here and CT Abd/pelvis showing pancolitis. The patient has recurrent C diff colitis. Oral vancomycin started. For the first recurrence, bezlotoxumab recommended but not available here. 04/28: worsened on dificid, add back oral vanc + IV flagyl 04/29: Leukocytosis improving but symptomatically patient appears unchanged, continue to monitor 04/30: see above (3) KJ (acute kidney injury): Code(s): N17.9 - Acute kidney failure, unspecified Status: Acute Assessment and Plan: Creatinine elevated on admission to 1.5. Baseline 1.1-1.3. Cr climbed to 1.7 yesterday and stable today. Suspect related to above. Will follow. Continue IV fluids. Lasix on hold. 04/27: creat continues to worsen to 2.7, consult nephrology 04/28: increase IVF 04/29: Improved with IV fluid, monitor, appreciate nephrology consultation 04/30: cont to improve with IVF, d/c IVF and monitor 05/01: unchanged at 2.2, restart IVF per nephro 05/02: worsening, likely need albumin? 05/03: improving, cr down to 1.9 (4) Acute hyponatremia: Code(s): E87.1 - Hypo-osmolality and hyponatremia Status: Acute Assessment and Plan: Sodium was 126 on admission probably related to dehydration from excessive diarrhea. No metabolic acidosis noted. With IV fluids, his sodium has improved slightly to 129. This should continue to correct. Will continue to follow. Stable, monitor, up to 131 05/03 (5) Generalized weakness: Code(s): R53.1 - Weakness Status: Acute Assessment and Plan: Patient with generalized weakness related to above. Continue PT/OT as able. Increase activity as able (6) Orthostatic hypotension: Code(s): I95.1 - Orthostatic hypotension
[2023-05-06 08:10] LABS: Alanine Aminotransferase 27 U/L (6-50); Albumin Level 3.1 g/dL (3.5-5.1); Alkaline Phosphatase 44 U/L (38-126); Anion Gap 8 mmol/L (8-16); Aspartate Amino Transferase 39 U/L (17-59); Bilirubin,Total 1.1 mg/dL (0.2-1.3); Blood Urea Nitrogen 24 mg/dL (9-20); Calcium 7.9 mg/dL (8.4-10.2); Carbon Dioxide 27 mmol/L (22-30); Chloride 102 mmol/L (98-107); Estimated CRCL calculation 30 ml/min; Estimated Glomerular Filt Rate 42; Glucose 86 mg/dL (65-110); Magnesium 1.6 mg/dL (1.6-2.3); Phosphorus 3.2 mg/dL (2.5-4.5); Potassium 2.4 mmol/L (3.4-5.0); Sodium 137 mmol/L (137-145)
[2023-05-06 08:32] LABS: Platelet Estimate Adequate (Adequate)
[2023-05-06 08:33] LABS: Anisocytosis 1+ (NORMAL)
[2023-05-06 08:34] LABS: Burr Cells 1+ (NORMAL); Ovalocytes 1+ (NORMAL); Schistocytes None Seen (NORMAL)
[2023-05-06] MEDS: ASPIRIN 81 MG CHEWABLE TABLET PO (09:15)
[2023-05-06] MEDS: ROSUVASTATIN 10 MG TABLET 40 MG PO (09:15)
[2023-05-06] MEDS: MIDODRINE HCL 2.5 MG TABLET 5 MG PO ×3 (09:15→18:55)
[2023-05-06] MEDS: CLOPIDOGREL BISULFATE 75 MG TABLET PO (09:15)
[2023-05-06 09:16] VITALS: PULSE 68
[2023-05-06] MEDS: METOPROLOL SUCCINATE EXT REL 25 MG TABCR PO (09:16)
[2023-05-06] MEDS: FUROSEMIDE INJ 40 MG/4 ML VIAL IV PUSH (09:16)
[2023-05-06] MEDS: TAMSULOSIN HCL 0.4 MG CAPSULE PO (09:16)
[2023-05-06] MEDS: ENOXAPARIN 30 MG/0.3 ML SYRINGE SUB-Q (09:17)
[2023-05-06] MEDS: POTASSIUM CHLORIDE INJ 40 MEQ in SODIUM CHLORIDE 0.9% IV 500 ML 130 MEQ IVPB (09:26)
[2023-05-06] MEDS: POTASSIUM CHLORIDE 20 MEQ ER TABLET 40 MEQ PO (09:26)
--- NOTE | 2023-05-06 11:17 | WPDGIPROGNO ---
Progress Note: A&P Assessment and Plan (1) Recurrent Clostridioides difficile diarrhea: Code(s): A04.71 - Enterocolitis due to Clostridium difficile, recurrent Status: Acute Assessment and Plan: on treatment for c diff with dificid, oral vanco and iv flagyl no abdominal pain, exam is benign today hypokalemia and received supplement leukocytosis stable and renal function improved with creat 1.6 when he is ready to go home, he can take dificid for at least 10 days and once he is done with treatment then he can either get Vowst which is a new fecal microbiota spores (I sent prescription and awaiting to see if will get approved) if not then other option is Rebyota (another fecal microbiota that is given in the office as enema). Again with both treatments, patient will need to be off antibiotics for 1-2 days. Both treatments can replace stool transplant and it is mostly to prevent new episodes. (2) Acute on chronic renal failure: Code(s): N17.9 - Acute kidney failure, unspecified; N18.9 - Chronic kidney disease, unspecified Status: Acute Assessment and Plan: by nephrology, creatinine now better at 1.6 (3) Leukocytosis: Code(s): D72.829 - Elevated white blood cell count, unspecified Status: Acute Assessment and Plan: stable at 19k (4) Orthostatic hypotension: Code(s): I95.1 - Orthostatic hypotension Status: Acute Assessment and Plan: chronic Subjective Date/time seen: 05/06/23 11:17 Interval history: still with some diarrhea, daughter is here Review of Systems Review of Systems: All systems reviewed & are unremarkable except as noted in HPI and below Exam Const: General: comfortable and no acute distress Other: chronically ill appearing HENMT: Face/Nose/Sinus: Normal nares present Eyes: General: appearance normal, both eyes and all related structures Neck: Neck: supple Resp: Auscultation: clear to auscultation bilaterally Cardio: Rate: regular rate Rhythm: regular rhythm GI: Inspection: distended GI Palp: Yes Soft to palpation, No Tenderness to palpation present (GI) and No Guarding due to palpation present (GI) Auscultation: normal bowel sounds Skin: General skin exam: normal color Neuro: Speech: normal speech Motor exam (neuro): 5/5 motor strength present throughout Extrem: General: pedal edema Psych: Mental Status: mental status grossly normal Objective Data Vital Signs Vital Signs: Vital Signs - 24 hr 05/05/23 14:50 05/05/23 21:48 05/05/23 20:00 Temperature 98.8 F 98.5 F Pulse Rate 63 60 Respiratory Rate 16 16 Blood Pressure 109/39 L 108/39 L Pulse Oximetry 97 94 Oxygen Delivery Room Air 05/06/23 06:00 05/06/23 09:16 Temperature 98.9 F Pulse Rate 60 68 Respiratory Rate 18 Blood Pressure 122/45 L Pulse Oximetry 93 Oxygen Delivery Intake/Output Intake/Output: Intake & Output 05/03/23 05/04/23 05/05/23 05/06/23 23:59 23:59 23:59 23:59 Intake Total 2011 1310 1340 912 Output Total 3150 3350 0 Balance 1412 -1840 -2010 -1138 Meds/Results Medications: Active Medications Generic Name Dose Route Start Last Admin Trade Name Freq PRN Reason Stop Dose Admin Acetaminophen 650 mg 04/25/23 02:14 05/01/23 17:33 Acetaminophen 325 Mg Tablet PO 650 mg Q4-6H PRN Administration Pain 1-3 or fever Albuterol 2.5 mg 04/25/23 02:14 05/02/23 04:25 Albuterol Sulfate Neb 2.5 Mg/3 Ml Inh INHALATION 2.5 mg Q6H PRN Administration Shortness Of Breath Aspirin 81 mg 04/25/23 09:00 05/06/23 09:15 Aspirin 81 Mg Chewable Tablet PO 81 mg DAILY JANET Administration Clopidogrel Bisulfate 75 mg 04/25/23 09:00 05/06/23 09:15 Clopidogrel Bisulfate 75 Mg Tablet PO 75 mg DAILY JANET Administration Dextromethorphan Polistirix 60 mg 04/25/23 02:18 05/01/23 09:47 Dextromethorphan Polistirex 60 Mg/10 Ml Syringe PO 60 mg Q12HR PRN Admini
--- NOTE | 2023-05-06 11:50 | PCNFU ---
Nutrition Follow-Up Complete: Unintentional weight loss related to reduced appetite and intake as evidenced by pt report on admission PO intake 75% or greater for meals - not meeting goal Goal: Pt current nutrition is Heart healthy diet. 0-50% meals. No intakes noted on supplements. Ensure Compact BID and Banatrol TID for diarrhea. Nutrition recommendation: Continue with Ensure Compact BID. Can discontinue Banatrol as diarrhea has subsided. Last recorded weight is 79 kg. Bowel Motility: +1 BM 05/06/23 Labs Reviewed: Hgb 10.5, Hct 32.1, Alb 3.1, K+ 2.4, eGFR 42, BUN 24, Cre 1.6 Meds Noted: Zofran, Lasix, Zofran, Vanco Skin: WNL Additional Notes: Diarrhea has improved. Has been on Banatrol 7 days, can discontinue. Continue with nutrition care plan and supplement. Monitor intake, wt, labs. Follow up in 7 days.
--- NOTE | 2023-05-06 13:38 | P.PNNP_ITS ---
Progress Note: A&P Assessment and Plan (1) KJ (acute kidney injury): Code(s): N17.9 - Acute kidney failure, unspecified Status: Acute Assessment and Plan: * acute kidney injury. * Renal ultrasound unremarkable. * Urinalysis is bland. * Urine electrolytes consistent with pre renal azotemia. * Acute kidney injury most likely due to dehydration. * Swelling is improved * Intake/output is negative. * Blood pressure is Doing better. * Creatinine is improved * Will continue the IV albumin plus furosemide. (2) Stage 3a chronic kidney disease: Code(s): N18.31 - Chronic kidney disease, stage 3a Status: Chronic Assessment and Plan: * baseline creatinine seems to run ~ 1.1 - 1.5mg/dl in the last year or so * likely secondary to vascular disease (CAD, CHF/cardiomyopathy, hyperlipidemia), HTN, and nephrolithiasis (3) Hyponatremia: Code(s): E87.1 - Hypo-osmolality and hyponatremia Status: Acute Assessment and Plan: * Hyponatremia. * Sodium normal today. (4) C. difficile colitis: Code(s): A04.72 - Enterocolitis due to Clostridium difficile, not specified as recurrent Status: Acute Assessment and Plan: * as noted by history and imaging * on oral vancomycin and IV flagyl * He is still having some diarrhea. * Noted Dr. Andino's suggestion for other options for C diff treatment. (5) Orthostatic hypotension: Code(s): I95.1 - Orthostatic hypotension Status: Acute Assessment and Plan: * Blood pressure still somewhat soft. * Getting midodrine (6) Congestive heart failure: Qualifiers: Heart failure chronicity: chronic Heart failure type: right-sided Qualified Code(s): I50.812 - Chronic right heart failure Code(s): I50.9 - Heart failure, unspecified Status: Chronic Assessment and Plan: * appears stable at this time * last chest x-ray shows no fluid (7) Generalized weakness: Code(s): R53.1 - Weakness Status: Acute Assessment and Plan: * due to KJ + acute illness with C diff * continue ongoing therapy * PT/OT as tolerated Subjective Date/time seen: 05/06/23 13:38 Interval history: and daughter is in the room. The patient, the daughter, and I discussed the case. Yoseph is feeling about the same. Eating some. Still having bowel movements. Exam Narrative: WDWN in NAD skin no rash Or subQ nodules head ncat lungs clear to auscultation cor reg no rub or gallop abd BS+ nontender ext 1+ presacral edema and some in the hands. Objective Data Vital Signs Vital Signs: Vital Signs - 24 hr 05/05/23 14:50 05/05/23 21:48 05/05/23 20:00 Temperature 98.8 F 98.5 F Pulse Rate 63 60 Respiratory Rate 16 16 Blood Pressure 109/39 L 108/39 L Pulse Oximetry 97 94 Oxygen Delivery Room Air 05/06/23 06:00 05/06/23 09:16 Temperature 98.9 F Pulse Rate 60 68 Respiratory Rate 18 Blood Pressure 122/45 L Pulse Oximetry 93 Oxygen Delivery Intake/Output Intake/Output: Intake & Output 05/03/23 05/04/23 05/05/23 05/06/23 23:59 23:59 23:59 23:59 Intake Total 2011 1310 1340 115
--- NOTE | 2023-05-06 13:38 | PM.PNNEP ---
Progress Note: A&P Assessment and Plan (1) KJ (acute kidney injury): Code(s): N17.9 - Acute kidney failure, unspecified Status: Acute Assessment and Plan: acute kidney injury. Renal ultrasound unremarkable. Urinalysis is bland. Urine electrolytes consistent with pre renal azotemia. Acute kidney injury most likely due to dehydration. Swelling is improved Intake/output is negative. Blood pressure is Doing better. Creatinine is improved Will continue the IV albumin plus furosemide. (2) Stage 3a chronic kidney disease: Code(s): N18.31 - Chronic kidney disease, stage 3a Status: Chronic Assessment and Plan: baseline creatinine seems to run ~ 1.1 - 1.5mg/dl in the last year or so likely secondary to vascular disease (CAD, CHF/cardiomyopathy, hyperlipidemia), HTN, and nephrolithiasis (3) Hyponatremia: Code(s): E87.1 - Hypo-osmolality and hyponatremia Status: Acute Assessment and Plan: Hyponatremia. Sodium normal today. (4) C. difficile colitis: Code(s): A04.72 - Enterocolitis due to Clostridium difficile, not specified as recurrent Status: Acute Assessment and Plan: as noted by history and imaging on oral vancomycin and IV flagyl He is still having some diarrhea. Noted Dr. Andino's suggestion for other options for C diff treatment. (5) Orthostatic hypotension: Code(s): I95.1 - Orthostatic hypotension Status: Acute Assessment and Plan: Blood pressure still somewhat soft. Getting midodrine (6) Congestive heart failure: Qualifiers: Heart failure chronicity: chronic Heart failure type: right-sided Qualified Code(s): I50.812 - Chronic right heart failure Code(s): I50.9 - Heart failure, unspecified Status: Chronic Assessment and Plan: appears stable at this time last chest x-ray shows no fluid (7) Generalized weakness: Code(s): R53.1 - Weakness Status: Acute Assessment and Plan: due to KJ + acute illness with C diff continue ongoing therapy PT/OT as tolerated Subjective Date/time seen: 05/06/23 13:38 Interval history: and daughter is in the room. The patient, the daughter, and I discussed the case. Yoseph is feeling about the same. Eating some. Still having bowel movements. Exam Narrative: WDWN in NAD skin no rash Or subQ nodules head ncat lungs clear to auscultation cor reg no rub or gallop abd BS+ nontender ext 1+ presacral edema and some in the hands. Objective Data Vital Signs Vital Signs: Vital Signs - 24 hr 05/05/23 14:50 05/05/23 21:48 05/05/23 20:00 Temperature 98.8 F 98.5 F Pulse Rate 63 60 Respiratory Rate 16 16 Blood Pressure 109/39 L 108/39 L Pulse Oximetry 97 94 Oxygen Delivery Room Air 05/06/23 06:00 05/06/23 09:16 Temperature 98.9 F Pulse Rate 60 68 Respiratory Rate 18 Blood Pressure 122/45 L Pulse Oximetry 93 Oxygen Delivery Intake/Output Intake/Output: Intake & Output 05/03/23 05/04/23 05/05/23 05/06/23 23:59 23:59 23:59 23:59 Intake Total 2011 1310 1340 1152 Output Total 600 3150 3350 2050 Balance 9372 -1840 -2010 -898 Meds/Results Medications: Active Medications Generic Name Dose Route Start Last Admin Trade Name Freq PRN Reason Stop Dose Admin Acetaminophen 650 mg 04/25/23 02:14 05/01/23 17:33 Acetaminophen 325 Mg Tablet PO 650 mg Q4-6H PRN Administration Pain 1-3 or fever Albuterol 2.5 mg 04/25/23 02:14 05/02/23 04:25 Albuterol Sulfate Neb 2.5 Mg/3 Ml Inh INHALATION 2.5 mg Q6H PRN Administration Shortness Of Breath Aspirin 81 mg 04/25/23 09:00 05/06/23 09:15 Aspirin 81 Mg Chewable Tablet PO 81 mg DAILY JANET Administration Clopidogrel Bisulfate 75 mg 04/25/23 09:00 05/06/23 09:15 Clopidogrel Bisulfate 75 Mg Tablet PO 75 mg DAILY JANET Administration
[2023-05-06 14:40] VITALS: BP 107/42; PULSE 63; RESP 16; TEMP 36.8; O2SAT 97
[2023-05-06] MEDS: VANCOMYCIN ORAL 500 MG/10 ML SYRUP PO ×2 (15:03→18:56)
[2023-05-06] MEDS: metroNIDAZOLE 500 MG/ISO 100ML 500 MG/100 ML BAG 100 MG IVPB (15:25)
--- NOTE | 2023-05-06 15:28 | WPDPN ---
Subjective Date/time seen: 05/06/23 15:28 Objective Data Vital Signs Vital Signs: Vital Signs - 24 hr 05/05/23 21:48 05/05/23 20:00 05/06/23 06:00 Temperature 98.5 F 98.9 F Pulse Rate 60 60 Respiratory Rate 16 18 Blood Pressure 108/39 L 122/45 L Pulse Oximetry 94 93 Oxygen Delivery Room Air 05/06/23 09:16 Temperature Pulse Rate 68 Respiratory Rate Blood Pressure Pulse Oximetry Oxygen Delivery Intake/Output Intake/Output: Intake & Output 05/03/23 05/04/23 05/05/23 05/06/23 23:59 23:59 23:59 23:59 Intake Total 2011 1309 1440 1252 Output Total 3150 3350 2050 Balance 5402 -1640 -8720 -658 Meds/Results Medications: Active Medications Generic Name Dose Route Start Last Admin Trade Name Freq PRN Reason Stop Dose Admin Acetaminophen 650 mg 04/25/23 02:14 05/01/23 17:33 Acetaminophen 325 Mg Tablet PO 650 mg Q4-6H PRN Administration Pain 1-3 or fever Albuterol 2.5 mg 04/25/23 02:14 05/02/23 04:25 Albuterol Sulfate Neb 2.5 Mg/3 Ml Inh INHALATION 2.5 mg Q6H PRN Administration Shortness Of Breath Aspirin 81 mg 04/25/23 09:00 05/06/23 09:15 Aspirin 81 Mg Chewable Tablet PO 81 mg DAILY JANET Administration Clopidogrel Bisulfate 75 mg 04/25/23 09:00 05/06/23 09:15 Clopidogrel Bisulfate 75 Mg Tablet PO 75 mg DAILY JANET Administration Dextromethorphan Polistirix 60 mg 04/25/23 02:18 05/01/23 09:47 Dextromethorphan Polistirex 60 Mg/10 Ml Syringe PO 60 mg Q12HR PRN Administration Cough Diclofenac Sodium 1 applic 04/25/23 02:14 05/01/23 09:49 Diclofenac Sodium 1% 100 Gm Gel (*Bkc) TOPICAL 1 applic TID PRN Administration Pain (Scale Score 1-3) Enoxaparin Sodium 30 mg 04/26/23 09:00 05/06/23 09:17 Enoxaparin 30 Mg/0.3 Ml Syringe SUB-Q 30 mg DAILY JANET Administration Furosemide 40 mg 05/04/23 09:00 05/06/23 09:16 Furosemide Inj 40 Mg/4 Ml Vial IV PUSH 40 mg BID JANET Administration Hydrocortisone 1 applic 04/25/23 02:14 05/01/23 13:32 Hydrocortisone 1% 30 Gm Cream TOPICAL 1 applic TID PRN Administration hemorrhoids Metronidazole 500 mg in 100 mls @ 100 mls/hr 04/28/23 14:00 05/06/23 15:25 Flagyl 500 Mg/Iso Soln 100 Ml IVPB 100 mls/hr Q8HR JANET Administration Albumin Human 100 mls @ 60 mls/hr 05/03/23 18:00 05/06/23 15:03 Albutein IVPB Not Given Q6HR [facility] Magnesium Oxide 400 mg 05/07/23 09:00 Magnesium Oxide 400 Mg Tablet PO DAILY [facility] Metoprolol Succinate 25 mg 04/25/23 09:00 05/06/23 09:16 Metoprolol Succinate Ext Rel 25 Mg Tabcr PO 25 mg DAILY [facility] Administration Midodrine 5 mg 04/29/23 22:42 05/06/23 12:25 Midodrine Hcl 2.5 Mg Tablet PO 5 mg TID [facility] Administration Nitroglycerin 0.4 mg 04/25/23 02:14 Nitroglycerin Sl 0.4 Mg Tablet SUBLINGUAL Q5M PRN Chest Pain Ondansetron HCl 4 mg 04/24/23 23:12 05/05/23 16:05 Ondansetron Inj 4 Mg/2 Ml Vial IV PUSH 4 mg Q4H PRN Administration Nausea Rosuvastatin Calcium 40 mg 04/25/23 09:00 05/06/23 09:15 Rosuvastatin 10 Mg Tablet PO 40 mg DAILY [facility] Administration Sertraline HCl 25 mg 04/25/23 21:00 05/05/23 21:38 Sertraline Hcl 25 Mg Tablet PO 25 mg HS [facility] Administration Tamsulosin HCl 0.4 mg 04/25/23 09:00 05/06/23 09:16 Tamsulosin Hcl 0.4 Mg Capsule PO 0.4 mg DAILY [facility] Administration Vancomycin HCl 500 mg 04/28/23 12:00 05/06/23 15:03 Vancomycin Oral 500 Mg/10 Ml Syrup PO 500 mg Q6HR JANET Administration Radiology Results: ITS Impressions Abdomen/Pelvis CT 04/25/23 05:33 Impression: Pancolitis, most likely infectious/inflammatory in nature. C. difficile colitis is a consideration. Renal Ultrasound 04/29/23 10:48 IMPRESSION: 1. Unremarkable kidneys without hydronephrosis. Abdomen X-Ray 05/01/23 14:43 IMPRESSION: 1. Nonobstructive bowel gas pattern. Chest
[2023-05-06 18:39] LABS: SARS-CoV-2 RNA PCR Negative (Negative)
--- NOTE | 2023-05-23 17:13 | PM.DS ---
DS: Admitting Diagnosis Discharge Date 05/06/23 Admitting Diagnosis Weakness and diarrhea DS: Discharge Diagnosis Discharge Diagnosis (1) Sepsis: Qualifiers: Sepsis type: sepsis due to unspecified organism Sepsis acute organ dysfunction status: with acute organ dysfunction Severe sepsis acute organ dysfunction type: acute renal failure Acute renal failure type: unspecified Severe sepsis shock status: without septic shock Qualified Code(s): A41.9 - Sepsis, unspecified organism; R65.20 - Severe sepsis without septic shock; N17.9 - Acute kidney failure, unspecified Code(s): A41.9 - Sepsis, unspecified organism Status: Acute Assessment and Plan: Patient met sepsis criteria on admission with leukocytosis, tachycardia, acute kidney injury in the setting of C diff pancolitis. Treated with IV fluids and antibiotics. Blood pressure was soft but this is probably more chronic. Lactic acid was normal. Heart rate normal. Creatinine up slightly. 04/28: leuk worsening, add back oral vanc 04/29: Leukocytosis improving, down to 18 with the addition of oral vancomycin, continue to monitor 04/30: leuk again back up to 22, unknown reason, GI consult pending, consider transfer for fecal transplant 05/01: leuk continues to climb, up to 25 today, appreciate GI consult, consider fecal transplant? 05/02: back up to 24 today, may need transfer 05/03: defer management to GI, transfer? 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 (2) C. difficile colitis: Code(s): A04.72 - Enterocolitis due to Clostridium difficile, not specified as recurrent Status: Acute Assessment and Plan: The patient presents with diarrhea and weakness. He has had CDiff just 1 month ago. His CDiff toxin positive here and CT Abd/pelvis showing pancolitis. The patient has recurrent C diff colitis. Oral vancomycin started. For the first recurrence, bezlotoxumab recommended but not available here. 04/28: worsened on dificid, add back oral vanc + IV flagyl 04/29: Leukocytosis improving but symptomatically patient appears unchanged, continue to monitor 04/30: see above (3) KJ (acute kidney injury): Code(s): N17.9 - Acute kidney failure, unspecified Status: Acute Assessment and Plan: Creatinine elevated on admission to 1.5. Baseline 1.1-1.3. Cr climbed to 1.7 yesterday and stable today. Suspect related to above. Will follow. Continue IV fluids. Lasix on hold. 04/27: creat continues to worsen to 2.7, consult nephrology 04/28: increase IVF 04/29: Improved with IV fluid, monitor, appreciate nephrology consultation 04/30: cont to improve with IVF, d/c IVF and monitor 05/01: unchanged at 2.2, restart IVF per nephro 05/02: worsening, likely need albumin? 05/03: improving, cr down to 1.9 (4) Acute hyponatremia: Code(s): E87.1 - Hypo-osmolality and hyponatremia Status: Acute Assessment and Plan: Sodium was 126 on admission probably related to dehydration from excessive diarrhea. No metabolic acidosis noted. With IV fluids, his sodium has improved slightly to 129. This should continue to correct. Will continue to follow. Stable, monitor, up to 131 05/03 (5) Generalized weakness: Code(s): R53.1 - Weakness Status: Acute Assessment and Plan: Patient with generalized weakness related to above. Continue PT/OT as able. Increase act
== END 2023-05-06 21:15 | DRG 371 ==
LOC: ANHED 19:11 → ANH3MEDSUR 23:55
PROVIDERS: Emergency Medicine; Internal Medicine; Internal Medicine Gastroenterology; Internal Medicine Nephrology; Nurse Practitioner; Student in an Organized Health Care Education/Training Program; Admitting Provider Internal Medicine; Emergency Provider Emergency Medicine; PCP Family Medicine; Visit Provider Family Medicine
DX: A04.71 Enterocolitis due to Clostridium difficile, recurrent (principal); A41.9 Sepsis, unspecified organism; R65.20 Severe sepsis without septic shock; N17.9 Acute kidney failure, unspecified; E87.1 Hypo-osmolality and hyponatremia; I50.32 Chronic diastolic (congestive) heart failure; I13.0 Hypertensive heart and chronic kidney disease with heart failure and stage 1 through stage 4 chronic kidney disease, or unspecified chronic kidney disease; I43 Cardiomyopathy in diseases classified elsewhere; E78.5 Hyperlipidemia, unspecified; E86.0 Dehydration; F03.90 Unspecified dementia, unspecified severity, without behavioral disturbance, psychotic disturbance, mood disturbance, and anxiety; I50.812 Chronic right heart failure; I34.0 Nonrheumatic mitral (valve) insufficiency; I95.1 Orthostatic hypotension; I25.10 Atherosclerotic heart disease of native coronary artery without angina pectoris; N18.31 Chronic kidney disease, stage 3a; N40.0 Benign prostatic hyperplasia without lower urinary tract symptoms; R73.03 Prediabetes; Z95.0 Presence of cardiac pacemaker; Z20.822 Contact with and (suspected) exposure to COVID-19; Z79.82 Long term (current) use of aspirin; Z79.02 Long term (current) use of antithrombotics/antiplatelets; Z95.5 Presence of coronary angioplasty implant and graft; Z90.49 Acquired absence of other specified parts of digestive tract; Z95.1 Presence of aortocoronary bypass graft; Z87.891 Personal history of nicotine dependence; Z85.49 Personal history of malignant neoplasm of other male genital organs; Z98.41 Cataract extraction status, right eye; Z98.42 Cataract extraction status, left eye; Z96.1 Presence of intraocular lens
CPT/HCPCS: 36415; 36600; 71045; 74018; 74177; 76775; 80048; 80053; 80069; 81001; 81050; 82247; 82436; 82550; 82570; 82805; 83605; 83690; 83735; 84100; 84132; 84145; 84156; 84300; 84484; 84540; 85025; 85027; 85055; 85999; 86140; 87040; 87086; 87493; 87635; 93005; 94640; 96361; 96365; 96372; 96375; 97110; 97116; 97161; 97165; 97530; 97535; 99285; A9270; G0378; J1650; J1836; J1940; J2405; J3480; J7030; J7040; P9047; Q9967

== ENCOUNTER 2023-05-25 11:59 | Inpatient (IN) | payer MEDICARE, BC, SELFPAY ==
[2023-05-25] VITALS (8 sets, daily range): BP systolic 105–150; BP diastolic 49–124; PULSE 60–92; RESP 15–19; TEMP 36.9; O2SAT 91–100
--- NOTE | ~2023-05-25 | XR_ITS ---
EXAMINATION: XR abdomen/kub 1V DATE: 05/31/2023 11:09 INDICATION: Abdominal distention. TECHNIQUE: A supine view of the abdomen on 2 radiographs was obtained. COMPARISON: Abdomen radiographs 05/01/2023, CT 05/26/2023 FINDINGS: There are no dilated loops of bowel. There are phleboliths in the pelvis. There are dropped gallstones in right abdomen. There is no visible urolithiasis. IMPRESSION: 1. Normal bowel gas pattern. Reviewed, dictated and finalized at location A.
--- NOTE | ~2023-05-25 | CT_ITS ---
EXAMINATION: CT abdomen pelvis w con DATE: 05/25/2023 14:08 INDICATION: Low abdominal pain. TECHNIQUE: Computed tomography (CT) of the abdomen and pelvis was performed with 100 mL Omnipaque 350 intravenous contrast. Automated exposure control and iterative reconstruction technique were employe d. The dose-length product was 1056.16 mGy-cm. COMPARISON: CT abdomen and pelvis 04/24/23 FINDINGS: The visualized portions of the lung bases demonstrate small pleural effusions. There is chr onic peripheral septal thickening in the lungs. Cardiomegaly is noted. There are coronary artery calc ifications. No pericardial effusion. There are pacer leads in right atrium and right ventricle. No pe ricardial effusion. The liver is normal. There are changes of cholecystectomy. The spleen, pancreas, and adrenal glands are normal. There is cortical thinning of the kidneys. There is an 8 mm cyst in ri ght kidney. There is a 4.5 cm cyst in left kidney. The prostate is mildly enlarged. There is a left i nguinal hernia containing fat. There are scattered diverticula in the colon. There is diffuse wall th ickening of the colon, consistent with colitis. The appendix is normal. There is a small volume of as cites. Body wall edema is noted. There is calcified atherosclerosis of the aorta and many of the othe r arteries. There are no pathologically enlarged lymph nodes. There is a small sliding hiatal hernia. There is moderate lumbar spondylosis. IMPRESSION: 1. Pancolitis. 2. Small volume of ascites, new from 05/04/2023. 3. Small pleural effusions. Reviewed, dictated and finalized at location A.
--- NOTE | ~2023-05-25 | XR_ITS ---
EXAMINATION: XR chest 1V portable DATE: 05/31/2023 11:09 INDICATION: Shortness of breath TECHNIQUE: frontal view of the chest was obtained. COMPARISON: Chest radiograph and CT abdomen and pelvis both dated 05/25/2023 FINDINGS: Elevation of the left hemidiaphragm. Opacities in bilateral mid and lower lung zones which includes s mall bilateral pleural effusions with blunting at costophrenic angles. No pneumothorax. Cardiomegaly. Median sternotomy wires and mediastinal surgical clips are seen, likely from prior coronary artery b ypass grafting. Dual lead pacemaker/AICD seen with leads projecting over the expected locations of t he right atrium and right ventricle. Left pectoral implantable training administrator. Cholecystectomy clips in right upper quadrant. IMPRESSION: 1. Opacities in bilateral mid and lower lung zones which could represent atelectasis, mild pulmonary edema, pneumonia or some combination thereof. 2. Small bilateral pleural effusions. 3. Cardiomegaly. Reviewed, dictated and finalized at location A. IMPRESSION: 1. Opacities in bilateral mid and lower lung zones which could represent atelec tasis, mild pulmonary edema, pneumonia or some combination thereof. 2. Small bilateral pleural effusions. 3. Cardiomegaly.
--- NOTE | ~2023-05-25 | CT_ITS ---
EXAMINATION: CT chest abdomen pelvis wo con DATE: 06/02/2023 12:51 INDICATION: Abdominal pain, difficulty breathing TECHNIQUE: Transaxial computed tomographic images of the chest, abdomen, and pelvis were obtained wit hout intravenous contrast. The dose-length product (DLP) was 1503.20 mGy-cm. Automated exposure contr ol and iterative reconstruction technique were employed. COMPARISON: 05/25/2023 FINDINGS: CHEST CT: Cardiomegaly is noted. There are small to moderate-sized pleural effusions. There is dependent atelec tasis of the lungs. More focal airspace opacities of the left lower lobe could reflect pneumonia. The re is mild bilateral gynecomastia. No pathologically enlarged thoracic lymph nodes are identified. Ch anges of prior cardiac surgery are noted. A dual-lead cardiac pacemaker of the left chest wall ends w ith leads in expected locations. ABDOMEN/PELVIS CT: There is a small volume of ascites. The liver, spleen, pancreas, and adrenal glands are normal. Dobson es of cholecystectomy are noted. There is a 4.5 cm cyst of the left kidney. The right kidney is unrem arkable. No pathologically enlarged abdominal or pelvic lymph nodes are identified. No free intraperi toneal gas or evidence of bowel obstruction. There appears to be interval improvement in previously d escribed pancolitis although direct comparison is limited by the absence of intravenous contrast. The re is circumferential wall thickening of the urinary bladder. Colonic diverticulosis is present witho ut evidence of diverticulitis. There is moderate lumbar spondylosis. IMPRESSION: 1. Small to moderate-sized pleural effusions. 2. Bilateral atelectasis with more focal airspace opacity of the left lower lobe, possibly pneumonia. 3. Cardiomegaly. 4. Small volume of ascites. 5. Apparent interval improvement in previously described pancolitis. 6. Circumferential wall thickening of the urinary bladder, consistent with cystitis versus chronic ou tlet obstruction. Reviewed, dictated and finalized at location L. IMPRESSION: 1. Small to moderate-sized pleural effusions. 2. Bilateral atelectasis with more focal airspace opacity of the left lower lob e, possibly pneumonia. 3. Cardiomegaly. 4. Small volume of ascites. 5. Apparent interval improvement in previously described pancolitis. 6. Circumferential wall thickening of the urinary bladder, consistent with cyst itis versus chronic outlet obstruction.
--- NOTE | ~2023-05-25 | XR_ITS ---
Portable chest x-ray Comparison: 05/03/2023 Clinical History: Weakness Findings: Possible small left pleural effusion. Exam is suboptimal related to patient positioning. R ight lung appears clear. Cardiomediastinal silhouette is stable, with pacemaker and loop recorder. B ones and soft tissues are unremarkable. Impression: Possible small left pleural effusion. Right lung clear. Reviewed, dictated and finalized at location . Impression: Possible small left pleural effusion. Right lung clear.
--- NOTE | 2023-05-25 12:28 | ECG_ITS ---
Measurements Intervals Sharon Rate: 74 P: MO: 0 QRS: 122 QRSD: 131 T: -78 QT: 461 QTc: 514 Interpretive Statements ELECTRONIC VENTRICULAR PACEMAKER WITH OCCASIONAL PVCS ABNORMAL RHYTHM ECG COMPARED TO ECG 04/27/2023 22:17:49 NO SIGNIFICANT CHANGES Electronically Signed On 05-25-2023 14:24:10 CDT by Larissa Garrido M.D.
[2023-05-25 12:50] LABS: Basophils Absolute Auto 0.1 K/mm3 (0.0-0.1); Basophils Percent Auto 0.4 % (0.2-1.2); Eosinophils Absolute Auto 0.1 K/mm3 (0-0.3); Eosinophils Percent Auto 0.4 % (0-4.4); Hematocrit 31.8 % (42.0-52.0); Hemoglobin 9.8 g/dL (14.0-18.0); Immature Granulocyte Absolute 0.07 K/mm3 (0.00-0.031); Immature Granulocyte Percent A 0.5 % (0-0.5); Lymphocytes Absolute Auto 0.55 K/mm3 (0.9-3.2); Lymphocytes Percent Auto 3.7 % (18.3-44.2); Mean Corpuscular HGB Conc 30.8 g/dl (32-36); Mean Corpuscular Hemoglobin 30.2 pg (26-34); Mean Corpuscular Volume 97.8 fl (80-100); Mean Platelet Volume 9.4 fl (7.4-10.4); Monocytes Absolute Auto 1.5 K/mm3 (0.1-0.6); Monocytes Percent Auto 9.9 % (2.6-8.5); Neutrophils Absolute Auto 12.8 K/mm3 (1.3-6.7); Neutrophils Percent Auto 85.1 % (45.5-73.1); Platelet Count Result 214 k/mm3 (150-375); Red Blood Count 3.25 M/mm3 (4.6-6.20); Red Cell Distribution Width 17.8 % (11.5-14.5)
[2023-05-25 13:00] LABS: Alanine Aminotransferase 38 U/L (6-50); Albumin Level 2.7 g/dL (3.5-5.1); Alkaline Phosphatase 105 U/L (38-126); Anion Gap 2 mmol/L (8-16); Aspartate Amino Transferase 53 U/L (17-59); Bilirubin,Total 0.9 mg/dL (0.2-1.3); Blood Urea Nitrogen 18 mg/dL (9-20); Calcium 8.1 mg/dL (8.4-10.2); Carbon Dioxide 29 mmol/L (22-30); Chloride 104 mmol/L (98-107); Estimated CRCL calculation 43 ml/min; Estimated Glomerular Filt Rate > 60; Glucose 85 mg/dL (65-110); Potassium 4.1 mmol/L (3.4-5.0); Sodium 135 mmol/L (137-145)
--- NOTE | 2023-05-25 13:18 | ED.WEAKNESS ---
HPI - Weakness General Chief complaint: Weakness Stated complaint: weakness Time Seen by Provider: 05/25/23 13:17 Source: patient, family and EMS Mode of arrival: EMS Limitations: clinical condition History of Present Illness HPI Narrative: 83 years old white male came from long-term by ambulance with his daughter who is telling me that patient is generally weak, lethargic, with lower abdominal pain started for the last 7 days, getting worse, history of C. difficile twice in the past and currently had massive diarrhea MD Complaint: generalized weakness Related Data Home Medications Medication Instructions Recorded Confirmed aspirin 81 mg chewable tablet 81 mg PO DAILY 10/05/19 04/25/23 clopidogrel 75 mg tablet (Plavix) 75 mg PO DAILY 12/27/19 04/25/23 metoprolol succinate 25 mg 25 mg PO DAILY 03/09/23 04/25/23 tablet,extended release 24 hr Delsym 12 hour 60 mg PO BID PRN Cough 04/25/23 04/25/23 acetaminophen 325 mg capsule 650 mg PO Q4-6H PRN Mild Pain 04/25/23 04/25/23 (Scale Score 1-4) albuterol sulfate 2.5 mg/3 mL 2.5 mg inhalation Q6H PRN sob 04/25/23 04/25/23 (0.083 %) solution for nebulization diclofenac sodium 1 % topical gel 2 g topical TID PRN Pain (Scale 04/25/23 04/25/23 (Voltaren Arthritis Pain) Score 1-3) loperamide 2 mg capsule (Imodium 2 mg PO Q4H PRN Diarrhea 04/25/23 04/25/23 A-D) ondansetron 4 mg disintegrating 4 mg PO Q6H PRN Nausea And Vomiting 04/25/23 04/25/23 tablet potassium chloride 20 mEq 40 meq PO BID 04/25/23 04/25/23 tablet,extended release(part/cryst) sertraline 25 mg tablet 25 mg PO HS 04/25/23 04/25/23 Allergies Allergy/AdvReac Type Severity Reaction Status Date / Time No Known Drug Allergies Allergy Unknown Unknown Verified 03/08/23 16:21 Review of Systems Review of Systems: ROS unobtainable: Yes unobtainable due to medical condition PMFSH Past Medical History Medical History Acute on chronic renal failure BPH (benign prostatic hyperplasia) Complete heart block Status post pacemaker Coronary artery disease Dementia History of cardiomyopathy With a history of a EF of 25-35% but most recent echo 02/2023: 1. Left ventricular chamber dimension is normal. 2. Left ventricular systolic function is normal, estimated at 60-65%. 3. There is mildly increased left ventricular wall thickness. 4. Left ventricular septal wall motion is abnormal with septal motion related to pacing. 5. Right ventricular chamber dimension is normal. 6. Right ventricular systolic function is reduced. 7. Left atrial chamber dimension is mildly enlarged. 8. There is moderate aortic valve sclerosis. 9. There is mild aortic valve regurgitation. 10. There is mild mitral valve regurgitation. 11. There is mild tricuspid valve regurgitation. 12. There is mild pulmonic regurgitation. 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 Surgical History Surgical History H/O circumcision As a child and in 03/13/2013 History of cholecystectomy History of heart artery stent X2 History of hemorrhoidectomy 01/27/1981 Hx of CABG Four vessel CABG 1992 Status post cataract extraction of both eyes with insertion of intraocular lens Family History Family History Grandparent Hypertension Father Family history of cardiovascular disease Mother Family history of cardiovascular disease Sibling Family history of cardiovascular disease Son Acute myocardial infarction, Onset Age: 35 Son Lung cancer, Onset Age: 49 Social History Social History (Reviewed
[2023-05-25 13:19] LABS: Appearance Urine Cloudy (Clear); Bacteria Urine None Seen /hpf; Bilirubin Urine Negative (Negative); Blood Urine Negative (Negative); Color Urine Yellow (Yellow); Glucose Urine UA Negative (Negative); Hyaline Casts Urine Present /lpf; Ketones Urine Negative (Negative); Leukocyte Esterase Ur 3+ LEU/UL (Negative); Nitrate Urine Negative (Negative); Protein Urine Trace mg/dL (Negative); RBC Urine 0-2 /hpf (0-2); Specific Grav Ur 1.013 (1.001-1.035); Squamous Epithelial Cell Urine Few /hpf (Few); Urobilinogen Urine 0.2 mg/dL (<2.0); WBC Urine 21-50 /hpf
[2023-05-25 13:20] LABS: Add Urine Microscopic? YES
[2023-05-25] MEDS: SODIUM CHLORIDE 0.9% IV 1,000 ML 999 ML IV CONT (13:44)
[2023-05-25] MEDS: VANCOMYCIN ORAL 125 MG/2.5 ML SYRUP PO ×2 (18:21→23:01)
--- NOTE | 2023-05-25 19:16 | PM.IMHP ---
H&P: HPI History of Present Illness Date/Time: 05/25/23 19:16 Chief Complaint: Weakness Narrative: This is an 83-year-old male with past medical history significant for recurrent C difficile colitis, congestive heart failure, obesity, dyslipidemia, benign prostatic hyperplasia, complete heart block, coronary artery disease, dementia, chronic renal failure, pacemaker in situ. patient is currently residing at [facility] was brought to the emergency room due to generalized weakness, altered mental status, poor appetite, profuse diarrhea. Patient tested positive for C difficile. Has been admitted for further evaluation management and treatment. Portable chest x-ray Comparison: 05/03/2023 Clinical History: Weakness Findings:? Possible small left pleural effusion. Exam is suboptimal related to patient positioning. Right lung appears clear.? Cardiomediastinal silhouette is stable, with pacemaker and loop recorder. Bones and soft tissues are unremarkable. ? Impression: ? Possible small left pleural effusion. Right lung clear. EXAMINATION: CT abdomen pelvis w con DATE: 05/25/2023 14:08 INDICATION: Low abdominal pain. TECHNIQUE: Computed tomography (CT) of the abdomen and pelvis was performed with 100 mL Omnipaque 350 intravenous contrast. Automated exposure control and iterative reconstruction technique were employed. The dose-length product was 1056.16 mGy-cm. COMPARISON: CT abdomen and pelvis 04/24/23 FINDINGS: The visualized portions of the lung bases demonstrate small pleural effusions. There is chronic peripheral septal thickening in the lungs. Cardiomegaly is noted. There are coronary artery calcifications. No pericardial effusion. There are pacer leads in right atrium and right ventricle. No pericardial effusion. The liver is normal. There are changes of cholecystectomy. The spleen, pancreas, and adrenal glands are normal. There is cortical thinning of the kidneys. There is an 8 mm cyst in right kidney. There is a 4.5 cm cyst in left kidney. The prostate is mildly enlarged. There is a left inguinal hernia containing fat. There are scattered diverticula in the colon. There is diffuse wall thickening of the colon, consistent with colitis. The appendix is normal. There is a small volume of ascites. Body wall edema is noted. There is calcified atherosclerosis of the aorta and many of the other arteries. There are no pathologically enlarged lymph nodes. There is a small sliding hiatal hernia. There is moderate lumbar spondylosis. IMPRESSION: 1. Pancolitis. 2. Small volume of ascites, new from 05/04/2023. 3. Small pleural effusions. Review of Systems Review of Systems: Diarrhea abdominal pain ROS unobtainable: Yes unobtainable due to mental status ( confusion, dementia) [facility] Past Medical History Medical History Acute on chronic renal failure BPH (benign prostatic hyperplasia) Complete heart block Status post pacemaker Coronary artery disease Dementia History of cardiomyopathy With a history of a EF of 25-35% but most recent echo 02/2023: 1. Left ventricular chamber dimension is normal. 2. Left ventricular systolic function is normal, estimated at 60-65%. 3. There is mildly increased left ventricular wall thickness. 4. Left ventricular septal wall motion is abnormal with septal motion related to pacing. 5. Right ventricular chamber dimension is normal. 6. Right ventricular systolic function is reduced. 7. Left atrial chamber dimension is mildly enlarged. 8. There is moderate aortic valve sclerosis. 9. There is mild aortic valve regurgitation. 10. There is mild mitral valve regurgitation. 11. There is mild tricuspid valve regurgitation. 12. There is mild pulmonic regurgitation. History of left heart catheterization (LHC) 11/12/2016 History of pacemaker History of penile cancer History of prediabetes Hyperlipidemia Hypertension Kid
--- NOTE | 2023-05-25 19:18 | ADMGEN ---
This patient, Yoseph Luis Jr., was admitted to 3 Med Surg Room 303-01. Patient/family oriented to hospital policies and general routines including ID bracelet, bed and alarms, visiting hours, pain management, procedures, bathroom and other care routines, personal items, smoking policy, room service/diet, and visiting hours. Information on how to activate the Rapid Response Team has been discussed. Patient/Family are encouraged to report perceived risks to care and to ask questions if they do not understand what they are told or what they should do.
[2023-05-25] MEDS: SODIUM CHLORIDE 0.9% IV 1,000 ML 125 ML IV CONT (22:03)
--- NOTE | 2023-05-25 22:39 | PC.NURSE ---
call placed to Dr. Childress regarding order for NS @ 125 due to pt's pitting edema of the bilateral arms and legs. Per Dr. Childress, infuse 1L NS then discontinue order
[2023-05-25] MEDS: SERTRALINE HCL 25 MG TABLET PO (23:00)
[2023-05-26] VITALS (9 sets, daily range): BP systolic 101–136; BP diastolic 43–61; PULSE 61–76; RESP 16–18; TEMP 36.6–37; O2SAT 92–99; BMI 28.2
[2023-05-26 06:26] LABS: Anion Gap 4 mmol/L (8-16); Blood Urea Nitrogen 16 mg/dL (9-20); Calcium 7.8 mg/dL (8.4-10.2); Carbon Dioxide 28 mmol/L (22-30); Chloride 105 mmol/L (98-107); Estimated CRCL calculation 47 ml/min; Estimated Glomerular Filt Rate > 60; Glucose 90 mg/dL (65-110); Potassium 3.8 mmol/L (3.4-5.0); Sodium 137 mmol/L (137-145)
[2023-05-26] MEDS: METOPROLOL SUCCINATE EXT REL 25 MG TABCR PO (10:19)
[2023-05-26] MEDS: ASPIRIN 81 MG CHEWABLE TABLET PO (10:19)
[2023-05-26] MEDS: MAGNESIUM OXIDE 400 MG TABLET PO (10:20)
[2023-05-26] MEDS: FIDAXOMICIN 200 MG TABLET PO ×2 (10:20→20:26)
[2023-05-26] MEDS: ROSUVASTATIN 10 MG TABLET 40 MG PO (10:20)
[2023-05-26] MEDS: CLOPIDOGREL BISULFATE 75 MG TABLET PO (10:20)
[2023-05-26] MEDS: MIDODRINE HCL 2.5 MG TABLET 5 MG PO ×3 (10:20→18:06)
[2023-05-26] MEDS: TAMSULOSIN HCL 0.4 MG CAPSULE PO (10:20)
[2023-05-26 15:48] LABS: Toxigenic C. Diff POSITIVE (NEGATIVE)
--- NOTE | 2023-05-26 15:53 | WPDGICN ---
Assessment and Plan Assessment and plan (1) Recurrent Clostridioides difficile infection: Code(s): A49.8 - Other bacterial infections of unspecified site Status: Acute Assessment and Plan: on dificid probably will need extra 10 days of treatment (extended pulsed) after full dose of 10 days (2) Pancolitis: Code(s): K51.00 - Ulcerative (chronic) pancolitis without complications Status: Acute Assessment and Plan: on treatment plan is to get Vowst (already delivered to his halfway)- this is new fecal microbiota spores to prevent new infections. This will be given 1-2 days after completion of C diff treatment (3) Urinary tract infection: Qualifiers: Hematuria presence: without hematuria Urinary tract infection type: site unspecified Qualified Code(s): N39.0 - Urinary tract infection, site not specified Code(s): N39.0 - Urinary tract infection, site not specified Status: Acute Assessment and Plan: on rocephin try to minimize use of systemic abx if possible (4) Leukocytosis: Code(s): D72.829 - Elevated white blood cell count, unspecified Status: Acute Assessment and Plan: monitor (5) Stage 3a chronic kidney disease: Code(s): N18.31 - Chronic kidney disease, stage 3a Status: Chronic (6) Orthostatic hypotension: Code(s): I95.1 - Orthostatic hypotension Status: Acute (7) Congestive heart failure: Qualifiers: Heart failure chronicity: chronic Heart failure type: right-sided Qualified Code(s): I50.812 - Chronic right heart failure Code(s): I50.9 - Heart failure, unspecified Status: Chronic GI Consult Note Consult date/time: 05/26/23 15:53 Reason for consult: recurrent C diff HPI: Yoseph Dedwight Hanson. is a 83 year old male with?history of coronary artery disease status post CABG, CHF, orthostatic hypotension on midodrine, CKD stage III, BPH and recent hospitalization with C diff colitis treated first time with oral vanco, then readmitted with worsening leukocytosis that time treated with dificid and vancomycin. He eventually was discharged to local halfway, completed dificid about 1 week ago and was waiting to get Vowst approval. About 2 days ago with more weakness, started having diarrhea again and lack of appetite. C diff stool again positive and admitted to hospital. CT scan again showed colitis. He says that had colonoscopy but has been few years ago. Daughter is at bedside. Wbc 15k, creat 1.1 Review of Systems Constitutional: Constitutional: Reports fatigue and Reports weakness Eyes: Eyes: Denies blurry vision ENT: Reports Normal hearing present Cardiovascular: Cardiovascular: Denies chest pain Respiratory: Respiratory: Denies cough Gastrointestinal: Gastrointestinal: Reports abdominal pain and Reports diarrhea Musculoskeletal: Musculoskeletal: Denies neck pain Integumentary/Breasts: Skin/Breast: Denies rash Neurologic: Denies Abnormal speech present Psychiatric: Psychiatric: Denies behavioral changes [facility] Past Medical History Medical History Acute on chronic renal failure BPH (benign prostatic hyperplasia) Complete heart block Status post pacemaker Coronary artery disease Dementia History of cardiomyopathy With a history of a EF of 25-35% but most recent echo 02/2023: 1. Left ventricular chamber dimension is normal. 2. Left ventricular systolic function is normal, estimated at 60-65%. 3. There is mildly increased left ventricular wall thickness. 4. Left ventricular septal wall motion is abnormal with septal motion related to pacing. 5. Right ventricular chamber dimension is normal. 6. Right ventricular systolic function is reduced. 7. Left atrial chamber dimension is mildly enlarged. 8. There is moderate aortic valve sclerosis. 9. There is mild aortic valve regurgitation. 10. There is mild kathy
--- NOTE | 2023-05-26 17:08 | PM.IMPN ---
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 Status: Acute Assessment and Plan: C diff positive in the nursing facility reported On Dificid Will follow with Vowst which has apparently been delivered to the detention to use On fecal management system Await improvement in his current C diff infection (2) Recurrent Clostridioides difficile infection: Code(s): A49.8 - Other bacterial infections of unspecified site Status: Acute Assessment and Plan: patient to be started on Vowst (3) Leukocytosis: Code(s): D72.829 - Elevated white blood cell count, unspecified Status: Acute Assessment and Plan: Likely secondary to C.diff (4) Acute on chronic renal failure: Code(s): N17.9 - Acute kidney failure, unspecified; N18.9 - Chronic kidney disease, unspecified Status: Acute Assessment and Plan: gentle hydration continue to monitor daily BMP holding Lasix (5) Generalized weakness: Code(s): R53.1 - Weakness Status: Acute Assessment and Plan: likely secondary to debilitating infection with C diff currently residing at detention (6) Cardiac LV ejection fraction of 35-39%: Code(s): R94.30 - Abnormal result of cardiovascular function study, unspecified Status: Acute Assessment and Plan: daily intake and output patient appears comfortable no crackles on physical exam continue to monitor diurese as needed cautious fluid resuscitation Subjective Date/time seen: 05/26/23 17:08 Interval history: 83-year-old male presents from detention with generalized weakness lethargic and lower abdominal pain and diarrhea history of C diff infection twice in the past. Exam Narrative: General appearance: Well-developed, well-nourished Skin: Normal color Head: Normocephalic, nontraumatic Eyes: Clear conjunctiva ENT: Dry oral cavity Neck: Supple, nontender Chest and respiratory: Airway patent, no respiratory distress, no accessory muscle use Heart: Regular rate/rhythm Abdomen: Soft, diffuse tenderness, hyperactive bowel sounds, no organomegaly. Vascular: Normal peripheral pulses, normal capillary refill. Musculoskeletal: Normal range of motion, nontender back Neurologic: Alert and oriented ?3, PASSENGER SCREENER is normal as tested, no gross motor deficit ?? Objective Data Vital Signs Vital Signs: Vital Signs - 24 hr 05/25/23 17:36 05/25/23 18:11 05/25/23 22:00 Temperature 98.5 F Pulse Rate 66 64 60 Respiratory Rate 16 15 16 Blood Pressure 108/50 L 124/52 L 105/49 L Pulse Oximetry 91 93 95 Oxygen Delivery 05/26/23 00:00 05/25/23 20:00 05/26/23 04:00 Temperature 98.6 F 98.1 F Pulse Rate 62 69 Respiratory Rate 16 18 Blood Pressure 130/61 136/47 L Pulse Oximetry 99 92 Oxygen Delivery Room Air 05/26/23 08:22 05/26/23 10:19 05/26/23 10:00 Temperature 98.5 F Pulse Rate 72 62 Respiratory Rate 18 Blood Pressure 115/46 L Pulse Oximetry 92 95 Oxygen Delivery Room Air 05/26/23 10:20 05/26/23 14:00 Temperature 98.5 F Pulse Rate 76 Respiratory Rate 18 Blood Pressure 106/50 L Pulse Oximetry 97 Oxygen Delivery Room Air Intake/Output Intake/Output: Intake & Output 05/23/23 05/24/23 05/25/23 05/26/23 23:59 23:59 23:59 23:59 Intake Total 1290 480 Output Total 30 Balance 1260 480 Meds/Results Medications: Active Medications Generic Name Dose Route Start Last Admin Trade Name Freq PRN Reason Stop Dose Admin Acetaminophen 650 mg 05/25/23 21:44 Acetaminophen 325 Mg Tablet PO Q4-6H PRN Mild Pain (Scale Score 1-4) Albuterol 2.5 mg 05/25/23 21:44 Albuterol Sulfate Neb 2.5 Mg/3 Ml Inh INHALATION Q6H PRN sob Aspirin 81 mg 05/26/23 08:00 05/26/23 10:19 Aspirin 81 Mg Chewable Tablet PO 81 mg DAILY@0800 JANET Administration Clopidog
--- NOTE | 2023-05-26 18:26 | PC.NURSE ---
Addendum entered by Kate Mckeon RN 05/29/23 07:57: Provider was on the floor and notified of positive C-diff result. Unaware of specific time that provider was notified. Original Note: Pt has been resting in bed today. Pt has FMS that continues to leak around it. Pt has tested positive for C-Diff and is on contact precautions. Pt daughter at bed side. Will continue to monitor pt.
[2023-05-26] MEDS: ACETAMINOPHEN 325 MG TABLET 650 MG PO (20:26)
[2023-05-26] MEDS: SERTRALINE HCL 25 MG TABLET PO (20:26)
[2023-05-27] VITALS: BP 104/47; PULSE 61; RESP 18; TEMP 36.7; O2SAT 91
--- NOTE | 2023-05-27 00:21 | PC.NURSE ---
Pt had a coughing fit where he coughed so hard the rectal tube came out entirely. RN informed pt we will need to reinsert tube, and pt refused stating that it never worked and leaked all over him anyway.
[2023-05-27 04:00] VITALS: BP 106/52; PULSE 60; RESP 18; TEMP 36.6; O2SAT 95
[2023-05-27 06:26] LABS: Basophils Absolute Auto 0.1 K/mm3 (0.0-0.1); Basophils Percent Auto 0.6 % (0.2-1.2); Eosinophils Absolute Auto 0.3 K/mm3 (0-0.3); Eosinophils Percent Auto 2.1 % (0-4.4); Hematocrit 31.5 % (42.0-52.0); Hemoglobin 9.8 g/dL (14.0-18.0); Immature Granulocyte Absolute 0.05 K/mm3 (0.00-0.031); Immature Granulocyte Percent A 0.4 % (0-0.5); Lymphocytes Absolute Auto 0.81 K/mm3 (0.9-3.2); Lymphocytes Percent Auto 6.4 % (18.3-44.2); Mean Corpuscular HGB Conc 31.1 g/dl (32-36); Mean Corpuscular Hemoglobin 30.1 pg (26-34); Mean Corpuscular Volume 96.6 fl (80-100); Monocytes Absolute Auto 1.5 K/mm3 (0.1-0.6); Monocytes Percent Auto 12.2 % (2.6-8.5); Neutrophils Absolute Auto 9.9 K/mm3 (1.3-6.7); Neutrophils Percent Auto 78.3 % (45.5-73.1); Platelet Count Result 195 k/mm3 (150-375); Red Blood Count 3.26 M/mm3 (4.6-6.20); Red Cell Distribution Width 17.7 % (11.5-14.5); White Blood Count 12.6 K/mm3 (4.5-10.0)
[2023-05-27 06:39] LABS: Alanine Aminotransferase 32 U/L (6-50); Albumin Level 2.4 g/dL (3.5-5.1); Alkaline Phosphatase 114 U/L (38-126); Anion Gap 1 mmol/L (8-16); Aspartate Amino Transferase 39 U/L (17-59); Bilirubin,Total 0.8 mg/dL (0.2-1.3); Blood Urea Nitrogen 17 mg/dL (9-20); Calcium 7.9 mg/dL (8.4-10.2); Carbon Dioxide 30 mmol/L (22-30); Chloride 106 mmol/L (98-107); Estimated CRCL calculation 43 ml/min; Estimated Glomerular Filt Rate > 60; Glucose 85 mg/dL (65-110); Magnesium 2.2 mg/dL (1.6-2.3); Potassium 4.2 mmol/L (3.4-5.0); Sodium 137 mmol/L (137-145)
[2023-05-27 08:00] VITALS: BP 120/63; PULSE 74; RESP 18; TEMP 37; O2SAT 99
[2023-05-27] MEDS: CLOPIDOGREL BISULFATE 75 MG TABLET PO (08:26)
[2023-05-27] MEDS: FIDAXOMICIN 200 MG TABLET PO ×2 (08:26→20:07)
[2023-05-27] MEDS: MIDODRINE HCL 2.5 MG TABLET 5 MG PO ×3 (08:27→17:18)
[2023-05-27] MEDS: TAMSULOSIN HCL 0.4 MG CAPSULE PO (08:27)
[2023-05-27] MEDS: METOPROLOL SUCCINATE EXT REL 25 MG TABCR PO (08:27)
[2023-05-27] MEDS: MAGNESIUM OXIDE 400 MG TABLET PO (08:27)
[2023-05-27] MEDS: ROSUVASTATIN 10 MG TABLET 40 MG PO (08:27)
[2023-05-27] MEDS: ASPIRIN 81 MG CHEWABLE TABLET PO (08:28)
[2023-05-27 12:00] VITALS: BP 112/53; PULSE 60; RESP 18; TEMP 36.4; O2SAT 100
--- NOTE | 2023-05-27 12:09 | PM.IMPN ---
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 Status: Acute Assessment and Plan: C diff positive in the nursing facility reported On Dificid Will follow with Vowst which has apparently been delivered to the shelter to use On fecal management system Await improvement in his current C diff infection (2) Recurrent Clostridioides difficile infection: Code(s): A49.8 - Other bacterial infections of unspecified site Status: Acute Assessment and Plan: patient to be started on Vowst after finishing this course of fidaxomicin (3) Leukocytosis: Code(s): D72.829 - Elevated white blood cell count, unspecified Status: Acute Assessment and Plan: Likely secondary to C.diff (4) Acute on chronic renal failure: Code(s): N17.9 - Acute kidney failure, unspecified; N18.9 - Chronic kidney disease, unspecified Status: Acute Assessment and Plan: gentle hydration continue to monitor daily BMP holding Lasix Leg are soft legs getting swollen also has hypoalbuminemia. Give couple doses of albumin for blood pressure and edema Will stop IV fluid (5) Generalized weakness: Code(s): R53.1 - Weakness Status: Acute Assessment and Plan: likely secondary to debilitating infection with C diff currently residing at shelter (6) Cardiac LV ejection fraction of 35-39%: Code(s): R94.30 - Abnormal result of cardiovascular function study, unspecified Status: Acute Assessment and Plan: daily intake and output patient appears comfortable no crackles on physical exam continue to monitor diurese as needed cautious fluid resuscitation Subjective Date/time seen: 05/27/23 12:09 Interval history: Feeling better today. Legs are swollen. Diarrhea has slowed down. Only had 1 episode today discussed with the nursing staff. Review of Systems Review of Systems: All systems reviewed & are unremarkable except as noted in HPI and below Exam Narrative: General appearance: Well-developed, well-nourished Skin: Normal color Head: Normocephalic, nontraumatic Eyes: Clear conjunctiva ENT: Dry oral cavity Neck: Supple, nontender Chest and respiratory: Airway patent, no respiratory distress, no accessory muscle use Heart: Regular rate/rhythm Abdomen: Soft, diffuse tenderness, hyperactive bowel sounds, no organomegaly. Vascular: Normal peripheral pulses, normal capillary refill. Lower extremity edema pitting 1+ Musculoskeletal: Normal range of motion, nontender back Neurologic: Alert and oriented ?3, REHABILITATION SERVICES COORDINATOR is normal as tested, no gross motor deficit ?? Objective Data Vital Signs Vital Signs: Vital Signs - 24 hr 05/26/23 14:00 05/26/23 18:46 05/26/23 20:00 Temperature 98.5 F 97.9 F Pulse Rate 76 64 Respiratory Rate 18 18 Blood Pressure 106/50 L 120/43 L Pulse Oximetry 97 97 Oxygen Delivery Room Air 05/26/23 20:00 05/27/23 00:00 05/26/23 20:47 Temperature 98.1 F 98.0 F Pulse Rate 61 61 Respiratory Rate 18 18 Blood Pressure 101/46 L 104/47 L Pulse Oximetry 94 91 93 Oxygen Delivery Room Air 05/27/23 04:00 05/27/23 08:00 05/27/23 08:00 Temperature 97.8 F 98.6 F Pulse Rate 60 74 Respiratory Rate 18 18 Blood Pressure 106/52 L 120/63 Pulse Oximetry 95 99 Oxygen Delivery Room Air 05/27/23 12:00 Temperature 97.6 F Pulse Rate 60 Respiratory Rate 18 Blood Pressure 112/53 L Pulse Oximetry 100 Oxygen Delivery Intake/Output Intake/Output: Intake & Output 05/24/23 05/25/23 05/26/23 05/27/23 23:59 23:59 23:59 23:59 Intake Total 1290 1380 360 Output Total 30 650 Balance 1260 1380 -290 Meds/Results Medications: Active Medications Generic Name Dose Route Start Last Admin Trade Name Freq PRN Reason Stop Dose Admin Acetaminophen 650 mg 05/25/23 21:44 05/26/23 20:26 Acetaminophen 325 M
[2023-05-27] MEDS: ALBUMIN HUMAN 25% 25 GM/100 ML 200 ML IVPB ×2 (13:37→21:57)
--- NOTE | 2023-05-27 14:12 | WPDGIPROGNO ---
Progress Note: A&P Assessment and Plan (1) Recurrent Clostridioides difficile infection: Code(s): A49.8 - Other bacterial infections of unspecified site Status: Acute Assessment and Plan: on dificid clinically better talked to hospitalist, noted that he is on rocephin for possible uti- reassess and try to minimize systemic abx if possible after he leaves the hospital and complete treatment with dificid then he will receive vowst (2-3 days after completing c diff) (2) Pancolitis: Code(s): K51.00 - Ulcerative (chronic) pancolitis without complications Status: Acute Assessment and Plan: no pain (3) Leukocytosis: Code(s): D72.829 - Elevated white blood cell count, unspecified Status: Acute Assessment and Plan: better monitor (4) Urinary tract infection: Qualifiers: Hematuria presence: without hematuria Urinary tract infection type: site unspecified Qualified Code(s): N39.0 - Urinary tract infection, site not specified Code(s): N39.0 - Urinary tract infection, site not specified Status: Acute (5) Stage 3a chronic kidney disease: Code(s): N18.31 - Chronic kidney disease, stage 3a Status: Chronic (6) Congestive heart failure: Qualifiers: Heart failure chronicity: chronic Heart failure type: right-sided Qualified Code(s): I50.812 - Chronic right heart failure Code(s): I50.9 - Heart failure, unspecified Status: Chronic Subjective Date/time seen: 05/27/23 14:12 Interval history: he is in good spirits today, still with diarrhea but denies abdominal pain he is up in chair Review of Systems Review of Systems: All systems reviewed & are unremarkable except as noted in HPI and below Exam Const: General: comfortable and no acute distress Other: chronically ill appearing HENMT: Face/Nose/Sinus: Normal nares present Eyes: General: appearance normal, both eyes and all related structures Neck: Neck: supple Resp: Auscultation: clear to auscultation bilaterally Cardio: Rate: regular rate Rhythm: regular rhythm GI: Inspection: distended GI Palp: Yes Soft to palpation, No Tenderness to palpation present (GI) and No Guarding due to palpation present (GI) Auscultation: normal bowel sounds Skin: General skin exam: normal color Neuro: Speech: normal speech Motor exam (neuro): 5/5 motor strength present throughout Extrem: General: pedal edema (2+) bilaterally Psych: Mental Status: mental status grossly normal Objective Data Vital Signs Vital Signs: Vital Signs - 24 hr 05/26/23 18:46 05/26/23 20:00 05/26/23 20:00 Temperature 97.9 F 98.1 F Pulse Rate 64 61 Respiratory Rate 18 18 Blood Pressure 120/43 L 101/46 L Pulse Oximetry 97 94 Oxygen Delivery Room Air 05/27/23 00:00 05/26/23 20:47 05/27/23 04:00 Temperature 98.0 F 97.8 F Pulse Rate 61 60 Respiratory Rate 18 18 Blood Pressure 104/47 L 106/52 L Pulse Oximetry 91 93 95 Oxygen Delivery Room Air 05/27/23 08:00 05/27/23 08:00 05/27/23 12:00 Temperature 98.6 F 97.6 F Pulse Rate 74 60 Respiratory Rate 18 18 Blood Pressure 120/63 112/53 L Pulse Oximetry 99 100 Oxygen Delivery Room Air 05/27/23 11:56 Temperature Pulse Rate Respiratory Rate Blood Pressure Pulse Oximetry Oxygen Delivery Room Air Intake/Output Intake/Output: Intake & Output 05/24/23 05/25/23 05/26/23 05/27/23 23:59 23:59 23:59 23:59 Intake Total 1290 1380 720 Output Total 30 650 Balance 1260 1380 70 Meds/Results Medications: Active Medications Generic Name Dose Route Start Last Admin Trade Name Freq PRN Reason Stop Dose Admin Acetaminophen 650 mg 05/25/23 21:44 05/26/23 20:26 Acetaminophen 325 Mg Tablet PO 650 mg Q4-6H PRN Administration Mild Pain (Scale Score 1-4) Albuterol 2.5 mg 05/25/23 21:44 Albuterol Sulfate Neb 2.5 Mg/3 Ml Inh INHALATION Q6H PRN sob As
[2023-05-27 15:31] VITALS: BP 118/61; PULSE 61; RESP 18; TEMP 36.3; O2SAT 98
[2023-05-27 20:00] VITALS: BP 113/51; PULSE 59; RESP 18; TEMP 36.6; O2SAT 99
[2023-05-27] MEDS: SERTRALINE HCL 25 MG TABLET PO (20:07)
[2023-05-27] MEDS: ACETAMINOPHEN 325 MG TABLET 650 MG PO (20:16)
[2023-05-28] VITALS (8 sets, daily range): BP systolic 110–128; BP diastolic 49–63; PULSE 60–88; RESP 14–20; TEMP 36.2–36.4; O2SAT 94–98
[2023-05-28] MEDS: ALBUMIN HUMAN 25% 25 GM/100 ML 200 ML IVPB ×3 (05:06→21:11)
[2023-05-28 06:30] LABS: Basophils Absolute Auto 0.1 K/mm3 (0.0-0.1); Basophils Percent Auto 0.6 % (0.2-1.2); Eosinophils Absolute Auto 0.3 K/mm3 (0-0.3); Eosinophils Percent Auto 3.3 % (0-4.4); Hematocrit 29.6 % (42.0-52.0); Hemoglobin 9.2 g/dL (14.0-18.0); Immature Granulocyte Absolute 0.03 K/mm3 (0.00-0.031); Immature Granulocyte Percent A 0.4 % (0-0.5); Lymphocytes Percent Auto 8.7 % (18.3-44.2); Mean Corpuscular HGB Conc 31.1 g/dl (32-36); Mean Corpuscular Volume 96.4 fl (80-100); Mean Platelet Volume 9.7 fl (7.4-10.4); Monocytes Absolute Auto 1.1 K/mm3 (0.1-0.6); Monocytes Percent Auto 13.3 % (2.6-8.5); Neutrophils Percent Auto 73.7 % (45.5-73.1); Platelet Count Result 181 k/mm3 (150-375); Red Blood Count 3.07 M/mm3 (4.6-6.20); Red Cell Distribution Width 17.4 % (11.5-14.5); White Blood Count 8.1 K/mm3 (4.5-10.0)
[2023-05-28 06:40] LABS: Alanine Aminotransferase 35 U/L (6-50); Albumin Level 2.8 g/dL (3.5-5.1); Alkaline Phosphatase 113 U/L (38-126); Anion Gap 6 mmol/L (8-16); Aspartate Amino Transferase 52 U/L (17-59); Bilirubin,Total 0.7 mg/dL (0.2-1.3); Blood Urea Nitrogen 16 mg/dL (9-20); Calcium 7.8 mg/dL (8.4-10.2); Carbon Dioxide 27 mmol/L (22-30); Chloride 104 mmol/L (98-107); Estimated CRCL calculation 47 ml/min; Estimated Glomerular Filt Rate > 60; Glucose 90 mg/dL (65-110); Magnesium 2.2 mg/dL (1.6-2.3); Potassium 3.5 mmol/L (3.4-5.0); Sodium 137 mmol/L (137-145)
[2023-05-28] MEDS: DICLOFENAC SODIUM 1% 100 GM GEL (*BKC) 1 APPLIC TOPICAL (08:29)
[2023-05-28] MEDS: TAMSULOSIN HCL 0.4 MG CAPSULE PO (08:30)
[2023-05-28] MEDS: MAGNESIUM OXIDE 400 MG TABLET PO (08:30)
[2023-05-28] MEDS: CLOPIDOGREL BISULFATE 75 MG TABLET PO (08:30)
[2023-05-28] MEDS: ROSUVASTATIN 10 MG TABLET 40 MG PO (08:30)
[2023-05-28] MEDS: MIDODRINE HCL 2.5 MG TABLET 5 MG PO ×3 (08:30→16:17)
[2023-05-28] MEDS: METOPROLOL SUCCINATE EXT REL 25 MG TABCR PO (08:30)
[2023-05-28] MEDS: ASPIRIN 81 MG CHEWABLE TABLET PO (08:30)
[2023-05-28] MEDS: FIDAXOMICIN 200 MG TABLET PO ×2 (08:30→21:11)
--- NOTE | 2023-05-28 14:18 | PM.IMPN ---
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 Status: Acute Assessment and Plan: C diff positive in the nursing facility reported On Dificid Will follow with Vowst which has apparently been delivered to the senior care to use On fecal management system Await improvement in his current C diff infection (2) Recurrent Clostridioides difficile infection: Code(s): A49.8 - Other bacterial infections of unspecified site Status: Acute Assessment and Plan: patient to be started on Vowst after finishing this course of fidaxomicin (3) Leukocytosis: Code(s): D72.829 - Elevated white blood cell count, unspecified Status: Acute Assessment and Plan: Likely secondary to C.diff this is resolved (4) Acute on chronic renal failure: Code(s): N17.9 - Acute kidney failure, unspecified; N18.9 - Chronic kidney disease, unspecified Status: Acute Assessment and Plan: gentle hydration continue to monitor daily BMP holding Lasix Leg are soft legs getting swollen also has hypoalbuminemia. Give couple doses of albumin for blood pressure and edema Will stop IV fluid Will give a dose of Lasix today (5) Generalized weakness: Code(s): R53.1 - Weakness Status: Acute Assessment and Plan: likely secondary to debilitating infection with C diff currently residing at senior care (6) Cardiac LV ejection fraction of 35-39%: Code(s): R94.30 - Abnormal result of cardiovascular function study, unspecified Status: Acute Assessment and Plan: daily intake and output patient appears comfortable no crackles on physical exam continue to monitor diurese as needed cautious fluid resuscitation Subjective Date/time seen: 05/28/23 14:18 Interval history: had 5 episodes foot loose stool, 2 so far today. Has some swelling in the legs denies any shortness of breath or chest pain. Generalized weakness reported. Feels about the same as yesterday pain Review of Systems Review of Systems: All systems reviewed & are unremarkable except as noted in HPI and below Exam Narrative: General appearance: Well-developed, well-nourished Skin: Normal color Head: Normocephalic, nontraumatic Eyes: Clear conjunctiva ENT: Dry oral cavity Neck: Supple, nontender Chest and respiratory: Airway patent, no respiratory distress, no accessory muscle use Heart: Regular rate/rhythm Abdomen: Soft, diffuse tenderness, hyperactive bowel sounds, no organomegaly. Vascular: Normal peripheral pulses, normal capillary refill. Lower extremity edema pitting 2+ Musculoskeletal: Normal range of motion, nontender back Neurologic: Alert and oriented ?3, DISPENSING AUDIOLOGIST is normal as tested, no gross motor deficit ?? Objective Data Vital Signs Vital Signs: Vital Signs - 24 hr 05/27/23 15:31 05/27/23 20:00 05/28/23 00:00 Temperature 97.4 F L 97.8 F 97.6 F Pulse Rate 61 59 L 62 Respiratory Rate 18 18 18 Blood Pressure 118/61 113/51 L 110/49 L Pulse Oximetry 98 99 95 Oxygen Delivery 05/28/23 04:00 05/28/23 08:30 05/28/23 08:00 Temperature 97.3 F L 97.6 F Pulse Rate 62 88 60 Respiratory Rate 19 14 Blood Pressure 111/56 L 128/63 Pulse Oximetry 94 97 Oxygen Delivery 05/28/23 08:00 Temperature Pulse Rate Respiratory Rate Blood Pressure Pulse Oximetry Oxygen Delivery Room Air Intake/Output Intake/Output: Intake & Output 05/25/23 05/26/23 05/27/23 05/28/23 23:59 23:59 23:59 23:59 Intake Total 1290 1380 2300 880 Output Total 30 650 Balance 1260 1380 1650 880 Meds/Results Medications: Active Medications Generic Name Dose Route Start Last Admin Trade Name Freq PRN Reason Stop Dose Admin Acetaminophen 650 mg 05/25/23 21:44 05/27/23 20:16 Acetaminophen 325 Mg Tablet PO 650 mg Q4-6H PRN Administration Mild Pain (Scale Score 1-4)
[2023-05-28] MEDS: FUROSEMIDE INJ 40 MG/4 ML VIAL 20 MG IV PUSH (14:47)
--- NOTE | 2023-05-28 15:42 | WPDGIPROGNO ---
Progress Note: A&P Assessment and Plan (1) Recurrent Clostridioides difficile infection: Code(s): A49.8 - Other bacterial infections of unspecified site Status: Acute Assessment and Plan: on dificid clinically better and normalization of wbc rocephin was discontinued after he leaves the hospital and complete treatment with dificid then he will receive vowst (2-3 days after completing c diff) (2) Pancolitis: Code(s): K51.00 - Ulcerative (chronic) pancolitis without complications Status: Acute Assessment and Plan: no pain eating (3) Leukocytosis: Code(s): D72.829 - Elevated white blood cell count, unspecified Status: Acute Assessment and Plan: today normal wbc (4) Urinary tract infection: Qualifiers: Hematuria presence: without hematuria Urinary tract infection type: site unspecified Qualified Code(s): N39.0 - Urinary tract infection, site not specified Code(s): N39.0 - Urinary tract infection, site not specified Status: Acute Assessment and Plan: s/p rocephin discontinued (5) Stage 3a chronic kidney disease: Code(s): N18.31 - Chronic kidney disease, stage 3a Status: Chronic (6) Congestive heart failure: Qualifiers: Heart failure chronicity: chronic Heart failure type: right-sided Qualified Code(s): I50.812 - Chronic right heart failure Code(s): I50.9 - Heart failure, unspecified Status: Chronic Subjective Date/time seen: 05/28/23 15:42 Interval history: he is eating and feeling ok still diarrhea but he thinks that slowing down Review of Systems Review of Systems: All systems reviewed & are unremarkable except as noted in HPI and below Exam Const: General: comfortable and no acute distress Other: chronically ill appearing HENMT: Face/Nose/Sinus: Normal nares present Eyes: General: appearance normal, both eyes and all related structures Neck: Neck: supple Resp: Auscultation: clear to auscultation bilaterally Cardio: Rate: regular rate Rhythm: regular rhythm GI: Inspection: distended GI Palp: Yes Soft to palpation, No Tenderness to palpation present (GI) and No Guarding due to palpation present (GI) Auscultation: normal bowel sounds Skin: General skin exam: normal color Neuro: Speech: normal speech Motor exam (neuro): 5/5 motor strength present throughout Extrem: General: pedal edema (2+) bilaterally Psych: Mental Status: mental status grossly normal Objective Data Vital Signs Vital Signs: Vital Signs - 24 hr 05/27/23 20:00 05/28/23 00:00 05/28/23 04:00 Temperature 97.8 F 97.6 F 97.3 F L Pulse Rate 59 L 62 62 Respiratory Rate 18 18 19 Blood Pressure 113/51 L 110/49 L 111/56 L Pulse Oximetry 99 95 94 Oxygen Delivery 05/28/23 08:30 05/28/23 08:00 05/28/23 08:00 Temperature 97.6 F Pulse Rate 88 60 Respiratory Rate 14 Blood Pressure 128/63 Pulse Oximetry 97 Oxygen Delivery Room Air Intake/Output Intake/Output: Intake & Output 05/25/23 05/26/23 05/27/23 05/28/23 23:59 23:59 23:59 23:59 Intake Total 1290 1380 2300 880 Output Total 30 650 Balance 1260 1380 1650 880 Meds/Results Medications: Active Medications Generic Name Dose Route Start Last Admin Trade Name Freq PRN Reason Stop Dose Admin Acetaminophen 650 mg 05/25/23 21:44 05/27/23 20:16 Acetaminophen 325 Mg Tablet PO 650 mg Q4-6H PRN Administration Mild Pain (Scale Score 1-4) Albuterol 2.5 mg 05/25/23 21:44 Albuterol Sulfate Neb 2.5 Mg/3 Ml Inh INHALATION Q6H PRN sob Aspirin 81 mg 05/26/23 08:00 05/28/23 08:30 Aspirin 81 Mg Chewable Tablet PO 81 mg DAILY@0800 JANET Administration Clopidogrel Bisulfate 75 mg 05/26/23 09:00 05/28/23 08:30 Clopidogrel Bisulfate 75 Mg Tablet PO 75 mg DAILY JANET Administration Dextromethorphan Polistirix 60 mg 05/25/23 22:02 Dextromethorphan Polistirex 60 Mg/
[2023-05-28] MEDS: ACETAMINOPHEN 325 MG TABLET 650 MG PO (16:13)
[2023-05-28] MEDS: SERTRALINE HCL 25 MG TABLET PO (21:11)
[2023-05-29] VITALS (8 sets, daily range): BP systolic 117–136; BP diastolic 54–65; PULSE 60–74; RESP 14–20; TEMP 36.1–37.4; O2SAT 92–97
[2023-05-29] MEDS: ALBUMIN HUMAN 25% 25 GM/100 ML 200 ML IVPB ×3 (06:06→20:58)
[2023-05-29 06:57] LABS: Basophils Absolute Auto 0.1 K/mm3 (0.0-0.1); Basophils Percent Auto 0.6 % (0.2-1.2); Eosinophils Absolute Auto 0.2 K/mm3 (0-0.3); Eosinophils Percent Auto 2.2 % (0-4.4); Hematocrit 28.9 % (42.0-52.0); Hemoglobin 9.1 g/dL (14.0-18.0); Immature Granulocyte Absolute 0.04 K/mm3 (0.00-0.031); Immature Granulocyte Percent A 0.5 % (0-0.5); Lymphocytes Absolute Auto 0.66 K/mm3 (0.9-3.2); Lymphocytes Percent Auto 7.7 % (18.3-44.2); Mean Corpuscular HGB Conc 31.5 g/dl (32-36); Mean Corpuscular Hemoglobin 30.4 pg (26-34); Mean Corpuscular Volume 96.7 fl (80-100); Mean Platelet Volume 10.4 fl (7.4-10.4); Monocytes Absolute Auto 1.4 K/mm3 (0.1-0.6); Monocytes Percent Auto 15.9 % (2.6-8.5); Neutrophils Absolute Auto 6.2 K/mm3 (1.3-6.7); Neutrophils Percent Auto 73.1 % (45.5-73.1); Platelet Count Result 148 k/mm3 (150-375); Red Blood Count 2.99 M/mm3 (4.6-6.20); Red Cell Distribution Width 17.4 % (11.5-14.5); White Blood Count 8.5 K/mm3 (4.5-10.0)
[2023-05-29 07:10] LABS: Alanine Aminotransferase 27 U/L (6-50); Albumin Level 3.4 g/dL (3.5-5.1); Alkaline Phosphatase 81 U/L (38-126); Anion Gap 4 mmol/L (8-16); Aspartate Amino Transferase 41 U/L (17-59); Blood Urea Nitrogen 15 mg/dL (9-20); Calcium 8.3 mg/dL (8.4-10.2); Carbon Dioxide 25 mmol/L (22-30); Chloride 105 mmol/L (98-107); Estimated CRCL calculation 47 ml/min; Estimated Glomerular Filt Rate > 60; Glucose 87 mg/dL (65-110); Magnesium 2.3 mg/dL (1.6-2.3); Potassium 3.3 mmol/L (3.4-5.0); Sodium 134 mmol/L (137-145)
[2023-05-29] MEDS: TAMSULOSIN HCL 0.4 MG CAPSULE PO (08:26)
[2023-05-29] MEDS: MAGNESIUM OXIDE 400 MG TABLET PO (08:26)
[2023-05-29] MEDS: METOPROLOL SUCCINATE EXT REL 25 MG TABCR PO (08:26)
[2023-05-29] MEDS: MIDODRINE HCL 2.5 MG TABLET 5 MG PO ×3 (08:27→17:04)
[2023-05-29] MEDS: ASPIRIN 81 MG CHEWABLE TABLET PO (08:27)
[2023-05-29] MEDS: FIDAXOMICIN 200 MG TABLET PO ×2 (08:27→21:00)
[2023-05-29] MEDS: ROSUVASTATIN 10 MG TABLET 40 MG PO (08:27)
[2023-05-29] MEDS: CLOPIDOGREL BISULFATE 75 MG TABLET PO (08:27)
--- NOTE | 2023-05-29 08:51 | WPDGIPROGNO ---
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 Status: Acute Assessment and Plan: no pain eating (3) Leukocytosis: Code(s): D72.829 - Elevated white blood cell count, unspecified Status: Acute Assessment and Plan: normalization wbc (4) Urinary tract infection: Qualifiers: Hematuria presence: without hematuria Urinary tract infection type: site unspecified Qualified Code(s): N39.0 - Urinary tract infection, site not specified Code(s): N39.0 - Urinary tract infection, site not specified Status: Acute Assessment and Plan: already treated and not longer on rocephin (5) Stage 3a chronic kidney disease: Code(s): N18.31 - Chronic kidney disease, stage 3a Status: Chronic (6) Congestive heart failure: Qualifiers: Heart failure chronicity: chronic Heart failure type: right-sided Qualified Code(s): I50.812 - Chronic right heart failure Code(s): I50.9 - Heart failure, unspecified Status: Chronic Subjective Date/time seen: 05/29/23 08:51 Interval history: he is comfortable, no changes, still with diarrhea but no pain Review of Systems Review of Systems: All systems reviewed & are unremarkable except as noted in HPI and below Exam Const: General: comfortable and no acute distress Other: chronically ill appearing HENMT: Face/Nose/Sinus: Normal nares present Eyes: General: appearance normal, both eyes and all related structures Neck: Neck: supple Resp: Auscultation: clear to auscultation bilaterally Cardio: Rate: regular rate Rhythm: regular rhythm GI: Inspection: distended GI Palp: Yes Soft to palpation, No Tenderness to palpation present (GI) and No Guarding due to palpation present (GI) Auscultation: normal bowel sounds Skin: General skin exam: normal color Neuro: Speech: normal speech Motor exam (neuro): 5/5 motor strength present throughout Extrem: General: pedal edema (2+) bilaterally Psych: Mental Status: mental status grossly normal Objective Data Vital Signs Vital Signs: Vital Signs - 24 hr 05/28/23 12:00 05/28/23 16:00 05/28/23 20:00 Temperature 97.6 F 97.6 F Pulse Rate 62 61 Respiratory Rate 19 19 Blood Pressure 126/62 128/61 Pulse Oximetry 98 98 Oxygen Delivery Room Air 05/28/23 20:00 05/28/23 21:34 05/29/23 00:00 Temperature 97.2 F L 97.2 F L Pulse Rate 61 61 Respiratory Rate 20 16 Blood Pressure 116/53 L 120/57 L Pulse Oximetry 98 98 95 Oxygen Delivery Room Air 05/29/23 07:26 05/29/23 04:00 05/29/23 07:50 Temperature 96.9 F L 98.0 F Pulse Rate 60 60 Respiratory Rate 16 14 Blood Pressure 121/54 L 136/58 L Pulse Oximetry 95 95 Oxygen Delivery Room Air Intake/Output Intake/Output: Intake & Output 05/26/23 05/27/23 05/28/23 05/29/23 23:59 23:59 23:59 23:59 Intake Total 1380 2300 1560 200 Output Total 650 Balance 1380 1650 1560 200 Meds/Results Medications: Active Medications Generic Name Dose Route Start Last Admin Trade Name Freq PRN Reason Stop Dose Admin Acetaminophen 650 mg 05/25/23 21:44 05/28/23 16:13 Acetaminophen 325 Mg Tablet PO 650 mg Q4-6H PRN Administration Mild Pain (Scale Score 1-4) Albuterol 2.5 mg 05/25/23 21:44 Albuterol Sulfate Neb 2.5 Mg/3 Ml Inh INHALATION Q6H PRN sob Aspirin 81 mg 05/26/23 08:00 05/29/23 08:27 Aspirin 81 Mg Chewable Tablet
[2023-05-29] MEDS: ACETAMINOPHEN 325 MG TABLET 650 MG PO ×2 (10:38→21:11)
[2023-05-29] MEDS: ONDANSETRON INJ 4 MG/2 ML VIAL IV PUSH (10:38)
[2023-05-29] MEDS: POTASSIUM CHLORIDE 20 MEQ ER TABLET 40 MEQ PO (13:47)
[2023-05-29] MEDS: FUROSEMIDE INJ 40 MG/4 ML VIAL IV PUSH (13:47)
--- NOTE | 2023-05-29 14:42 | PM.IMPN ---
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 Status: Acute Assessment and Plan: C diff positive in the nursing facility reported On Dificid Will follow with Vowst which has apparently been delivered to the correction to use On fecal management system Which has been discontinued Await improvement in his current C diff infection (2) Recurrent Clostridioides difficile infection: Code(s): A49.8 - Other bacterial infections of unspecified site Status: Acute Assessment and Plan: patient to be started on Vowst after finishing this course of fidaxomicin (3) Leukocytosis: Code(s): D72.829 - Elevated white blood cell count, unspecified Status: Acute Assessment and Plan: Likely secondary to C.diff this is resolved (4) Acute on chronic renal failure: Code(s): N17.9 - Acute kidney failure, unspecified; N18.9 - Chronic kidney disease, unspecified Status: Acute Assessment and Plan: gentle hydration continue to monitor daily BMP holding Lasix Leg are soft legs getting swollen also has hypoalbuminemia. Give couple doses of albumin for blood pressure and edema stopped IV fluid Restart Lasix intermittent dosing for now due to ongoing diarrhea Also on albumin infusion (5) Generalized weakness: Code(s): R53.1 - Weakness Status: Acute Assessment and Plan: likely secondary to debilitating infection with C diff currently residing at [facility] (6) Cardiac LV ejection fraction of 35-39%: Code(s): R94.30 - Abnormal result of cardiovascular function study, unspecified Status: Acute Assessment and Plan: daily intake and output patient appears comfortable no crackles on physical exam continue to monitor diurese as needed cautious fluid resuscitation Subjective Date/time seen: 05/29/23 14:42 Interval history: still having intermittent bowel movement which are loose. Denies any abdominal pain. Swelling persist no shortness of breath or chest pain. Remains afebrile. Review of Systems Review of Systems: All systems reviewed & are unremarkable except as noted in HPI and below Exam Narrative: General appearance: Well-developed, well-nourished Skin: Normal color Head: Normocephalic, nontraumatic Eyes: Clear conjunctiva ENT: Dry oral cavity Neck: Supple, nontender Chest and respiratory: Airway patent, no respiratory distress, no accessory muscle use Heart: Regular rate/rhythm Abdomen: Soft, diffuse tenderness, hyperactive bowel sounds, no organomegaly. Vascular: Normal peripheral pulses, normal capillary refill. Lower extremity edema pitting 2+ Musculoskeletal: Normal range of motion, nontender back Neurologic: Alert and oriented ?3, ROD PULLER is normal as tested, no gross motor deficit ?? Objective Data Vital Signs Vital Signs: Vital Signs - 24 hr 05/28/23 16:00 05/28/23 20:00 05/28/23 20:00 Temperature 97.6 F 97.2 F L Pulse Rate 61 61 Respiratory Rate 19 20 Blood Pressure 128/61 116/53 L Pulse Oximetry 98 98 Oxygen Delivery Room Air 05/28/23 21:34 05/29/23 00:00 05/29/23 07:26 Temperature 97.2 F L Pulse Rate 61 Respiratory Rate 16 Blood Pressure 120/57 L Pulse Oximetry 98 95 Oxygen Delivery Room Air Room Air 05/29/23 04:00 05/29/23 07:50 05/29/23 12:00 Temperature 96.9 F L 98.0 F 97.5 F L Pulse Rate 60 60 74 Respiratory Rate 16 14 14 Blood Pressure 121/54 L 136/58 L 117/57 L Pulse Oximetry 95 95 94 Oxygen Delivery Intake/Output Intake/Output: Intake & Output 05/26/23 05/27/23 05/28/23 05/29/23 23:59 23:59 23:59 23:59 Intake Total 1380 2300 1560 820 Output Total 650 Balance 1380 1650 1560 820 Meds/Results Medications: Active Medications Generic Name Dose Route Start Last Admin Trade Name Freq PRN Reason Stop Dose Admin Acetaminophen 650 mg 0
[2023-05-29] MEDS: SERTRALINE HCL 25 MG TABLET PO (21:00)
[2023-05-29] MEDS: DICLOFENAC SODIUM 1% 100 GM GEL (*BKC) 1 APPLIC TOPICAL (21:12)
[2023-05-30] VITALS (8 sets, daily range): BP systolic 120–139; BP diastolic 58–67; PULSE 57–61; RESP 14–16; TEMP 36–37.2; O2SAT 92–99
[2023-05-30] MEDS: ALBUMIN HUMAN 25% 25 GM/100 ML 200 ML IVPB ×3 (05:57→21:46)
[2023-05-30 06:32] LABS: Basophils Absolute Auto 0.1 K/mm3 (0.0-0.1); Basophils Percent Auto 0.8 % (0.2-1.2); Eosinophils Absolute Auto 0.2 K/mm3 (0-0.3); Eosinophils Percent Auto 2.7 % (0-4.4); Hematocrit 29.6 % (42.0-52.0); Hemoglobin 9.1 g/dL (14.0-18.0); Immature Granulocyte Absolute 0.03 K/mm3 (0.00-0.031); Immature Granulocyte Percent A 0.4 % (0-0.5); Mean Corpuscular HGB Conc 30.7 g/dl (32-36); Mean Corpuscular Hemoglobin 30.1 pg (26-34); Mean Platelet Volume 10.4 fl (7.4-10.4); Monocytes Absolute Auto 1.5 K/mm3 (0.1-0.6); Monocytes Percent Auto 19.1 % (2.6-8.5); Neutrophils Absolute Auto 5.3 K/mm3 (1.3-6.7); Platelet Count Result 123 k/mm3 (150-375); Red Blood Count 3.02 M/mm3 (4.6-6.20); Red Cell Distribution Width 17.8 % (11.5-14.5); White Blood Count 7.8 K/mm3 (4.5-10.0)
[2023-05-30 06:55] LABS: Alanine Aminotransferase 25 U/L (6-50); Albumin Level 3.7 g/dL (3.5-5.1); Alkaline Phosphatase 59 U/L (38-126); Anion Gap 3 mmol/L (8-16); Aspartate Amino Transferase 38 U/L (17-59); Bilirubin,Total 1.3 mg/dL (0.2-1.3); Blood Urea Nitrogen 15 mg/dL (9-20); Calcium 8.5 mg/dL (8.4-10.2); Carbon Dioxide 28 mmol/L (22-30); Chloride 104 mmol/L (98-107); Estimated CRCL calculation 40 ml/min; Estimated Glomerular Filt Rate 58; Glucose 80 mg/dL (65-110); Magnesium 2.3 mg/dL (1.6-2.3); Potassium 3.6 mmol/L (3.4-5.0); Sodium 135 mmol/L (137-145)
[2023-05-30] MEDS: TAMSULOSIN HCL 0.4 MG CAPSULE PO (08:46)
[2023-05-30] MEDS: FIDAXOMICIN 200 MG TABLET PO ×2 (08:46→21:46)
[2023-05-30] MEDS: ASPIRIN 81 MG CHEWABLE TABLET PO (08:46)
[2023-05-30] MEDS: MAGNESIUM OXIDE 400 MG TABLET PO (08:46)
[2023-05-30] MEDS: ROSUVASTATIN 10 MG TABLET 40 MG PO (08:46)
[2023-05-30] MEDS: CLOPIDOGREL BISULFATE 75 MG TABLET PO (08:47)
[2023-05-30] MEDS: METOPROLOL SUCCINATE EXT REL 25 MG TABCR PO (08:47)
[2023-05-30] MEDS: MIDODRINE HCL 2.5 MG TABLET 5 MG PO ×3 (08:47→16:45)
[2023-05-30] MEDS: ACETAMINOPHEN 325 MG TABLET 650 MG PO (09:09)
--- NOTE | 2023-05-30 09:54 | PCNFU ---
Nutrition Follow-Up Complete: Inadequate energy intake related to diet order as evidenced by clear liquid status Goal:Diet advanced Adequate po intake at 75% or greater of meals Resolved diarrhea Pt not meeting goal, continue with same goal. Pt current nutrition is Regular, Glucerna shakes and banatrol BID. Nutrition recommendation: Continue with current plan of care Last recorded weight is 81.7 kg. Bowel Motility: +BM 05/29 - still experiencing diarrhea Labs Reviewed: Hgb:9.1, HCT:29.6, NA:135, GFR:58 Meds Noted: zofran Skin: No skin issues noted Additional Notes: Pt advanced to a regular diet, intake varied at 15-50% of meals. Glucerna shakes in place BID, banatrol for diarrhea. Continue with current plan of care. Monitor diet order, intake, tolerance, wt, labs, BM. Follow up in 5 days.
--- NOTE | 2023-05-30 12:26 | WPDGIPROGNO ---
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 Status: Acute Assessment and Plan: no pain eating (3) Leukocytosis: Code(s): D72.829 - Elevated white blood cell count, unspecified Status: Acute Assessment and Plan: resolved (4) Urinary tract infection: Qualifiers: Hematuria presence: without hematuria Urinary tract infection type: site unspecified Qualified Code(s): N39.0 - Urinary tract infection, site not specified Code(s): N39.0 - Urinary tract infection, site not specified Status: Acute Assessment and Plan: already treated and not longer on rocephin (5) Stage 3a chronic kidney disease: Code(s): N18.31 - Chronic kidney disease, stage 3a Status: Chronic (6) Congestive heart failure: Qualifiers: Heart failure chronicity: chronic Heart failure type: right-sided Qualified Code(s): I50.812 - Chronic right heart failure Code(s): I50.9 - Heart failure, unspecified Status: Chronic Assessment and Plan: still with leg edema diuresing prn Subjective Date/time seen: 05/30/23 12:26 Interval history: less diarrhea required oxygen last night and resting, daughter at bedside Review of Systems Review of Systems: All systems reviewed & are unremarkable except as noted in HPI and below Exam Const: General: comfortable and no acute distress Other: chronically ill appearing HENMT: Face/Nose/Sinus: Normal nares present Eyes: General: appearance normal, both eyes and all related structures Neck: Neck: supple Resp: Auscultation: clear to auscultation bilaterally Cardio: Rate: regular rate Rhythm: regular rhythm GI: Inspection: distended GI Palp: Yes Soft to palpation, No Tenderness to palpation present (GI) and No Guarding due to palpation present (GI) Auscultation: normal bowel sounds Skin: General skin exam: normal color Neuro: Speech: normal speech Motor exam (neuro): 5/5 motor strength present throughout Extrem: General: pedal edema (2+) bilaterally Psych: Mental Status: mental status grossly normal Objective Data Vital Signs Vital Signs: Vital Signs - 24 hr 05/29/23 15:41 05/29/23 20:14 05/29/23 20:00 Temperature 97.3 F L 99.4 F Pulse Rate 61 64 Respiratory Rate 20 16 Blood Pressure 125/65 126/61 Pulse Oximetry 94 97 92 Oxygen Delivery Room Air Oxygen Flow Rate 05/29/23 23:16 05/30/23 03:53 05/30/23 08:47 Temperature 97.2 F L 97.4 F L Pulse Rate 60 61 61 Respiratory Rate 16 16 Blood Pressure 122/62 127/66 Pulse Oximetry 93 92 Oxygen Delivery Oxygen Flow Rate 05/30/23 08:00 05/30/23 08:30 Temperature 97 F L Pulse Rate 61 Respiratory Rate 16 Blood Pressure 138/61 Pulse Oximetry 98 98 Oxygen Delivery Nasal Cannula Oxygen Flow Rate 1 Intake/Output Intake/Output: Intake & Output 05/27/23 05/28/23 05/29/23 05/30/23 23:59 23:59 23:59 23:59 Intake Total 2300 1560 1240 520 Output Total 650 Balance 1650 1560 1240 520 Meds/Results Medications: Active Medications Generic Name Dose Route Start Last Admin Trade Name Freq PRN Reason Stop Dose Admin Acetaminophen 650 mg 05/25/23 21:44 05/30/23 09:09 Acetaminophen 325 Mg Tablet PO 650 mg Q4-6H PRN Administration Mild Pain (Scale Score 1-4) Albuterol 2.5 mg 05/25/23 21:44 Albuterol Sulfate Neb 2.5 Mg/3 Ml In
--- NOTE | 2023-05-30 13:02 | PM.IMPN ---
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 Status: Acute Assessment and Plan: C diff positive in the nursing facility reported On Dificid Will follow with Vowst which has apparently been delivered to the snf to use On fecal management system Which has been discontinued Await improvement in his current C diff infection WBC count is improved as well as bowel movement decreased Ensure fidaxomicin is available for discharge (2) Recurrent Clostridioides difficile infection: Code(s): A49.8 - Other bacterial infections of unspecified site Status: Acute Assessment and Plan: patient to be started on Vowst after finishing this course of fidaxomicin (3) Leukocytosis: Code(s): D72.829 - Elevated white blood cell count, unspecified Status: Acute Assessment and Plan: Likely secondary to C.diff this is resolved (4) Acute on chronic renal failure: Code(s): N17.9 - Acute kidney failure, unspecified; N18.9 - Chronic kidney disease, unspecified Status: Acute Assessment and Plan: gentle hydration continue to monitor daily BMP holding Lasix Leg are soft legs getting swollen also has hypoalbuminemia. Give couple doses of albumin for blood pressure and edema stopped IV fluid Restart Lasix intermittent dosing for now due to ongoing diarrhea Also on albumin infusion Re-dose Lasix again and restart oral Lasix from tomorrow (5) Generalized weakness: Code(s): R53.1 - Weakness Status: Acute Assessment and Plan: likely secondary to debilitating infection with C diff currently residing at snf (6) Cardiac LV ejection fraction of 35-39%: Code(s): R94.30 - Abnormal result of cardiovascular function study, unspecified Status: Acute Assessment and Plan: daily intake and output patient appears comfortable no crackles on physical exam continue to monitor diurese as needed cautious fluid resuscitation Subjective Date/time seen: 05/30/23 13:02 Interval history: Patient reports bowel movement is slowing down. Denies any abdominal pain. No fever chills. Labs were reviewed. Discussed with daughter at bedside. Leg swelling has improved. Review of Systems Review of Systems: All systems reviewed & are unremarkable except as noted in HPI and below Exam Narrative: General appearance: Well-developed, well-nourished Skin: Normal color Head: Normocephalic, nontraumatic Eyes: Clear conjunctiva ENT: Dry oral cavity Neck: Supple, nontender Chest and respiratory: Airway patent, no respiratory distress, no accessory muscle use Heart: Regular rate/rhythm Abdomen: Soft, diffuse tenderness, hyperactive bowel sounds, no organomegaly. Vascular: Normal peripheral pulses, normal capillary refill. Lower extremity edema pitting 1+ Musculoskeletal: Normal range of motion, nontender back Neurologic: Alert and oriented ?3, RAISED PRINTER is normal as tested, no gross motor deficit ?? Objective Data Vital Signs Vital Signs: Vital Signs - 24 hr 05/29/23 15:41 05/29/23 20:14 05/29/23 20:00 Temperature 97.3 F L 99.4 F Pulse Rate 61 64 Respiratory Rate 20 16 Blood Pressure 125/65 126/61 Pulse Oximetry 94 97 92 Oxygen Delivery Room Air Oxygen Flow Rate 05/29/23 23:16 05/30/23 03:53 05/30/23 08:47 Temperature 97.2 F L 97.4 F L Pulse Rate 60 61 61 Respiratory Rate 16 16 Blood Pressure 122/62 127/66 Pulse Oximetry 93 92 Oxygen Delivery Oxygen Flow Rate 05/30/23 08:00 05/30/23 08:30 05/30/23 12:00 Temperature 97 F L 96.8 F L Pulse Rate 61 57 L Respiratory Rate 16 14 Blood Pressure 138/61 136/61 Pulse Oximetry 98 98 99 Oxygen Delivery Nasal Cannula Oxygen Flow Rate 1 Intake/Output Intake/Output: Intake & Output 05/27/23 05/28/23 05/29/23 05/30/23 23:59 23:59 23:59 23:59 Intake Total
[2023-05-30] MEDS: FUROSEMIDE INJ 40 MG/4 ML VIAL IV PUSH (13:11)
--- NOTE | 2023-05-30 15:01 | PCOTNOTE ---
Patient refused to participate in therapy services this P.M. Patient verbalized he is having stomach cramping and not feeling well at all.
[2023-05-30] MEDS: ONDANSETRON INJ 4 MG/2 ML VIAL IV PUSH (15:12)
--- NOTE | 2023-05-30 16:14 | PCPTNOTE ---
Patient declined therapy this afternoon due to not feeling well. PT will continue to follow per plan of care.
[2023-05-30] MEDS: POTASSIUM CHLORIDE 20 MEQ ER TABLET 40 MEQ PO (16:45)
[2023-05-30] MEDS: SERTRALINE HCL 25 MG TABLET PO (21:46)
[2023-05-31] VITALS (14 sets, daily range): BP systolic 112–125; BP diastolic 50–65; PULSE 60–84; RESP 16–20; TEMP 36.8–37.3; O2SAT 96–99
[2023-05-31] MEDS: ALBUMIN HUMAN 25% 25 GM/100 ML 200 ML IVPB ×2 (05:34→14:42)
[2023-05-31 06:15] LABS: Basophils Absolute Auto 0.1 K/mm3 (0.0-0.1); Basophils Percent Auto 0.5 % (0.2-1.2); Eosinophils Absolute Auto 0.2 K/mm3 (0-0.3); Hematocrit 30.6 % (42.0-52.0); Hemoglobin 9.4 g/dL (14.0-18.0); Immature Granulocyte Absolute 0.06 K/mm3 (0.00-0.031); Immature Granulocyte Percent A 0.5 % (0-0.5); Lymphocytes Absolute Auto 0.48 K/mm3 (0.9-3.2); Lymphocytes Percent Auto 4.4 % (18.3-44.2); Mean Corpuscular HGB Conc 30.7 g/dl (32-36); Mean Corpuscular Hemoglobin 29.8 pg (26-34); Mean Corpuscular Volume 97.1 fl (80-100); Mean Platelet Volume 10.5 fl (7.4-10.4); Monocytes Absolute Auto 1.4 K/mm3 (0.1-0.6); Monocytes Percent Auto 12.7 % (2.6-8.5); Neutrophils Absolute Auto 8.8 K/mm3 (1.3-6.7); Neutrophils Percent Auto 79.9 % (45.5-73.1); Platelet Count Result 116 k/mm3 (150-375); Red Blood Count 3.15 M/mm3 (4.6-6.20); Red Cell Distribution Width 17.6 % (11.5-14.5)
[2023-05-31 06:28] LABS: Alanine Aminotransferase 25 U/L (6-50); Albumin Level 4.3 g/dL (3.5-5.1); Alkaline Phosphatase 56 U/L (38-126); Anion Gap 8 mmol/L (8-16); Aspartate Amino Transferase 40 U/L (17-59); Bilirubin,Total 1.9 mg/dL (0.2-1.3); Blood Urea Nitrogen 17 mg/dL (9-20); Calcium 8.8 mg/dL (8.4-10.2); Carbon Dioxide 24 mmol/L (22-30); Chloride 103 mmol/L (98-107); Estimated CRCL calculation 34 ml/min; Estimated Glomerular Filt Rate 49; Glucose 73 mg/dL (65-110); Magnesium 2.4 mg/dL (1.6-2.3); Potassium 3.8 mmol/L (3.4-5.0); Sodium 135 mmol/L (137-145)
[2023-05-31 07:02] LABS: Anisocytosis 1+ (NORMAL); Ovalocytes 1+ (NORMAL); Poikilocytosis 1+ (NORMAL); Schistocytes None Seen (NORMAL)
[2023-05-31] MEDS: FIDAXOMICIN 200 MG TABLET PO ×2 (08:18→20:40)
[2023-05-31] MEDS: TAMSULOSIN HCL 0.4 MG CAPSULE PO (08:18)
[2023-05-31] MEDS: METOPROLOL SUCCINATE EXT REL 25 MG TABCR PO (08:18)
[2023-05-31] MEDS: ROSUVASTATIN 10 MG TABLET 40 MG PO (08:18)
[2023-05-31] MEDS: ASPIRIN 81 MG CHEWABLE TABLET PO (08:18)
[2023-05-31] MEDS: MIDODRINE HCL 2.5 MG TABLET 5 MG PO ×3 (08:18→18:11)
[2023-05-31] MEDS: FUROSEMIDE 40 MG TABLET PO ×2 (08:19→20:35)
[2023-05-31] MEDS: POTASSIUM CHLORIDE 20 MEQ ER TABLET 40 MEQ PO ×2 (08:19→18:11)
[2023-05-31] MEDS: CLOPIDOGREL BISULFATE 75 MG TABLET PO (08:19)
[2023-05-31] MEDS: MAGNESIUM OXIDE 400 MG TABLET PO (08:19)
[2023-05-31] MEDS: ONDANSETRON INJ 4 MG/2 ML VIAL IV PUSH (08:25)
--- NOTE | 2023-05-31 10:26 | PCOTNOTE ---
Per MD, Patient No therapy at this time. Patient is going to have testing done. Per daughter, Patient is very different and needs to have things addressed prior to therapy services.
--- NOTE | 2023-05-31 11:36 | WPDGIPROGNO ---
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 Status: Acute Assessment and Plan: no pain eating (3) Leukocytosis: Code(s): D72.829 - Elevated white blood cell count, unspecified Status: Acute (4) Urinary tract infection: Qualifiers: Hematuria presence: without hematuria Urinary tract infection type: site unspecified Qualified Code(s): N39.0 - Urinary tract infection, site not specified Code(s): N39.0 - Urinary tract infection, site not specified Status: Acute Assessment and Plan: already treated and not longer on rocephin (5) Stage 3a chronic kidney disease: Code(s): N18.31 - Chronic kidney disease, stage 3a Status: Chronic (6) Congestive heart failure: Qualifiers: Heart failure chronicity: chronic Heart failure type: right-sided Qualified Code(s): I50.812 - Chronic right heart failure Code(s): I50.9 - Heart failure, unspecified Status: Chronic Assessment and Plan: still with leg edema diuresing prn Subjective Date/time seen: 05/31/23 11:36 Interval history: no major changes, he says that has not had diarrhea today Review of Systems Review of Systems: All systems reviewed & are unremarkable except as noted in HPI and below Exam Const: General: comfortable and no acute distress Other: chronically ill appearing HENMT: Face/Nose/Sinus: Normal nares present Eyes: General: appearance normal, both eyes and all related structures Neck: Neck: supple Resp: Auscultation: clear to auscultation bilaterally Cardio: Rate: regular rate Rhythm: regular rhythm GI: Inspection: distended GI Palp: Yes Soft to palpation, No Tenderness to palpation present (GI) and No Guarding due to palpation present (GI) Auscultation: normal bowel sounds Skin: General skin exam: normal color Neuro: Speech: normal speech Motor exam (neuro): 5/5 motor strength present throughout Extrem: General: pedal edema (2+) bilaterally Psych: Mental Status: mental status grossly normal Objective Data Vital Signs Vital Signs: Vital Signs - 24 hr 05/30/23 12:00 05/30/23 16:00 05/30/23 20:00 Temperature 96.8 F L 97.9 F 99.0 F Pulse Rate 57 L 61 61 Respiratory Rate 14 14 16 Blood Pressure 136/61 139/67 120/58 L Pulse Oximetry 99 99 99 Oxygen Delivery 05/31/23 00:00 05/30/23 23:00 05/31/23 03:34 Temperature 99.1 F 99.0 F Pulse Rate 67 62 Respiratory Rate 16 16 Blood Pressure 119/50 L 125/60 Pulse Oximetry 98 98 98 Oxygen Delivery Room Air 05/31/23 08:18 05/31/23 08:00 Temperature 99 F Pulse Rate 62 63 Respiratory Rate 20 Blood Pressure 122/65 Pulse Oximetry 97 Oxygen Delivery Intake/Output Intake/Output: Intake & Output 05/28/23 05/29/23 05/30/23 05/31/23 23:59 23:59 23:59 23:59 Intake Total 1560 1240 1410 680 Balance 1560 1240 1410 680 Meds/Results Medications: Active Medications Generic Name Dose Route Start Last Admin Trade Name Freq PRN Reason Stop Dose Admin Acetaminophen 650 mg 05/25/23 21:44 05/30/23 09:09 Acetaminophen 325 Mg Tablet PO 650 mg Q4-6H PRN Administration Mild Pain (Scale Score 1-4) Albuterol 2.5 mg 05/25/23 21:44 Albuterol Sulfate Neb 2.5 Mg/3 Ml Inh INHALATION Q6H PRN sob Albuterol 2.5 mg 05/31/23 14:00 Albuterol Sulfate Neb 2.5 Mg/3 Ml Inh INHALATION Q6HRT JANET Aspirin 81 mg 05/26/23 08:00
--- NOTE | 2023-05-31 12:48 | PCPTNOTE ---
The patient treatment was not able to be completed due to patient having further testing. Will plan to continue treatment per plan of care.
--- NOTE | 2023-05-31 14:11 | PCSTNOTE ---
Please refer to the Bedside Swallow Evaluation in the EMR. Please note, silent aspiration cannot be ruled out at bedside.
--- NOTE | 2023-05-31 14:45 | PCOTNOTE ---
Patient unavailable for OT treatment session this P.M. Patient is currently working with PT on bed mobility and transfer out of bed per requested by the doctor.
--- NOTE | 2023-05-31 15:52 | PM.IMPN ---
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 Status: Acute Assessment and Plan: C diff positive in the nursing facility reported On Dificid Will follow with Vowst which has apparently been delivered to the senior care to use On fecal management system Which has been discontinued Await improvement in his current C diff infection WBC count is improved as well as bowel movement decreased Ensure fidaxomicin is available for discharge Needs order for vowst at discharge. voust is already delivered to the senior care to use After completion of Dificid needs vowst 2-3 days after completing C diff. Maxi treat night before use of vowst. See GI (2) Recurrent Clostridioides difficile infection: Code(s): A49.8 - Other bacterial infections of unspecified site Status: Acute Assessment and Plan: patient to be started on Vowst after finishing this course of fidaxomicin (3) Leukocytosis: Code(s): D72.829 - Elevated white blood cell count, unspecified Status: Acute Assessment and Plan: Likely secondary to C.diff this is resolved but slightly worse today Had an episode of coughing earlier last night and feels a bit short of breath will get chest x-ray which showed opacities in bilateral mid and lower lung zones which could represent atelectasis mild pulmonary edema pneumonia or some combination thereof. There are small bilateral pleural effusion. Cardiomegaly. Will continue gentle diuresis as creatinine bumped up today. (4) Acute on chronic renal failure: Code(s): N17.9 - Acute kidney failure, unspecified; N18.9 - Chronic kidney disease, unspecified Status: Acute Assessment and Plan: gentle hydration continue to monitor daily BMP holding Lasix Leg are soft legs getting swollen also has hypoalbuminemia. Give couple doses of albumin for blood pressure and edema stopped IV fluid Restart Lasix intermittent dosing for now due to ongoing diarrhea Also on albumin infusion Re-dose Lasix again and restart oral Lasix from tomorrow Creatinine slightly up today recheck in a.m. and monitor (5) Generalized weakness: Code(s): R53.1 - Weakness Status: Acute Assessment and Plan: likely secondary to debilitating infection with C diff currently residing at senior care (6) Cardiac LV ejection fraction of 35-39%: Code(s): R94.30 - Abnormal result of cardiovascular function study, unspecified Status: Acute Assessment and Plan: daily intake and output patient appears comfortable no crackles on physical exam continue to monitor diurese as needed cautious fluid resuscitation Subjective Date/time seen: 05/31/23 15:52 Interval history: Patient feeling weak today. Diarrhea has improved. Feels a bit short of breath today. Abdomen is sore on the bottom as well Review of Systems Review of Systems: All systems reviewed & are unremarkable except as noted in HPI and below Exam Narrative: General appearance: Well-developed, well-nourished Skin: Normal color Head: Normocephalic, nontraumatic Eyes: Clear conjunctiva ENT: Dry oral cavity Neck: Supple, nontender Chest and respiratory: Airway patent, no respiratory distress, no accessory muscle use Heart: Regular rate/rhythm Abdomen: Soft, diffuse tenderness, hyperactive bowel sounds, no organomegaly. Vascular: Normal peripheral pulses, normal capillary refill. 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 Objective Data Vital Signs Vital Signs: Vital Signs - 24 hr 05/30/23 16:00 05/30/23 20:00 05/31/23 00:00 Temperature 97.9 F 99.0 F 99.1 F Pulse Rate 61 61 67 Respiratory Rate 14 16 16 Blood Pressure 139/67 120/58 L 119/50 L Pulse Oximetry 99 99 98 Oxyg
[2023-05-31] MEDS: ALBUTEROL SULFATE NEB 2.5 MG/3 ML INH INHALATION ×2 (16:13→20:01)
[2023-05-31] MEDS: IPRATROPIUM BR 0.02% INH SOLN 0.5 MG/2.5 ML VIAL INHALATION ×2 (16:13→20:01)
[2023-05-31] MEDS: SERTRALINE HCL 25 MG TABLET PO (20:39)
[2023-06-01] VITALS (11 sets, daily range): BP systolic 111–124; BP diastolic 54–62; PULSE 60–84; RESP 14–20; TEMP 35.9–37.1; O2SAT 99–100
[2023-06-01] MEDS: IPRATROPIUM BR 0.02% INH SOLN 0.5 MG/2.5 ML VIAL INHALATION ×4 (02:06→20:21)
[2023-06-01] MEDS: ALBUTEROL SULFATE NEB 2.5 MG/3 ML INH INHALATION ×4 (02:06→20:21)
[2023-06-01 05:52] LABS: Basophils Absolute Auto 0.1 K/mm3 (0.0-0.1); Basophils Percent Auto 0.6 % (0.2-1.2); Eosinophils Absolute Auto 0.1 K/mm3 (0-0.3); Eosinophils Percent Auto 1.6 % (0-4.4); Hematocrit 28.3 % (42.0-52.0); Hemoglobin 8.7 g/dL (14.0-18.0); Immature Granulocyte Absolute 0.04 K/mm3 (0.00-0.031); Immature Granulocyte Percent A 0.5 % (0-0.5); Lymphocytes Percent Auto 7.2 % (18.3-44.2); Mean Corpuscular HGB Conc 30.7 g/dl (32-36); Mean Corpuscular Hemoglobin 29.7 pg (26-34); Mean Corpuscular Volume 96.6 fl (80-100); Monocytes Absolute Auto 1.7 K/mm3 (0.1-0.6); Monocytes Percent Auto 20.6 % (2.6-8.5); Neutrophils Absolute Auto 5.8 K/mm3 (1.3-6.7); Neutrophils Percent Auto 69.5 % (45.5-73.1); Platelet Count Result 112 k/mm3 (150-375); Red Blood Count 2.93 M/mm3 (4.6-6.20); Red Cell Distribution Width 17.4 % (11.5-14.5); White Blood Count 8.3 K/mm3 (4.5-10.0)
[2023-06-01 06:04] LABS: Sodium 141 mmol/L (137-145)
[2023-06-01 06:18] LABS: Alanine Aminotransferase 23 U/L (6-50); Albumin Level 4.3 g/dL (3.5-5.1); Alkaline Phosphatase 63 U/L (38-126); Anion Gap 8 mmol/L (8-16); Aspartate Amino Transferase 33 U/L (17-59); Bilirubin,Total 1.6 mg/dL (0.2-1.3); Blood Urea Nitrogen 19 mg/dL (9-20); Calcium 8.8 mg/dL (8.4-10.2); Carbon Dioxide 30 mmol/L (22-30); Chloride 103 mmol/L (98-107); Estimated CRCL calculation 28 ml/min; Estimated Glomerular Filt Rate 39; Glucose 102 mg/dL (65-110); Magnesium 2.2 mg/dL (1.6-2.3); Potassium 3.8 mmol/L (3.4-5.0)
--- NOTE | 2023-06-01 08:26 | PM.IMPN ---
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 Status: Acute Assessment and Plan: C diff positive in the nursing facility reported On Dificid Will follow with Vowst which has apparently been delivered to the [facility] to use On fecal management system Which has been discontinued Await improvement in his current C diff infection WBC count is improved as well as bowel movement decreased Ensure fidaxomicin is available for discharge Needs order for vowst at discharge. it is already delivered to the [facility] to use After completion of Dificid 10 days, needs vowst 2-3 days after completing C diff. Maxi treat night before use of vowst. See GI (2) Recurrent Clostridioides difficile infection: Code(s): A49.8 - Other bacterial infections of unspecified site Status: Acute Assessment and Plan: patient to be started on Vowst after finishing this course of fidaxomicin (3) Leukocytosis: Code(s): D72.829 - Elevated white blood cell count, unspecified Status: Acute Assessment and Plan: Likely secondary to C.diff this is resolved but slightly worse today Had an episode of coughing earlier last night and feels a bit short of breath will get chest x-ray which showed opacities in bilateral mid and lower lung zones which could represent atelectasis mild pulmonary edema pneumonia or some combination thereof. There are small bilateral pleural effusion. Cardiomegaly. hold diuresis as creatinine bumped up today no sign of overload . (4) Acute on chronic renal failure: Code(s): N17.9 - Acute kidney failure, unspecified; N18.9 - Chronic kidney disease, unspecified Status: Acute Assessment and Plan: gentle hydration continue to monitor daily BMP holding Lasix Leg are soft legs getting swollen also has hypoalbuminemia. Give couple doses of albumin for blood pressure and edema Creatinine slightly up today recheck in a.m. and monitor (5) Generalized weakness: Code(s): R53.1 - Weakness Status: Acute Assessment and Plan: likely secondary to debilitating infection with C diff currently residing at [facility] (6) Cardiac LV ejection fraction of 35-39%: Code(s): R94.30 - Abnormal result of cardiovascular function study, unspecified Status: Acute Assessment and Plan: daily intake and output patient appears comfortable no crackles on physical exam continue to monitor hold diurese now cautious fluid resuscitation Subjective Date/time seen: 06/01/23 08:26 Interval history: Patient feeling weak today. Diarrhea has improved. Patient has no new issue events overnight Exam Narrative: General appearance: Well-developed, well-nourished Skin: Normal color Head: Normocephalic, nontraumatic Eyes: Clear conjunctiva ENT: Dry oral cavity Neck: Supple, nontender Chest and respiratory: Airway patent, no respiratory distress, no accessory muscle use Heart: Regular rate/rhythm Abdomen: Soft, diffuse tenderness, hyperactive bowel sounds, no organomegaly. Vascular: Normal peripheral pulses, normal capillary refill. 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 Objective Data Vital Signs Vital Signs: Vital Signs - 24 hr 05/31/23 12:00 05/31/23 16:13 05/31/23 16:19 Temperature Pulse Rate 60 Respiratory Rate 20 18 18 Blood Pressure 117/64 Pulse Oximetry 98 96 Oxygen Delivery Nasal Cannula Oxygen Flow Rate 1 Fraction of Inspired Oxygen 24 05/31/23 16:26 05/31/23 16:00 05/31/23 20:02 Temperature Pulse Rate 60 79 Respiratory Rate 18 20 18 Blood Pressure 115/56 L Pulse Oximetry 98 Oxygen Delivery Oxygen Flow Rate Fraction of Inspired Oxygen 05/31/23 20:16 05/17
[2023-06-01] MEDS: ALBUMIN HUMAN 25% 25 GM/100 ML 200 ML IVPB ×3 (10:14→23:18)
[2023-06-01] MEDS: MIDODRINE HCL 2.5 MG TABLET 5 MG PO ×3 (10:15→17:08)
[2023-06-01] MEDS: ROSUVASTATIN 10 MG TABLET 40 MG PO (10:15)
[2023-06-01] MEDS: FIDAXOMICIN 200 MG TABLET PO ×2 (10:16→20:32)
[2023-06-01] MEDS: POTASSIUM CHLORIDE 20 MEQ ER TABLET 40 MEQ PO ×2 (10:16→17:08)
[2023-06-01] MEDS: CLOPIDOGREL BISULFATE 75 MG TABLET PO (10:16)
[2023-06-01] MEDS: MAGNESIUM OXIDE 400 MG TABLET PO (10:16)
[2023-06-01] MEDS: TAMSULOSIN HCL 0.4 MG CAPSULE PO (10:16)
[2023-06-01] MEDS: ASPIRIN 81 MG CHEWABLE TABLET PO (10:17)
[2023-06-01] MEDS: METOPROLOL SUCCINATE EXT REL 25 MG TABCR PO (10:17)
[2023-06-01] MEDS: ACETAMINOPHEN 325 MG TABLET 650 MG PO ×2 (10:41→20:38)
--- NOTE | 2023-06-01 12:46 | WPDGIPROGNO ---
Progress Note: A&P Assessment and Plan (1) Recurrent Clostridioides difficile infection: Code(s): A49.8 - Other bacterial infections of unspecified site Status: Acute Assessment and Plan: on dificid clinically better, he denies any more diarrhea plan is to complete dificid treatment and can be done in outpatient setting, after he leaves the hospital will receive vowst (2-3 days after completing c diff- will need to take Mag citrate night before of using voswt) still getting medical treatment here (iv albumin, noted bump in creatinine, still leg edema, etc) (2) Pancolitis: Code(s): K51.00 - Ulcerative (chronic) pancolitis without complications Status: Acute Assessment and Plan: no pain and he denies any more diarrhea eating (3) Leukocytosis: Code(s): D72.829 - Elevated white blood cell count, unspecified Status: Acute Assessment and Plan: wbc normal (4) Urinary tract infection: Qualifiers: Hematuria presence: without hematuria Urinary tract infection type: site unspecified Qualified Code(s): N39.0 - Urinary tract infection, site not specified Code(s): N39.0 - Urinary tract infection, site not specified Status: Acute Assessment and Plan: already treated and not longer on rocephin (5) Stage 3a chronic kidney disease: Code(s): N18.31 - Chronic kidney disease, stage 3a Status: Chronic Assessment and Plan: noted elevated creatinine today (6) Congestive heart failure: Qualifiers: Heart failure chronicity: chronic Heart failure type: right-sided Qualified Code(s): I50.812 - Chronic right heart failure Code(s): I50.9 - Heart failure, unspecified Status: Chronic Subjective Date/time seen: 06/01/23 12:46 Interval history: denies any more diarrhea just generalized weakness as usual, getting iv albumin Review of Systems Review of Systems: All systems reviewed & are unremarkable except as noted in HPI and below Exam Const: General: comfortable and no acute distress Other: chronically ill appearing HENMT: Face/Nose/Sinus: Normal nares present Eyes: General: appearance normal, both eyes and all related structures Neck: Neck: supple Resp: Auscultation: clear to auscultation bilaterally Cardio: Rate: regular rate Rhythm: regular rhythm GI: Inspection: distended GI Palp: Yes Soft to palpation, No Tenderness to palpation present (GI) and No Guarding due to palpation present (GI) Auscultation: normal bowel sounds Skin: General skin exam: normal color Neuro: Speech: normal speech Motor exam (neuro): 5/5 motor strength present throughout Extrem: General: pedal edema (2+) bilaterally Psych: Mental Status: mental status grossly normal Objective Data Vital Signs Vital Signs: Vital Signs - 24 hr 05/31/23 16:13 05/31/23 16:19 05/31/23 16:26 Temperature Pulse Rate Respiratory Rate 18 18 18 Blood Pressure Pulse Oximetry 96 Oxygen Delivery Nasal Cannula Oxygen Flow Rate 1 Fraction of Inspired Oxygen 24 05/31/23 16:00 05/31/23 20:02 05/31/23 20:16 Temperature Pulse Rate 60 79 84 Respiratory Rate 20 18 18 Blood Pressure 115/56 L Pulse Oximetry 98 Oxygen Delivery Oxygen Flow Rate Fraction of Inspired Oxygen 05/31/23 20:00 05/31/23 21:49 05/31/23 20:10 Temperature 98.2 F 98.2 F Pulse Rate 61 61 61 Respiratory Rate 18 18 18 Blood Pressure 112/54 L 112/54 L Pulse Oximetry 99 99 99 Oxygen Delivery Nasal Cannula Oxygen Flow Rate 1 Fraction of Inspired Oxygen 24 06/01/23 02:06 06/01/23 02:18 06/01/23 04:00 Temperature 98.7 F Pulse Rate 78 84 61 Respiratory Rate 18 18 20 Blood Pressure 124/54 L Pulse Oximetry 100 Oxygen Delivery Oxygen Flow Rate Fraction of Inspired Oxygen 06/01/23 07:00 06/01/23 07:00 06/01/23 07:10 Temperature Pulse Rate 68 68 70 Respiratory Rate 16 16 16 Blood P
[2023-06-01] MEDS: DICLOFENAC SODIUM 1% 100 GM GEL (*BKC) 1 APPLIC TOPICAL (13:42)
[2023-06-01] MEDS: SERTRALINE HCL 25 MG TABLET PO (20:32)
[2023-06-02] VITALS (12 sets, daily range): BP systolic 107–127; BP diastolic 52–56; PULSE 60–120; RESP 16–28; TEMP 35.5–36.3; O2SAT 94–98
[2023-06-02] MEDS: IPRATROPIUM BR 0.02% INH SOLN 0.5 MG/2.5 ML VIAL INHALATION ×3 (02:33→13:59)
[2023-06-02] MEDS: ALBUTEROL SULFATE NEB 2.5 MG/3 ML INH INHALATION ×3 (02:34→13:59)
[2023-06-02] MEDS: ALBUMIN HUMAN 25% 25 GM/100 ML 200 ML IVPB (05:19)
[2023-06-02 08:45] LABS: Glucose Point of Care 95 mg/dl (65-105)
--- NOTE | 2023-06-02 08:46 | PM.IMPN ---
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 Status: Acute Assessment and Plan: C diff positive in the nursing facility reported On Dificid Will follow with Vowst which has apparently been delivered to the skilled nursing to use On fecal management system Which has been discontinued Await improvement in his current C diff infection WBC count is improved as well as bowel movement decreased Ensure fidaxomicin is available for discharge Needs order for vowst at discharge. it is already delivered to the skilled nursing to use After completion of Dificid 10 days, needs vowst 2-3 days after completing C diff. Maxi treat night before use of vowst. See GI (2) Recurrent Clostridioides difficile infection: Code(s): A49.8 - Other bacterial infections of unspecified site Status: Acute Assessment and Plan: patient to be started on Vowst after finishing this course of fidaxomicin (3) Leukocytosis: Code(s): D72.829 - Elevated white blood cell count, unspecified Status: Acute Assessment and Plan: Likely secondary to C.diff this is resolved but slightly worse today Had an episode of coughing earlier last night and feels a bit short of breath will get chest x-ray which showed opacities in bilateral mid and lower lung zones which could represent atelectasis mild pulmonary edema pneumonia or some combination thereof. There are small bilateral pleural effusion. Cardiomegaly. hold diuresis as creatinine bumped up today no sign of overload . (4) Acute on chronic renal failure: Code(s): N17.9 - Acute kidney failure, unspecified; N18.9 - Chronic kidney disease, unspecified Status: Acute Assessment and Plan: gentle hydration continue to monitor daily BMP holding Lasix Leg are soft legs getting swollen also has hypoalbuminemia. Give couple doses of albumin for blood pressure and edema Creatinine slightly up today recheck in a.m. and monitor (5) Generalized weakness: Code(s): R53.1 - Weakness Status: Acute Assessment and Plan: likely secondary to debilitating infection with C diff currently residing at skilled nursing (6) Cardiac LV ejection fraction of 35-39%: Code(s): R94.30 - Abnormal result of cardiovascular function study, unspecified Status: Acute Assessment and Plan: daily intake and output patient appears comfortable no crackles on physical exam continue to monitor hold diurese now cautious fluid resuscitation (7) Aspiration pneumonia: Code(s): J69.0 - Pneumonitis due to inhalation of food and vomit Status: Acute Assessment and Plan: Patient denies shortness breast, has worsening cough. Patient was notice choking during eating CT chest abdomen pelvis suggests that lower lobe pneumonia Will keep patient NPO Speech will evaluate patient Start cefepime and Flagyl IV Hold oral medications Plan Patient condition deteriorates, I have discussed patient and patient daughter about his condition, and also talks about patient's code status with the patient in presents of patient's daughter the POA of the patient. Patient wishes DNR DNI Subjective Date/time seen: 06/02/23 08:46 Interval history: I saw exam patient today, patient has worsening cough, notice choking during eating, and patient also has shortness of breath. Patient is also noted to have hypoxemia Exam Narrative: General appearance: Well-developed, well-nourished Skin: Normal color Head: Normocephalic, nontraumatic Eyes: Clear conjunctiva ENT: Dry oral cavity Neck: Supple, nontender Chest and respiratory: Airway patent, coarse breath sounds bilateral base, tachypnea, Heart: Regular rate/rhythm Abdomen: Soft, diffuse tenderness, hyperactive bowel sounds, no organomegaly. Vascular: Normal peripheral pulses, normal capillary refill. Lower extremity ed
[2023-06-02] MEDS: ROSUVASTATIN 10 MG TABLET 40 MG PO (08:56)
[2023-06-02] MEDS: MAGNESIUM OXIDE 400 MG TABLET PO (08:56)
[2023-06-02] MEDS: TAMSULOSIN HCL 0.4 MG CAPSULE PO (08:56)
[2023-06-02] MEDS: POTASSIUM CHLORIDE 20 MEQ ER TABLET 40 MEQ PO (08:56)
[2023-06-02] MEDS: MIDODRINE HCL 2.5 MG TABLET 5 MG PO (08:57)
[2023-06-02] MEDS: METOPROLOL SUCCINATE EXT REL 25 MG TABCR PO (08:57)
[2023-06-02] MEDS: CLOPIDOGREL BISULFATE 75 MG TABLET PO (08:57)
[2023-06-02] MEDS: FIDAXOMICIN 200 MG TABLET PO (08:57)
[2023-06-02] MEDS: ASPIRIN 81 MG CHEWABLE TABLET PO (08:57)
[2023-06-02] MEDS: ACETAMINOPHEN 325 MG TABLET 650 MG PO (09:05)
--- NOTE | 2023-06-02 09:20 | PCOTNOTE ---
Per RN, ask Patient and his daughter. RN stated Patient is not having a good morning, not feeling well at all. Patient and his daughter declined services at this time.
--- NOTE | 2023-06-02 09:25 | PCPTNOTE ---
The patient treatment was not able to be completed at this time due to patient not feeling well. Patient declined therapy. Will plan to continue treatment per plan of care.
[2023-06-02 09:51] LABS: Basophils Percent Auto 0.4 % (0.2-1.2); Eosinophils Absolute Auto 0.2 K/mm3 (0-0.3); Eosinophils Percent Auto 2.6 % (0-4.4); Hematocrit 27.1 % (42.0-52.0); Hemoglobin 8.2 g/dL (14.0-18.0); Immature Granulocyte Absolute 0.03 K/mm3 (0.00-0.031); Immature Granulocyte Percent A 0.4 % (0-0.5); Immature Platelet Fraction Pct 6.2 % (0.9-11.2); Mean Corpuscular HGB Conc 30.3 g/dl (32-36); Mean Corpuscular Hemoglobin 29.7 pg (26-34); Mean Corpuscular Volume 98.2 fl (80-100); Monocytes Absolute Auto 1.1 K/mm3 (0.1-0.6); Monocytes Percent Auto 14.3 % (2.6-8.5); Neutrophils Absolute Auto 6.2 K/mm3 (1.3-6.7); Neutrophils Percent Auto 77.3 % (45.5-73.1); Platelet Count Result 92 k/mm3 (150-375); Red Blood Count 2.76 M/mm3 (4.6-6.20); Red Cell Distribution Width 17.9 % (11.5-14.5)
[2023-06-02 09:59] LABS: Anion Gap 11 mmol/L (8-16); Blood Urea Nitrogen 22 mg/dL (9-20); Calcium 9.3 mg/dL (8.4-10.2); Carbon Dioxide 25 mmol/L (22-30); Chloride 102 mmol/L (98-107); Estimated CRCL calculation 22 ml/min; Estimated Glomerular Filt Rate 29; Glucose 91 mg/dL (65-110); Potassium 4.7 mmol/L (3.4-5.0); Sodium 138 mmol/L (137-145)
[2023-06-02 11:04] LABS: Ovalocytes 1+ (NORMAL)
[2023-06-02 11:05] LABS: Anisocytosis 1+ (NORMAL); Poikilocytosis 1+ (NORMAL); Schistocytes None Seen (NORMAL)
[2023-06-02] MEDS: DEXTROSE 5%/0.9% SOD CHL 1,000 ML 100 ML IV CONT (12:10)
--- NOTE | 2023-06-02 13:29 | PCOTNOTE ---
Per RN, Patient not to be seen this P.M. Patient has a decrease in condition and MD currently discussing with the daughter.
--- NOTE | 2023-06-02 13:41 | PCSTNOTE ---
FLORENCIA Álvarez, contacted [employer] with concerns that patient has been perhaps silently aspirating. A Modified Barium Swallow study is now recommended and ordered for tomorrow to further assess patient's risk for aspiration; it will be completed in the morning. Radiology aware.
[2023-06-02] MEDS: metroNIDAZOLE 500 MG/ISO 100ML 500 MG/100 ML BAG 100 MG IVPB (15:05)
--- NOTE | 2023-06-02 16:10 | WPDGIPROGNO ---
Progress Note: A&P Assessment and Plan (1) Recurrent Clostridioides difficile infection: Code(s): A49.8 - Other bacterial infections of unspecified site Status: Acute Assessment and Plan: on dificid no more diarrhea plan is to complete dificid treatment and can be done in outpatient setting, after he leaves the hospital will receive vowst (2-3 days after completing c diff- will need to take Mag citrate night before of using voswt) still getting medical treatment here (iv albumin, noted bump in creatinine, still leg edema, etc) (2) Acute on chronic renal failure: Code(s): N17.9 - Acute kidney failure, unspecified; N18.9 - Chronic kidney disease, unspecified Status: Acute Assessment and Plan: noted bump in creatinine, by primary team leg edema and generalized weakness (3) Pancolitis: Code(s): K51.00 - Ulcerative (chronic) pancolitis without complications Status: Acute Assessment and Plan: no pain and he denies any more diarrhea eating but still poor appetite (4) Congestive heart failure: Qualifiers: Heart failure chronicity: chronic Heart failure type: right-sided Qualified Code(s): I50.812 - Chronic right heart failure Code(s): I50.9 - Heart failure, unspecified Status: Chronic Subjective Date/time seen: 06/02/23 16:10 Interval history: no diarrhea but he is quite tired, laying in bed Review of Systems Review of Systems: All systems reviewed & are unremarkable except as noted in HPI and below Exam Const: General: comfortable and no acute distress Other: chronically ill appearing HENMT: Face/Nose/Sinus: Normal nares present Eyes: General: appearance normal, both eyes and all related structures Neck: Neck: supple Resp: Auscultation: clear to auscultation bilaterally Cardio: Rate: regular rate Rhythm: regular rhythm GI: Inspection: distended GI Palp: Yes Soft to palpation, No Tenderness to palpation present (GI) and No Guarding due to palpation present (GI) Auscultation: normal bowel sounds Skin: General skin exam: normal color Neuro: Speech: normal speech Motor exam (neuro): 5/5 motor strength present throughout Extrem: General: pedal edema (2+) bilaterally Psych: Mental Status: mental status grossly normal Objective Data Vital Signs Vital Signs: Vital Signs - 24 hr 06/01/23 20:00 06/01/23 20:35 06/01/23 20:22 Temperature 96.6 F L Pulse Rate 72 60 64 Respiratory Rate 16 14 16 Blood Pressure 124/62 Pulse Oximetry 100 100 Oxygen Delivery Nasal Cannula Oxygen Flow Rate 1 Fraction of Inspired Oxygen 24 06/01/23 20:35 06/02/23 00:00 06/02/23 04:00 Temperature 96.4 F L 96 F L Pulse Rate 67 60 61 Respiratory Rate 16 16 18 Blood Pressure 121/54 L 107/52 L Pulse Oximetry 98 97 Oxygen Delivery Oxygen Flow Rate Fraction of Inspired Oxygen 06/02/23 08:28 06/02/23 08:44 06/02/23 08:44 Temperature Pulse Rate 62 62 Respiratory Rate 18 18 16 Blood Pressure Pulse Oximetry 97 Oxygen Delivery Nasal Cannula Oxygen Flow Rate 2 Fraction of Inspired Oxygen 06/02/23 08:57 06/02/23 10:48 06/02/23 11:00 Temperature 96.8 F L Pulse Rate 72 110 H 120 H Respiratory Rate 18 28 H Blood Pressure 127/56 L Pulse Oximetry 98 94 Oxygen Delivery Oxygen Flow Rate Fraction of Inspired Oxygen 06/02/23 08:00 06/02/23 12:00 06/02/23 14:00 Temperature 96.7 F L Pulse Rate 60 68 Respiratory Rate 20 18 Blood Pressure 113/55 L Pulse Oximetry 96 96 Oxygen Delivery Nasal Cannula Oxygen Flow Rate 2 Fraction of Inspired Oxygen 06/02/23 14:11 Temperature Pulse Rate Respiratory Rate 18 Blood Pressure Pulse Oximetry Oxygen Delivery Oxygen Flow Rate Fraction of Inspired Oxygen Intake/Output Intake/Output: Intake & Output 05/30/23 05/31/23 06/01/23 06/02/23 23:59 23:59 23:59 23:59 Intake Total 1410 1080 1120 325 Output T
[2023-06-02 16:34] LABS: Hematocrit 28.9 % (42.0-52.0); Hemoglobin 8.8 g/dL (14.0-18.0)
[2023-06-02] MEDS: MORPHINE SULFATE (*CRX) 2 MG/ML INJ IV PUSH (17:53)
--- NOTE | 2023-06-02 18:12 | PM.DS ---
DS: Admitting Diagnosis Discharge Date 06/02 Admitting Diagnosis C diff pancolitis, DS: Discharge Diagnosis Discharge Diagnosis (1) Pancolitis: Code(s): K51.00 - Ulcerative (chronic) pancolitis without complications Status: Acute Assessment and Plan: C diff positive in the nursing facility reported On Dificid Will follow with Vowst which has apparently been delivered to the [facility] to use On fecal management system Which has been discontinued Await improvement in his current C diff infection WBC count is improved as well as bowel movement decreased Ensure fidaxomicin is available for discharge Needs order for vowst at discharge. it is already delivered to the [facility] to use After completion of Dificid 10 days, needs vowst 2-3 days after completing C diff. Maxi treat night before use of vowst. See GI (2) Recurrent Clostridioides difficile infection: Code(s): A49.8 - Other bacterial infections of unspecified site Status: Acute Assessment and Plan: patient to be started on Vowst after finishing this course of fidaxomicin (3) Leukocytosis: Code(s): D72.829 - Elevated white blood cell count, unspecified Status: Acute Assessment and Plan: Likely secondary to C.diff this is resolved but slightly worse today Had an episode of coughing earlier last night and feels a bit short of breath will get chest x-ray which showed opacities in bilateral mid and lower lung zones which could represent atelectasis mild pulmonary edema pneumonia or some combination thereof. There are small bilateral pleural effusion. Cardiomegaly. hold diuresis as creatinine bumped up today no sign of overload . (4) Acute on chronic renal failure: Code(s): N17.9 - Acute kidney failure, unspecified; N18.9 - Chronic kidney disease, unspecified Status: Acute Assessment and Plan: gentle hydration continue to monitor daily BMP holding Lasix Leg are soft legs getting swollen also has hypoalbuminemia. Give couple doses of albumin for blood pressure and edema Creatinine slightly up today recheck in a.m. and monitor (5) Generalized weakness: Code(s): R53.1 - Weakness Status: Acute Assessment and Plan: likely secondary to debilitating infection with C diff currently residing at [facility] (6) Cardiac LV ejection fraction of 35-39%: Code(s): R94.30 - Abnormal result of cardiovascular function study, unspecified Status: Acute Assessment and Plan: daily intake and output patient appears comfortable no crackles on physical exam continue to monitor hold diurese now cautious fluid resuscitation (7) Aspiration pneumonia: Code(s): J69.0 - Pneumonitis due to inhalation of food and vomit Status: Acute Assessment and Plan: Patient denies shortness breast, has worsening cough. Patient was notice choking during eating CT chest abdomen pelvis suggests that lower lobe pneumonia Will keep patient NPO Speech will evaluate patient Start cefepime and Flagyl IV Hold oral medications Plan Patient condition deteriorates, I have discussed patient and patient daughter about his condition, and also talks about patient's code status with the patient in presents of patient's daughter the POA of the patient. Patient wishes DNR DNI DS: Summary Hospital Course Hospital Course: Per H&P, ?this is an 83-year-old male with past medical history significant for recurrent C difficile colitis, congestive heart failure, obesity, dyslipidemia, benign prostatic hyperplasia, complete heart block, coronary artery disease, dementia, chronic renal failure, pacemaker in situ. patient is currently residing at [facility] was brought to the emergency room due to generalized weakness, altered mental status, poor appetite, profuse diarrhea.? Patient tested positive for C difficile.? Has been admitted for further evaluation management
== END 2023-06-02 18:25 | disposition hospice, inpatient (51) | DRG 371 ==
LOC: ANHED 16:05 → ANH3MEDSUR 17:53
PROVIDERS: Internal Medicine; Admitting Provider Hospitalist; Emergency Provider Emergency Medicine; PCP Family Medicine; Visit Provider Hospitalist
DX: A04.71 Enterocolitis due to Clostridium difficile, recurrent (principal); J69.0 Pneumonitis due to inhalation of food and vomit; K51.00 Ulcerative (chronic) pancolitis without complications; N17.9 Acute kidney failure, unspecified; I13.0 Hypertensive heart and chronic kidney disease with heart failure and stage 1 through stage 4 chronic kidney disease, or unspecified chronic kidney disease; I44.2 Atrioventricular block, complete; N39.0 Urinary tract infection, site not specified; N40.0 Benign prostatic hyperplasia without lower urinary tract symptoms; N18.31 Chronic kidney disease, stage 3a; E78.5 Hyperlipidemia, unspecified; R09.02 Hypoxemia; I25.10 Atherosclerotic heart disease of native coronary artery without angina pectoris; F03.90 Unspecified dementia, unspecified severity, without behavioral disturbance, psychotic disturbance, mood disturbance, and anxiety; D72.829 Elevated white blood cell count, unspecified; I95.1 Orthostatic hypotension; I50.812 Chronic right heart failure; Z79.82 Long term (current) use of aspirin; Z95.0 Presence of cardiac pacemaker; Z85.89 Personal history of malignant neoplasm of other organs and systems; Z90.49 Acquired absence of other specified parts of digestive tract; Z95.5 Presence of coronary angioplasty implant and graft; Z95.1 Presence of aortocoronary bypass graft; Z98.42 Cataract extraction status, left eye; Z98.41 Cataract extraction status, right eye; Z96.1 Presence of intraocular lens; Z87.442 Personal history of urinary calculi; Z87.891 Personal history of nicotine dependence; Z66 Do not resuscitate
CPT/HCPCS: 36415; 71045; 71250; 74018; 74176; 74177; 80048; 80053; 81001; 82948; 83735; 85014; 85018; 85025; 85055; 87086; 87493; 92610; 93005; 94640; 96361; 96365; 97110; 97116; 97161; 97165; 97530; 97535; 99285; A9270; J0696; J1836; J1940; J2270; J2405; J7030; J7042; P9047; Q9967

== ENCOUNTER 2023-06-02 18:34 | HOS | payer OTHER, MEDICARE, BC, SELFPAY ==
[2023-06-02 18:38] VITALS: O2SAT 96
[2023-06-02 20:02] VITALS: PULSE 64; RESP 20
[2023-06-02] MEDS: HYDROmorphone HCL/PF (*CRX) 50 MG in SODIUM CHLORIDE 0.9% IV 95 ML IV CONT (20:02)
[2023-06-02] MEDS: ARTIFICIAL TEARS OPHTH SOLN 15 ML BOTTLE EACH EYE (20:16)
[2023-06-02 20:20] VITALS: O2SAT 100
[2023-06-02 22:34] VITALS: BP 120/50; PULSE 38; RESP 20; TEMP 36.5; O2SAT 100
[2023-06-03] MEDS: diazePAM INJ (*CRX) 10 MG/2 ML SYRINGE 5 MG IV PUSH ×2 (06:15→20:37)
[2023-06-03] MEDS: HYDROmorphone HCL INJ (*CRX) 1 MG/ML SYR 0.5 MG IV PUSH ×2 (06:23→09:04)
[2023-06-03] MEDS: GLYCOPYRROLATE INJ (*SP) 0.2 MG/ML VIAL 0.1 MG IV PUSH ×3 (06:23→18:39)
[2023-06-03 06:35] VITALS: PULSE 60; RESP 6; O2SAT 100
[2023-06-03 08:00] VITALS: BP 111/50; PULSE 60; RESP 6; TEMP 37; O2SAT 100
--- NOTE | 2023-06-03 11:40 | PM.IMHP ---
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 Has failed treatment with IV Flagyl and oral vancomycin as well as oral Dificid multiple times. He has been to [facility] transplant. He recently became more weak severely malnourished and dysphagia. He developed aspiration pneumonia. He was not improving with appropriate antibiotics. He experienced acute on chronic kidney failure with creatinine increasing to 2.2 on 06/02/2023. Because of his failure to improve with multiple comorbidities and declining functional status he and his daughter opted for inpatient hospice from control of his symptoms. Review of Systems Review of Systems: ROS unobtainable: Yes unobtainable due to medical condition PMFSH Past Medical History Medical History Acute on chronic renal failure BPH (benign prostatic hyperplasia) Complete heart block Status post pacemaker Coronary artery disease Dementia History of cardiomyopathy With a history of a EF of 25-35% but most recent echo 02/2023: 1. Left ventricular chamber dimension is normal. 2. Left ventricular systolic function is normal, estimated at 60-65%. 3. There is mildly increased left ventricular wall thickness. 4. Left ventricular septal wall motion is abnormal with septal motion related to pacing. 5. Right ventricular chamber dimension is normal. 6. Right ventricular systolic function is reduced. 7. Left atrial chamber dimension is mildly enlarged. 8. There is moderate aortic valve sclerosis. 9. There is mild aortic valve regurgitation. 10. There is mild mitral valve regurgitation. 11. There is mild tricuspid valve regurgitation. 12. There is mild pulmonic regurgitation. 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 Surgical History Surgical History H/O circumcision As a child and in 03/13/2013 History of cholecystectomy History of heart artery stent X2 History of hemorrhoidectomy 01/27/1981 Hx of CABG Four vessel CABG 1992 Status post cataract extraction of both eyes with insertion of intraocular lens Family History Family History Grandparent Hypertension Father Family history of cardiovascular disease Mother Family history of cardiovascular disease Sibling Family history of cardiovascular disease Son Acute myocardial infarction, Onset Age: 35 Son Lung cancer, Onset Age: 49 Social History Social History (Updated 06/03/23 @ 11:42 by Kyle Mcgee MD) Social History: He usually lives at [facility]. He is currently at [facility] rehab following his hospitalization for C diff because his assisted living will not take a person who is C diff positive back to their facility. He has one daughter who is his POA. His 1 son of an [place] at age 35. His other son at 49 due to lung cancer. The patient used to work at [employer] still but is now retired. He has been since 2004. Prior to admission he ambulated with a walker and sometimes used a wheelchair. Code status: DNR Healthcare power of workers compensation attorney: Daughter Smoking packs per day: 1.5 Smoking cigarettes per day: 30.0 Years smoked: 30 Smoking pack-years: 45.00 Smoking status: Never smoker Tobacco type: cigarettes Second hand tobacco smoke exposure: No Smoking
[2023-06-03] MEDS: HYDROmorphone HCL INJ (*CRX) 1 MG/ML SYR IV PUSH (18:28)
[2023-06-03 18:39] VITALS: PULSE 60; RESP 12
[2023-06-03] MEDS: HYDROmorphone HCL/PF (*CRX) 50 MG in SODIUM CHLORIDE 0.9% IV 95 ML IV CONT (18:39)
[2023-06-03 20:00] VITALS: BP 93/35; PULSE 35; RESP 8; TEMP 36.7; O2SAT 99
--- NOTE | 2023-06-03 20:12 | PC.NURSE ---
Requested dilaudid drip rate increase. Waiting to hear from [facility]. 0900. Received new order; placed in [employer]. Changed in pump, but this RN forgot to change rate in DEC. Medication rate changed to 0.5mg/1ml/hr at 10:00. Pt began choking on secretions approx 1800. Began suctioning pt, requiring use of PRNs. Call to [facility] at [phone] to request additional medication to comfort patient. Left message with exchange for RN to call either Galileo or Deb on nights. Pt family made aware of request.
[2023-06-04 08:00] VITALS: BP 90/35; PULSE 31; RESP 10; TEMP 37.3; O2SAT 99
[2023-06-04] MEDS: HYDROmorphone HCL INJ (*CRX) 1 MG/ML SYR IV PUSH ×2 (11:26→17:57)
[2023-06-04] MEDS: GLYCOPYRROLATE INJ (*SP) 0.2 MG/ML VIAL 0.1 MG IV PUSH ×2 (11:28→17:56)
[2023-06-04] MEDS: diazePAM INJ (*CRX) 10 MG/2 ML SYRINGE 5 MG IV PUSH ×2 (11:30→17:59)
--- NOTE | 2023-06-04 12:46 | PM.IMPN ---
Progress Note: A&P Assessment and Plan (1) Palliative care encounter: Code(s): Z51.5 - Encounter for palliative care Status: Acute Assessment and Plan: Meet inpatient hospice criteria due to requiring continuous IV hydromorphone for control of discomfort and restlessness Remainder palliative regimen as ordered 06/03/23 Discussed with daughter, DINORA, at bedside 06/04/23 discussed with family at bedside (2) Pancolitis: Code(s): K51.00 - Ulcerative (chronic) pancolitis without complications Status: Acute (3) Aspiration pneumonia: Code(s): J69.0 - Pneumonitis due to inhalation of food and vomit Status: Acute (4) Recurrent Clostridioides difficile infection: Code(s): A49.8 - Other bacterial infections of unspecified site Status: Acute (5) Acute on chronic renal failure: Code(s): N17.9 - Acute kidney failure, unspecified; N18.9 - Chronic kidney disease, unspecified Status: Acute (6) Sepsis: Qualifiers: Acute renal failure type: unspecified Sepsis acute organ dysfunction status: with acute organ dysfunction Sepsis type: sepsis due to unspecified organism Severe sepsis acute organ dysfunction type: acute renal failure Severe sepsis shock status: without septic shock Qualified Code(s): A41.9 - Sepsis, unspecified organism; R65.20 - Severe sepsis without septic shock; N17.9 - Acute kidney failure, unspecified Code(s): A41.9 - Sepsis, unspecified organism Status: Acute (7) Congestive heart failure: Qualifiers: Heart failure chronicity: chronic Heart failure type: right-sided Qualified Code(s): I50.812 - Chronic right heart failure Code(s): I50.9 - Heart failure, unspecified Status: Chronic (8) Coronary artery disease: Qualifiers: Associated angina: without angina Coronary Disease-Associated Artery/Lesion type: [place] artery [place] vs. transplanted heart: [place] heart Qualified Code(s): I25.10 - Atherosclerotic heart disease of [place] coronary artery without angina pectoris Code(s): I25.10 - Atherosclerotic heart disease of [place] coronary artery without angina pectoris Status: Acute (9) Pacemaker: Code(s): Z95.0 - Presence of cardiac pacemaker Status: Acute Subjective Date/time seen: 06/04/23 12:46 Interval history: Remains comfortable on current regimen. Review of Systems Review of Systems: ROS unobtainable: Yes unobtainable due to medical condition Exam Narrative: Elderly gentleman lying in his hospital bed no acute distress. Responds minimally to verbal and tactile stimuli. Neck without JVD. Chest with coarse breath sounds, normal effort, scattered coarse crackles in lower lobes. Heart normal S1-S2 with regular rate and occasional premature beat. No audible murmurs. Abdomen protuberant, soft, nontender, no masses, hypoactive bowel sounds. Extremities 2+ pitting edema of ankles. Musculoskeletal without gross deformity to visual inspection. Neurologic cranial nerves symmetric to visual inspection. Objective Data Vital Signs Vital Signs: Vital Signs - 24 hr 06/03/23 18:39 06/03/23 18:39 06/03/23 20:00 Temperature 98.1 F Pulse Rate 60 60 35 L Respiratory Rate 12 12 8 L Blood Pressure 93/35 L Pulse Oximetry 99 Oxygen Delivery Oxygen Flow Rate 06/04/23 08:00 Temperature Pulse Rate Respiratory Rate Blood Pressure Pulse Oximetry 99 Oxygen Delivery Nasal Cannula Oxygen Flow Rate 1 Intake/Output Intake/Output: Intake & Output 06/01/23 06/02/23 06/03/23 06/04/23 23:59 23:59 23:59 23:59 Intake Total 100 Output Total 25 300 Balance 75 -300 Meds/Results Medications: Active Medications Generic Name Dose Route Start Last Admin Trade Name Freq PRN Reason Stop Dose Admin Artificial Tears 1 - 2 drop 06/02/23 18:55 06/02/23 20:16 Artificial Tears Ophth Soln 15 Ml Bottle EACH EYE 1 drop Q12
[2023-06-04 20:00] VITALS: BP 107/31; PULSE 61; RESP 8; TEMP 39.7; O2SAT 98
[2023-06-04] MEDS: PROCHLORPERAZINE EDISYLATE 10 MG/2 ML VIAL IV PUSH (20:10)
[2023-06-04 21:52] VITALS: TEMP 39.7
[2023-06-04] MEDS: ACETAMINOPHEN 650 MG SUPPOSITORY RECTAL (21:52)
[2023-06-05 00:20] VITALS: TEMP 37
[2023-06-05] MEDS: GLYCOPYRROLATE INJ (*SP) 0.2 MG/ML VIAL 0.1 MG IV PUSH ×5 (00:21→21:43)
[2023-06-05] MEDS: HYDROmorphone HCL INJ (*CRX) 1 MG/ML SYR IV PUSH (00:29)
[2023-06-05 03:10] VITALS: PULSE 60; RESP 7
[2023-06-05] MEDS: HYDROmorphone HCL/PF (*CRX) 50 MG in SODIUM CHLORIDE 0.9% IV 95 ML IV CONT (03:10)
[2023-06-05 08:00] VITALS: BP 106/40; PULSE 61; RESP 8; TEMP 38.8; O2SAT 100
[2023-06-05 09:08] VITALS: O2SAT 99
[2023-06-05] MEDS: diazePAM INJ (*CRX) 10 MG/2 ML SYRINGE 5 MG IV PUSH ×2 (12:48→18:38)
--- NOTE | 2023-06-05 13:02 | PM.IMPN ---
Progress Note: A&P Assessment and Plan (1) Palliative care encounter: Code(s): Z51.5 - Encounter for palliative care Status: Acute Assessment and Plan: Meet inpatient hospice criteria due to requiring continuous IV hydromorphone for control of discomfort and restlessness Remainder palliative regimen as ordered 06/03/23 Discussed with daughter, DINORA, at bedside 06/04/23 discussed with family at bedside (2) Pancolitis: Code(s): K51.00 - Ulcerative (chronic) pancolitis without complications Status: Acute (3) Aspiration pneumonia: Code(s): J69.0 - Pneumonitis due to inhalation of food and vomit Status: Acute (4) Recurrent Clostridioides difficile infection: Code(s): A49.8 - Other bacterial infections of unspecified site Status: Acute (5) Acute on chronic renal failure: Code(s): N17.9 - Acute kidney failure, unspecified; N18.9 - Chronic kidney disease, unspecified Status: Acute (6) Sepsis: Qualifiers: Sepsis type: sepsis due to unspecified organism Sepsis acute organ dysfunction status: with acute organ dysfunction Severe sepsis acute organ dysfunction type: acute renal failure Acute renal failure type: unspecified Severe sepsis shock status: without septic shock Qualified Code(s): A41.9 - Sepsis, unspecified organism; R65.20 - Severe sepsis without septic shock; N17.9 - Acute kidney failure, unspecified Code(s): A41.9 - Sepsis, unspecified organism Status: Acute (7) Congestive heart failure: Qualifiers: Heart failure chronicity: chronic Heart failure type: right-sided Qualified Code(s): I50.812 - Chronic right heart failure Code(s): I50.9 - Heart failure, unspecified Status: Chronic (8) Coronary artery disease: Qualifiers: Coronary Disease-Associated Artery/Lesion type: [place] artery [place] vs. transplanted heart: [place] heart Associated angina: without angina Qualified Code(s): I25.10 - Atherosclerotic heart disease of [place] coronary artery without angina pectoris Code(s): I25.10 - Atherosclerotic heart disease of [place] coronary artery without angina pectoris Status: Acute (9) Pacemaker: Code(s): Z95.0 - Presence of cardiac pacemaker Status: Acute Subjective Date/time seen: 06/05/23 13:02 Interval history: Febrile overnight. But remains comfortable on current regimen. Review of Systems Review of Systems: ROS unobtainable: Yes unobtainable due to medical condition Exam Narrative: Elderly gentleman lying in his hospital bed no acute distress. Responds minimally to verbal and tactile stimuli. Neck without JVD. Chest with coarse breath sounds, normal effort, scattered coarse crackles in lower lobes. Heart normal S1-S2 with regular rate and occasional premature beat. No audible murmurs. Abdomen protuberant, soft, nontender, no masses, hypoactive bowel sounds. Extremities 2+ pitting edema of ankles. Musculoskeletal without gross deformity to visual inspection. Neurologic cranial nerves symmetric to visual inspection. Objective Data Vital Signs Vital Signs: Vital Signs - 24 hr 06/04/23 20:00 06/04/23 21:52 06/05/23 00:20 Temperature 103.4 F H 103.4 F H 98.6 F Pulse Rate 61 Respiratory Rate 8 L Blood Pressure 107/31 L Pulse Oximetry 98 Oxygen Delivery Oxygen Flow Rate 06/05/23 03:10 06/05/23 03:10 06/05/23 09:08 Temperature Pulse Rate 60 60 Respiratory Rate 7 L 7 L Blood Pressure Pulse Oximetry 99 Oxygen Delivery Nasal Cannula Oxygen Flow Rate 5.5 Intake/Output Intake/Output: Intake & Output 06/02/23 06/03/23 06/04/23 06/05/23 23:59 23:59 23:59 23:59 Intake Total 100 100 Output Total 25 300 Balance 75 -300 100 Meds/Results Medications: Active Medications Generic Name Dose Route Start Last Admin Trade Name Freq PRN Reason Stop Dose Admin Acetaminophen 650 mg 06/04/23
[2023-06-05] MEDS: ACETAMINOPHEN 650 MG SUPPOSITORY RECTAL (17:03)
[2023-06-05 20:00] VITALS: BP 100/47; PULSE 119; RESP 20; TEMP 37; O2SAT 91
[2023-06-06 00:15] VITALS: TEMP 37.5
[2023-06-06 00:51] VITALS: TEMP 37.6
[2023-06-06] MEDS: diazePAM INJ (*CRX) 10 MG/2 ML SYRINGE 5 MG IV PUSH (00:51)
[2023-06-06] MEDS: ACETAMINOPHEN 650 MG SUPPOSITORY RECTAL (00:51)
[2023-06-06] MEDS: GLYCOPYRROLATE INJ (*SP) 0.2 MG/ML VIAL 0.1 MG IV PUSH ×2 (01:49→06:35)
[2023-06-06 02:57] VITALS: PULSE 108; RESP 16
[2023-06-06] MEDS: HYDROmorphone HCL/PF (*CRX) 50 MG in SODIUM CHLORIDE 0.9% IV 95 ML IV CONT ×2 (02:57→12:00)
[2023-06-06 05:00] VITALS: TEMP 37.6
[2023-06-06 08:00] VITALS: BP 75/29; PULSE 69; RESP 12; TEMP 37.6; O2SAT 91
--- NOTE | 2023-06-06 11:52 | PC.NURSE ---
Pt this shift. Pt daughter at bedside. Pt was weaned down to 3L from 4L O2 this shift. Drip stopped, IV removed, pt cleaned up. Charge nurse notified appropriate people and facilities.
[2023-06-06 12:00] VITALS: PULSE 0; RESP 0
--- NOTE | 2023-06-06 12:15 | PC.NURSE ---
Addendum entered by Miladys Chong RN 06/06/23 14:53: Patient candidate for donation. Holding patient in morgue until [facility] returns phone call. Original Note: Called [facility] with morgue time of 1210.
--- NOTE | 2023-06-06 15:21 | PM.DDS ---
Discharge Summary Date and Time Date of : 06/06/23 Time of : 10:42 Provider Pronounced By: Isa Madrid RN Probable Cause of Probable Cause of : Sepsis due to pancolitis due to c diff colitis and respiratory failure due to aspiration pneumonia Summary Hospital Course: Admitted to inpatient hospice service for uncontrolled dyspnea and restlessness. Medications were titrated to comfort. Mr. Luis peacefully with family at bedside. Additional Data Confirmation of as documented by pronouncing clinician: Pupillary Reflex, Palpable Pulses, Response to Stimuli, Heart Tones and Breath Sounds Name of Provider Notified: Dr. Kyle ALVA notified Time Provider Notified: 10:47 Service Technician Notified: Yes Date [facility] Notified of : 06/06/23 Time [facility] Notified of : 10:57
--- NOTE | 2023-06-06 16:51 | PC.NURSE ---
[facility] called and stated family denied donation. Can release to home.
--- NOTE | 2023-06-06 17:15 | PC.NURSE ---
Called [facility] in [place] @ [phone]. Director to call back.
== END 2023-06-06 10:42 | disposition expired | DRG 951 ==
PROVIDERS: Admitting Provider Internal Medicine; PCP Family Medicine; Visit Provider Internal Medicine
DX: Z51.5 Encounter for palliative care (principal); A41.9 Sepsis, unspecified organism; R65.20 Severe sepsis without septic shock; J69.0 Pneumonitis due to inhalation of food and vomit; J96.90 Respiratory failure, unspecified, unspecified whether with hypoxia or hypercapnia; K51.018 Ulcerative (chronic) pancolitis with other complication; A04.71 Enterocolitis due to Clostridium difficile, recurrent; N17.9 Acute kidney failure, unspecified; N18.9 Chronic kidney disease, unspecified; I50.812 Chronic right heart failure; I25.10 Atherosclerotic heart disease of native coronary artery without angina pectoris; Z95.0 Presence of cardiac pacemaker; Z66 Do not resuscitate
CPT/HCPCS: A9270; J0780; J1170; J3360